=== PATIENT | female | born 1975 | race Caucasian/White ===

== ENCOUNTER 2023-08-29 14:31 | Inpatient (IN) ==
[2023-08-29] MEDS: methylPREDNISolone 125 MG/2 ML VIAL IV STA (14:49)
[2023-08-29] MEDS: EPINEPHrine ADULT AUTO-INJECT 0.3 MG SYR IM ONE (14:50)
[2023-08-29] MEDS: diphenhydrAMINE 50 MG/ML VIAL ONE (14:52)
[2023-08-29] MEDS: diphenhydrAMINE 50 MG/ML VIAL IV STA (14:52)
[2023-08-29] MEDS: methylPREDNISolone 125 MG/2 ML VIAL ONE (14:53)
[2023-08-29] MEDS: FAMOTIDINE 20MG IV PUSH 20 MG/5 ML SYR IV STA (14:53)
[2023-08-29] MEDS: FAMOTIDINE 20MG/5ML IV PUSH IV ONE (14:53)
[2023-08-29] MEDS: EPINEPHrine INJ 1 MG/ML AMP IM STA (14:53)
[2023-08-29] MEDS: SODIUM CHLORIDE 0.9% 2,000 ML IV SCH (15:00)
[2023-08-29] MEDS: ALBUT/IPRATROP 3MG/0.5MG NEB 3 ML VIAL NEB STA (15:00)
[2023-08-29 15:01] LABS: Basophils # (auto) 0.09 K/uL (0.00-0.20); Basophils % (auto) 0.8 %; Eosinophils # (auto) 0.16 K/uL (0.00-0.50); Eosinophils % (auto) 1.4 %; Hematocrit (blood only) 44.3 % (37.0-47.0); Immature Granulocytes # (auto) 0.08 K/uL (0.01-0.20); Immature Granulocytes % (auto) 0.7 %; Lymphocytes # (auto) 4.13 K/uL (1.20-3.40); Lymphocytes % (auto) 36.3 %; Mean Corpuscular Hemoglobin 30.7 pg (25.0-34.0); Mean Corpuscular Hgb Conc 33.9 g/dL (32.0-36.0); Mean Corpuscular Volume 90.6 fL (80.0-100.0); Mean Platelet Volume 9.6 fL (9.4-12.4); Monocytes # (auto) 0.98 K/uL (0.11-0.59); Monocytes % (auto) 8.6 %; Neutrophils # (auto) 5.94 K/uL (1.40-6.50); Neutrophils % (auto) 52.2 %; Platelet Count 361 K/uL (130-400); RDW Coefficient of Variation 12.4 % (11.5-14.5); RDW Standard Deviation 41.4 fL (36.4-46.3); Red Blood Count 4.89 M/uL (4.20-5.40); White Blood Count 11.38 K/ul (4.8-10.8)
[2023-08-29 15:20] LABS: Albumin Globulin Ratio 1.7 (0.9-2); Albumin Level 4.8 gm/dl (3.4-5.0); BUN Creatinine Ratio 14.6 (10-20); Bilirubin,Total 0.4 mg/dl (0.2-1.0); Calcium 9.4 mg/dl (8.6-10.3); Creatinine Clr Calc Pharmacy 57.1 ml/min; Est GFR (African American) 82.2 ml/min; Est GFR (Non-African American) 70.9 ml/min; Globulin 2.8 gm/dl (2.5-4.0); Potassium 3.2 mmol/L (3.5-5.1); Total Protein 7.6 gm/dl (6.0-8.3)
--- NOTE | 2023-08-29 15:33 | Emergency Department Note ---
Impression & Plan Anaphylaxis, Allergy to nuts, Acute bronchospasm ED Provider Note NAME: MENG BARBOSA AGE: 48 SEX: F : 1975 ARRIVES VIA: Walk-In INFORMANT: Patient ED PROVIDER(S): Jian Dailey MD CHIEF COMPLAINT: Anaphylaxis PLAN: Disposition: Admit MEDICAL DECISION MAKING: The patient is a pleasant 48-year-old woman with a past medical history of hypertension, asthma, anaphylaxis with history of severe peanut allergy who presents to the emergency department with acute onset of shortness of breath with wheezing and facial redness/flushing and increased secretions where she had administered her epi pen in her right thigh but has not had significant improvement. Patient reports she tries to make sure her EpiPen's are up-to-date. Review of this EpiPen shows that it was and June of this year though should still be effective. She is unsure of any obvious triggers. She has a history of having anaphylaxis related to a coworker eating a nut containing item in the same break room. On my evaluation the patient is uncomfortable in moderate distress, afebrile with respiratory in the 30s, heart rate in the 100s and blood pressure 140/80s. She has wheezes bilateral lung sidhu. Her face, neck and shoulders are flushed. There is no overt oropharyngeal edema. There is no tongue elevation or trismus. There is no stridor. Given the patient's presentation concerning for anaphylaxis patient was given second dose of IM epinephrine with 0.3 mg as well as 125 mg Solu-Medrol, 50 mg of diphenhydramine, 20 mg of famotidine and 2 L normal saline. Patient subsequently did have improvement in her symptoms though still some mild redness of her face and neck. EKG without overt acute ischemia. WBC 11.3 K, nonspecific without left shift. H/H and platelets within normal limits. Chemistry without metabolic acidosis. Electrolytes and LFTs unremarkable. Tryptase was obtained to help inform outpatient follow-up. Given anaphylaxis with repeat doses of epinephrine she does agree with plan for admission for further management. Case was discussed with Ele Salcido, with [facility] hospitalist who will evaluate the patient for admission. Triage Nursing notes reviewed and agree them. Prior/external medical records reviewed Vital Signs: reviewed Differential diagnosis: Allergic reaction, anaphylaxis, urticaria, Cooper-Andres syndrome, toxic epidermal necrolysis, erythema multiforme, contact dermatitis, cellulitis, as well as other pathologies. ER treatment provided: See below. Diagnostics interpreted by me: ECG: Sinus tachycardia, 104 bpm, no ectopy, no overt ST elevation or depression, QTc 489, QRS 92. Cardiac Monitoring: An order for continuous cardiac monitoring was placed and demonstrated Sinus tachycardia, 104 bpm, no ectopy Laboratory studies: See below Imaging studies: See below Consultation(s): Ele Salcido, with [facility] hospitalist HPI: The patient is a pleasant 48-year-old woman with a past medical history of hypertension, asthma, anaphylaxis with history of severe peanut allergy who presents to the emergency department with acute onset of shortness of breath with wheezing and facial redness/flushing and increased secretions where she had administered her epi pen in her right thigh but has not had significant improvement. Patient reports she tries to make sure her EpiPen's are up-to-date. Review of this EpiPen shows that it was and June of this year though should still be effective. She is unsure of any obvious triggers. She has a history of having anaphylaxis related to a coworker eating a nut containing item in the same break room. ROS: See above HPI for pertinent positives & negatives. A total of 10 systems reviewed and were otherwise negative. VITALS:See Below PHYSICAL EXAMINATION: GENERAL: Awake, alert, uncomfortable-appearing, in no distress HENT: Normocephalic, atraumatic. Oropharynx with dry mucous membranes and otherwise no oropharyngeal edema, tongue elevation or trismus. EYES: Normal conjunctiva. Sclera non-icteric. NECK: Supple. No nuchal rigidity. FROM. No JVD. No stridor. RESPIRATORY: Wheezes bilateral lung sidhu. CARDIAC: Tachycardic rate, normal rhythm. Extremities warm and well perfused. Pulses equal. ABDOMEN: Soft, non-distended. No tenderness to palpation. No rebound or guarding. No masses. MUSCULOSKELETAL: Chest examination reveals no tenderness. The back is symmetrical on inspection without obvious abnormality. There is no CVA tenderness to palpation. No joint edema. LOWER EXTREMITIES: Calves are equal size bilaterally and non-tender. No edema. No discoloration. NEURO: Normal sensorium. No sensory or motor deficits noted. SKIN: No jaundice noted. Face, neck and shoulders are flushed and blanchable. ED COURSE: Critical Care: I have personally spent greater than 45 minutes of critical care time in the direct management of this patient. This includes bedside care, interpretation of diagnostic studies, and testing, discussion with consultants, patient, and family members, and other required patient management activities. This 45 minutes is in excess of all separately billable procedures. 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 Required: No Beliefs That Will Affect Care: None Current Living Situation: Significant Other Other Information That Helps Us Care for You: No Feels Safe at Home: Yes Safety Concerns: Feels Safe At This Time Assistive Devices: Glasses Allergies Allergies Allergy/AdvReac Type Severity Reaction Status Date / Time peanut Allergy Severe Anaphylaxis Verified 08/29/23 16:30 soy Allergy Severe Anaphylaxis Verified 08/29/23 16:30 tree nut Allergy Severe Anaphylaxis Verified 08/29/23 16:30 latex Allergy Intermediate Hives Verified 08/29/23 16:30 morphine AdvReac Intermediate HALLUCINATI Verified 08/29/23 16:30 ONS Home Meds Home Medications Medication Instructions Recorded Confirmed albuterol sulfate 90 mcg/actuation 2 puff inhalation Q4H PRN Wheezing 08/29/23 08/29/23 aerosol inhaler buspirone 15 mg tablet 15 mg PO BID 08/29/23 08/29/23 diphenhydramine HCl 25 mg capsule 50 mg PO DIRECTED PRN Allergic 08/29/23 08/29/23 (Benadryl) Reaction epinephrine 0.3 mg/0.3 mL 0.3 mg IM DIRECTED PRN Allergic 08/29/23 08/29/23 injection, auto-injector (EpiPen) Reaction escitalopram oxalate 10 mg tablet 10 mg PO QAM 08/29/23 08/29/23 fluticasone 250 mcg-salmeterol 50 1 inh inhalation BID 08/29/23 08/29/23 mcg/dose blistr powdr for inhalation ipratropium 0.5 mg-albuterol 3 mg 3 ml inhalation Q6H PRN Shortness 08/29/23 08/29/23 (2.5 mg base)/3 mL nebulization Of Breath Or Wheezing soln lorazepam 1 mg tablet 1 mg PO DAILY PRN ANXIETY/SLEEP 08/29/23 08/29/23 prazosin 1 mg capsule 2 mg PO HS 08/29/23 08/29/23 Results & Data (ED) Vital Signs Vital Signs - 24 hr 08/29/23 14:36 08/29/23 14:48 08/29/23 14:59 Temperature Temperature Source Pulse Rate 126 H 92 H Pulse Rate [Left Finger] Pulse Rate from SpO2 Sensor Pulse Rhythm Pulse Rhythm [Left Finger] Pulse Strength [Left Finger] Respiratory Rate 25 H Respiratory Effort / Characteristics Non-Labored Short of Breath Respiratory Depth Normal Respiratory Pattern Blood Pressure 181/137 H Blood Pressure [Right Arm] Blood Pressure Mean 151 Blood Pressure Mean [Right Arm] Blood Pressure Position [Right Arm] Pulse Oximetry 100 Oxygen Delivery Method Room Air Sepsis Recent Fever Within 48 Hours No Sepsis New/Unexplained Change in Mental Status N/A Sepsis Action Taken by Nursing No Action Required 08/29/23 15:05 08/29/23 15:05 08/29/23 15:05 Temperature 36.8 C Temperature Source Oral Pulse Rate 103 H Pulse Rate [Left Finger] 103 H Pulse Rate from SpO2 Sensor Pulse Rhythm Regular Pulse Rhythm [Left Finger] Regular Pulse Strength [Left Finger] Normal Respiratory Rate 32 H 32 H Respiratory Effort / Characteristics Spontaneous Tripoding Respiratory Depth Shallow Respiratory Pattern Tachypnea Blood Pressure Blood Pressure [Right Arm] 144/81 H Blood Pressure Mean Blood Pressure Mean [Right Arm] 102 Blood Pressure Position [Right Arm] Semi-fowlers Pulse Oximetry 100 100 99 Oxygen Delivery Method Room Air Room Air Room Air Sepsis Recent Fever Within 48 Hours Sepsis New/Unexplained Change in Mental Status Sepsis Action Taken by Nursing 08/29/23 15:30 Temperature Temperature Source Pulse Rate 100 H Pulse Rate [Left Finger] Pulse Rate from SpO2 Sensor 100 H Pulse Rhythm Pulse Rhythm [Left Finger] Pulse Strength [Left Finger] Respiratory Rate 12 Respiratory Effort / Characteristics Respiratory Depth Respiratory Pattern Blood Pressure 122/81 Blood Pressure [Right Arm] Blood Pressure Mean 94 Blood Pressure Mean [Right Arm] Blood Pressure Position [Right Arm] Pulse Oximetry 99 Oxygen Delivery Method Sepsis Recent Fever Within 48 Hours Sepsis New/Unexplained Change in Mental Status Sepsis Action Taken by Nursing Laboratory Data Attestation: I reviewed the patient's lab results. 08/29/23 19:01 08/29/23 14:45 Lab Results 08/29/23 Range/Units 14:45 WBC 11.38 H (4.8-10.8) K/ul RBC 4.89 (4.20-5.40) M/uL Hgb 15.0 (12.0-16.0) g/dl Hct 44.3 (37.0-47.0) % MCV 90.6 (80.0-100.0) fL MCH 30.7 (25.0-34.0) pg MCHC 33.9 (32.0-36.0) g/dL RDW Std Deviation 41.4 (36.4-46.3) fL RDW Coeff of Primo 12.4 (11.5-14.5) % Plt Count 361 (130-400) K/uL MPV 9.6 (9.4-12.4) fL Immature Gran % (Auto) 0.7 % Neut % (Auto) 52.2 % Lymph % (Auto) 36.3 % Carroll % (Auto) 8.6 % Eos % (Auto) 1.4 % Baso % (Auto) 0.8 % Neut # (Auto) 5.94 (1.40-6.50) K/uL Lymph # (Auto) 4.13 H (1.20-3.40) K/uL Carroll # (Auto) 0.98 H (0.11-0.59) K/uL Eos # (Auto) 0.16 (0.00-0.50) K/uL Baso # (Auto) 0.09 (0.00-0.20) K/uL Immature Gran # (Auto) 0.08 (0.01-0.20) K/uL Sodium 134 L (136-145) mmol/L Potassium 3.2 L (3.5-5.1) mmol/L Chloride 102 (98-107) mmol/L Carbon Dioxide 23 (21-32) mmol/L Anion Gap 9 (3-11) BUN 14 (6-23) mg/dl Creatinine 0.96 (0.6-1.2) mg/dl Est Cr Clr Drug Dosing 57.1 ml/min Est GFR ( Amer) 82.2 ml/min Est GFR (Non-Af Amer) 70.9 ml/min BUN/Creatinine Ratio 14.6 (10-20) Glucose 108 H (70-99(Fasting)) mg/dl Calcium 9.4 (8.6-10.3) mg/dl Total Bilirubin 0.4 (0.2-1.0) mg/dl AST 22 (13-39) U/L ALT 30 (7-52) U/L Alkaline Phosphatase 67 (34-104) U/L Total Protein 7.6 (6.0-8.3) gm/dl Albumin 4.8 (3.4-5.0) gm/dl Globulin 2.8 (2.5-4.0) gm/dl Albumin/Globulin Ratio 1.7 (0.9-2) Administered Medications Buspirone HCl (Buspirone 15 Mg Tab) 15 mg PO BID [facility] Stop: 09/28/23 20:59 Last Admin: 08/29/23 21:10 Dose: 15 mg Documented By: RENNY Diphenhydramine HCl (Diphenhydramine Capsule 25 Mg Cap) 50 mg PO Q6H [facility] Stop: 09/28/23 17:59 Last Admin: 08/29/23 23:06 Dose: 50 mg Documented By: Admin: 08/29/23 18:34 Dose: 50 mg Documented By: JOSE Sodium Chloride (Nss) 1,000 mls @ 80 mls/hr IV .[id number] [facility] Stop: 08/30/23 18:29 Last Admin: 08/29/23 17:40 Dose: 80 mls/hr Documented By: JOSE Famotidine (Pepcid 20mg Iv Push) 20 mg in 5 mls @ 2.5 mls/min IV Q12H [facility] Stop: 09/29/23 00:00 Last Admin: 08/29/23 23:06 Dose: 2.5 mls/min Documented By: RENNY Methylprednisolone 40 mg/ (Syringe) 0.64 mls @ 1.5 mls/min IV BID [facility] Stop: 09/29/23 00:00 Last Admin: 08/29/23 23:06 Dose: 1.5 mls/min Documented By: RENNY Prazosin HCl (Prazosin Hcl 1 Mg Cap) 2 mg PO HS [facility] Stop: 09/28/23 20:59 Last Admin: 08/29/23 21:10 Dose: 2 mg Documented By: RENNY Discontinued Medications Albuterol (Albut/Ipratrop 3mg/0.5mg Neb 3 Ml Vial) 3 ml NEB NOW STA; Protocol Stop: 08/29/23 14:46 Last Admin: 08/29/23 15:00 Dose: 3 ml Documented By: ROBERT Diphenhydramine HCl (Diphenhydramine 50 Mg/Ml Vial) Confirm Administered Dose 50 mg .ROUTE .STK-MED ONE Stop: 08/29/23 14:44 Last Admin: 08/29/23 14:52 Dose: Not Given Documented By: ROBERT Diphenhydramine HCl (Diphenhydramine 50 Mg/Ml Vial) 50 mg IV NOW STA Stop: 08/29/23 14:45 Last Admin: 08/29/23 14:52 Dose: 50 mg Documented By: ROBERT Epinephrine HCl (Epinephrine Adult Auto-Inject 0.3 Mg Syr) Confirm Administered Dose 0.3 mg IM .STK-MED ONE Stop: 08/29/23 14:44 Last Admin: 08/29/23 14:50 Dose: 0.3 mg Documented By: ROBERT Epinephrine HCl (Epinephrine Inj 1 Mg/Ml Amp) 0.3 mg IM NOW STA Stop: 08/29/23 14:44 Last Admin: 08/29/23 14:53 Dose: Not Given Documented By: ROBERT Famotidine (Famotidine 20mg/5ml Iv Push) Confirm Administered Dose 20 mg IV .STK-MED ONE Stop: 08/29/23 14:45 Last Admin: 08/29/23 14:53 Dose: Not Given Documented By: ROBERT Sodium Chloride (Nss) 2,000 mls @ 999 mls/hr IV .Q2H1M [facility] Stop: 08/29/23 16:45 Last Infusion: 08/29/23 17:07 Dose: Infused Documented By: Admin: 08/29/23 15:00 Dose: 999 mls/hr Documented By: ROBERT Famotidine (Pepcid 20mg Iv Push) 20 mg in 5 mls @ 2.5 mls/min IV NOW STA Stop: 08/29/23 14:45 Last Admin: 08/29/23 14:53 Dose: 2.5 mls/min Documented By: ROBERT Methylprednisolone (Methylprednisolone 125 Mg/2 Ml Vial) Confirm Administered Dose 125 mg .ROUTE .STK-MED ONE Stop: 08/29/23 14:44 Last Admin: 08/29/23 14:53 Dose: Not Given Documented By: ROBERT Methylprednisolone (Methylprednisolone 125 Mg/2 Ml Vial) 125 mg IV NOW STA Stop: 08/29/23 14:45 Last Admin: 08/29/23 14:49 Dose: 125 mg Documented By: ROBERT Potassium Chloride (Potassium Chloride Crtab 20 Meq Tabcr) 40 meq PO NOW STA Stop: 08/29/23 18:12 Last Admin: 08/29/23 18:34 Dose: 40 meq Documented By: JOSE Discharge Plan Visit Data Chief Complaint: Allergic Reaction Stated Complaint: PEANUT REACTION ED Provider: Jian Dailey Discharge Problem: Anaphylaxis, Allergy to nuts, Acute bronchospasm Patient Disposition: Admitted As Inpatient Discharge Instructions Interventions: ED Discharge Assessment Last Done: 08/29/23 19:35 Discharge Problem: Anaphylaxis Qualifiers: Encounter type: initial encounter Qualified Code(s): T78.2XXA - Anaphylactic shock, unspecified, initial encounter
[2023-08-29] MEDS ORDERED: POLYETHYLENE (MIRALAX) 17 GM PACK PO PRN (16:37)
[2023-08-29] MEDS ORDERED: ALUMINUM/MAGNESIUM SUSP 30 ML UDC PO PRN (16:37)
[2023-08-29] MEDS ORDERED: MAGNESIUM HYDROXIDE SUSP 30 ML UDC PO PRN (16:37)
[2023-08-29] MEDS ORDERED: ONDANSETRON INJ 2 MG/ML 2 ML VIAL IV PRN (16:37)
--- NOTE | 2023-08-29 16:50 | History & Physical Report ---
Date of Service August 29, 2023 Assessment & Plan (1) Anaphylaxis: (2) Asthma: (3) Chronic rhinitis: (4) Depression: (5) HTN (hypertension): (6) Hypokalemia: Plan 48-year-old female presented to the ED with symptoms of anaphylaxis. She describes a severe rapid onset airborne exposure to peanut allergen while at [employer]. [place], wearing her [place] and passed by some renae and described feeling like a 'brick hit her in the face'. She started to have SOB, wheezing, drooling, and rapid heart rate. 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 She was diagnosed with a severe peanut, tree nut and soy allergy approximately 11 years ago. Her first exposure led to a one week ICU stay requiring mechanical ventilation. Follows with allergy and immunology Xochitl Haddad PA-C as an outpatient. Self- administered EpiPen and PO Benadryl and received an additional epi 0.3 upon arrival to ED. Initially presents with tachycardia 1 teens, shortness of breath, wheezing, secretions however no tongue edema or angioedema was noted. In addition to the epi that was given in the ED, 2L NS be administered along with albuterol nebulizer treatment and methylprednisone 125 IV. PMH: PTSD (around hospital food), anxiety, depression, asthma, chronic allergic rhinitis. Patient will be admitted for further evaluation and management of anaphylaxis and monitoring. Will continue IV steroids, IV Pepcid as h2 rahul, IV Benadryl, PRN Epipen, IV Fluids, PRIVATE room and NPO (able to eat regular food but needs to be brought in by wendy who has 'safe foods') and IV fluids with Benadryl as needed. Tryptase level drawn in ED. Will replace potassium and recheck in AM. Anaphylaxis: Acute Known peanut, tree nut and soy allergy diagnosed 10 years ago. Airborne exposure triggers. eye swelling, hives, pruritis, SOB, wheezing and secretions No angioedema on exam; SpO2 100% Received EpiPen and Benadryl 50 mg p.o. prehospital Received additional epi 0.3 in ED; continue epi pen UD PRN Methylprednisone 125 mg IV given in ED; continue 40 mg IV BID Pepcid IV given in ED; continue BID Benadryl 50 mg IV Q6 ordered 2 L NS be administered in ED; continue IV fluids 80 mL/h x 2 bags and reassess Made NPO to avoid any food tray deliveries. Pt can have regular diet; fiance will be bringing in their 'safe foods' Requested PRIVATE room due to increased sensitivity around foods/peanut exposure Depression: PTSD: Chronic mostly around hospital food due to severe allergy Takes Lexapro, BuSpar; continue Takes Minipress;continue Takes lorazepam PRN; continue Hypokalemia: Acute Serum K+ 3.2; replace with KCL 40 PO; trend in AM Asthma: Chronic Prescribed DuoNeb as outpatient; continue Prescribed Ventolin inhaler Chronic rhinitis: Chronic Takes fluticasone; continue Disposition: PCP: Dr. Samano CODE STATUS: Full code VTE prophylaxis: Lovenox SQ I spent a total of 83 minutes coordinating, documenting, and providing care for this patient excluding time spent in the performance of separately billed services. All of the aforementioned completed while collaborating with the assigned attending physician for a full treatment plan. Please see their addendum for further details. History of Present Illness Primary Care Provider: Reva Samano MD Ms. Azevedo is a 48-year-old female presented to the ED with symptoms of anaphylaxis. She describes a severe rapid onset airborne exposure to peanut allergen while at [employer]. She [place], wearing [place] and passed by some renae and described feeling like a 'brick hit her in the face'. She started to have SOB, wheezing, drooling, and rapid heart rate. She looked over and they were handing out trail mix samples in the next yamile over. Patient with known IgE mediated mast cell degranulation with release of histamine, tryptase. She was diagnosed with a severe peanut, tree nut and soy allergy approximately 11 years ago. Up until then she was able to ingest peanuts. Her first exposure led to a one week ICU stay requiring mechanical ventilation. She does follow with allergy and immunology Xochitl Haddad PA-C as an outpatient. Immunology serum IgE levels to common environmental aeroallergens were all obtained and negative including other nuts, grass, mites, mold, pet dander, tree exposure in April 2023.[facility] who recommended she take 'Xolir' but she has been declined by insurance three times. Patient self-administered EpiPen which 1 month ago and received an additional epi 0.3 upon arrival to ED. Self Administered Benadryl 50 mg prior to arrival. Initially presents with tachycardia 1 teens, shortness of breath, wheezing, secretions however no tongue edema or angioedema was noted. In addition to the epi that was given in the ED, 2L NS be administered along with albuterol nebulizer treatment and methylprednisone 125 IV. Additional past medical history includes HTN, PTSD (around hospital food), anxiety, depression, asthma, chronic allergic rhinitis. Additional peanut exposure happened April 2023 when a coworker had up eat a candy bar that was eating in close proximity to her and within minutes she developed congestion, rhinorrhea, eye swelling and itching which did not improve with p.o. Benadryl. She was seen at [facility]; given steroids, epinephrine and was released. Mild leukocytosis 11.38 which is likely reactive, slight hypokalemia 3.2, ECG i ndicates sinus tachycardia QTc 49 no signs of ischemia. Otherwise labs unremarkable Patient will be admitted for further evaluation and management of anaphylaxis and monitoring. Will continue IV steroids, IV Pepcid as h2 rahul, IV Benadryl, PRN Epipen, IV Fluids, PRIVATE room and NPO (able to eat regular food but needs to be brought in by wendy who has 'safe foods') and IV fluids with Benadryl as needed. Tryptase level drawn in ED. Will replace potassium and recheck in AM. Allergies Allergy/AdvReac Type Severity Reaction Status Date / Time peanut Allergy Severe Anaphylaxis Verified 08/29/23 16:30 soy Allergy Severe Anaphylaxis Verified 08/29/23 16:30 tree nut Allergy Severe Anaphylaxis Verified 08/29/23 16:30 latex Allergy Intermediate Hives Verified 08/29/23 16:30 morphine AdvReac Intermediate HALLUCINATI Verified 08/29/23 16:30 ONS Home Medications Medication Instructions Recorded Confirmed Type albuterol sulfate 90 mcg/actuation 2 puff inhalation Q4H PRN Wheezing 08/29/23 08/29/23 History aerosol inhaler buspirone 15 mg tablet 15 mg PO BID 08/29/23 08/29/23 History diphenhydramine HCl 25 mg capsule 50 mg PO DIRECTED PRN Allergic 08/29/23 08/29/23 History (Benadryl) Reaction epinephrine 0.3 mg/0.3 mL 0.3 mg IM DIRECTED PRN Allergic 08/29/23 08/29/23 History injection, auto-injector (EpiPen) Reaction escitalopram oxalate 10 mg tablet 10 mg PO QAM 08/29/23 08/29/23 History fluticasone 250 mcg-salmeterol 50 1 inh inhalation BID 08/29/23 08/29/23 History mcg/dose blistr powdr for inhalation ipratropium 0.5 mg-albuterol 3 mg 3 ml inhalation Q6H PRN Shortness 08/29/23 08/29/23 History (2.5 mg base)/3 mL nebulization Of Breath Or Wheezing soln lorazepam 1 mg tablet 1 mg PO DAILY PRN ANXIETY/SLEEP 08/29/23 08/29/23 History prazosin 1 mg capsule 2 mg PO HS 08/29/23 08/29/23 History Past Med/Surg History Medical History (Updated 08/29/23 @ 18:06 by CANDICE Larson) Hypokalemia HTN (hypertension) Depression Chronic rhinitis Asthma Anaphylaxis Surgical History (Updated 08/29/23 @ 18:00 by CANDICE Larson) No pertinent past surgical history Family History (Updated 08/29/23 @ 18:03 by CANDICE Larson) Other Depression Dyslipidemia Social History Smoking Status: Unknown if ever smoked Feels Safe at Home: Yes Review of Systems Review of Systems: Neuro: (-) Falls, trauma, slurred speech (+) horse voice HEENT: (-) BYERS, dizziness, dysphagia, visual or auditory changes CV: (-) CP, palpitations, swelling Resp: (-) SOB GI: (-) appetite changes, N/V/D, bowel changes : (-) urinary changes Skin: (+) redness and itching Psych: (-) anxiety, depression Physical Exam Physical Exam: Neuro: AAOx4, PERRLA, no aphagia, memory changes, CNII-XII grossly intact HEENT: head normocephalic, moist mucus membranes. (-) signs of angioedema CV: S1/S2, (-) M/G/R, (-) edema, cap refill < 3 seconds Resp: Lungs CTA in all sidhu. On RA GI: Abdomen S/NT/ND, Ax4 bowel sounds, (-) CVA tenderness Musculoskeletal: 5/5 B/L UE strength, 5/5 B/L LE strength. No gait disturbance Skin: (+) truncal urticaria Psych: euthymic mood Results & Data Results & Data Vital Signs (Past 12 Hours) Vital Signs Temp Pulse Pulse Resp BP BP Pulse Ox 08/29/23 15:05 103 H 32 H 99 08/29/23 15:05 36.8 C 103 H 32 H 144/81 H 100 08/29/23 15:05 100 08/29/23 14:59 92 H 08/29/23 14:36 126 H 25 H 181/137 H 100 O2 Del Method 08/29/23 15:05 Room Air 08/29/23 15:05 Room Air 08/29/23 15:05 Room Air 08/29/23 14:59 08/29/23 14:36 Room Air Laboratory Results Short CBC 08/29/23 Range/Units 14:45 WBC 11.38 H (4.8-10.8) K/ul Hgb 15.0 (12.0-16.0) g/dl Hct 44.3 (37.0-47.0) % Plt Count 361 (130-400) K/uL BMP 08/29/23 14:45 Sodium 134 L Potassium 3.2 L Chloride 102 Carbon Dioxide 23 BUN 14 Creatinine 0.96 Glucose 108 H Calcium 9.4 Liver Function 08/29/23 Range/Units 14:45 Total Bilirubin 0.4 (0.2-1.0) mg/dl AST 22 (13-39) U/L ALT 30 (7-52) U/L Alkaline Phosphatase 67 (34-104) U/L Albumin 4.8 (3.4-5.0) gm/dl Code Status & VTE Plan Code Status Full Code in the event of cardiac or respiratory arrest VTE Prophylaxis Plan VTE Prophylaxis will be ordered: Yes Supervising Physician Co-Signing Physician Notes Patient was seen and examined independently at bedside. Chart reviewed. Case discussed with Jany HARVEY and agree with the documentation above. In summary, this is a 48 year old female with h/o anaphylactic reaction to peanuts who presented to the ED with symptoms of anaphylaxis while at a grocery store. S/p epi pen x2, iv steroids, ivf and antihistaminics. Symptoms much better but not resolved yet. Does give h/o secondary reaction 12 hrs later before (1 episode). Will observe in PCU for closer monitoring and continue iv steroids, H1 and H2 blockers round the clock. She does follow with an janitor custodian locally. Rest as per the note above. On exam- General: Sitting comfortably in bed, not in distress, on room air HEENT: EOMI, XOCHITL, MMM Chest: Clear breath sounds bilaterally, no wheezes or crackles CVS: Regular rate and rhythm, normal heart sounds, no murmur Abdomen: Soft, non tender, not distended, normal bowel sounds Neuro: Awake, alert, oriented, conversing well, non focal
[2023-08-29] MEDS ORDERED: diphenhydrAMINE Capsule 25 MG CAP PO PRN (17:20)
[2023-08-29] MEDS ORDERED: LORazepam 1 MG TAB PO PRN (17:24)
[2023-08-29] MEDS ORDERED: ALBUT/IPRATROP 3MG/0.5MG NEB 3 ML VIAL INH PRN (17:24)
[2023-08-29] MEDS ORDERED: EPINEPHrine INJ 1 MG/ML AMP IM PRN (17:39)
[2023-08-29] MEDS: SODIUM CHLORIDE 0.9% 1,000 ML IV SCH (17:40)
[2023-08-29] MEDS ORDERED: EPINEPHrine ADULT AUTO-INJECT 0.3 MG SYR IM PRN (17:45)
[2023-08-29] MEDS: POTASSIUM CHLORIDE CRTAB 20 MEQ TABCR PO STA (18:34)
[2023-08-29] MEDS: diphenhydrAMINE Capsule 25 MG CAP PO SCH (18:34)
[2023-08-29 19:32] LABS: Hematocrit (blood only) 40.1 % (37.0-47.0); Hemoglobin 13.5 g/dl (12.0-16.0); Mean Corpuscular Hemoglobin 30.5 pg (25.0-34.0); Mean Corpuscular Hgb Conc 33.7 g/dL (32.0-36.0); Mean Corpuscular Volume 90.7 fL (80.0-100.0); Mean Platelet Volume 9.7 fL (9.4-12.4); Platelet Count 301 K/uL (130-400); RDW Coefficient of Variation 12.4 % (11.5-14.5); RDW Standard Deviation 40.9 fL (36.4-46.3); Red Blood Count 4.42 M/uL (4.20-5.40); White Blood Count 9.77 K/ul (4.8-10.8)
[2023-08-29] MEDS: PRAZOSIN HCL 1 MG CAP PO SCH (21:10)
[2023-08-29] MEDS: busPIRone 15 MG TAB PO SCH (21:10)
[2023-08-29] MEDS: methylPREDNISolone 40 MG in SYRINGE 0 ML IV SCH (23:06)
[2023-08-29] MEDS: FAMOTIDINE 20MG IV PUSH 20 MG/5 ML SYR IV SCH (23:06)
[2023-08-30] MEDS ORDERED: methylPREDNISolone 125 MG/2 ML VIAL IV SCH
[2023-08-30] MEDS: ACETAMINOPHEN 325 MG TAB PO PRN (04:05)
[2023-08-30 06:38] LABS: BUN Creatinine Ratio 16.7 (10-20); Calcium 8.6 mg/dl (8.6-10.3); Creatinine Clr Calc Pharmacy 76.1 ml/min; Est GFR (African American) 116.4 ml/min; Est GFR (Non-African American) 100.4 ml/min; Magnesium 1.9 mg/dl (1.7-2.4)
[2023-08-30] MEDS: FLUTICASONE/VILANTEROL 200/25MCG 14 PUFFS/INHALER INH SCH (08:17)
[2023-08-30] MEDS: ESCITALOPRAM OXALATE 10 MG TAB PO SCH (08:17)
[2023-08-30] MEDS ORDERED: ENOXAPARIN INJ 40 MG/0.4 ML SYR SQ SCH (09:00)
--- NOTE | 2023-08-30 12:33 | Discharge Summary ---
Date of Service August 30, 2023 Admission HPI Per Admitting Provider Ms. Azevedo is a 48-year-old female presented to the ED with symptoms of anaphylaxis. She describes a severe rapid onset airborne exposure to peanut allergen while at [employer]. [place], wearing [place] and passed by some renae and described feeling like a 'brick hit her in the face'. She started to have SOB, wheezing, drooling, and rapid heart rate. She looked over and they were handing out trail mix samples in the next yam[place] over. Patient with known IgE mediated mast cell degranulation with release of histamine, tryptase. She was diagnosed with a severe peanut, tree nut and soy allergy approximately 11 years ago. Up until then she was able to ingest peanuts. Her first exposure led to a one week ICU stay requiring mechanical ventilation. She does follow with allergy and immunology Xochitl Haddad PA-C as an outpatient. Immunology serum IgE levels to common environmental aeroallergens were all obtained and negative including other nuts, grass, mites, mold, pet dander, tree exposure in April 2023.She has been evaluated at the [facility] who recommended she take 'Xolir' but she has been declined by insurance three times. Patient self-administered EpiPen which 1 month ago and received an additional epi 0.3 upon arrival to ED. Self Administered Benadryl 50 mg prior to arrival. Initially presents with tachycardia 1 teens, shortness of breath, wheezing, s ecretions however no tongue edema or angioedema was noted. In addition to the epi that was given in the ED, 2L NS be administered along with albuterol nebulizer treatment and methylprednisone 125 IV. Additional past medical history includes HTN, PTSD (around hospital food), anxiety, depression, asthma, chronic allergic rhinitis. Additional peanut exposure happened April 2023 when a coworker had up eat a candy bar that was eating in close proximity to her and within minutes she developed congestion, rhinorrhea, eye swelling and itching which did not improve with p.o. Benadryl. She was seen at [place] ED; given steroids, epinephrine and was released. Mild leukocytosis 11.38 which is likely reactive, slight hypokalemia 3.2, ECG indicates sinus tachycardia QTc 49 no signs of ischemia. Otherwise labs unremarkable Patient will be admitted for further evaluation and management of anaphylaxis and monitoring. Will continue IV steroids, IV Pepcid as h2 rahul, IV Benadryl, PRN Epipen, IV Fluids, PRIVATE room and NPO (able to eat regular food but needs to be brought in by irvinjasennoe who has 'safe foods') and IV fluids with Benadryl as needed. Tryptase level drawn in ED. Will replace potassium and recheck in AM. Admission Exam Per Admitting Provider General: Sitting comfortably in bed, not in distress, on room air HEENT: EOMI, XOCHITL, MMM Chest: Clear breath sounds bilaterally, no wheezes or crackles CVS: Regular rate and rhythm, normal heart sounds, no murmur Abdomen: Soft, non tender, not distended, normal bowel sounds Neuro: Awake, alert, oriented, conversing well, non focal Principal Diagnosis Anaphylactic reaction Discharge Exam GENERAL: Alert and oriented x3. NAD, on RA. HEENT: No pallor, no icterus. Pupils equal, round and reactive to light. Oral mucosa moist. No lip swelling noted. NECK: No JVD, no neck masses. HEART: S1 and S2 heard. Regular rate and rhythm. No murmur, no gallop. RESPIRATORY SYSTEM: Normal AP diameter. No accessory muscle use. No wheezing, no crackles. ABDOMEN: Soft, bowel sounds present, nontender, no distention. Truncal urticaria (improving per pt, no itching now). CENTRAL NERVOUS SYSTEM: No facial droop. Speech is clear. Obeys simple commands. Moves extremities. EXTREMITIES: No edema, no erythema seen. Discharge Data Allergies Allergy/AdvReac Type Severity Reaction Status Date / Time peanut Allergy Severe Anaphylaxis Verified 08/29/23 16:30 soy Allergy Severe Anaphylaxis Verified 08/29/23 16:30 tree nut Allergy Severe Anaphylaxis Verified 08/29/23 16:30 latex Allergy Intermediate Hives Verified 08/29/23 16:30 morphine AdvReac Intermediate HALLUCINATI Verified 08/29/23 16:30 ONS Consultations 08/29/23 16:36 ED Decision to Admit Stat Hospital Course (1) Anaphylaxis: (2) Asthma: (3) Chronic rhinitis: (4) Depression: (5) HTN (hypertension): (6) Hypokalemia: Plan Per prior attending with addendum: 48-year-old female presented to the ED with symptoms of anaphylaxis. She describes a severe rapid onset airborne exposure to peanut allergen while at [employer]. [place], [place] and passed by some renae and described feeling like a 'brick hit her in the face'. She started to have SOB, wheezing, drooling, and rapid heart rate. 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 She was diagnosed with a severe peanut, tree nut and soy allergy approximately 11 years ago. Her first exposure led to a one week ICU stay requiring mechanical ventilation. Follows with allergy and immunology Xochitl Haddad PA-C as an outpatient. Self- administered EpiPen and PO Benadryl and received an additional epi 0.3 upon arrival to ED. Initially presents with tachycardia 1 teens, shortness of breath, wheezing, secretions however no tongue edema or angioedema was noted. In addition to the epi that was given in the ED, 2L NS be administered along with albuterol nebulizer treatment and methylprednisone 125 IV. PMH: PTSD (around hospital food), anxiety, depression, asthma, chronic allergic rhinitis. Patient will be admitted for further evaluation and management of anaphylaxis and monitoring. Will continue IV steroids, IV Pepcid as h2 rahul, IV Benadryl, PRN Epipen, IV Fluids, PRIVATE room and NPO (able to eat regular food but needs to be brought in by wendy who has 'safe foods') and IV fluids with Benadryl as needed. Tryptase level drawn in ED. Will replace potassium and recheck in AM. Anaphylaxis: Acute Known peanut, tree nut and soy allergy diagnosed 10 years ago. Airborne exposure triggers. eye swelling, hives, pruritis, SOB, wheezing and s ecretions No angioedema on exam; SpO2 100% Received EpiPen and Benadryl 50 mg p.o. prehospital Received additional epi 0.3 in ED; continue epi pen UD PRN Methylprednisone 125 mg IV given in ED; continue 40 mg IV BID Pepcid IV given in ED; continue BID Benadryl 50 mg IV Q6 ordered 2 L NS be administered in ED; continue IV fluids 80 mL/h x 2 bags and reassess Made NPO to avoid any food tray deliveries. Pt can have regular diet; belen will be bringing in their 'safe foods' Requested PRIVATE room due to increased sensitivity around foods/peanut exposure Depression: PTSD: Chronic mostly around hospital food due to severe allergy Takes Lexapro, BuSpar; continue Takes Minipress;continue Takes lorazepam PRN; continue Hypokalemia: Acute Serum K+ 3.2; replace with KCL 40 PO; trend in AM Asthma: Chronic Prescribed DuoNeb as outpatient; continue Prescribed Ventolin inhaler Chronic rhinitis: Chronic Takes fluticasone; continue Disposition: PCP: Dr. Samano CODE STATUS: Full code VTE prophylaxis: Lovenox SQ Addendum 08/30/2023: Patient was seen and examined at bedside as a follow-up of anaphylactic reaction. No angioedema noted. Patient reports feeling better and back to baseline, reports improving truncal urticaria, no itching now. Patient has been eating her restricted diet that her significant other is bringing in. Patient states that she is already in contact with her chain splitter office to set up appointment in a week time upon discharge. Patient to continue with 5 to 6 days of steroids/Benadryl/famotidine upon discharge. Patient made aware to come back to the emergency immediately if with worsening signs and symptoms of anaphylaxis. She feels a stable and would like to go home. She is hemodynamically stable. She is being discharged with following instructions at the point of discharge: Follow-up with your primary care physician within a week time and likely you will need labs CBC/CMP/magnesium/phosphorus. If any concern of recurring symptoms, report to the emergency immediately. Follow-up with urologist office in 1 to 2 weeks time upon discharge. You will be discharged on few days course of steroids/famotidine/Benadryl. You will need EpiPen (which you said you have) which you will need to carry with you all the time. In the setting of an allergic reaction, you should use the epinephrine autoinjectorimmediatelyif you: Are having trouble breathing Feel tightness in the throat Feel lightheaded or think you might pass out After using First dose of epi pen, call 911 or emergency immediately. Be aware that a second dose may be needed if symptoms do not appear to be stabilizing or improving, and this may be given 5 to 15 minutes after the first dose. Take your other medications as prior. Please make sure that you are able to get your medications today by calling your pharmacy before you leave the hospital so that your treatment continuity is not broken. Home Health Attestation I certify that this patient is under my care and that I, or a physicians agency sales management assistant working with me, had a face to-face encounter that meets the home health [id number] encounter requirements with this patient. The encounter with the patient was in whole, or in part, for the following medical condition, which is the primary reason for home health care (list medical condition): I certify that, based on my findings, the following services are medically necessary home health services: My clinical findings support the need for the above services because: Further, I certify that my clinical findings support that this patient is homebound (i.e. absences from home require considerable and taxing effort and are for medical reasons or protestant services or infrequently or of short duration when for other reasons) because: Certification for Home Health Services: Based on the above findings, I certify that this patient is confined to the home and needs intermittent care home care, physical therapy and/or speech therapy or continues to need occupational therapy. The patient is under my care, and I have initiated the establishment of the plan of care. This patient will be followed by a physician who will periodically review the plan of care. Total Time Total Time Spent Total Time Spent (In Minutes): 45 Discharge Plan Discharge Items Patient Disposition: Home - Self-Care Reason For Visit: ANAPHYLAXIS Discharge Diagnosis: Anaphylactic reaction Activity: Resume your previous activity Non-emergency contact: Primary Care Provider Call non-emergency contact if: you have any medication questions, your symptoms worsen and your temperature is above 101.5 Follow-up/Referrals: Reva Samano MD [Primary Care Provider] - Diet: Other - See Diet Comment Diet Comment: as per your prior dietary restriction Addtl Attending Provider Instructions: Follow-up with your primary care physician within a week time and likely you will need labs CBC/CMP/magnesium/phosphorus. If any concern of recurring symptoms, report to the emergency immediately. Follow-up with urologist office in 1 to 2 weeks time upon discharge. You will be discharged on few days course of steroids/famotidine/Benadryl. You will need EpiPen (which you said you have) which you will need to carry with you all the time. In the setting of an allergic reaction, you should use the epinephrine autoinjectorimmediatelyif you: Are having trouble breathing Feel tightness in the throat Feel lightheaded or think you might pass out After using First dose of epi pen, call 911 or emergency immediately. Be aware that a second dose may be needed if symptoms do not appear to be stabilizing or improving, and this may be given 5 to 15 minutes after the first dose. Take your other medications as prior. Please make sure that you are able to get your medications today by calling your pharmacy before you leave the hospital so that your treatment continuity is not broken. Pending Studies at Discharge: No Stand-Alone Forms: My [facility] [employer] network, Smoking Cessation Medications and DC Order Prescriptions: New diphenhydramine HCl [Benadryl] 25 mg Capsule 25 mg PO Q6H 6 Days Qty: 24 0RF prednisone 50 mg tablet 50 mg PO DAILY 6 Days Qty: 6 0RF famotidine 20 mg tablet 20 mg PO BID 7 Days Qty: 14 0RF Continued fluticasone propion-salmeterol 250-50 mcg/dose blister with device 1 inh INHALATION BID ipratropium-albuterol 0.5 mg-3 mg(2.5 mg base)/3 mL solution for nebulization 3 ml INHALATION Q6H PRN (Reason: Shortness Of Breath Or Wheezing) prazosin 1 mg capsule 2 mg PO HS diphenhydramine HCl [Benadryl] 25 mg Capsule 50 mg PO DIRECTED PRN (Reason: Allergic Reaction) lorazepam 1 mg tablet 1 mg PO DAILY PRN (Reason: ANXIETY/SLEEP) epinephrine [EpiPen] 0.3 mg/0.3 mL Auto-Injector 0.3 mg IM DIRECTED PRN (Reason: Allergic Reaction) albuterol sulfate 90 mcg/actuation HFA aerosol inhaler 2 puff INHALATION Q4H PRN (Reason: Wheezing) buspirone 15 mg tablet 15 mg PO BID escitalopram oxalate 10 mg tablet 10 mg PO QAM Discharge Orders: Discharge Order (Routine); Ordered 08/30/23 Ordered By: Vernell Benites Admission Data Admit Date/Time: 08/29/23 16:37 Attending Provider: Vernell Benites Admit Provider: Enrique Alberto Primary Care Provider: Reva Samano Other Providers: Enrique Alberto
--- OUTSIDE RECORDS SUMMARY | 2023-09-01 05:11 | External Medical Summary | Summary of Care ---
Author Name Unknown Organization [facility] Address [address] [place] [address] Phone [phone] Care Team Providers Care Fermenter Wine Name Role Phone Reva Samano MD Primary Care Provider Encounter Details Date Type Department Care Team (Late st Contact Info) Description 2023 3:00 PM EDT Telemedicine [facility], [place] [address], [place] [id number] Elisa Calle, [facility] [address] [place] [address] PTSD (post-traumatic stress disorder)* Allergies Active Allergy Reactions Criticality Noted Date Comments Food (See Comments) High 12/21/2020 Peanuts including dust, tree nuts, soy Latex 12/21/2020 Hives Morphine Hives,Neuro complications (Please comment) 12/21/2020 [place] "high" documented as of this encounter (statuses as of 2023) Medications Medication Sig Dispensed Refills Start Date End Date Status Triamcinolone Acetonide 0.1 % External Cream (Aristocort)Indica tions:Keratosis pilaris Apply topically to affected area 2 times a day. To affected area. 80 g 2 06/28/2022 Active Escitalopram Oxalate 10 MG Oral Tablet (Lexapro)Indicatio ns:RACHID (generalized anxiety disorder) Take 1 Tablet by mouth daily at noon. 90 Tablet 3 11/13/2022 Active EpiPen 2-Galileo 0.3 MG/0.3ML Injection Solution Auto-injectorIndic ations:History of anaphylaxis,Peanut allergy For a severe reaction: Place orange end against the outer thigh, press firmly, hold in place for 10 seconds and go to the Emergency room. 6 Each 0 11/13/2022 Active busPIRone HCl 15 MG Oral Tablet (Buspar)Indication s:RACHID (generalized anxiety disorder) TAKE 1 TABLET IN THE MORNING AND 1 TABLET BEFORE BEDTIME 180 Tablet 3 02/04/2023 Active guaiFENesin-Codein e 100-10 MG/5ML Oral Syrup (Robitussin AC)Indications:Acu te cough Take 5 mL by mouth every 4 hours as needed for Cough. 120 mL 0 04/08/2023 Active Additional Information Patient not taking.Reported on 07/19/2023 Full Kit Nebulizer SetIndications:Mil d persistent asthma without complication Use every 6 hours or as prescription reads. J45.30 1 Each 0 04/19/2023 Active Fluticasone-Salmet alma 250-50 MCG/ACT Inhalation Aerosol Powder Breath Activated (Advair Diskus)Indications :Acute cough Inhale 1 Puff by mouth in the morning and 1 Puff before bedtime. 180 Each 1 04/30/2023 Active Ventolin HFA 108 (90 Base) MCG/ACT Inhalation Aerosol SolutionIndication s:Cough variant asthma Inhale 2 Puffs by mouth every 4 hours as needed for Wheezing. 6.7 g 0 06/03/2023 Active Ipratropium-Albute rol 0.5-2.5 (3) MG/3ML Inhalation Solution (Duoneb) Inhale 3 mL by mouth every 6 hours as needed for Dyspnea or Wheezing. J45.30 90 mL 0 06/26/2023 Active Prazosin HCl 1 MG Oral Capsule (Minipress)Indicat ions:PTSD (post-traumatic stress disorder) TAKE 2 CAPSULES AT BEDTIME 180 Capsule 3 07/18/2023 Active LORazepam 1 MG Oral Tablet (Ativan)Indication s:RACHID (generalized anxiety disorder),Sleep disorder Take 1 Tablet by mouth daily as needed for Anxiety or Sleep. 30 Tablet 0 07/22/2023 Active documented as of this encounter (statuses as of 2023) Active Problems Problem Noted Date Diagnosed Date Constipation 07/19/2023 History of Lyme disease 10/10/2022 Multiple joint pain 10/10/2022 Dysplasia of cervix, high grade SHERICE 2 07/17/2022 Overview: Advised pap x 2 consecutive years if neg then repeat 3 years after and then every 5 years to complete 20 years due to hx of SHERICE 2 s/p resection in 2020 Encounter for gynecological examination with abnormal finding 12/21/2021 Breast calcifications on mammogram 10/03/2021 Anorexia nervosa, restricting type 07/31/2021 RACHID (generalized anxiety disorder) 12/21/2020 History of anaphylaxis 12/21/2020 Peanut allergy 12/21/2020 Sleep disorder 12/21/2020 documented as of this encounter (statuses as of 2023) Resolved Problems Problem Noted Date Diagnosed Date Resolved Date Abnormal uterine bleeding 06/01/2022 Dysmenorrhea 12/21/2021 07/17/2022 Pelvic pain in female 12/21/20212022 Adenomyosis 12/21/2021 07/17/2022 Eating disorder 06/09/2021 08/23/2021 History of abnormal cervical Pap smear 12/21/2020 07/17/2022 documented as of this encounter (statuses as of 2023) Immunizations Name Administration Dates Next Due COVID-19 mRNA, LNP-s, No Pre serve, 2-Dose Series (Moderna) 06/26/2020,05/29/2020 COVID-19, LNP-s, No Preserve , Otis-sucrose, Ages 12+ (Pfizer) 04/28/2021 Covid-19, Mrna, Lnp-s, Pf, B ivalent, 30 Mcg, IM, 12 yrs and above (Pfizer) 03/02/2022 Hepatitis B, 20+ yrs 02/17/2020,11/06/2019 PPD 12/21/2020 Seasonal Influenza, PF, 6 M & above, IM , (FluLaval or Fluzone) 02/20/2022 TDAP (age 10 and older)(Boostrix) 11/06/2019 documented as of this encounter Social History Tobacco Use Types Packs/Day Years Used Date Smoking Tobacco: Never Smokeless Tobacco: Never Alcohol Use Standard Drinks/Week Comments Not Currently 0 (1 standard drink = 0.6 oz pur e alcohol) socially PHQ-2 Answer Date Recorded PHQ Adult Total Score 9 08/15/2023 Hunger Vital Sign Answer Date Recorded Within the past 12 months, y ou worried that your food would run out before you got the money to buy more. Never true 06/03/19 24 Within the past 12 months, t he food you bought just didn't last and you didn't have money to get more. Never true 06/03/2023 Sex and Gender Information Value Date Recorded Sex Assigned at Female 08/15/2021 10:58 AM EDT Gender Identity Female 08/15/2021 10:58 AM EDT Sexual Orientation Lesbian 08/15/2021 10 :58 AM EDT Job Start Date Occupation Industry Not on file Not on file Not on file documented as of this encounter Progress Notes * Elisa Calle, CHIEF HUMAN RESOURCES OFFICER - 2023 3:07 PM EDT Patient location: HOME. I was not in a hospital or clinic location. After connecting through [employer], patient was verified with two unique identifiers. Patient (or authorized legal sales representative facility services) was then informed that this was a Telemedicine visit and being conducted confidentially over secure lines. Methods to assure confidentiality were taken. Patient acknowledged consent and understanding of privacy and security of the Telemedicine visit. The patient agreed to participate. My office door was closed. No one else was in the room with me. I informed the patient that I have reviewed their record in [facility] and presented the opportunity for them to ask any questions regarding the visit today. The patient agreed to participate. Provider reviewed elements of Outpatient Services Description including limits of confidentiality, how to contact the department, risks and benefits of treatment and consent for treatment. Start Time: 3:19 PM Stop Time: 4:13 PM Total direct [id number] time: 54 min. Confirm patient's location (and address if different from the home address documented in [facility]) at the time of this appointment: CAR - parked at [facility], [place] ADULT THERAPY PROGRESS NOTE [facility], [address] [address] 2023 3:08 PM TYPE OF VISIT: Individual DIAGNOSIS: PTSD, AN REASON FOR FOLLOW-UP: Individual therapy Session #: 5 SESSION FOCUS: Interpersonal issue at work SESSION SUMMARY/NOTES: F/u from last session regarding the EMDR session. Patient shared that regarding PTSD and triggers, "there haven't been many issues". She did struggle with eating following the processing session. Food anxiety and environmental anxiety was higher with the memory being activated. However, she has implemented a lot of strategies and is leaning on her support system which has been incredibly helpful. Patient spoke about one of the biggest sources of stress that she is experiences has been managing an interpersonal issue at work. Explored the dynamics of the situation further during today's session including pros and cons of potential options with addressing it. Presented the intervention of exploring what she can control, cannot control, and what she can impact. Encouraged writing this out in a Venn diagram. Discussed using the container exercise for anything in the category that she cannotcontrol, specifically at night, when she needs to step away from work related stressors. Patient was receptive and grateful for these strategies. PROGRESS TOWARDS GOALS: Patient has been relying on her support system and effective strategies to assist with ED related concerns. Objective Measures: No questionnaires available. INTERVENTION: CBT PATIENT EDUCATION: Verbal & written MENTAL STATUS AND BEHAVIORAL OBSERVATIONS: Appearance: casually dressed Behavior: appropriate, cooperative, and pleasant Speech: normal pitch, normal rate, and normal volume Mood: anxious Affect: euthymic Thought Process: goal directed Thought Content: Delusions: No Hallucinations: No Obsessions: No Homicidal: No Suicidal: No Sensorium: alert and oriented to person, place, time and situation Cognition: grossly intact Insight: good Judgment: good Suicide/Homicidal Assessment Validated Screening and Assessment Measures Alger Suicide Severity Rating Scale Results 2023 16:28 [place] SUICIDE SEVERITY RATING SCALE (C-SSRS) Have you wished you were or wished you could go to sleep and not wake up? (In the Past Month or Since Last Visit) No Have you had any actual thoughts of killing yourself? (In the Past Month or Since Last Visit) No Have you been thinking about how you might do this? (In the Past Month or Since Last Visit) No Have you had thoughts and had some intention of acting on them? (In the Past Month or Since Last Visit) No Have you started to work out or worked out the details of how to kill yourself? Do you intend to carry out this plan? (In the Past Month or Since Last Visit) No Have you ever done anything, started to do anything, or prepared to do anything to end your life? (Lifetime) No Was this within the past 3 months? No Level of Risk No Risk Identified Protective Factors Social Support/Family;Help-Seeking Behaviors;Willing to participate in less restrictive means of help;Identifies reasons for living Risk Factors History of Trauma Crisis Plan: see Crisis Plan in Treatment Plan FOLLOW-UP PLAN: Return: 2 weeks Action Plan: 1. Continue engaging in grounding and breathing exercises - 5-4-3-2-1 technique 2. Use Flash Technique as needed - PEF (Serene space in living room) 3. Print picture out of a calm place to help with grounding 4. Use container exercise as a resource for containment 5. Use Venn Diagram to write out what you can control, cannot control, and what you can impact regarding work situation Outpatient Adult Therapy Treatment Plan Treatment plan was developed on 06/19/23, treatment will continue to focus on goals below; Treatment update will occur when clinically indicated or by 12/16/2023. Patient's goals captured in patient's words: "Not be so controlled by the responses to things. Not be completely blindsided and derailed. " Expected family or significant other involvement: Offer Support Type of Service:Individual Patients Strengths and Facilitating Factors to care: Recognizes need for change, Seeking help, and Good support system Treatment Barriers: none identified Crisis Planning: Suicide Safety Plan Patient/ Family Received Copy of Treatment Plan Duration of Treatment Frequency of Treatment Yes, sent via [employer] 12-15 sessions weekly to bi-weekly Patient Identified Needs/Goals Interventions Objective/ Discharge Criteria Problem/Need 1: PTSD Cognitive Processing Therapy (CPT) and EMDR PHQ<5, RACHID<5, CSSRS in low risk range, and PTSD Checklist for DSM5 (PCL-5) total score <33 and/or decrease of 10 points Please choose a method to track patient's improvement based on clinical assessment: PHQ-9 Adult Data RACHID-7 Data Alger Suicide Screen Data PCL-5 Discharge Discussed with patient: Patient continues to need treatment Collaboration of Care: Yes, provider within [facility], information is shared automatically in medical record Is this the patients' initial treatment plan? Yes Treatment plan reviewed with the patient. Patient voices understanding and concurs with plan. Elisa Calle LCSW Division of Psychiatry & Behavioral Medicine [facility] [phone] documented in this encounter Plan of Treatment Upcoming Encounters Date Type Department Care Team (Late st Contact Info) Description 08/29/2023 3:30 PM EDT Office Visit Allergy/Immun[facility] [address] [facility] [place] [address] Murray Erazo MD [address] [facility] [place] [address] 09/02/2023 6:00 PM EDT Office Visit Family [facility] [address] [facility] [place] [address] Reva Samano MD [address] [place] [address] 09/04/2023 3:00 PM EDT Telemedicine Psychology, [place] [address] [place] [address] Elisa Calle LCSW [address] [place] [address] 09/18/2023 3:00 PM EDT Telemedicine Psychology, [place] [address] [place] [address] Elisa Calle LCSW [address] [place] [address] 09/19/2023 4:30 PM EDT Telemedicine Psychology, [place] [address] [place] [address] Mak Padgett, PhD [address] [place] [address] 10/03/2023 3:00 PM EDT Telemedicine Psychology, [address] [address] Elisa Calle LCSW [address] [place] [address] 10/10/2023 1:00 PM EDT Telemedicine [facility] [address] [place] [address] Elisa Calle [facility] [address] [place] [address] 10/15/2023 1:45 PM EDT Imaging Radiology [facility] [address] [address] 10/17/2023 1:00 PM EDT Telemedicine [place] [address] [place] [address] Elisa Calle [facility] [address] [place] [address] 10/24/2023 1:00 PM EDT Telemedicine [facility], [address] [address] Elisa Calle [facility] [address] [place] [address] 11/08/2023 7:30 AM EDT Appointment OR [facility], Operating Room, [facility] 1st Floor [address] [place], [place] [phone] Oneil Marc MD [address] [place] [address] 01/08/2024 1:30 PM EDT Office Visit Pulmonary Medicine, [facility] [address] [place] [address] Kimberly Altamirano, CHELSIE [address] [place] [address] Scheduled Procedures Name Priority Associated Diagnoses Date/Ti me COLONOSCOPY FLEXIBLE PROXIMA L DIAGNOSTIC Recall Special screening for malignant neoplasms, colon Health Maintenance Due Date Last Done Comments Pneumococcal Vaccine: Pediatrics (0 to 5 Years) and At-Risk Patients (6 to 64 Years) (1 of 2 - PCV) 08/22/1983 Hepatitis B (3 of 3 - 19+ 3-dose series) 05/08/2020 02/17/2020, 11/06/2019 Cologuard 2022 Colonoscopy 2022 Colorectal Cancer Screening 2022 Fecal Occult Blood Test 2022 Sigmoidoscopy 2022 COVID-19 Vaccine ( season) 2022 03/02/2022, 04/28/2021, 06/26/2020, Additional history exists Mammogram 02/19/2023 02/19/2022, 05/30, 04/13/2021 Influenza Vaccine (FLU shot) (Season Ended) 2023 02/20/2022 Depression Screening 08/14/2024 08/15/2023 Diabetes Screening 05/26/2025 05/26/2022, 1 , 05/31/2021 Lipid Panel 05/31/2026 05/31/2021 DTaP,Tdap,and Td Vaccines (2 - Td or Tdap) 11/05/2029 11/06/2019 Pap Smear Discontinued 07/19/2023, 12/21/2021 GARDASIL-HPV IMMUNIZATION SERIES Aged Out No longer eligible based on patient's age to complete this topic MENINGOCOCCAL (MENACTRA/MENVEO) Aged Out No longer eligible based on patient's age to complete this topic documented as of this encounter Medical Devices Not on filedocumented as of this encounter Visit Diagnoses Diagnosis PTSD (post-traumatic stress disorder)- Primary Posttraumatic stress disorder documented in this encounter Advance Directives Latest Code Status on File Code Status Date Activated Date Inactivated Comments Full Code 06/01/2022 2:39 PM 06/01/2022 9:49 PM This or paty reflects the patients wishes and were consensually agreed upon. Question Answer Comments Discussion of Advance Directives occurred with: Patient Code Status History Code Status Date Activated Date Inactivated Comments Full Code 10/03/2021 7:25 AM 10/03/2021 2:09 PM This or paty reflects the patients wishes and were consensually agreed upon. Care Teams Fermenter Wine Relationship Specialty Start Date End Date Reva Samano MD [address] [place] [address] PCP - General Internal Medicine 10/11/22 documented as of this encounter
--- OUTSIDE RECORDS SUMMARY | 2023-09-01 05:11 | External Medical Summary | Summary of Care ---
Author Name Unknown Organization [facility] Address [address] [facility] [address] Phone [phone] Care Team Providers Care Avionics Mechanic Name Role Phone Mouna Samano MD Primary Care Provider Reason for Visit * Reason Onset Date Comments Appointment 07/22/2023 colonoscopy Encounter Details Date Type Department Care Team (Late st Contact Info) Description 07/22/2023 Telephone [facility] [address] [place] [address] Oneil Marc MD [address] [place] [address] Appointment (colonoscopy) Allergies Active Allergy Reactions Criticality Noted Date Comments Food (See Comments) High 12/21/2020 Peanuts including dust, tree nuts, soy Latex 12/21/2020 Hives Morphine Hives,Neuro complications (Please comment) 12/21/2020 [place] "high" documented as of this encounter (statuses as of 07/23/2023) Medications Medication Sig Dispensed Refills Start Date [...] AT BEDTIME 180 Capsule 3 07/18/2023 Active documented as of this encounter (statuses as of 07/23/2023) Active Problems Problem Noted Date Diagnosed Date [...] as of this encounter (statuses as of 07/23/2023) Resolved Problems Problem Noted Date Diagnosed Date Resolved Date Abnormal uterine bleeding 06/01/2022 Dysmenorrhea 12/21/2021 07/17/2022 Pelvic pain in female 12/21/20212022 Adenomyosis 12/21/2021 07/17/2022 Eating disorder 06/09/2021 08/23/2021 History of abnormal cervical Pap smear 12/21/2020 07/17/2022 documented as of this encounter (statuses as of 07/23/2023) Immunizations Name Administration Dates Next Due COVID-19 [...] Answer Date Recorded PHQ Adult Total Score 16 06/03/2023 Hunger Vital Sign Answer Date Recorded Within [...] on file documented as of this encounter Miscellaneous Notes * Telephone Encounter - Tiffanie Goncalves OSA - 07/23/2023 10:28 AM EDT Indication for study constipation INSURANCE [facility] insurance NOT accepted by [email or web address] [place] [employer] and A[employer]na Medicare are accepted ONLY in [place] and ONLY with providers Ronal Field Fabian) Has procedure order been received OR is it a recall order Screening questions BMI greater than 45? no Who is your PCP/ Family doctor? Samano Any problems getting around? no Any head or chest cold within the last 2 week or on an antibiotic? no Any hx of seizures/strokes within the last 90 days? no Is the patient on Dialysis or have chronic renal failure? no (choose prep accordingly,GFR< 40 needs hospital) Has the patient had a recent cardiac event (heart attack, heart surgery, chest pain, irregular heart rhythm)? no Is the patient taking any blood thinning or anti-platelet medications? no What is the name of the medication? N/a Who prescribes this for you? N/a Does the patient have a defibrillator, pacemaker, stimulators or any other implantable devices? no (must be done in hospital setting) Is the patient on home oxygen? no Does the patient have sleep apnea? no Is the patient a poorly controlled diabetic? no If yes, what medications do they take for this? N/a(IF INSULIN DEPENDENT EARLY AM appt) Has the patient had problems with intubation or anesthesia in the past? no Does the patient have a family history of malignant hyperthermia? no Regarding Prep: Is the patient prone to constipation, have "sluggish" bowels? yes (If YES, choose extended prep) Preassessment Nurse Status: pt is scheduled at [facility] 11/08/23 extended prep sent via [employer] * Telephone Encounter - Tiffanie Goncalevs OSA - 07/22/2023 8:50 AM EDT OUTPATIENT REFERRAL REQUEST COLONOSCOPY, GI REFERRAL OP Name: Kimberly Azevedo Birthdate: 1975 Patient's Address: [address] [address] Home: Work: Patient Preference: Referral ID: [id number] Referred To: COLONOSCOPY, GI REFERRAL OP Supervisor Correspondence Section: Provider Specialty: Gastroenterology Priority: Within 10 days (routine) Visit Coverage: [facility] [employer] Primary Payor: [employer] [facility] Recommend Appointment Info: Date: Time: Referral Type: Ancillary Services [] Expiration Date: Number of Visits Requested: 999 Associated Diagnosis: Constipation, unspecified constipation type (K59.00) Problem/Desired Service from Supervisor Correspondence Section: ALERT: Do not order for pediatric patients (18 years or younger). Cancel off screen and order PEDS GASTROENTEROLOGY CONSULT (Type: 1 visit only-Evaluate and Treat) The following Pt. Instructions are available: - Gastro Colonoscopy Prep Instructions [27962] - Gastro Colonoscopy Prep Instructions (Luxembourger Version) [[id number]] Go to the Pt. Instructions section within the Visit Navigator to access. Colonoscopy ASGE Guidelines: Average risk screening (begin at age 45, 10 year intervals) ADDITIONAL INFORMATION 1. Is the patient on Coumadin? No 2. Is the patient on Pradaxa? No Order Specific Questions: Referral Priority: Within 10 days (routine) Where should this appointment be scheduled? [facility] Return Report and Study Results to the Requesting Physician & the PCP PCP: MOUNA SAMANO Code #: [id number] Address: [address] [place] [address] / [place] [address] Date: Jul 19, 2023 ................................................................................ ............................................................................ Requesting Physician: Code #: Address: [address] [place] [id number] Date: Jul 19, 2023 Authorized by: Darwin Fajardo MD * Administrative Questions: [phone] or [phone] documented in this encounter Plan of Treatment Upcoming Encounters Date Type Department Care Team (Late st Contact Info) Description 07/24/2023 3:00 PM EDT Telemedicine [facility] [address] [place] [address] Elisa Calle LCSW [address] [place] [address] 07/25/2023 4:30 PM EDT Telemedicine [facility], [place] [address] [place] [address] Mak Padgett, PhD [address] [place] [address] 08/08/2023 3:00 PM EDT Telemedicine [facility] [place] [address] [place] [address] Elisa Calle LCSW [address] [place] [address] 2023 3:00 PM EDT Telemedicine [facility] [place] [address] [place] [address] Elisa Calle LCSW [address] [place] [address] 08/29/2023 3:30 PM EDT Office Visit Allergy/Immunology [facility] [address] [place] [address] Murray Erazo MD [address] [facility] [place] [address] 09/02/2023 6:00 PM EDT Office Visit Family Practice [facility] [address] [place] [address] Mouna Samano MD [address] [place] [address] 09/04/2023 3:00 PM EDT Telemedicine Psychology, [place] [address] [place] [address] lEisa Calle [facility] [address] [place] [address] 09/18/2023 3:00 PM EDT Telemedicine [facility] [place] [address] [place] [address] Elisa Calle LCSW [address] [place] [address] 10/15/2023 1:45 PM EDT Imaging Radiology [address] [place] [address] 11/08/2023 7:30 AM EDT Appointment OR [facility], Operating Room, [facility] [address] [place], [place] [id number] Oneil Marc MD [address] [place] [address] 01/08/2024 1:30 PM EDT Office Visit Pulmonary Medicine, [facility] [address] [place] [address] Kimberly Altamirano, DNP [address] [place] [address] Scheduled Procedures Name Priority Associated Diagnoses Date/Ti [...] 2022 03/02/2022, 04/28/2021, 06/26/2020, Additional history exists Influenza Vaccine (FLU shot) (#1) 2022 02/20/2022 Mammogram 02/19/2023 02/19/2022, 05/30, 04/13/2021 Depression, Most Recent Score >= 10 (will fire each visit until score < 10) 06/04/2023 06/03/2023 Diabetes Screening 05/26/2025 05/26/2022, 1 , 05/31/2021 Lipid Panel 05/31/2026 05/31/2021 DTaP,Tdap,and Td Vaccines (2 - Td or Tdap) 11/05/2029 11/06/2019 Pap Smear Discontinued 12/21/2021 GARDASIL-HPV IMMUNIZATION SERIES Aged Out No longer eligible based on patient's age to complete this topic MENINGOCOCCAL (MENACTRA/MENVEO) Aged Out No longer eligible based on patient's age to complete this topic documented as of this encounter Medical Devices Not on filedocumented as of this encounter Additional Health Concerns Infection Onset Date Last Indicated Resolved Time Influenza (seasonal) 07/01/2023 07/01/2023 024 12:18 AM EDT COVID-19 (confirmed) 07/01/2023 07/01/2023 024 12:18 AM EDT documented as of this encounter Advance Directives Latest Code Status [...] and were consensually agreed upon. Care Teams Avionics Mechanic Relationship Specialty Start Date End Date Mouna Samano MD [address] [place] [address] PCP - General Internal Medicine 10/11/22 documented as of this encounter
--- OUTSIDE RECORDS SUMMARY | 2023-09-01 05:11 | External Medical Summary | Summary of Care ---
Author Name Unknown Organization [facility] Address [address] [place] [address] Phone [phone] Care Team Providers Care Aviation Technical Systems Specialist Name Role Phone Reva Samano MD Primary Care Provider Encounter Details Date Type Department Care Team (Late st Contact Info) Description 07/24/2023 3:00 PM EDT Telemedicine [facility], [place] [address] [place], [place] [id number] Elisa Calle, [facility] [address] [place] [address] PTSD (post-traumatic stress disorder)*; Anorexia nervosa in remission Allergies Active Allergy Reactions Criticality Noted Date Comments Food (See Comments) High 12/21/2020 Peanuts including dust, tree nuts, soy Latex 12/21/2020 Hives Morphine Hives,Neuro complications (Please comment) 12/21/2020 [place] "high" documented as of this encounter (statuses as of 07/24/2023) Medications Medication Sig Dispensed Refills Start Date [...] as of this encounter (statuses as of 07/24/2023) Active Problems Problem Noted Date Diagnosed Date [...] as of this encounter (statuses as of 07/24/2023) Resolved Problems Problem Noted Date Diagnosed Date Resolved Date Abnormal uterine bleeding 06/01/2022 Dysmenorrhea 12/21/2021 07/17/2022 Pelvic pain in female 12/21/20212022 Adenomyosis 12/21/2021 07/17/2022 Eating disorder 06/09/2021 08/23/2021 History of abnormal cervical Pap smear 12/21/2020 07/17/2022 documented as of this encounter (statuses as of 07/24/2023) Immunizations Name Administration Dates Next Due COVID-19 [...] this encounter Progress Notes * Elisa Calle, ALMA - 07/24/2023 3:01 PM EDT Patient location: [place]. I was not in a hospital or clinic location. After connecting through televideo, patient was verified with two unique identifiers. Patient (or authorized legal textile designs sales representative) was then informed that this was a [...] that I have reviewed their record in [facility] and presented the opportunity for them to ask any questions regarding the visit today. The patient agreed to participate. Provider reviewed elements of Outpatient Services Description including limits of confidentiality, how to contact the department, risks and benefits of treatment and consent for treatment. Start Time: 3:20 PM Stop Time: 4:05 PM Total direct [id number] time: 45 min Confirm patient's location (and address if different from the home address documented in [facility]) at the time of this appointment: [place] - parked at [facility], [place] ADULT THERAPY PROGRESS NOTE [facility], [address] [address] 07/24/2023 3:01 PM TYPE OF VISIT: Individual DIAGNOSIS: PTSD, AN REASON FOR FOLLOW-UP: Individual therapy Session #: 3 SESSION FOCUS: Resourcing SESSION SUMMARY/NOTES: F/u with patient regarding the message sent on the pt portal. Patient shared about the experiences from the past week. She had her annual OBGYN appt last Saturday. She noted feeling uneasy prior to going; although did manage to get through the appointment. She had taken a full Ativan prior to the appointment. Following the appointment she spent time with her kids for a little bit and then went home. Patient shared about experiencing a panic attack and was then stuck in a state of consciousness where she was reliving the SA trauma with all of the smells, sounds, and feelings. When her partner got home, she assisted with grounding. Patient was able to eat something small, took another Ativan, and then fell asleep. Patient shared that she has never had a flashback previously, so this was very scary and unsettlingto her. She has had nightmares related to trauma, but never reexperiencing. Patient shared that caryn felt dysregulated, on edge and unsettled since that day. She has also had trouble sleeping and has needed to use Ativan more regularly. Provided psychoeducation on and normalized the symptoms of PTSD, which includes reexperiencing. Discussed the sympathetic and parasympathetic nervous system. Discussed strategies to manage panic attacks and flashbacks including deep breathing and grounding strategies. Discussed printing out a picture of a calm/soothing place to aid in grounding. Provided psychoeducation on EMDR as a treatment for processing past experiences. Patient shared that she would like to do more research on it. Engaged patient in the container exercise for containment of emotions and anything distressing thatcame up that she would like to temporarily step away from. Patient identified feeling less heavy inher head and heart following the practice. PROGRESS TOWARDS GOALS: Patient has well established routines which are helpful methods of coping with life's stressors. She has had a lot of practice with grounding and breathing strategies. This past week she used these strategies, tapping resource, and her support system, Partner Tawana) to helpcope with reexperiencing of a trauma response to SA trauma. Objective Measures: No questionnaires available. INTERVENTION: Cognitive Behavioral Therapy (CBT) and EMDR PATIENT EDUCATION: Verbal & written MENTAL STATUS AND BEHAVIORAL OBSERVATIONS: Appearance: unable to assess due to technical difficulties with video visit - telephone visit Behavior: appropriate, cooperative, and pleasant Speech: normal pitch, normal rate, and normal volume Mood: anxious Affect: unable to assess due to technical difficulties with video visit - telephone visit Thought Process: goal directed Thought Content: Delusions: No Hallucinations: No Obsessions: No Homicidal: No Suicidal: No Sensorium: alert and oriented to person, place, time and situation Cognition: grossly intact Insight: good Judgment: good Suicide/Homicidal Assessment Validated Screening and Assessment Measures [place] Suicide Severity Rating Scale Results 07/24/2023 16:17 [place] SUICIDE SEVERITY RATING SCALE (C-SSRS) Have [...] and breathing exercises - 5-4-3-2-1 technique 2. Research EMDR 3. Print picture out of a calm place to help with grounding 4. Use container exercise as a resource for containment Outpatient Adult Therapy Treatment Plan Treatment plan [...] Treatment Frequency of Treatment Yes, sent via [employer] 12-15 sessions weekly to bi-weekly Patient Identified Needs/Goals Interventions Objective/ Discharge Criteria Problem/Need 1: PTSD Cognitive Processing Therapy (CPT) and EMDR PHQ<5, RACHID<5, CSSRS in low risk range, and PTSD Checklist for DSM5 (PCL-5) total score <33 and/or decrease of 10 points Please choose a method to track patient's improvement based on clinical assessment: PHQ-9 Adult Data RACHID-7 Data [place] Suicide Screen Data PCL-5 Discharge Discussed with patient: Patient continues to need treatment Collaboration of Care: Yes, provider within the [facility], information is shared automatically in medical record Is this the patients' initial treatment plan? Yes Treatment plan reviewed with the patient. Patient voices understanding and concurs with plan. Elisa Calle LCSW Division of Psychiatry & Behavioral Medicine [facility] [phone] documented in this encounter Plan of Treatment Upcoming Encounters Date Type Department Care Team (Late st Contact Info) Description 07/25/2023 4:30 PM EDT Telemedicine [address] [address] Mak Padgett, PhD [address] [place] [address] 08/08/2023 3:00 PM EDT Telemedicine [facility] [address] [place] [address] Elisa Calle LCSW [address] [place] [address] 2023 3:00 PM EDT Telemedicine [address] [address] Elisa Calel LCSW [address] [place] [address] 08/29/2023 3:30 PM EDT Office Visit Allergy/Immunology [facility] [address] [place] [address] Murray Erazo MD [address] [place], [place] [address] 09/02/2023 6:00 PM EDT Office Visit Family Practice [facility] [address] [place] [address] Reva Samano MD [address] [place] [address] 09/04/2023 3:00 PM EDT Telemedicine Psychology, [address] [address] Elisa Calle [address] [address] 09/18/2023 3:00 PM EDT Telemedicine Psychology, [address] [address] Elisa Calle [place] [address] [place] [address] 10/03/2023 3:00 PM EDT Telemedicine Psychology, [address] [address] Elisa Calle [address] [address] 10/10/2023 1:00 PM EDT Telemedicine Psychology, [address] [address] Elisa Calle [address] [address] 10/15/2023 1:45 PM EDT Imaging Radiology [facility] 1st Floor, [address] [address] 10/17/2023 1:00 PM EDT Telemedicine [facility] [place] [address] [place] [address] Elisa Calle, [facility] [address] [place] [address] 10/24/2023 1:00 PM EDT Telemedicine [facility] [place] [address] [place] [address] Elisa Calle, [facility] [address] [place] [address] 11/08/2023 7:30 AM EDT Appointment OR [facility], Operating Room, [facility] 1st Floor [address] [place] [address] Oneil Marc MD [address] [place] [address] 01/08/2024 1:30 PM EDT Office Visit Pulmonary Medicine, [facility] [address] [place] [address] Kimberly Altamirano, [facility] [address] [place] [address] Scheduled Procedures Name Priority Associated Diagnoses Date/Ti [...] (post-traumatic stress disorder)- Primary Posttraumatic stress disorder Anorexia nervosa in remission documented in this encounter Advance Directives Latest [...] and were consensually agreed upon. Care Teams Aviation Technical Systems Specialist Relationship Specialty Start Date End Date Reva Samano MD [address] [address] PCP - General Internal Medicine 10/11/22 documented as of this encounter
--- OUTSIDE RECORDS SUMMARY | 2023-09-01 05:11 | External Medical Summary | Summary of Care ---
Author Name Unknown Organization [facility] Address [address] [place] [address] Phone [phone] Care Team Providers Care Online Services Manager Name Role Phone Reva Samano MD Primary Care Provider Encounter Details Date Type Department Care Team (Late st Contact Info) Description 08/08/2023 3:00 PM EDT Telemedicine [facility], [place] [address], [place] [id number] Elisa Calle, [facility] [address] [place] [address] PTSD (post-traumatic stress disorder)* Allergies Active Allergy Reactions Criticality Noted Date Comments Food (See Comments) High 12/21/2020 Peanuts including dust, tree nuts, soy Latex 12/21/2020 Hives Morphine Hives,Neuro complications (Please comment) 12/21/2020 [place] "high" documented as of this encounter (statuses as of 08/08/2023) Medications Medication Sig Dispensed Refills Start Date [...] as of this encounter (statuses as of 08/08/2023) Active Problems Problem Noted Date Diagnosed Date [...] as of this encounter (statuses as of 08/08/2023) Resolved Problems Problem Noted Date Diagnosed Date Resolved Date Abnormal uterine bleeding 06/01/2022 Dysmenorrhea 12/21/2021 07/17/2022 Pelvic pain in female 12/21/20212022 Adenomyosis 12/21/2021 07/17/2022 Eating disorder 06/09/2021 08/23/2021 History of abnormal cervical Pap smear 12/21/2020 07/17/2022 documented as of this encounter (statuses as of 08/08/2023) Immunizations Name Administration Dates Next Due COVID-19 [...] Answer Date Recorded PHQ Adult Total Score 10 07/25/2023 Hunger Vital Sign Answer Date Recorded Within [...] this encounter Progress Notes * Elisa Calle, RECEIVER - 08/08/2023 3:06 PM EDT Patient location: CAR. I was not in a hospital or clinic location. After connecting through Directworksideo, patient was verified with two unique identifiers. Patient (or authorized legal promotions representative) was then informed that this was [...] that I [facility] and presented the opportunity for them to ask any questions regarding the visit today. The patient agreed to participate. Provider reviewed elements of Outpatient Services Description including limits of confidentiality, how to contact the department, risks and benefits of treatment and consent for treatment. Start Time: 3:20 PM Stop Time: 4:20 PM Total direct [id number] time: 60 min Confirm patient's location (and address if different from the home address [facility]) at the time of this appointment: CAR - parked at [facility], [place] ADULT THERAPY PROGRESS NOTE [facility], [address] [address] 08/08/2023 3:06 PM TYPE OF VISIT: Individual DIAGNOSIS: PTSD, AN REASON FOR FOLLOW-UP: Individual therapy Session #: 4 SESSION FOCUS: Flash Technique, EMDR processing SESSION SUMMARY/NOTES: Sleep was better this past week. Overall functioning was better. Used breathing practices and grounding this past week. Haven't had panic attacks during the day or flashbacks. Flash Protocol Target: Training Allergy SIRENA: 6 PEF: Serene, sitting on my couch, BLS: tapping SIRENA: 4 Engaged patient in EMDR Phase 3. Target Memory: Training Allergy Image: Proximity of the known allergin Negative Cognition: "here we go again, I wonder how bad it will be this time." Safety theme - "I'm vulnerable, I'm going to , I'm not safe, I can't trust anyone, I'm in danger." Positive Cognition: "My plan of action is sound, I survived." Validity of Cognition (VOC) 1-7: 7 Emotions/Feelings: anxiety SIRENA 0-10: "shifted somewhat when realizing that I survived it" Location of Body Sensations: stomach drops Phase 4 - Desensitization (Reprocessing): - Noticed the speed of how quick it happened and the matched speed of how I responded to it. Otherscommented on how quickly I responded as well. - The initial panic waned and went into auto pilot boat operator. Called Tawana, she reminded me of new safety plan to not wait and go automatically to be seen. Was in the hands of medical personnel within 20 min. - Noticed how quickly the medical team responded to me when I got to the hospital. Within 5 min, allergic reaction stopped progressing. I felt very safe. I'm grateful for the team that was there thatday. - Noticed how quickly Tawana was there with me. Having her there with me brought peace and support. SIRENA - deferred Phase 5 - Installation: Original or updated PC - deferred Current VOC - deferred Phase 6 - Body Scan: deferred Phase 7 - Closure: incomplete target memory. Takeaway: Acknowledgement of what happened, how quickly I responded. Engaged patient in the container exercise at the end of the session. PROGRESS TOWARDS GOALS: Patient has well established routines which are helpful methods of coping with life's stressors. She has had a lot of practice with grounding and breathing strategies. This past week she used breathing and grounding practices which were effective. Objective Measures: No questionnaires available. INTERVENTION: EMDR Flash Technique PATIENT EDUCATION: Verbal & written MENTAL STATUS [...] Suicide/Homicidal Assessment Validated Screening and Assessment Measures [place] Suicide Severity Rating Scale Results 08/08/2023 16:21 [place] SUICIDE SEVERITY RATING SCALE (C-SSRS) Have [...] Treatment Frequency of Treatment Yes, sent via ALTHIA 12-15 sessions weekly to bi-weekly Patient Identified Needs/Goals Interventions Objective/ Discharge Criteria Problem/Need 1: PTSD Cognitive Processing Therapy (CPT) and EMDR PHQ<5, RACHID<5, CSSRS in low risk range, and PTSD Checklist for DSM5 (PCL-5) total score <33 and/or decrease of 10 points Please choose a method to track patient's improvement based on clinical assessment: PHQ-9 Adult Data RACHID-7 Data [place] Suicide Screen Data PCL-5 Discharge Discussed with patient: Patient continues to need treatment Collaboration of Care: Yes, provider within [facility], information is shared automatically in medical record Is this the patients' initial treatment plan? Yes Treatment plan reviewed with the patient. Patient voices understanding and concurs with plan. Elisa Calle LCSW Division of Psychiatry & Behavioral Medicine [facility] [phone] documented in this encounter Plan of Treatment Upcoming Encounters Date Type Department Care Team (Late st Contact Info) Description 08/15/2023 4:30 PM EDT Telemedicine [facility] [address] [place] [address] Mak Padgett, PhD [address] [place] [address] 2023 3:00 PM EDT Telemedicine [facility] [address] [place] [address] Elisa Calle LCSW [facility] [place] [address] 08/29/2023 3:30 PM EDT Office Visit Allergy/Immunology Jeanie Barroso [place] [address] [place] [address] Murray Erazo MD [address] [facility] [place] [address] 09/02/2023 6:00 PM EDT Office Visit Family Practice [facility] [address] [place] [address] Reva Samano MD [address] [place] [address] 09/04/2023 3:00 PM EDT Telemedicine Psychology, [address] [address] Elisa Calle [facility] [address] [place] [address] 09/18/2023 3:00 PM EDT Telemedicine Psychology, [address] [address] Elisa Calle [facility] [address] [place] [facility] [place] [address] 10/03/2023 3:00 PM EDT Telemedicine Psychology, [place] [address] [place] [address] Elisa Calle [facility] [address] [place] [address] 10/10/2023 1:00 PM EDT Telemedicine Psychology, [address] [address] Elisa Calle [facility] [address] [place] [address] 10/15/2023 1:45 PM EDT Imaging Radiology [facility] 1st [facility] [address] [place] [address] 10/17/2023 1:00 PM EDT Telemedicine Psychology, [address] [address] Elisa Calle LCSW [facility] [address] 10/24/2023 1:00 PM EDT Telemedicine [facility], [place] [address] [place] [address] Luc Elisa Ivy, [facility] [address] [place] [address] 11/08/2023 7:30 AM EDT Appointment OR [facility], Operating Room, [facility] 1st Floor [address] [place] [address] Oneil Marc MD [address] [place] [address] 01/08/2024 1:30 PM EDT Office Visit Pulmonary Medicine, [facility] [address] [place] [address] Kimberly Altamirano, [facility] [address] [place] [address] Scheduled Procedures Name Priority Associated Diagnoses Date/Ti [...] Blood Test 2022 Sigmoidoscopy 2022 COVID-19 Vaccine (2022- season) 2022 03/02/2022, 04/28/2021, 06/26/2020, Additional history exists Mammogram 02/19/2023 02/19/2022, 05/30, 04/13/2021 Depression, Most Recent Score >= 10 (will fire each visit until score < 10) 07/26/2023 07/25/2023 Influenza Vaccine (FLU shot) (Season Ended) 2023 02/20/2022 Diabetes Screening 05/26/2025 05/26/2022, 1 , 05/31/2021 [...] and were consensually agreed upon. Care Teams Online Services Manager Relationship Specialty Start Date End Date Reva Samano MD [address] [place] [address] PCP - General Internal Medicine 10/11/22 documented as of this encounter
--- OUTSIDE RECORDS SUMMARY | 2023-09-01 05:11 | External Medical Summary | Summary of Care ---
Author Name Unknown Organization [facility] Address [address] [place] [address] Phone [phone] Care Team Providers Care Line Director Name Role Phone Reva Samano MD Primary Care Provider Reason for Visit * Reason Comments Follow Up Encounter Details Date Type Department Care Team (Late st Contact Info) Description 08/15/2023 4:30 PM EDT [facility] [address] [place], [place] [id number] Mak Padgett, PhD [address] [place] [address] PTSD (post-traumatic stress disorder)*; Anorexia nervosa in remission Allergies Active Allergy Reactions Criticality Noted Date Comments Food (See Comments) High 12/21/2020 Peanuts including dust, tree nuts, soy Latex 12/21/2020 Hives Morphine Hives,Neuro complications (Please comment) 12/21/2020 [place] "high" documented as of this encounter (statuses as of 08/19/2023) Medications Medication Sig Dispensed Refills Start Date End Date Status Triamcinolone Acetonide 0.1 % External Cream (Aristocort)Indica tions:Keratosis pilaris Apply topically to affected area 2 times a day. To affected area. 80 g 2 06/28/2022 Active Escitalopram Oxalate 10 MG Oral Tablet (Lexapro)Indicatio ns:BILLY (generalized anxiety disorder) Take 1 Tablet by [...] busPIRone HCl 15 MG Oral Tablet (Buspar)Indication s:BILLY (generalized anxiety disorder) TAKE 1 TABLET IN [...] Active LORazepam 1 MG Oral Tablet (Ativan)Indication s:BILLY (generalized anxiety disorder),Sleep disorder Take 1 Tablet by mouth daily as needed for Anxiety or Sleep. 30 Tablet 0 07/22/2023 Active documented as of this encounter (statuses as of 08/19/2023) Active Problems Problem Noted Date Diagnosed Date [...] mammogram 10/03/2021 Anorexia nervosa, restricting type 07/31/2021 BILLY (generalized anxiety disorder) 12/21/2020 History of anaphylaxis 12/21/2020 Peanut allergy 12/21/2020 Sleep disorder 12/21/2020 documented as of this encounter (statuses as of 08/19/2023) Resolved Problems Problem Noted Date Diagnosed Date Resolved Date Abnormal uterine bleeding 06/01/2022 Dysmenorrhea 12/21/2021 07/17/2022 Pelvic pain in female 12/21/20212022 Adenomyosis 12/21/2021 07/17/2022 Eating disorder 06/09/2021 08/23/2021 History of abnormal cervical Pap smear 12/21/2020 07/17/2022 documented as of this encounter (statuses as of 08/19/2023) Immunizations Name Administration Dates Next Due COVID-19 [...] as of this encounter Progress Notes * Mak Padgett, PhD - 08/15/2023 4:34 PM EDT Patient location: HOME. I was in a hospital or clinic location. After connecting through televideo,patient was verified with two unique identifiers. Patient (or authorized legal financial services representative) was then informed that this was a Telemedicine visit and being conducted confidentially over secure lines. Methods to assure confidentiality were taken. Patient acknowledged consent and understanding of pr ivacy and security of the Telemedicine visit. The patient agreed to participate. My office door was closed. No one else was in the room with me. I informed the patient that I have reviewed their record in [facility] and presented the opportunity for them to ask any questions regarding the visit today. The patient agreed to participate. Provider reviewed elements of Outpatient Services Description including limits of confidentiality, how to contact the department, risks and benefits of treatment and consent for treatment. [facility] is committed to coordinated care through an integrated delivery system and shared medicalrecord. Since our patients are seen both in primary care and behavioral health (as well as other specialties), each provider has immediate access to information to enable collaboration across the continuum. Start Time: 4:33 pm Stop Time: 5:08 pm Total direct [id number]-do-tkem time: 35 min Confirm patient's location (and address if different from the home address documented in [facility]) at the time of this appointment: Home address on file. ADULT THERAPY PROGRESS NOTE [facility], [address] [address] 08/15/23 TYPE OF VISIT: Individual DIAGNOSIS: AN in remission, PTSD REASON FOR FOLLOW-UP: Individual therapy Session #: 3 SESSION FOCUS: PTSD sx and meal plan SESSION SUMMARY/NOTES: Kimberly reported that she has started EMDR. Triggered some difficulties eating but her partner is supportive, helps remind her about meals and helps with meal prep. Reported that she feels back on track and weight continues to be stable. Kimberly reported that she went out to eat with family and challenged herself to order something different and not her safe meal. Will continue to provide COREY re lapse prevention sessions monthly while engaged in EMDR tx. PROGRESS TOWARDS GOALS: Engaged in therapy. Objective Measures: Myc Visit Accident Related Question Question 08/15/2023 4:14 PM EDT - Filed by Patient Is this visit related to an accident? (i.e work, motor vehicle) No Billy-7 Question 08/15/2023 4:36 PM EDT - Filed by Patient Over the last 2 weeks, how often have you been bothered by the following problems? Feeling nervous, anxious, or on edge Several days Not being able to stop or control worrying Several days Worrying too much about different things Several days Trouble relaxing Several days Being so restless that is hard to sit still Several days Becoming easily annoyed or irritable Several days Feeling afraid as if something awful might happen Several days Total score of all questions (range: 0 - 21) 7 (Mild) Phq9-Depression Question 08/15/2023 4:37 PM EDT - Filed by Patient Over the last two weeks, how often have you been bothered by any of the following problems? Little interest or pleasure in doing things Several days Feeling down, depressed or hopeless Several days Over the last two weeks, how often have you been bothered by any of the following problems? Trouble falling or staying asleep, or sleeping too much Several days Feeling tired or having little energy More than half the days Poor appetite or overeating More than half the days Feeling bad about yourself - or that you are a failure, or have let yourself or your family down Several days Trouble concentrating on things, such as reading the newspaper or watching television Several days Moving or speaking so slowly that other people could have noticed. Or the opposite - being so fidgety or restless that you have been moving around a lot more than usual Not at all Thoughts that you would be better off , or of hurting yourself Not at all Question 1 score (range: 0 - 3) 1 Question 2 score (range: 0 - 3) 1 Question 3 score (range: 0 - 3) 1 Question 4 score (range: 0 - 3) 2 Question 5 score (range: 0 - 3) 2 Question 6 score (range: 0 - 3) 1 Question 7 score (range: 0 - 3) 1 Question 8 score (range: 0 - 3) 0 Question 9 score (range: 0 - 3) 0 Sum of all PHQ9 questions. (range: 0 - 27) 9 (Mild Depression) INTERVENTION: Cognitive Behavioral Therapy (CBT), Acceptance and Commitment Therapy (ACT), Dialectical Behavior Therapy (DBT), and Exposure and Response Prevention PATIENT EDUCATION: Verbal & written MENTAL STATUS AND BEHAVIORAL OBSERVATIONS: Appearance: within normal limits Behavior: appropriate, cooperative, and pleasant Speech: normal pitch, normal rate, and normal volume Mood: sad Affect: appropriate and mood-congruent Thought Process: within normal limits Thought Content: Delusions: No Hallucinations: No Obsessions: No Homicidal: No Suicidal: No Sensorium: alert and oriented to person, place, time and situation Cognition: grossly intact Insight: good Judgment: good Suicide/Homicidal Assessment Validated Screening and Assessment Measures [place] Suicide Severity Rating Scale Results 08/15/2023 16:54 [place] SUICIDE SEVERITY RATING SCALE (C-SSRS) Have [...] No Level of Risk No Risk Identified ADMINISTER [place] SUICIDE SCREENING IN ROOMING TOOL. Risk and Protective Factors must be completed for any positive screen (pt answers yes to any items on the CSSRS) Crisis Plan: see Crisis Plan in Treatment Plan Use Nils-Brown Suicide Safety Plan when [place] is Moderate or High Risk, or whenever clinical judgment would indicate need for full crisis plan to be done. Please choose a method to track patient's improvement based on clinical assessment: Date 07/25/23 08/15/23 PHQ 10 9 BILLY-7 8 7 3 meals Supplementing with shakes 09/02 Snacks 1 snack 08/03 Weight Stable Stable FOLLOW-UP PLAN: Return: 4 weeks Action Plan: 1. Continue Individual Therapy 2. Continue medication management with PCP 3. Continue EMDR with Elisa Calle LCSW. Reminder to complete Treatment Plan Update in "Plan" section of Plan Navigator Treatment plan reviewed with the patient. Patient voices understanding and concurs with plan. Mak Padgett, PhD Division of Psychiatry & Behavioral Medicine [facility] [phone] documented in this encounter Plan of Treatment Upcoming Encounters Date Type Department Care Team (Late st Contact Info) Description 2023 3:00 PM EDT [facility] [address] [place] [address] Elisa Calle LCSW [address] [place] [address] 08/29/2023 3:30 PM EDT Office Visit Allergy/Immunology Jeanie Barroso [place] [address] [place] [address] Murray Erazo MD [address] [place] [address] 09/02/2023 6:00 PM EDT Office Visit Family [facility] [address] [facility] [place] [address] Reva Samano MD [address] [place] [address] 09/04/2023 3:00 PM EDT Telemedicine Psychology, [place] [address] [place] [address] Elisa Calle [facility] [address] [place] [address] 09/18/2023 3:00 PM EDT Telemedicine Psychology, [place] [address] [place] [address] Elisa Calle [place] [address] [place] [address] 09/19/2023 4:30 PM EDT Telemedicine Psychology, [place] [address] [place] [address] Mak Padgett, PhD [address] [place] [address] 10/03/2023 3:00 PM EDT Telemedicine Psychology, [address] [address] Elisa Calle [facility] [address] [place] [address] 10/10/2023 1:00 PM EDT Telemedicine Psychology, [address] [address] Elisa Calle [facility] [address] [place] [address] 10/15/2023 1:45 PM EDT Imaging Radiology [address], [place] [address] [facility] [address] 10/17/2023 1:00 PM EDT Telemedicine Psychology, [address] [address] Elisa Calle, [employer]ICE [employer]NAG[employer] TE[employer] [address] [place] [address] 10/24/2023 1:00 PM EDT Telemedicine [facility], [place] [address] [place] [address] Elisa Calle, [facility] [address] [place] [address] 11/08/2023 7:30 AM EDT Appointment OR [facility], Operating Room, [facility] 1st Floor [address] [place] [address] Oneil Marc MD [address] [place] [address] 01/08/2024 1:30 PM EDT Office Visit Pulmonary Medicine, [facility] [address] [place] [address] Kimberly Altamirano, [facility] [address] [place] [address] Scheduled Procedures Name Priority Associated Diagnoses Date/Ti [...] and were consensually agreed upon. Care Teams Line Director Relationship Specialty Start Date End Date Reva Samano MD [address] [place] [address] PCP - General Internal Medicine 10/11/22 documented as of this encounter
--- OUTSIDE RECORDS SUMMARY | 2023-09-01 05:11 | External Medical Summary | Summary of Care ---
Author Name Unknown Organization [facility] Address [address] [place] [address] Phone [phone] Care Team Providers Care Molded Goods Controls Operator Name Role Phone Reva Samano MD Primary Care Provider Reason for Visit * Reason Comments Follow Up Encounter Details Date Type Department Care Team (Late st Contact Info) Description 07/25/2023 4:30 PM EDT [facility] [address] [place], [place] [id number] Mak Padgett, PhD [address] [place] [address] Anorexia nervosa in remission*; PTSD (post-traumatic stress disorder) Allergies Active Allergy Reactions Criticality Noted Date Comments Food (See Comments) High 12/21/2020 Peanuts including dust, tree nuts, soy Latex 12/21/2020 Hives Morphine Hives,Neuro complications (Please comment) 12/21/2020 [place] "high" documented as of this encounter (statuses as of 07/25/2023) Medications Medication Sig Dispensed Refills Start Date [...] as of this encounter (statuses as of 07/25/2023) Active Problems Problem Noted Date Diagnosed Date [...] as of this encounter (statuses as of 07/25/2023) Resolved Problems Problem Noted Date Diagnosed Date Resolved Date Abnormal uterine bleeding 06/01/2022 Dysmenorrhea 12/21/2021 07/17/2022 Pelvic pain in female 12/21/20212022 Adenomyosis 12/21/2021 07/17/2022 Eating disorder 06/09/2021 08/23/2021 History of abnormal cervical Pap smear 12/21/2020 07/17/2022 documented as of this encounter (statuses as of 07/25/2023) Immunizations Name Administration Dates Next Due COVID-19 [...] Progress Notes * Mak Padgett, PhD - 07/25/2023 4:31 PM EDT Patient location: HOME. I was in a hospital or clinic location. After connecting through televideo,patient was verified with two unique identifiers. Patient (or authorized legal cordage sales representative) was then informed that this [...] that I have reviewed their record in [facility] and presented the opportunity for them to ask any questions regarding the visit today. The patient agreed to participate. Provider reviewed elements of Outpatient Services Description including limits of confidentiality, how to contact the department, risks and benefits of treatment and consent for treatment. [facility] is committed to coordinated care through an integrated delivery system and shared medicalrecord. Since our patients are seen both in primary care and behavioral health (as well as other specialties), each provider has immediate access to information to enable collaboration across the continuum. Start Time: 4:30 pm Stop Time: 5:30 pm Total direct xuqk-ko-fjog time: 60 min Confirm patient's location (and address if different from the home address documented in [facility]) at the time of this appointment: Home address on file. ADULT THERAPY PROGRESS NOTE [facility], [address] [address] 07/25/2023 TYPE OF VISIT: Individual DIAGNOSIS: AN in remission, PTSD REASON FOR FOLLOW-UP: Individual therapy Session #: 2 SESSION FOCUS: PTSD sx and meal plan SESSION SUMMARY/NOTES: Kimberly reported that she had OBGYN appointment which is historically a trigger for PTSD symptoms but this year felt even more triggered than usual. Kimberly reported that she would normally avoid scheduling in the spring but had to reschedule after cancelling winter appointment due to COVID. Reported she also had a difficult experience at work contributing to stress, all of which have been making it difficult to eat. Partner is very supportive and will pack meals and snacks and remind Kimberly to eat. Kimberly reported that she has been drinking shakes when struggles to eat or eats more safe foods just to make sure she is getting some nutrition. Expressed feeling like needing more shakes is a failure and reframed as a success because she is not skipping the meal all together. Reviewed dialectical abstinence - recovery is three meals plus snacks and recovery for Kimberly right now is doing shakes to prevent relapse. Both are true, not either or. PROGRESS TOWARDS GOALS: Engaged in therapy. Objective Measures: Myc Visit Accident Related Question Question 07/25/2023 4:06 PM EDT - Filed by Patient Is this visit related to an accident? (i.e work, motor vehicle) No Billy-7 Question 07/25/2023 4:32 PM EDT - Filed by Patient Over the last 2 weeks, how often have you been bothered by the following problems? Feeling nervous, anxious, or on edge More than half the days Not being able to stop or control worrying More than half the days Worrying too much about different things Several days Trouble relaxing Several days Being so restless that is hard to sit still Several days Becoming easily annoyed or irritable Several days Feeling afraid as if something awful might happen Not at all Total score of all questions (range: 0 - 21) 8 (Mild) Phq9-Depression Question 07/25/2023 4:32 PM EDT - Filed by Patient Over [...] or staying asleep, or sleeping too much More than half the days Feeling tired or having little energy [...] Question 3 score (range: 0 - 3) 2 Question 4 score (range: 0 - 3) 2 Question 5 score (range: 0 - 3) 2 Question 6 score (range: 0 - 3) 1 Question 7 score (range: 0 - 3) 1 Question 8 score (range: 0 - 3) 0 Question 9 score (range: 0 - 3) 0 Sum of all PHQ9 questions. (range: 0 - 27) 10 (Moderate Depression) INTERVENTION: Cognitive Behavioral Therapy (CBT), Acceptance [...] Suicide/Homicidal Assessment Validated Screening and Assessment Measures Scott Suicide Severity Rating Scale Results 07/25/2023 16:51 [place] SUICIDE SEVERITY RATING SCALE (C-SSRS) Have [...] Plan Use Nils-Brown Suicide Safety Plan when Scott is Moderate or High Risk, or whenever clinical judgment would indicate need for full crisis plan to be done. Please choose a method to track patient's improvement based on clinical assessment: Date 07/25/23 PHQ 10 BILLY-7 8 3 meals Supplementing with shakes Snacks Weight Stable FOLLOW-UP PLAN: Return: 4 weeks Action Plan: 1. Continue Individual Therapy 2. Continue medication management with PCP 3. Continue EMDR with Elisa Calle LCSW. Reminder to complete Treatment Plan Update in "Plan" section of Plan Navigator Treatment plan reviewed with the patient. Patient voices understanding and concurs with plan. Mak Padgett, PhD Division of Psychiatry & Behavioral Medicine [facility] [phone] documented in this encounter Plan of Treatment Upcoming Encounters Date Type Department Care Team (Late st Contact Info) Description 08/08/2023 3:00 PM EDT Telemedicine [address] [address] Elisa Calle LCSW [address] [place] [address] 08/15/2023 4:30 PM EDT Telemedicine Psychology, [place] [address] [place] [address] Mak Padgett, PhD [address] [place] [address] 2023 3:00 PM EDT Telemedicine Psychology, [place] [address] [place] [address] Elisa Calle DESK TOP PUBLISHER [address] [place] [address] 08/29/2023 3:30 PM EDT Office Visit Allergy/Immunology [facility] [address] [facility] [place] [address] Murray Erazo MD 200 [facility] [place] [address] 09/02/2023 6:00 PM EDT Office Visit Family Practice [facility] [address] [place] [address] Reva Samano MD [address] [place] [address] 09/04/2023 3:00 PM EDT Telemedicine Psychology, [place] [address] [place] [address] Elisa Calle LCSW [address] [place] [address] 09/18/2023 3:00 PM EDT Telemedicine Psychology, [place] [address] [place] [address] Elisa Calle LCSW [address] [place] [address] 10/03/2023 3:00 PM EDT Telemedicine Psychology, [place] [address] [place] [address] Elisa Calle [facility] [address] [place] [address] 10/10/2023 1:00 PM EDT Telemedicine [facility] [address] [place] [address] Elisa Calle, [facility] [address] [place] [address] 10/15/2023 1:45 PM EDT Imaging Radiology [facility] [address] [address] 10/17/2023 1:00 PM EDT Telemedicine [facility] [address] [place] [address] Elisa Calle [facility] [address] [place] [address] 10/24/2023 1:00 PM EDT Telemedicine [facility] [address] [place] [address] Elisa Calle, [facility] [address] [place] [address] 11/08/2023 7:30 AM EDT Appointment OR [facility], Operating Room, [facility] 1st Floor [address] [place], [place] [id number] Oneil Marc MD [address] [place] [address] 01/08/2024 1:30 PM EDT Office Visit Pulmonary Medicine, [facility] [address] [place] [address] Kimberly Altamirano, CHELSIE [address] [place] [address] Scheduled Procedures Name Priority Associated Diagnoses Date/Ti [...] visit until score < 10) 07/26/2023 07/25/2023 Diabetes Screening 05/26/2025 05/26/2022, 1 , 05/31/2021 [...] as of this encounter Visit Diagnoses Diagnosis Anorexia nervosa in remission- Primary PTSD (post-traumatic stress disorder) Posttraumatic stress disorder documented in this encounter [...] and were consensually agreed upon. Care Teams Molded Goods Controls Operator Relationship Specialty Start Date End Date Reva Samano MD [address] [place] [address] PCP - General Internal Medicine 10/11/22 documented as of this encounter
--- OUTSIDE RECORDS SUMMARY | 2023-09-01 05:12 | External Medical Summary | Summary of Care ---
Author Name Unknown Organization [facility] Address [address] [place] [address] Phone [phone] Care Team Providers Care Handy Worker Name Role Phone Mouna Samano MD Primary Care Provider Reason for Visit * Reason Onset Date Comments Medication Refill 07/20/2023 Encounter Details Date Type Department Care Team ([facility] st Contact Info) Description 07/20/2023 Refill [facility] [address] [place] [id number] Mouna Samano MD [address] [facility] [address] RACHID (generalized anxiety disorder); Sleep disorder Allergies Active Allergy Reactions Criticality Noted Date Comments Food (See Comments) High 12/21/2020 Peanuts including dust, tree nuts, soy Latex 12/21/2020 Hives Morphine Hives,Neuro complications (Please comment) 12/21/2020 [place] "high" documented as of this encounter (statuses as of 07/22/2023) Medications Medication Sig Dispensed Refills Start Date End Date Status Triamcinolone Acetonide 0.1 % External Cream (Aristocort)Indic ations:Keratosis pilaris Apply topically to affected area 2 times a day. To affected area. 80 g 2 06/28/2022 Active Escitalopram Oxalate 10 MG Oral Tablet (Lexapro)Indicati ons:RACHID (generalized anxiety disorder) Take 1 Tablet by mouth daily at noon. 90 Tablet 3 11/13/2022 Active EpiPen 2-Galileo 0.3 MG/0.3ML Injection Solution Auto-injectorIndi cations:History of anaphylaxis,Peanu t allergy For a severe reaction: Place orange end against the outer thigh, press firmly, hold in place for 10 seconds and go to the Emergency room. 6 Each 0 11/13/2022 Active busPIRone HCl 15 MG Oral Tablet (Buspar)Indicatio ns:RACHID (generalized anxiety disorder) TAKE 1 TABLET IN THE MORNING AND 1 TABLET BEFORE BEDTIME 180 Tablet 3 02/04/2023 Active guaiFENesin-Codei ne 100-10 MG/5ML Oral Syrup (Robitussin AC)Indications:Ac song cough Take 5 mL by mouth every 4 hours as needed for Cough. 120 mL 0 04/08/2023 Active Additional Information Patient not taking.Reported on 07/19/2023 Full Kit Nebulizer SetIndications:Mi ld persistent asthma without complication Use every 6 hours or as prescription reads. J45.30 1 Each 0 04/19/2023 Active Fluticasone-Salme terol 250-50 MCG/ACT Inhalation Aerosol Powder Breath Activated (Advair Diskus)Indication s:Acute cough Inhale 1 Puff by mouth in the morning and 1 Puff before bedtime. 180 Each 1 04/30/2023 Active Ventolin HFA 108 (90 Base) MCG/ACT Inhalation Aerosol SolutionIndicatio ns:Cough variant asthma Inhale 2 Puffs by mouth every 4 hours as needed for Wheezing. 6.7 g 0 06/03/2023 Active Ipratropium-Albut alma 0.5-2.5 (3) MG/3ML Inhalation Solution (Duoneb) Inhale 3 mL by mouth every 6 hours as needed for Dyspnea or Wheezing. J45.30 90 mL 0 06/26/2023 Active Prazosin HCl 1 MG Oral Capsule (Minipress)Indica tions:PTSD (post-traumatic stress disorder) TAKE 2 CAPSULES AT BEDTIME 180 Capsule 3 07/18/2023 Active LORazepam 1 MG Oral Tablet (Ativan)Indicatio ns:RACHID (generalized anxiety disorder),Sleep disorder Take 1 Tablet by mouth daily as needed for Anxiety or Sleep. 30 Tablet 0 07/22/2023 Active LORazepam 1 MG Oral Tablet (Ativan)Indicatio ns:RACHID (generalized anxiety disorder),Sleep disorder Take 1 Tablet by mouth daily as needed for Anxiety or Sleep. 30 Tablet 0 11/08/2022 Discontinu ed(Refill) documented as of this encounter (statuses as of 07/22/2023) Active Problems Problem Noted Date Diagnosed Date [...] as of this encounter (statuses as of 07/22/2023) Resolved Problems Problem Noted Date Diagnosed Date Resolved Date Abnormal uterine bleeding 06/01/2022 Dysmenorrhea 12/21/2021 07/17/2022 Pelvic pain in female 12/21/20212022 Adenomyosis 12/21/2021 07/17/2022 Eating disorder 06/09/2021 08/23/2021 History of abnormal cervical Pap smear 12/21/2020 07/17/2022 documented as of this encounter (statuses as of 07/22/2023) Immunizations Name Administration Dates Next Due COVID-19 mRNA, LNP-s, No Pre serve, 2-Dose Series (Moderna) 06/26/2020,05/29/2020 COVID-19, LNP-s, No Preserve , Otis-sucrose, Ages 12+ (Pfizer) 04/28/2021 Covid-19, Mrna, Lnp-s, Pf, B ivalent, 30 Mcg, IM, 12 yrs and above (Dynamixyz) 03/02/2022 Hepatitis B, 20+ yrs 02/17/2020,11/06/2019 PPD [...] encounter Miscellaneous Notes * Telephone Encounter - Mouna Samano MD - 07/22/2023 12:56 PM EDT Signed Prescriptions: Disp Refills LORazepam 1 MG Oral Tablet (Ativan) 30 Tab*0 Sig: Take 1 Tablet by mouth daily as needed for Anxiety or Sleep.Authorizing Provider: MOUNA SAMANO * Telephone Encounter - Mouna Samano MD - 07/22/2023 12:55 PM EDT I have reviewed the patient's controlled substance dispensing history in the Prescription Drug Monitoring Program in compliance with the [place] regulations before prescribing a controlled substance. * Telephone Encounter - Yina Gee RPh - 07/22/2023 11:00 AM EDTPending Prescriptions: Disp Refills LORazepam 1 MG Oral Tablet (Ativan) 30 Tab*0 Sig: Take 1 Tablet by mouth daily as needed for Anxiety or Sleep. * Telephone Encounter - Yina Gee RPh - 07/22/2023 10:59 AM EDT I have reviewed the patients controlled substance dispensing history in the Prescription Drug Monitoring Program in compliance with the [place] regulations before prescribing a controlled substance. PDMP checked on 07/22/2023. Pending Prescriptions: Disp Refills LORazepam 1 MG Oral Tablet (Ativan) 30 Tab*0 Sig: Take 1 Tablet by mouth daily as needed for Anxiety or Sleep. Last Visit: 10/10/2022 (in office), Visit date not found (telemedicine) Next Visit: Visit date not found Date medication was last filled: 11/08/22 Date medication is due for refill: 12/07/22 Pharmacy: [id number] [id number] Is this request for a controlled substance? Yes and Urine Drug Screen Not completed Toxicology results: No results found for this or any previous visit. Please approve if appropriate. Thanks, Yina Gee, PharmD Clinical Pharmacist [facility] [phone] 07/22/2023 10:59 AM documented in this encounter Plan of Treatment Upcoming Encounters Date Type Department Care Team (Late st Contact Info) Description 07/24/2023 3:00 PM EDT Telemedicine [address] [address] Elisa Calle LCSW [address] [place] [address] 07/25/2023 4:30 PM EDT Telemedicine [facility], [address] [address] Mak Padgett, PhD [address] [place] [address] 08/08/2023 3:00 PM EDT Telemedicine [facility], [address] [address] Elisa Calle [address] [address] 2023 3:00 PM EDT Telemedicine [facility], [address] [address] Elisa Calle [address] [address] 08/29/2023 3:30 PM EDT Office Visit Allergy/Immunology [facility] 200 [facility] [place] [address] Murray Erazo MD 200 [place] [address] 09/02/2023 6:00 PM EDT Office Visit Family Practice [facility] [address] [place] [address] Mouna Samano MD [address] [place] [address] 09/04/2023 3:00 PM EDT Telemedicine [facility], [address] [place] [address] Elisa Calle, [facility] [address] [place] [address] 09/18/2023 3:00 PM EDT Telemedicine [facility], [place] [address] [place] [address] Elisa Calle, [facility] [address] [place] [address] 10/15/2023 1:45 PM EDT Imaging Radiology [address], [address] [address] 01/08/2024 1:30 PM EDT Office Visit Pulmonary Medicine, [facility] [address] [place] [address] Kimberly Altamirano, CHELSIE [address] [place] [address] Scheduled Procedures Name Priority Associated Diagnoses Date/Ti [...] as of this encounter Visit Diagnoses Diagnosis RACHID (generalized anxiety disorder) Generalized anxiety disorder Sleep disorder Sleep disturbance, unspecified documented in this encounter Additional Health Concerns Infection Onset [...] and were consensually agreed upon. Care Teams Handy Worker Relationship Specialty Start Date End Date Mouna Samano MD [address] [place] [address] PCP - General Internal Medicine 10/11/22 documented as of this encounter
--- OUTSIDE RECORDS SUMMARY | 2023-09-01 05:12 | External Medical Summary | Summary of Care ---
Author Name Unknown Organization [facility] Address [address] [place] [address] Phone [phone] Care Team Providers Care Java Software Developer Name Role Phone Reva Samano MD Primary Care Provider Reason for Visit * Reason Onset Date Comments Appointment 07/19/2023 Encounter Details Date Type Department Care Team ([facility] st Contact Info) Description 07/19/2023 Telephone Gynecology/Obstetics [facility] [address] [place] [address] Darwin Fajardo MD [address] [place] [address] Appointment Allergies Active Allergy Reactions Criticality Noted Date Comments Food (See Comments) High 12/21/2020 Peanuts including dust, tree nuts, soy Latex 12/21/2020 Hives Morphine Hives,Neuro complications (Please comment) 12/21/2020 [place] "high" documented as of this encounter (statuses as of 07/20/2023) Medications Medication Sig Dispensed Refills Start Date End Date Status Triamcinolone Acetonide 0.1 % External Cream (Aristocort)Indica tions:Keratosis pilaris Apply topically to affected area 2 times a day. To affected area. 80 g 2 06/28/2022 Active LORazepam 1 MG Oral Tablet (Ativan)Indication s:RACHID (generalized anxiety disorder),Sleep disorder Take 1 Tablet by mouth daily as needed for Anxiety or Sleep. 30 Tablet 0 11/08/2022 Active Escitalopram Oxalate 10 MG Oral Tablet [...] as of this encounter (statuses as of 07/20/2023) Active Problems Problem Noted Date Diagnosed Date [...] as of this encounter (statuses as of 07/20/2023) Resolved Problems Problem Noted Date Diagnosed Date Resolved Date Abnormal uterine bleeding 06/01/2022 Dysmenorrhea 12/21/2021 07/17/2022 Pelvic pain in female 12/21/20212022 Adenomyosis 12/21/2021 07/17/2022 Eating disorder 06/09/2021 08/23/2021 History of abnormal cervical Pap smear 12/21/2020 07/17/2022 documented as of this encounter (statuses as of 07/20/2023) Immunizations Name Administration Dates Next Due COVID-19 [...] encounter Miscellaneous Notes * Telephone Encounter - Jia Shelton OSA - 07/20/2023 11:54 AM EDT Scheduled. * Telephone Encounter - Johanna Duncan OSA - 07/19/2023 4:20 PM EDT Please schedule pt for a mammogram at [facility] when orders are placed. Thank you documented in this encounter Plan of Treatment Upcoming Encounters Date Type Department Care Team (Late st Contact Info) Description 07/24/2023 3:00 PM EDT Telemedicine [address] [address] Elisa Calle LCSW [facility] [place] [address] 07/25/2023 4:30 PM EDT Telemedicine [address] [address] Mak Padgett, PhD [address] [place] [address] 08/08/2023 3:00 PM EDT Telemedicine [facility] [place] [address] [place] [address] Elisa Calle ACOUSTICAL TILE PATTERNMAKER [address] [place] [address] 2023 3:00 PM EDT Telemedicine Psychology, [place] [address] [place] [address] Elisa Calle [facility] [address] [place] [address] 08/29/2023 3:30 PM EDT Office Visit Allergy/Immunology [facility] [address] [place] [address] Murray Erazo MD 200 [facility] [place] [address] 09/02/2023 6:00 PM EDT Office Visit Family Practice [facility] [address] [facility] [address] Reva Samano MD [address] [facility] [address] 09/04/2023 3:00 PM EDT Telemedicine Psychology, [address] [address] Elisa Calle [facility] [address] [place] [address] 09/18/2023 3:00 PM EDT Telemedicine Psychology, [address] [address] Elisa Calle [facility] [address] [place] [address] 10/15/2023 1:45 PM EDT Imaging Radiology [facility] 1st Floor, [address] [place] [address] 01/08/2024 1:30 PM EDT Office Visit Pulmonary Medicine, [facility] [address] [place] [address] Kimberly Altamirano, DNP [address] [place] [address] Scheduled Procedures Name Priority Associated Diagnoses Date/Ti [...] Indicated Resolved Time Influenza (seasonal) 07/01/2023 07/01/2023 COVID-19 (confirmed) 07/01/2023 07/01/2023 documented as of this encounter Advance Directives [...] and were consensually agreed upon. Care Teams Java Software Developer Relationship Specialty Start Date End Date Reva Samano MD [address] [place] [address] PCP - General Internal Medicine 10/11/22 documented as of this encounter
--- OUTSIDE RECORDS SUMMARY | 2023-09-01 05:12 | External Medical Summary | Summary of Care ---
Author Name Unknown Organization [facility] Address [address] [place] [address] Phone [phone] Care Team Providers Care Android Ui Developer Name Role Phone Mouna Samano MD Primary Care Provider Reason for Referral * Ancillary Services (Within 10 days (routine)) - Pending Review Specialty Diagnoses / Procedures Referred By Shirley yee Referred To Contact Gastroenterology Diagnoses Constipation, unspecified constipation type Darwin Fajardo MD [address] [place] [id number] Referral ID Status Reason Start Date Expiration Date Visits Requested Visits Authorized [id number] Pending Review Ancillary Services Required 07/19/[phone] Question Answer Referral Priority Within 10 days (routine) Where should this appointment be scheduled? [facility] Comments ALERT: Do not order for pediatric patients (18 years or younger). Cancel off screen and order PEDS GASTROENTEROLOGY CONSULT (Type: 1 visit only-Evaluate and Treat) The following Pt. Instructions are available: - Gastro Colonoscopy Prep Instructions [92529] - Gastro Colonoscopy Prep Instructions ([place] Verdean Version) [33102] Go to the Pt. Instructions section within the Visit Navigator to access. Colonoscopy ASGE Guidelines: Average risk screening (begin at age 45, 10 year intervals) ADDITIONAL INFORMATION 1. Is the patient on Coumadin? No 2. Is the patient on Pradaxa? No Reason for Visit * Reason Comments Cashier Assistant Return Encounter Details Date Type Department Care Team (Latest Contact Info) Description 07/19/2023 4:00 PM EDT Office Visit Gynecology/Obstetics [address] [address] Darwin Fajardo MD [address] [place] [address] Encounter for gynecological examination with abnormal finding*; Dysplasia of cervix, high grade SHERICE 2; Constipation, unspecified constipation type Allergies Active Allergy Reactions Criticality Noted Date Comments Food (See Comments) High 12/21/2020 Peanuts including dust, tree nuts, soy Latex 12/21/2020 Hives Morphine Hives,Neuro complications (Please comment) 12/21/2020 [place] "high" documented as of this encounter (statuses as of 07/19/2023) Medications Medication Sig Dispensed Refills Start Date [...] as of this encounter (statuses as of 07/19/2023) Active Problems Problem Noted Date Diagnosed Date [...] as of this encounter (statuses as of 07/19/2023) Resolved Problems Problem Noted Date Diagnosed Date Resolved Date Abnormal uterine bleeding 06/01/2022 Dysmenorrhea 12/21/2021 07/17/2022 Pelvic pain in female 12/21/20212022 Adenomyosis 12/21/2021 07/17/2022 Eating disorder 06/09/2021 08/23/2021 History of abnormal cervical Pap smear 12/21/2020 07/17/2022 documented as of this encounter (statuses as of 07/19/2023) Immunizations Name Administration Dates Next Due COVID-19 [...] on file documented as of this encounter Last Filed Vital Signs Vital Sign Reading Time Taken Comments Blood Pressure 120/82 07/19/2023 4:02 PM EDT Pulse - - Temperature - - Respiratory Rate - - Oxygen Saturation - - Inhaled Oxygen Concentration - - Weight 83 kg (182 lb 14.4 oz) 07/19/2023 4:02 PM EDT Height - - Body Mass Index 26.24 05/27/2023 5:41 PM EST documented in this encounter Progress Notes * Darwin Fajardo MD - 07/19/2023 4:17 PM EDT SUBJECTIVE: Kimberly Azevedo is a 47 year old female. Chief Complaint Patient presents with Cashier Assistant Return HPI: 47 year old lmp 2022 presents for annual States no concerns today gets some constipation States periods absent Denied vaginal itching/burning Denied any fevers chills chest pain or sob Denied any headaches n/v diarrhea or constipation Sexually active with women , 1 partner in the past year non smoker Admits to no issues with weight Admits to no issues with depression currently HEALTH MAINTENANCE Last pap : 2021 cyt hpv pos hx of cin2 s/p leep 2020 DM (47 Q 3 years): 2022 Lipids (47 Q 5 years): 2021 Colonoscopy(47 ): ordered Mammo(40 Q 1 yr): ordered BMI Body mass index is 26.24 kg/m. OB History 2 Para 2 Term 2 AB Living SAB IAB Ectopic Multiple Live Births Patient Active Problem List Diagnosis Code RACHID (generalized anxiety disorder) F41.1 History of anaphylaxis Z87.892 Peanut allergy Z91.010 Sleep disorder G47.9 Anorexia nervosa, restricting type F50.01 Breast calcifications on mammogram R92.1 Encounter for gynecological examination with abnormal finding Z01.411 Dysplasia of cervix, high grade SHERICE 2 N87.1 History of Lyme disease Z86.19 Multiple joint pain M25.50 Constipation K59.00 Current Outpatient Medications Medication Sig Dispense Refill Triamcinolone Acetonide 0.1 % External Cream (Aristocort) Apply topically to affected area 2 times a day. To affected area. 80 g 2 LORazepam 1 MG Oral Tablet (Ativan) Take 1 Tablet by mouth daily as needed for Anxiety or Sleep. 30Tablet 0 Escitalopram Oxalate 10 MG Oral Tablet (Lexapro) Take 1 Tablet by mouth daily at noon. 90 Tablet 3 EpiPen 2-Galileo 0.3 MG/0.3ML Injection Solution Auto-injector For a severe reaction: Place orange end against the outer thigh, press firmly, hold in place for 10 seconds and go to the Emergency room. 6 Each 0 busPIRone HCl 15 MG Oral Tablet (Buspar) TAKE 1 TABLET IN THE MORNING AND 1 TABLET BEFORE BEDTIME 180 Tablet 3 guaiFENesin-Codeine 100-10 MG/5ML Oral Syrup (Robitussin AC) Take 5 mL by mouth every 4 hours as needed for Cough. (Patient not taking: Reported on 07/19/2023) 120 mL 0 Full Kit Nebulizer Set Use every 6 hours or as prescription reads. J45.30 1 Each 0 Fluticasone-Salmeterol 250-50 MCG/ACT Inhalation Aerosol Powder Breath Activated (Advair Diskus) Inhale 1 Puff by mouth in the morning and 1 Puff before bedtime. 180 Each 1 Ventolin HFA 108 (90 Base) MCG/ACT Inhalation Aerosol Solution Inhale 2 Puffs by mouth every 4 hours as needed for Wheezing. 6.7 g 0 Ipratropium-Albuterol 0.5-2.5 (3) MG/3ML Inhalation Solution (Duoneb) Inhale 3 mL by mouth every 6 hours as needed for Dyspnea or Wheezing. J45.30 90 mL 0 Prazosin HCl 1 MG Oral Capsule (Minipress) TAKE 2 CAPSULES AT BEDTIME 180 Capsule 3 No current facility-administered medications for this visit. The patient's medication list was reviewed and updated as needed. No past medical history on file. Past Surgical History: Procedure Laterality Date BIOPSY OF BREAST, OPEN Left 10/03/2021 Architecturally complex breast parenchyma with sclerosed intraductal papillomas, extensive sclerosingadenosis, florid fibrocystic changes, complex sclerosing lesions, collagenous spherulosis, and extensivecalcifications.Negative for atypia and malignancy BREAST BIOPSY Right 07/07/2021 Architecturally complex breast parenchyma with sclerosed intraductal papilloma(s), sclerosing adenosis,florid fibrocystic changes, pseudoangiomatous stromal hyperplasia, and numerous scattered microcalcificationsNegative for atypia and malignancy as sampled. CYSTOSCOPY N/A 05/29/2022 CYSTOURETHROSCOPY performed by Kate Mantilla MD at [facility] EXC BREAST LESION RADMARK Left 10/03/2021 EXCISION OF BREAST LESION RADIOLOGICAL MARKER performed by Abner Mantilla MD at [facility] LAPAROSCOPY TOTAL HYSTX, UTERUS 250GM OR LESS TUBE/OVARY Bilateral 06/01/2022 LAPAROSCOPIC HYSTERECTOMY REMOVAL TUBES AND/OR OVARIES FOR UTERUS 250GM OR LESS performed by Darwin Fajardo MD at [facility] LAPAROSCOPY TOTAL HYSTX, UTERUS 250GM OR LESS TUBE/OVARY Bilateral 05/29/2022 LAPAROSCOPIC HYSTERECTOMY REMOVAL TUBES AND/OR OVARIES FOR UTERUS 250GM OR LESS performed by Kate Mantilla MD at [facility] MASTECTOMY, PARTIAL Left 10/03/2021 MASTECTOMY PARTIAL performed by Abner Mantilla MD at OR [facility] Social History Socioeconomic History Marital status: Significant Other Tobacco Use Smoking status: Never Smokeless tobacco: Never Vaping Use Vaping Use: Never used Substance and Sexual Activity Alcohol use: Not Currently Comment: socially Drug use: Not Currently Social Determinants of Health Food Insecurity: No Food Insecurity (06/03/2023) Hunger Vital Sign Worried About Running Out of Food in the Last Year: Never true Ran Out of Food in the Last Year: Never true Review of patient's allergies indicates: Allergen Reactions Food (See Comments) Peanuts including dust, tree nuts, soy Latex Hives Morphine Hives and Neuro complications (Please comment) [place] "high" Family History Problem Relation Age of Onset Breast Cancer Aunt (Maternal) Family Status Relation Status MAUNT (Not Specified) REVIEW OF SYSTEMS CONSTITUTIONAL ROS: change in weight, No fevers, sweats, or chills CARDIOVASCULAR ROS: No chest pain, No shortness of breath, No dyspnea on exertion, No palpitations and No syncope BREAST ROS: No new breast lumps or masses, No severe breast pain, No nipple discharge, No recent change in shape/color and Performs self breast awareness GASTROINTESTINAL ROS: No abdominal pain, No change in bowel habits, No significant heartburn, No significant change in appetite, No nausea, vomiting, diarrhea, or constipation. GENITO-URINARY FEMALE ROS: No STDs, no dysuria, no frequency, no incontinence, no irregular menstruation, No urgency and no vaginal discharge MSK/EXTREMITIES ROS: No pain, redness or swelling on the joints OBJECTIVE: BP 120/82 | Wt 83 kg (182 lb 14.4 oz) | LMP 03/31/2021 (Approximate) | BMI 26.24 kg/m | BSA 2.02 m PHYSICAL EXAM: General: alert, healthy, no distress and well developed Heart: regular rate & rhythm, no murmurs and no gallops Lungs: chest symmetric, no chest deformities noted, no chest wall tenderness, lungs clear to auscultation Abdomen: abdomen soft, non-tender, normal bowel sounds and no masses or organomegaly Extremities: no joint deformities, effusion, or inflammation, no edema, no clubbing, no cyanosis Breasts: Inspection negative, No nipple retraction or dimpling, No nipple discharge or bleeding, Noaxillary or supraclavicular adenopathy, Normal to palpation without dominant masses Exam (Female): external genitalia and vagina anatomy within normal limits, no vaginal discharge,cervix surgically absent normal bimanual exam Assistant Librarian Documentation Provider requested telesales supervisor. Name of telesales supervisor: Kandi GAMBLE ASSESSMENT AND PLAN 1. Encounter for gynecological examination with abnormal finding Advised pap smears every 3 years (age 21-29) and every 5 years with co testing (age 30-65) if normal Advised yearly mammo if/when 40 years old and stop at age 75 Counseled on routine annual, vaccines and pap smears as indicated Pap smear collected today. Advised repeat in 3 years if normal until 2040 due to hx Advised RTC in one year for annual exam Advised will call only if results abnormal Advised on seat belts and smoke detectors Advised healthy diet and exercise - MAMMOGRAM SCREENING BILATERAL; Future 2. Dysplasia of cervix, high grade SHERICE 2 As above advised vaginal paps ( cytology only ) every 3 years till 2040 - STRATEGY SPECIALIST PAP SCREEN; Future - STRATEGY SPECIALIST PAP SCREEN 3. Constipation, unspecified constipation type Advised miralax and discuss with GI Advised colonoscopy order placed - COLONOSCOPY, GI REFERRAL OP CC Visit to: PCP: MOUNA SAMANO [address] [facility] [place] [address] [phone] Darwin Fajardo MD documented in this encounter Nursing Notes * Elizabeth Kaur RN - 07/19/2023 4:02 PM EDT Pt presents for annual exam. Denies any concerns. documented in this encounter Plan of Treatment Upcoming Encounters Date Type Department Care Team (Late st Contact Info) Description 07/24/2023 3:00 PM EDT Telemedicine [address] [address] [address]le [address] [address] 07/25/2023 4:30 PM EDT Telemedicine [address] [address] Mak Padgett, PhD [address] [place] [address] 08/08/2023 3:00 PM EDT Telemedicine [facility], [address] [address] Elisa Calle [address] [address] 2023 3:00 PM EDT Telemedicine [address] [address] Elisa Calle [address] [address] 08/29/2023 3:30 PM EDT Office Visit [facility]Immun[facility] [address] [facility] [place] [address] Murray Erazo MD [address] [place] [address] 09/02/2023 6:00 PM EDT Office Visit Family Practice [facility] [address] [place] [address] Mouna Samano MD [address] [facility] [place] [address] 09/04/2023 3:00 PM EDT Telemedicine [facility], [place] [address] [place] [address] Elisa Calle, [facility] [address] [place] [address] 09/18/2023 3:00 PM EDT Telemedicine [place] [address] [place] [address] Elisa Calle, [facility] [address] [place] [address] 01/08/2024 1:30 PM EDT Office Visit Pulmonary Medicine, [facility] [address] [place] [address] Kimberly Altamirano, [facility] [address] [place] [address] Pending Results Name Type Priority Associated Diagnoses Date /Time STRATEGY SPECIALIST PAP SCREEN Pathology Routine Dysplasia of cervix, high grade SHERICE 2 07/19/2023 4:17 PM EDT Scheduled Orders Name Type Priority Associated Diagnoses Orde r Schedule STRATEGY SPECIALIST PAP SCREEN Pathology Routine Dysplasia of cervix, high grade SHERICE 2 Expected: 07/19/2023, Expires: 08/18/2024 MAMMOGRAM SCREENING BILATERAL Medical Imaging Routine Encounter for gynecological examination with abnormal finding Expected: 07/19/2023 (Approximate), Expires: 08/18/2024 Scheduled Procedures Name Priority Associated Diagnoses Date/Ti me COLONOSCOPY FLEXIBLE PROXIMA L DIAGNOSTIC Recall Special screening for malignant neoplasms, colon Scheduled Referrals Name Type Priority Associated Diagnoses Orde r Schedule COLONOSCOPY, GI REFERRAL OP Referral Within 10 days (routine) Constipation, unspecified constipation type Ordered: 07/19/2023 Health Maintenance Due Date Last Done Comments [...] as of this encounter Visit Diagnoses Diagnosis Encounter for gynecological examination with abnormal finding- Primary Routine gynecological examination Dysplasia of cervix, high grade SHERICE 2 Constipation, unspecified constipation type documented in this encounter Additional Health Concerns [...] and were consensually agreed upon. Care Teams Android Ui Developer Relationship Specialty Start Date End Date Mouna Samano MD [address] [place] [address] PCP - General Internal Medicine 10/11/22 documented as of this encounter
--- OUTSIDE RECORDS SUMMARY | 2023-09-01 05:12 | External Medical Summary | Summary of Care ---
Author Name Unknown Organization [facility] Address [address] [facility] [place] [address] Phone [phone] Care Team Providers Care Blast Hole Driller Name Role Phone Reva Samano MD Primary Care Provider Reason for Visit * Reason Onset Date Comments Precert Denied 07/08/2023 Xolair Encounter Details Date Type Department Care Team (Late st Contact Info) Description 07/08/2023 Telephone Allergy/Immunology [facility] [address] [place] [address] Murray Erazo MD [address] [place] [address] Precert Denied (Xolair ) Allergies Active Allergy Reactions Criticality Noted Date Comments Food (See Comments) High 12/21/2020 Peanuts including dust, tree nuts, soy Latex 12/21/2020 Hives Morphine Hives,Neuro complications (Please comment) 12/21/2020 [place] "high" documented as of this encounter (statuses as of 07/16/2023) Medications Medication Sig Dispensed Refills Start Date [...] BEFORE BEDTIME 180 Tablet 3 02/04/2023 Active Prazosin HCl 1 MG Oral Capsule (Minipress)Indicat ions:PTSD (post-traumatic stress disorder) TAKE 2 CAPSULES AT BEDTIME 180 Capsule 1 02/04/2023 Active guaiFENesin-Codein e 100-10 MG/5ML Oral Syrup (Robitussin AC)Indications:Acu te cough Take 5 mL by mouth every 4 hours as needed for Cough. 120 mL 0 04/08/2023 Active Full Kit Nebulizer SetIndications:Mil d persistent asthma [...] Wheezing. J45.30 90 mL 0 06/26/2023 Active Amoxicillin-Pot Clavulanate 875-125 MG Oral Tablet (Augmentin)Indicat ions:Acute sinusitis, recurrence not specified, unspecified location Take 1 Tablet by mouth in the morning and 1 Tablet before bedtime. Do all this for 10 days. 20 Tablet 0 07/01/2023 documented as of this encounter (statuses as of 07/16/2023) Active Problems Problem Noted Date Diagnosed Date History of Lyme disease 10/10/2022 Multiple joint pain 10/10/2022 Dysplasia of cervix, high grade SHERICE 2 07/17/2022 Overview: Advised pap x 2 consecutive years if neg then repeat 3 years after and then every 5 years to complete 20 years due to hx of SHERICE 2 s/p resection in 2020 Breast calcifications on mammogram 10/03/2021 Anorexia nervosa, restricting type 07/31/2021 RACHID (generalized anxiety disorder) 12/21/2020 History of anaphylaxis 12/21/2020 Peanut allergy 12/21/2020 Sleep disorder 12/21/2020 documented as of this encounter (statuses as of 07/16/2023) Resolved Problems Problem Noted Date Diagnosed Date Resolved Date Abnormal uterine bleeding 06/01/2022 Dysmenorrhea 12/21/2021 07/17/2022 Pelvic pain in female 12/21/20212022 Encounter for Pap smear of c ervix with HPV DNA cotesting 12/21/2021 02/20/2022 Adenomyosis 12/21/2021 07/17/2022 Eating disorder 06/09/2021 08/23/2021 History of abnormal cervical Pap smear 12/21/2020 07/17/2022 documented as of this encounter (statuses as of 07/16/2023) Immunizations Name Administration Dates Next Due COVID-19 mRNA, LNP-s, No Pre serve, 2-Dose Series (Moderna) 06/26/2020,05/29/2020 COVID-19, LNP-s, No Preserve , Otis-sucrose, Ages 12+ (Pfizer) 04/28/2021 Covid-19, Mrna, Lnp-s, Pf, B ivalent, 30 Mcg, IM, 12 yrs and above (SumZero) 03/02/2022 Hepatitis B, 20+ yrs 02/17/2020,11/06/2019 PPD [...] encounter Miscellaneous Notes * Telephone Encounter - Mylene Finley LPN - 07/16/2023 8:04 AM EDT Letter sent advising of such. * Telephone Encounter - Murray Erazo MD - 07/10/2023 10:52 AM EDT Marcin Harris, We wanted to update you on the overall process of trying to get Xolair approved. We did resubmit for Xolair approval on 07/07 (this time for food allergies) but unfortunately it again was denied for similar reasons as before. We also had a meeting with a roofing sales representative from [employer]ol[employer] last week and discussed your case with her. She noted that it would be extremely unlikely to get approved unless the re strictions change in the future. Murray Erazo MD * Telephone Encounter - Anna Angel OSA - 07/10/2023 9:43 AM EDT Images from the original note were not included. AUTH REQUEST DENIED: THE BASELINE IGE LEVEL MUST BE OVER 30 IU/ML FOR XOLAIR TO BE COVERED. APPEAL CAN BE DONE BY CALLING * Telephone Encounter - Anna Angel OSA - 07/09/2023 9:13 AM EDT Requested auth. kimberly michael Austin: [id number] - [place] help? Call us at Status Sent to [facility] Xolair 150MG/ML auto-injectors Form [facility] Electronic [place] Form (2016 [facility]) * Telephone Encounter - Murray Erazo MD - 07/08/2023 2:35 PM EDT Allergy Medicine Pre-Cert Request Medication/Disease State Information: Medication: Omalizumab (Xolair) 150mg every 4 weeks. Is the patient able and willing to self inject? Yes. Patient will transition to home after first 3 doses in clinic. Has patient been prescribed anEpiPen: Yes Informed consent obtained: No Diagnosis (including ICD-10): Adverse food reaction, peanut-induced anaphylaxis T78.1, T78.01 Clinic Administered Medication - route pre-cert request to [id number] Medication(s) Tried/Failed/Contraindicated: Avoidance, EpiPen PRN See corresponding visit note(s) for additional supporting clinical information. Office Information: Prescriber: Murray Erazo MD Allergy/Immunology documented in this encounter Plan of Treatment Upcoming Encounters Date Type Department Care Team (Late st Contact Info) Description 07/17/2023 3:00 PM EDT Telemedicine Psychology, [place] [address] [place] [address] Elisa Calle, [facility] [address] [place] [address] 07/19/2023 4:00 PM EDT Office Visit Gynecology/Obstetics [place] [address] [place] [address] Darwin Fajardo MD [address] [place] [address] 07/24/2023 3:00 PM EDT Telemedicine [facility], [place] [address] [place] [address] Elisa Calle [facility] [address] [place] [address] 07/25/2023 4:30 PM EDT Telemedicine Psychology, [place] [address] [place] [address] Mak Padgett, PhD [address] [place] [address] 08/29/2023 3:30 PM EDT Office Visit Allergy/Immunology [facility] [address] [place] [address] Murray Erazo MD [address] [place] [address] 09/02/2023 6:00 PM EDT Office Visit Family Practice [facility] [address] [address] Reva Samano MD [address] [address] 01/08/2024 1:30 PM EDT Office Visit Pulmonary Medicine, [address] [address] Kimberly Altamirano, DNP [address] [place] [address] Scheduled Procedures Name Priority Associated Diagnoses Date/Ti [...] Test 2022 Sigmoidoscopy 2022 COVID-19 Vaccine ( - season) 2022 03/02/2022, 04/28/2021, 06/26/2020, Additional history [...] and were consensually agreed upon. Care Teams Blast Hole Driller Relationship Specialty Start Date End Date Reva Samano MD [address] [place] [address] PCP - General Internal Medicine 10/11/22 documented as of this encounter
--- OUTSIDE RECORDS SUMMARY | 2023-09-01 05:12 | External Medical Summary | Summary of Care ---
Author Name Unknown Organization [facility] Address [address] [facility] [place] [address] Phone [phone] Care Team Providers Care Tap Dancer Name Role Phone Reva Samano MD Primary Care Provider Reason for Visit * Reason Onset Date Comments Precert Denied 07/08/2023 Xolair Encounter Details Date Type Department Care Team (Late st Contact Info) Description 07/08/2023 Telephone Allergy/Immunology [facility] [address] [facility] [place] [address] Murray Erazo MD [address] [place] [address] Precert Denied (Xolair ) Allergies Active Allergy Reactions Criticality Noted Date Comments Food (See Comments) High 12/21/2020 Peanuts including dust, tree nuts, soy Latex 12/21/2020 Hives Morphine Hives,Neuro complications (Please comment) 12/21/2020 [place] "high" documented as of this encounter (statuses as of 07/15/2023) Medications Medication Sig Dispensed Refills Start Date [...] as of this encounter (statuses as of 07/15/2023) Active Problems Problem Noted Date Diagnosed Date [...] as of this encounter (statuses as of 07/15/2023) Resolved Problems Problem Noted Date Diagnosed Date Resolved Date Abnormal uterine bleeding 06/01/2022 Dysmenorrhea 12/21/2021 07/17/2022 Pelvic pain in female 12/21/20212022 Encounter for Pap smear of c ervix with HPV DNA cotesting 12/21/2021 02/20/2022 Adenomyosis 12/21/2021 07/17/2022 Eating disorder 06/09/2021 08/23/2021 History of abnormal cervical Pap smear 12/21/2020 07/17/2022 documented as of this encounter (statuses as of 07/15/2023) Immunizations Name Administration Dates Next Due COVID-19 mRNA, LNP-s, No Pre serve, 2-Dose Series (Moderna) 06/26/2020,05/29/2020 COVID-19, LNP-s, No Preserve , Otis-sucrose, Ages 12+ (Pfizer) 04/28/2021 Covid-19, Mrna, Lnp-s, Pf, B ivalent, 30 Mcg, IM, 12 yrs and above ([employer]) 03/02/2022 Hepatitis B, 20+ yrs 02/17/2020,11/06/2019 PPD [...] encounter Miscellaneous Notes * Telephone Encounter - Murray Erazo MD - 07/10/2023 10:52 AM EDT Marcin Harris, We wanted to update you on the overall process of trying to get Xolair approved. We did resubmit for Xolair approval on 07/07 (this time for food allergies) but unfortunately it again was denied for similar reasons as before. We also had a meeting with a operations support representative from [employer] last week and discussed [...] 07/09/2023 9:13 AM EDT Requested auth. kimberly ruvalcaba [place]: [id number] - [place] help? Call us at Status Sent to [facility] Xolair 150MG/ML auto-injectors Form [employer] Electronic [place] Form (2016 [facility]) * Telephone Encounter - Murray [...] Administered Medication - route pre-cert request to [id number] Medication(s) Tried/Failed/Contraindicated: Avoidance, EpiPen PRN See corresponding visit note(s) for additional supporting clinical information. Office Information: Prescriber: Murray Erazo MD Allergy/Immunology documented in this encounter Plan of Treatment Upcoming Encounters Date Type Department Care Team (Late st Contact Info) Description 07/17/2023 3:00 PM EDT Telemedicine [place] [address] [place] [address] [facility] [address] [place] [address] 07/19/2023 4:00 PM EDT Office Visit Gynecology/Obstetics [place] [address] [place] [phone] Darwin Fajardo MD [address] [place] [address] 07/24/2023 3:00 PM EDT Telemedicine [facility] [place] [address] [place] [address] Elisa Calle, SOFTWARE MAINTENANCE ENGINEER [address] [place], [place] [id number] 07/25/2023 4:30 PM EDT Telemedicine [facility] [place] [address] [place], [place] [id number] Mak Padgett, PhD [address] [place] [address] 08/29/2023 3:30 PM EDT Office Visit Allergy/Immunology [facility] [address] [facility] [place] [address] Murray Erazo MD [address] [facility] [place] [address] 09/02/2023 6:00 PM EDT Office Visit Family Practice [facility] [address] [place] [address] Reva Samano MD 132 [place] [address] 01/08/2024 1:30 PM EDT Office Visit Pulmonary Medicine, [facility] [address] [place] [address] Kimberly Altamirano, CHELSIE [address] [place] [address] Scheduled Procedures Name Priority Associated Diagnoses Date/Ti [...] 2022 Sigmoidoscopy 2022 COVID-19 Vaccine ( - 2022- season) 2022 03/02/2022, 04/28/2021, 06/26/2020, Additional history [...] and were consensually agreed upon. Care Teams Tap Dancer Relationship Specialty Start Date End Date Reva Samano MD [address] [place] [address] PCP - General Internal Medicine 10/11/22 documented as of this encounter
--- OUTSIDE RECORDS SUMMARY | 2023-09-01 05:12 | External Medical Summary | Summary of Care ---
Author Name Unknown Organization [facility] Address [address] [facility] [address] Phone [phone] Care Team Providers Care Service Engine Repairer Name Role Phone Mouna Samano MD Primary Care Provider Reason for Visit * Reason Comments eRx-Medication Refill Encounter Details Date Type Department Care Team (Late st Contact Info) Description 07/18/2023 Refill Family Practice [facility] [place] [address] Mouna Samano MD [address] [place] [address] PTSD (post-traumatic stress disorder) Allergies Active Allergy Reactions Criticality Noted Date Comments Food (See Comments) High 12/21/2020 Peanuts including dust, tree nuts, soy Latex 12/21/2020 Hives Morphine Hives,Neuro complications (Please comment) 12/21/2020 [place] "high" documented as of this encounter (statuses as of 07/18/2023) Medications Medication Sig Dispensed Refills Start Date End Date Status Triamcinolone Acetonide 0.1 % External Cream (Aristocort)Indic ations:Keratosis pilaris Apply topically to affected area 2 times a day. To affected area. 80 g 2 3 Active LORazepam 1 MG Oral Tablet (Ativan)Indicatio ns:RACHID (generalized anxiety disorder),Sleep disorder Take 1 Tablet by mouth daily as needed for Anxiety or Sleep. 30 Tablet 0 3 Active Escitalopram Oxalate 10 MG Oral Tablet (Lexapro)Indicati ons:RACHID (generalized anxiety disorder) Take 1 Tablet by mouth daily at noon. 90 Tablet 3 3 Active EpiPen 2-Galileo 0.3 MG/0.3ML Injection Solution Auto-injectorIndi cations:History of anaphylaxis,Peanu t allergy For a severe reaction: Place orange end against the outer thigh, press firmly, hold in place for 10 seconds and go to the Emergency room. 6 Each 0 3 Active busPIRone HCl 15 MG Oral Tablet (Buspar)Indicatio ns:RACHID (generalized anxiety disorder) TAKE 1 TABLET IN THE MORNING AND 1 TABLET BEFORE BEDTIME 180 Tablet 3 3 Active guaiFENesin-Codei ne 100-10 MG/5ML Oral Syrup (Robitussin AC)Indications:Ac song cough Take 5 mL by mouth every 4 hours as needed for Cough. 120 mL 0 3 Active Full Kit Nebulizer SetIndications:Mi ld persistent asthma without complication Use every 6 hours or as prescription reads. J45.30 1 Each 0 3 Active Fluticasone-Salme terol 250-50 MCG/ACT Inhalation Aerosol Powder Breath Activated (Advair Diskus)Indication s:Acute cough Inhale 1 Puff by mouth in the morning and 1 Puff before bedtime. 180 Each 1 4 Active Ventolin HFA 108 (90 Base) MCG/ACT Inhalation Aerosol SolutionIndicatio ns:Cough variant asthma Inhale 2 Puffs by mouth every 4 hours as needed for Wheezing. 6.7 g 0 4 Active Ipratropium-Albut alma 0.5-2.5 (3) MG/3ML Inhalation Solution (Duoneb) Inhale 3 mL by mouth every 6 hours as needed for Dyspnea or Wheezing. J45.30 90 mL 0 4 Active Prazosin HCl 1 MG Oral Capsule (Minipress)Indica tions:PTSD (post-traumatic stress disorder) TAKE 2 CAPSULES AT BEDTIME 180 Capsule 3 4 Active Prazosin HCl 1 MG Oral Capsule (Minipress)Indica tions:PTSD (post-traumatic stress disorder) TAKE 2 CAPSULES AT BEDTIME 180 Capsule 1 3 07/18/19 24 Discontinued documented as of this encounter (statuses as of 07/18/2023) Active Problems Problem Noted Date Diagnosed Date [...] as of this encounter (statuses as of 07/18/2023) Resolved Problems Problem Noted Date Diagnosed Date Resolved Date Abnormal uterine bleeding 06/01/2022 Dysmenorrhea 12/21/2021 07/17/2022 Pelvic pain in female 12/21/20212022 Encounter for Pap smear of c ervix with HPV DNA cotesting 12/21/2021 02/20/2022 Adenomyosis 12/21/2021 07/17/2022 Eating disorder 06/09/2021 08/23/2021 History of abnormal cervical Pap smear 12/21/2020 07/17/2022 documented as of this encounter (statuses as of 07/18/2023) Immunizations Name Administration Dates Next Due COVID-19 [...] encounter Miscellaneous Notes * Telephone Encounter - Jana Myles RPh - 07/18/2023 3:36 PM EDT Signed Prescriptions: Disp Refills Prazosin HCl 1 MG Oral Capsule (Minipress) 180 Ca*3 Sig: TAKE 2CAPSULES AT BEDTIMEAuthorizing Provider: MOUNA SAMANO User: JANA MYLES documented in this encounter Plan of Treatment Upcoming Encounters Date Type Department Care Team (Late st Contact Info) Description 07/19/2023 4:00 PM EDT Office Visit Gynecology/Obstetics [address] [phone] Darwin Fajardo MD [address] [place] [address] 07/24/2023 3:00 PM EDT Telemedicine Psychology, [address] [address] Elisa Calle [place] [address] [place] [address] 07/25/2023 4:30 PM EDT Telemedicine [facility], [address] [address] Mak Padgett, PhD [facility] [place] [address] 2023 3:00 PM EDT Telemedicine [facility], [address] [address] Elisa Calle [address] [address] 08/29/2023 3:30 PM EDT Office Visit [facility] 200 [place] [address] Murray Erazo MD [address] [place] [address] 09/02/2023 6:00 PM EDT Office Visit Family Practice [facility] 132 [place] [address] Mouna Samano MD 132 [facility] [place] [address] 09/04/2023 3:00 PM EDT Telemedicine [facility], [address] [address] Elisa Calle [address] [address] 09/18/2023 3:00 PM EDT Telemedicine Psychology, [place] [address] [place] [address] Elisa Calle, [facility] [address] [place] [address] 01/08/2024 1:30 PM EDT Office Visit Pulmonary Medicine, [facility] [address] [place] [address] Kimberly Altamirano, DNP [address] [place] [address] Scheduled Procedures Name Priority Associated Diagnoses Date/Ti [...] encounter Visit Diagnoses Diagnosis PTSD (post-traumatic stress disorder) Posttraumatic stress disorder documented in this encounter Additional Health Concerns [...] and were consensually agreed upon. Care Teams Service Engine Repairer Relationship Specialty Start Date End Date Mouna Samano MD [address] [place] [address] PCP - General Internal Medicine 10/11/22 documented as of this encounter
--- OUTSIDE RECORDS SUMMARY | 2023-09-01 05:12 | External Medical Summary | Summary of Care ---
Author Name Unknown Organization [facility] Address [address] [place] [address] Phone [phone] Care Team Providers Care Brusher Operator Name Role Phone Reva Samano MD Primary Care Provider Encounter Details Date Type Department Care Team (Late st Contact Info) Description 07/17/2023 3:00 PM EDT Telemedicine [facility], [place] [address] [place], [place] [id number] Elisa Calle, [facility] [address] [place] [address] PTSD (post-traumatic stress disorder)*; Anorexia nervosa in remission Allergies Active Allergy Reactions Criticality Noted Date Comments Food (See Comments) High 12/21/2020 Peanuts including dust, tree nuts, soy Latex 12/21/2020 Hives Morphine Hives,Neuro complications (Please comment) 12/21/2020 [place] "high" documented as of this encounter (statuses as of 07/17/2023) Medications Medication Sig Dispensed Refills Start Date [...] Wheezing. J45.30 90 mL 0 06/26/2023 Active documented as of this encounter (statuses as of 07/17/2023) Active Problems Problem Noted Date Diagnosed Date [...] as of this encounter (statuses as of 07/17/2023) Resolved Problems Problem Noted Date Diagnosed Date Resolved Date Abnormal uterine bleeding 06/01/2022 Dysmenorrhea 12/21/2021 07/17/2022 Pelvic pain in female 12/21/20212022 Encounter for Pap smear of c ervix with HPV DNA cotesting 12/21/2021 02/20/2022 Adenomyosis 12/21/2021 07/17/2022 Eating disorder 06/09/2021 08/23/2021 History of abnormal cervical Pap smear 12/21/2020 07/17/2022 documented as of this encounter (statuses as of 07/17/2023) Immunizations Name Administration Dates Next Due COVID-19 [...] as of this encounter Progress Notes * Luc Elisa Ann, PROCESS PUMPER - 07/17/2023 2:23 PM EDT Patient location: HOME. I was not in a hospital or clinic location. After connecting through [employer], patient was verified with two unique identifiers. Patient (or authorized legal surgical sales representative) was then informed that this [...] that I have reviewed their record in [facility] and presented the opportunity for them to ask any questions regarding the visit today. The patient agreed to participate. Provider reviewed elements of Outpatient Services Description including limits of confidentiality, how to contact the department, risks and benefits of treatment and consent for treatment. Start Time: 3:00 PM Stop Time: 4:05 PM Total direct [id number]-[id number] time: 65 min. Confirm patient's location (and address if different from the home address documented in [facility]) at the time of this appointment: [facility], [place] ADULT THERAPY PROGRESS NOTE Psychology, [address] [address] 07/17/2023 2:24 PM TYPE OF VISIT: Individual DIAGNOSIS: PTSD, AN REASON FOR FOLLOW-UP: Individual therapy Session #: 2 SESSION FOCUS: Resourcing SESSION SUMMARY/NOTES: Today's session focused on discussing coping strategies and resources. Every day coping strategies. "Absolutely love my job, health of relationship at home - processing of day with partner." Getting outside, nature, getting in the sunshine, very active life. Nighttime routine, eating and sleeping schedule - defined bedtime routine. Drink tea - unwind from the day. Unhealthy coping skills - COREY. Partner takes on meal planning, meal prep. Trauma specific coping strategies. Grounding and breathing practices, being present and allowing myself to feel emotions. COREY - having fallbacks and perfectionism in place - doesn't have to be perfect, for it to be a success - thought reframing Collage journaling Biggest steps - turning emotions back on. Have used yoga sporadically Reorient to the present moment Journaling, writing Reading novels Discussed anxiety related to the recent allergic reaction. Not needing to take ativan daily. Settling back into the routine of things, settling back into normalcy. Haven't been as willing to try new things for food. Have been less inclined to visit restaurants. Baseline has readjusted itself - I don't know if my baseline ever return to what it was. Discussed difficulty with sleeping. This is due to trauma reminders, loss of control in dreams. Dreams and sleep are not safe places. Patient shared that when she is tired her startle reflex is very high. Grounding and breathing are typically helpful with trauma reminders and waking from nightmares. Partner assists with grounding when needed. Provided psychoeducation on the concepts of state change and trait change. Discussed BLS in EMDR. Engaged patient in EMDR Phase 2: Creating a Safe/Calm State: Image: [place]. Emotions and Sensations: peaceful, calm, relaxed - shoulders - stomach, - currently noticing tension in shoulders and stomach. Discussed what the current anxiety that she is feeling was related to. Was injured at work on Saturday, have to wear a brace on wrist. Feel exhausted from asking for help, helpless and defenseless. Feel safe in my current environment. Feel like a target when I'm injured. Feel inadequate, a lot of worth is from doing things for people and haven't been able to do much tohelp out. Feel like a burden. Engaged in thought reframing - explored what she does bring to her family. "Structure, stability, consistency, organizational skills, problem solving skills - which gives me a sense of value, contributiton, purpose." Takeaway from today's session: "Usefulness and effectiveness with my grounding and breathing techniques, dare to stay present - feel where I'm actually at." PROGRESS TOWARDS GOALS: Patient has well established routines which are helpful methods of coping with life's stressors. She has had a lot of practice with grounding and breathing strategies which have proven effective for coping with panic attacks and trauma reminders. Objective Measures: Billy-7 Question 07/17/2023 2:52 PM EDT - Filed by Patient Over the last 2 weeks, how often have you been bothered by the following problems? Feeling nervous, anxious, or on edge Several days Not being able to stop or control worrying Several days Worrying too much about different things Several days Trouble relaxing More than half the days Being so restless that is hard to sit still More than half the days Becoming easily annoyed or irritable Several days Feeling afraid as if something awful might happen Several days Total score of all questions (range: 0 - 21) 9 (Mild) Myc Visit Accident Related Question Question 07/17/2023 2:53 PM EDT - Filed by Patient Is this visit related to an accident? (i.e work, motor vehicle) No Patient Health Questionnaire-Depression Screening (Phq-9) Question 07/17/2023 2:53 PM EDT - Filed by Patient Over the last 2 weeks, how often have you been bothered by any of the following problems? Little interest or pleasure in doing things More than half the days Feeling down, depressed, or hopeless Several days Trouble falling or staying asleep, or sleeping too much More than half the days Feeling tired or having little energy More than half the days Poor appetite or overeating Nearly every day Feeling bad about yourself - or that you are a failure or have let yourself or your family down More than half the days Trouble concentrating on things, such as reading the newspaper or watching television Several days Moving or speaking so slowly that other people could have noticed? Or the opposite - being so fidgety or restless that you have been moving around a lot more than usual. Not at all Thoughts that you would be better off or hurting yourself in some way Not at all If you checked off any problems on this questionnaire, how difficult have these problems made it for you to do your work, take care of things at home, or get along with other people? Somewhat difficult INTERVENTION: Cognitive Behavioral Therapy (CBT) and EMDR [...] Suicide/Homicidal Assessment Validated Screening and Assessment Measures Walker Suicide Severity Rating Scale Results 07/17/2023 14:59 [place] SUICIDE SEVERITY RATING SCALE (C-SSRS) Have [...] Plan in Treatment Plan FOLLOW-UP PLAN: Return: 1 week Action Plan: 1. Engage in grounding and breathing practices. Outpatient Adult Therapy Treatment Plan Treatment plan [...] Treatment Frequency of Treatment Yes, sent via [employer] 12-15 sessions weekly to bi-weekly Patient Identified Needs/Goals Interventions Objective/ Discharge Criteria Problem/Need 1: PTSD Cognitive Processing Therapy (CPT) and EMDR PHQ<5, BILLY<5, CSSRS in low risk range, and PTSD Checklist for DSM5 (PCL-5) total score <33 and/or decrease of 10 points Please choose a method to track patient's improvement based on clinical assessment: PHQ-9 Adult Data BILLY-7 Data Walker Suicide Screen Data PCL-5 Discharge Discussed with patient: Patient continues to need treatment Collaboration of Care: Yes, provider within [facility], information is shared automatically in medical record Is this the patients' initial treatment plan? Yes Treatment plan reviewed with the patient. Patient voices understanding and concurs with plan. Elisa Calle LCSW Division of Psychiatry & Behavioral Medicine [facility] [phone] documented in this encounter Plan of Treatment Upcoming Encounters Date Type Department Care Team (Late st Contact Info) Description 07/19/2023 4:00 PM EDT Office Visit Gynecology/Obstetics [place] [address] [place] [phone] Darwin Fajardo MD [address] [place] [address] 07/24/2023 3:00 PM EDT [facility] [address] [place] [address] Elisa Calle LCSW [address] [place] [address] 07/25/2023 4:30 PM EDT Telemedicine Psychology, [place] [address] [place] [address] Mak Padgett, PhD [address] [place] [address] 2023 3:00 PM EDT Telemedicine Psychology, [place] [address] [place] [address] Elisa Calle PROCESS PUMPER [address] [place] [address] 08/29/2023 3:30 PM EDT Office Visit Allergy/Immunology [facility] 200 [place] [address] Murray Erazo MD [address] [place] [address] 09/02/2023 6:00 PM EDT Office Visit Family Practice [facility] 132 [place] [address] Reva Samano MD 132 [place] [address] 09/04/2023 3:00 PM EDT Telemedicine Psychology, [address] [address] Elisa Calle LCSW [address] [place] [address] 09/18/2023 3:00 PM EDT Telemedicine Psychology, [place] [address] [place] [address] Elisa Calle PROCESS PUMPER [address] [place] [address] 01/08/2024 1:30 PM EDT Office Visit Pulmonary Medicine, [address] [address] Kimberly Altamirano, DNP [address] [place] [address] Scheduled Procedures Name Priority Associated Diagnoses Date/Ti [...] nervosa in remission documented in this encounter Additional Health Concerns [...] and were consensually agreed upon. Care Teams Brusher Operator Relationship Specialty Start Date End Date Reva Samano MD [address] [place] [address] PCP - General Internal Medicine 10/11/22 documented as of this encounter
--- OUTSIDE RECORDS SUMMARY | 2023-09-01 05:13 | External Medical Summary | Summary of Care ---
Author Name Unknown Organization [facility] Address [address] [place] [place] [place] [address] Phone [phone] Care Team Providers Care Scale Model Maker Name Role Phone Reva Samano MD Primary Care Provider Reason for Visit * Reason Onset Date Comments Appointment 06/27/2023 Encounter Details Date Type Department Care Team (Late st Contact Info) Description 06/27/2023 Telephone Pulmonary Medicine, [facility] [address] [place] [address] Kimberly Altamirano, [facility] [address] [place] [address] Appointment Allergies Active Allergy Reactions Criticality Noted Date Comments Food (See Comments) High 12/21/2020 Peanuts including dust, tree nuts, soy Latex 12/21/2020 Hives Morphine Hives,Neuro complications (Please comment) 12/21/2020 [place] "high" documented as of this encounter (statuses as of 06/27/2023) Medications Medication Sig Dispensed Refills Start Date [...] for Wheezing. 6.7 g 0 06/03/2023 Active predniSONE 20 MG Oral Tablet (Deltasone)Indicat ions:Exposure to the flu,Viral syndrome,Acute cough Take 3 tabs for 3 days, 2 tabs for 3 days, 1 tab for 3 days 18 Tablet 0 06/11/2023 Active Ipratropium-Albute rol 0.5-2.5 (3) MG/3ML Inhalation Solution (Duoneb) Inhale 3 mL by mouth every 6 hours as needed for Dyspnea or Wheezing. J45.30 90 mL 0 06/26/2023 Active documented as of this encounter (statuses as of 06/27/2023) Active Problems Problem Noted Date Diagnosed Date [...] as of this encounter (statuses as of 06/27/2023) Resolved Problems Problem Noted Date Diagnosed Date Resolved Date Abnormal uterine bleeding 06/01/2022 Dysmenorrhea 12/21/2021 07/17/2022 Pelvic pain in female 12/21/20212022 Encounter for Pap smear of c ervix with HPV DNA cotesting 12/21/2021 02/20/2022 Adenomyosis 12/21/2021 07/17/2022 Eating disorder 06/09/2021 08/23/2021 History of abnormal cervical Pap smear 12/21/2020 07/17/2022 documented as of this encounter (statuses as of 06/27/2023) Immunizations Name Administration Dates Next Due COVID-19 [...] encounter Miscellaneous Notes * Telephone Encounter - Kimberly Altamirano DNP - 06/27/2023 7:32 PM EST Please schedule for 6 month follow up and ENT referral appt. Kimberly Altamirano DNP documented in this encounter Plan of Treatment Upcoming Encounters Date Type Department Care Team (Late st Contact Info) Description 07/17/2023 3:00 PM EDT Telemedicine Psychology, [place] [address] [place] [address] Elisa Calle, [facility] [address] [place] [address] 07/19/2023 4:00 PM EDT Office Visit Gynecology/Obstetics [place] [address] [place] [address] Darwin Fajardo MD [address] [place] [address] 07/24/2023 3:00 PM EDT Telemedicine [facility], [place] [address] [place] [address] Elisa Calle LCSW [address] [place] [address] 07/25/2023 4:30 PM EDT Telemedicine [facility], [place] [address] [place] [address] Mak Padgett, PhD [address] [place] [address] 08/29/2023 3:30 PM EDT Office Visit Allergy/Immunology [facility] [address] [place] [address] Murray Erazo MD [address] [place] [address] 09/02/2023 6:00 PM EDT Office Visit Family Practice [facility] [address] [facility] [place] [address] Reva Samano MD [address] [place] [address] Scheduled Procedures Name Priority Associated Diagnoses Date/Ti [...] Infection Onset Date Last Indicated Resolved Time COVID-19 (confirmed) 06/11/2023 06/11/2023 documented as of this encounter Advance Directives [...] and were consensually agreed upon. Care Teams Scale Model Maker Relationship Specialty Start Date End Date Reva Samano MD [address] [place] [address] PCP - General Internal Medicine 10/11/22 documented as of this encounter
--- OUTSIDE RECORDS SUMMARY | 2023-09-01 05:13 | External Medical Summary ---
Author Name Unknown Address Unknown Organization K01:[facility]ATORY [facility] - [address] [facility] [address] Laboratory Report Ordering Provider Test Date Status BRISEIDA FORD 07/01/2023 16:29:13 Final Observation Date Value Abnormality Reference (Units ) Status SARS Coronavirus 2 07/01/2023 16:29:13 Positive Abnormal N egative Final This automated test was patti bryson and its performance characteristics determined by [facility]. It has not been cleared or approved by the U.S. Food and Drug Administration (FDA). FDA does not require this test to go thru premarket FDA review. This test is used for clinical purposes. It should not be regarded as investigational or for research. This laboratory is certified under the Clinical Laboratory Improvement Amendments (CLIA) as qualified to perform high complexity clinical laboratory testing.

This test is a nucleic acid amplification test (NAAT), a reverse transcriptase polymerase chain reaction (RT-PCR) test, or a Centers for Disease Control-acceptable equivalent. The test is performed in a high complexity Clinical Laboratory Improvement Amendments-(CLIA) certified laboratory. The test is acceptable for SARS-CoV-2 diagnosis, surveillance, and travel within the [place] and to most countries. Please check with local testing authorities about requirements before travel.

The validation of bronchial specimens, tracheal aspirates, and sputum for this assay was developed and performance characteristics determined by [facility]. The validation of alternate specimen types has not been cleared or approved by the U.S. Food and Drug Administration (FDA). It has been determined that such clearance or approval is not necessary.

Test result suggests low level virus. In the absence of symptoms, repeat testing not recommended. Influenza virus A RNA [Prese nce] in Specimen by [facility] with probe detection 07/01/2023 16:29:13 Negative Negative Final No Influenza A RNA detected by PCR (amplified probe) Influenza virus B RNA [Prese nce] in Specimen by RUSSELL with probe detection 07/01/2023 16:29:13 Positive Abnormal Negative Final Influenza B RNA detected by PCR (amplified probe). Test results reported to [facility]. Respiratory syncytial virus RNA [Identifier] in Specimen by RUSSELL with probe detection 07/01/2023 16:29:13 Negative Negative Final No Respiratory Syncytial Vir us RNA detected by PCR (amplified probe) Performing Location LAB[facility]ATORY [facility] - [facility] [place] Rachel [address]ier. [facility] [address]
--- OUTSIDE RECORDS SUMMARY | 2023-09-01 05:13 | External Medical Summary | Summary of Care ---
Author Name Unknown Organization [facility] Address [address] [place] [address] Phone [phone] Care Team Providers Care Air Quality Specialist Name Role Phone Reva Samano MD Primary Care Provider Reason for Visit * Reason Onset Date Comments Precert In Process 07/08/2023 XolagAutoK Ca rol Encounter Details Date Type Department Care Team (Late st Contact Info) Description 07/08/2023 Telephone Allergy/Immunology [facility] [address] [place] [address] Murray Erazo MD [address] [place] [address] Precert In Process (MVP VaultolagAutoK Anna ) Allergies Active Allergy Reactions Criticality Noted Date Comments Food (See Comments) High 12/21/2020 Peanuts including dust, tree nuts, soy Latex 12/21/2020 Hives Morphine Hives,Neuro complications (Please comment) 12/21/2020 [place] "high" documented as of this encounter (statuses as of 07/09/2023) Medications Medication Sig Dispensed Refills Start Date [...] for 10 days. 20 Tablet 0 07/01/2023 Active documented as of this encounter (statuses as of 07/09/2023) Active Problems Problem Noted Date Diagnosed Date [...] as of this encounter (statuses as of 07/09/2023) Resolved Problems Problem Noted Date Diagnosed Date Resolved Date Abnormal uterine bleeding 06/01/2022 Dysmenorrhea 12/21/2021 07/17/2022 Pelvic pain in female 12/21/20212022 Encounter for Pap smear of c ervix with HPV DNA cotesting 12/21/2021 02/20/2022 Adenomyosis 12/21/2021 07/17/2022 Eating disorder 06/09/2021 08/23/2021 History of abnormal cervical Pap smear 12/21/2020 07/17/2022 documented as of this encounter (statuses as of 07/09/2023) Immunizations Name Administration Dates Next Due COVID-19 mRNA, LNP-s, No Pre serve, 2-Dose Series (Moderna) 06/26/2020,05/29/2020 COVID-19, LNP-s, No Preserve , Otis-sucrose, Ages 12+ (m0um0u) 04/28/2021 Covid-19, Mrna, Lnp-s, Pf, B ivalent, 30 Mcg, IM, 12 yrs and above (m0um0u) 03/02/2022 Hepatitis B, 20+ yrs 02/17/2020,11/06/2019 PPD [...] encounter Miscellaneous Notes * Telephone Encounter - Anna Angel OSA - 07/09/2023 9:13 AM EDT Requested auth. kimberly ruvalcaba [place]: [id number] - [place] help? Call us at Status Sent to [employer] Xolair 150MG/ML auto-injectors Form [employer] [address] [address] Electronic [place] Form (2016 NCP[facility]) * Telephone Encounter - Murray Erazo MD [...] Administered Medication - route pre-cert request to [id number] Medication(s) Tried/Failed/Contraindicated: Avoidance, EpiPen PRN See corresponding visit note(s) for additional supporting clinical information. Office Information: Prescriber: Murray Erazo MD Allergy/Immunology documented in this encounter Plan of Treatment Upcoming Encounters Date Type Department Care Team (Late st Contact Info) Description 07/17/2023 3:00 PM EDT Telemedicine [address] [address] Elisa Calle [address] [address] 07/19/2023 4:00 PM EDT Office Visit Gynecology/Obstetics [place] [address] [place] [phone] Darwin Fajardo MD [address] [place] [address] 07/24/2023 3:00 PM EDT Telemedicine [address] [address] Elisa Calle [address] [address] 07/25/2023 4:30 PM EDT Telemedicine [address] [address] Mak Padgett, PhD [facility] [place] [address] 08/29/2023 3:30 PM EDT Office Visit Allergy/Immunology [facility] [place] [address] [place] [address] Murray Erazo MD [address] [facility] [place] [address] 09/02/2023 6:00 PM EDT Office Visit Family Practice [facility] [address] [place] [address] Reva Samano MD [address] [place] [address] 01/08/2024 1:30 PM EDT Office Visit Pulmonary Medicine, [facility] [address] [place] [address] Kimberly Altamirano [facility] [address] [place] [address] Scheduled Procedures Name Priority Associated Diagnoses Date/Ti [...] and were consensually agreed upon. Care Teams Air Quality Specialist Relationship Specialty Start Date End Date Reva Samano MD [address] [place] [address] PCP - General Internal Medicine 10/11/22 documented as of this encounter
--- OUTSIDE RECORDS SUMMARY | 2023-09-01 05:13 | External Medical Summary | Summary of Care ---
Author Name Unknown Organization [facility] Address [address] [facility] [place] [address] Phone [phone] Care Team Providers Care Extractor And Wringer Operator Name Role Phone Reva Samano MD Primary Care Provider Reason for Visit * Reason Onset Date Comments Pre Cert/Prior Auth 07/08/2023 Xolair HMK Encounter Details Date Type Department Care Team (Late st Contact Info) Description 07/08/2023 Telephone Allergy/Immunology [facility] [address] [place] [address] Murray Erazo MD [address] [place] [address] Pre Cert/Prior Auth (Xolair HMK 07/07) Allergies Active Allergy Reactions Criticality Noted Date Comments Food (See Comments) High 12/21/2020 Peanuts including dust, tree nuts, soy Latex 12/21/2020 Hives Morphine Hives,Neuro complications (Please comment) 12/21/2020 [place] "high" documented as of this encounter (statuses as of 07/08/2023) Medications Medication Sig Dispensed Refills Start Date [...] as of this encounter (statuses as of 07/08/2023) Active Problems Problem Noted Date Diagnosed Date [...] as of this encounter (statuses as of 07/08/2023) Resolved Problems Problem Noted Date Diagnosed Date Resolved Date Abnormal uterine bleeding 06/01/2022 Dysmenorrhea 12/21/2021 07/17/2022 Pelvic pain in female 12/21/20212022 Encounter for Pap smear of c ervix with HPV DNA cotesting 12/21/2021 02/20/2022 Adenomyosis 12/21/2021 07/17/2022 Eating disorder 06/09/2021 08/23/2021 History of abnormal cervical Pap smear 12/21/2020 07/17/2022 documented as of this encounter (statuses as of 07/08/2023) Immunizations Name Administration Dates Next Due COVID-19 mRNA, LNP-s, No Pre serve, 2-Dose Series (Moderna) 06/26/2020,05/29/2020 COVID-19, LNP-s, No Preserve , Otis-sucrose, Ages 12+ (BeOnDesk) 04/28/2021 Covid-19, Mrna, Lnp-s, Pf, B ivalent, 30 Mcg, IM, 12 yrs and above (BeOnDesk) 03/02/2022 Hepatitis B, 20+ yrs 02/17/2020,11/06/2019 PPD [...] Administered Medication - route pre-cert request to [id number] Medication(s) Tried/Failed/Contraindicated: Avoidance, EpiPen PRN See corresponding visit note(s) for additional supporting clinical information. Office Information: Prescriber: Murray Erazo MD Allergy/Immunology documented in this encounter Plan of Treatment Upcoming Encounters Date Type Department Care Team (Late st Contact Info) Description 07/17/2023 3:00 PM EDT Telemedicine [address] [address] Elisa Calle [address] [address] 07/19/2023 4:00 PM EDT Office Visit Gynecology/Obstetics [place] [address] [place] [address] Darwin Fajardo MD [address] [place] [address] 07/24/2023 3:00 PM EDT Telemedicine [address] [address] Elisa Calle [address] [address] 07/25/2023 4:30 PM EDT Telemedicine [address] [address] Mak Padgett, PhD [facility] [place] [address] 08/29/2023 3:30 PM EDT Office [facility] [address] [place] [address] Murray Erazo MD [address] [place] [address] 09/02/2023 6:00 PM EDT Office Visit Family Practice [facility] [address] [place] [address] Reva Samano MD [address] [place] [address] 01/08/2024 1:30 PM EDT Office Visit Pulmonary Medicine, [facility] [address] [place] [address] Kimberly Altamirano, [facility] [address] [place] [address] Scheduled Procedures Name Priority Associated Diagnoses Date/Ti [...] and were consensually agreed upon. Care Teams Extractor And Wringer Operator Relationship Specialty Start Date End Date Reva Samano MD [address] [place] [address] PCP - General Internal Medicine 10/11/22 documented as of this encounter
--- OUTSIDE RECORDS SUMMARY | 2023-09-01 05:13 | External Medical Summary | Summary of Care ---
Author Name Unknown Organization [facility] Address [address] [place] [address] Phone [phone] Care Team Providers Care Director Multiple Sclerosis Center Name Role Phone Reva Samano MD Primary Care Provider Reason for Visit * Reason Onset Date Comments Precert Denied 07/08/2023 Xolair Encounter Details Date Type Department Care Team (Late st Contact Info) Description 07/08/2023 Telephone Allergy/Immunology [facility] [address] [facility] [place] [address] Murray Erazo MD [address] [place] [address] Precert Denied (Xolair ) Allergies Active Allergy Reactions Criticality Noted Date Comments Food (See Comments) High 12/21/2020 Peanuts including dust, tree nuts, soy Latex 12/21/2020 Hives Morphine Hives,Neuro complications (Please comment) 12/21/2020 [place] "high" documented as of this encounter (statuses as of 07/10/2023) Medications Medication Sig Dispensed Refills Start Date [...] as of this encounter (statuses as of 07/10/2023) Active Problems Problem Noted Date Diagnosed Date [...] as of this encounter (statuses as of 07/10/2023) Resolved Problems Problem Noted Date Diagnosed Date Resolved Date Abnormal uterine bleeding 06/01/2022 Dysmenorrhea 12/21/2021 07/17/2022 Pelvic pain in female 12/21/20212022 Encounter for Pap smear of c ervix with HPV DNA cotesting 12/21/2021 02/20/2022 Adenomyosis 12/21/2021 07/17/2022 Eating disorder 06/09/2021 08/23/2021 History of abnormal cervical Pap smear 12/21/2020 07/17/2022 documented as of this encounter (statuses as of 07/10/2023) Immunizations Name Administration Dates Next Due COVID-19 mRNA, LNP-s, No Pre serve, 2-Dose Series (Moderna) 06/26/2020,05/29/2020 COVID-19, LNP-s, No Preserve , Otis-sucrose, Ages 12+ (Pfizer) 04/28/2021 Covid-19, Mrna, Lnp-s, Pf, B ivalent, 30 Mcg, IM, 12 yrs and above (Nonabox) 03/02/2022 Hepatitis B, 20+ yrs 02/17/2020,11/06/2019 PPD [...] OSA - 07/09/2023 9:13 AM EDT Requested authDulce ruvalcaba [place]: [id number] - [place] help? Call us at Status Sent to [facility] Xolair 150MG/ML auto-injectors Form [employer] Electronic [place] Form (2016 [facility]) * Telephone Encounter - Murray [...] Administered Medication - route pre-cert request to [id number] Medication(s) Tried/Failed/Contraindicated: Avoidance, EpiPen PRN See corresponding visit note(s) for additional supporting clinical information. Office Information: Prescriber: Murray Erazo MD Allergy/Immunology documented in this encounter Plan of Treatment Upcoming Encounters Date Type Department Care Team (Late st Contact Info) Description 07/17/2023 3:00 PM EDT Telemedicine [address] [address] [address] [address] 07/19/2023 4:00 PM EDT Office Visit Gynecology/Obstetics [address] [phone] Darwin Fajardo MD [address] [place] [address] 07/24/2023 3:00 PM EDT Telemedicine [address] [address] Elisa Calle [address] [address] 07/25/2023 4:30 PM EDT Telemedicine [address] [place] [address] Mak Padgett, PhD [address] [place] [address] 08/29/2023 3:30 PM EDT Office Visit Allergy/Immunology [facility] [address] [facility] [place] [address] Murray Erazo MD [address] [facility] [place] [address] 09/02/2023 6:00 PM EDT Office Visit Family Practice [facility] [address] [facility] [place] [address] Reva Samano MD [address] [place] [address] 01/08/2024 1:30 PM EDT Office Visit Pulmonary Medicine, [facility] [address] [place] [address] Kimberly Altamirano, [facility] [address] [place] [address] Scheduled Procedures Name Priority Associated Diagnoses Date/Ti [...] and were consensually agreed upon. Care Teams Director Multiple Sclerosis Center Relationship Specialty Start Date End Date Reva Samano MD [address] [place] [address] PCP - General Internal Medicine 10/11/22 documented as of this encounter
--- OUTSIDE RECORDS SUMMARY | 2023-09-01 05:13 | External Medical Summary | Summary of Care ---
Author Name Unknown Organization [facility] Address [address] [place] [address] Phone [phone] Care Team Providers Care Scalp Treatment Operator Name Role Phone Reva Samano MD Primary Care Provider Reason for Visit * Reason Comments Follow Up Encounter Details Date Type Department Care Team (Late st Contact Info) Description 06/27/2023 4:30 PM EST [facility] [place] [address], [place] [id number] Mak Padgett, PhD [address] [place] [address] Anorexia nervosa in remission*; PTSD (post-traumatic stress disorder) Allergies Active Allergy Reactions Criticality Noted Date Comments Food (See Comments) High 12/21/2020 Peanuts including dust, tree nuts, soy Latex 12/21/2020 Hives Morphine Hives,Neuro complications (Please comment) 12/21/2020 [place] "high" documented as of this encounter (statuses as of 06/28/2023) Medications Medication Sig Dispensed Refills Start Date [...] as of this encounter (statuses as of 06/28/2023) Active Problems Problem Noted Date Diagnosed Date [...] as of this encounter (statuses as of 06/28/2023) Resolved Problems Problem Noted Date Diagnosed Date Resolved Date Abnormal uterine bleeding 06/01/2022 Dysmenorrhea 12/21/2021 07/17/2022 Pelvic pain in female 12/21/20212022 Encounter for Pap smear of c ervix with HPV DNA cotesting 12/21/2021 02/20/2022 Adenomyosis 12/21/2021 07/17/2022 Eating disorder 06/09/2021 08/23/2021 History of abnormal cervical Pap smear 12/21/2020 07/17/2022 documented as of this encounter (statuses as of 06/28/2023) Immunizations Name Administration Dates Next Due COVID-19 [...] Progress Notes * Mak Padgett, PhD - 06/27/2023 4:33 PM EST Patient location: HOME. I was in a hospital or clinic location. After connecting through televideo,patient was verified with two unique identifiers. Patient (or authorized legal education courses sales representative) was then informed that this [...] that I have reviewed their record in [employer] and presented the opportunity for them to ask any questions regarding the visit today. The patient agreed to participate. Provider reviewed elements of Outpatient Services Description including limits of confidentiality, how to contact the department, risks and benefits of treatment and consent for treatment. [facility] is committed to coordinated care through an integrated delivery system and shared medicalrecord. Since our patients are seen both in primary care and behavioral health (as well as other specialties), each provider has immediate access to information to enable collaboration across the continuum. Start Time: 4:32 pm Stop Time: 5:29 pm Total direct [id number]-ip-qvdv time: 57 min Confirm patient's location (and address if different from the home address documented in [facility]) at the time of this appointment: Home address on file. ADULT THERAPY PROGRESS NOTE [facility], [address] [address] 06/27/2023 TYPE OF VISIT: Individual DIAGNOSIS: AN in remission, PTSD REASON FOR FOLLOW-UP: Individual therapy Session #: 1 SESSION FOCUS: Tx plan SESSION SUMMARY/NOTES: Kimberly reported that eating has been better. Not currently doing any weight checks. Reported 75% of the time she has been able to eat what she needs to and struggling the other 25% of the time. Noteating at home when it is difficult is related to stress which she associates with COREY. Not being able to eat at work is more related to fear of having another anaphylactic response. Kimberly reflected on a recent conversation with daughter. Different memories of how affectionate Kimberly was with her daughter when she was younger. Norman hurt, which led to overanalyzing and anxiety which leads to upset stomach and difficulties eating. Discussed emotional regulation skills from DBT and ways she can process or manage emotions that don't have as much of an impact on appetite. Also having difficulties with asthma medicine causing upset GI. Discussed forms of self care - watching TV, time with partner and get adequate sleep. Kimberly reported that she is sleeping 7-9 hours / night and having nightmares 2x/ week and not always able to get back to sleep after a nightmare. Has started EMDR. Completed tx plan - our work together will be around COREY recovery maintenance while doing trauma work which has been an COREY trigger in the past. PROGRESS TOWARDS GOALS: Engaged in therapy. Objective Measures: Myc Visit Accident Related Question Question 06/27/2023 4:21 PM EST - Filed by Patient Is this visit related to an accident? (i.e work, motor vehicle) No INTERVENTION: Cognitive Behavioral Therapy (CBT), Acceptance and [...] Suicide/Homicidal Assessment Validated Screening and Assessment Measures Love Suicide Severity Rating Scale Results 06/27/2023 16:38 [place] SUICIDE SEVERITY RATING SCALE (C-SSRS) Have [...] see Crisis Plan in Treatment Plan Use [facility] Suicide Safety Plan when Love is Moderate or High Risk, or whenever clinical judgment would indicate need for full crisis plan to be done. Please choose a method to track patient's improvement based on clinical assessment: Date PHQ RACHID-7 3 meals Snacks Weight FOLLOW-UP PLAN: Return: 4 weeks Action Plan: 1. Continue Individual Therapy 2. Continue medication management with PCP 3. Continue EMDR with Elisa Calle LCSW. Reminder to complete Treatment Plan Update in "Plan" section of Plan Navigator Treatment plan reviewed with the patient. Patient voices understanding and concurs with plan. Mak Padgett, PhD Division of Psychiatry & Behavioral Medicine [facility] [phone] documented in this encounter Plan of Treatment Upcoming Encounters Date Type Department Care Team (Late st Contact Info) Description 07/17/2023 3:00 PM EDT Telemedicine [facility], [address] [address] Elisa Calle [facility] [address] [place] [address] 07/19/2023 4:00 PM EDT Office Visit Gynecology/Obstetics [place] [address] [place] [address] Darwin Fajardo MD [address] [place] [address] 07/24/2023 3:00 PM EDT Telemedicine [facility], [address] [address] Elisa Calle [place] [address] [place] [address] 07/25/2023 4:30 PM EDT Telemedicine [facility], [place] [address] [place] [address] Mak Padgett, PhD [address] [place] [address] 08/29/2023 3:30 PM EDT [facility] [address] [place] [address] Murray Erazo MD [address] [place] [address] 09/02/2023 6:00 PM EDT Office Visit Family Practice [facility] [address] [place] [address] Reva Samano MD [address] [place] [address] 01/08/2024 1:30 PM EDT Office Visit Pulmonary Medicine, [facility] [address] [place] [address] Kimberly Altamirano, CHELSIE [address] [place] [address] Scheduled Procedures Name Priority Associated Diagnoses Date/Ti [...] and were consensually agreed upon. Care Teams Scalp Treatment Operator Relationship Specialty Start Date End Date Reva Samano MD [address] [place] [address] PCP - General Internal Medicine 10/11/22 documented as of this encounter
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
--- OUTSIDE RECORDS SUMMARY | 2023-09-01 05:13 | External Medical Summary | Summary of Care ---
Author Name Unknown Organization [facility] Address [address] [facility] [place] [place] [address] Phone [phone] Care Team Providers Care Paintless Dent Repair Technician Name Role Phone Reva Samano MD Primary Care Provider Reason for Visit * Reason Onset Date Comments Pre Cert/Prior Auth 07/08/2023 Encounter Details Date Type Department Care Team (Late st Contact Info) Description 07/08/2023 Telephone Allergy/Immunology [facility] 200 [facility] [place] [address] Murray Erazo MD 200 [place] [address] Pre Cert/Prior Auth Allergies Active Allergy Reactions Criticality Noted Date Comments Food (See Comments) High 12/21/2020 Peanuts including dust, tree nuts, soy Latex 12/21/2020 Hives Morphine Hives,Neuro complications (Please comment) 12/21/2020 [place] "high" documented as of this encounter (statuses [...] 30 Mcg, IM, 12 yrs and above (Tello) 03/02/2022 Hepatitis B, 20+ yrs 02/17/2020,11/06/2019 PPD [...] Administered Medication - route pre-cert request to [id number] Medication(s) Tried/Failed/Contraindicated: Avoidance, EpiPen PRN See corresponding visit note(s) for additional supporting clinical information. Office Information: Prescriber: Murray Erazo MD Allergy/Immunology documented in this encounter Plan of Treatment Upcoming Encounters Date Type Department Care Team (Late st Contact Info) Description 07/17/2023 3:00 PM EDT Telemedicine Psychology, [place] [address] [place] [address] Elisa Calle [facility] [address] [place] [address] 07/19/2023 4:00 PM EDT Office Visit Gynecology/Obstetics [place] [address] [place] [address] Darwin Fajardo MD [address] [place] [address] 07/24/2023 3:00 PM EDT Telemedicine [facility], [place] [address] [place] [address] Elisa Calle [facility] [address] [place] [address] 07/25/2023 4:30 PM EDT Telemedicine Psychology, [place] [address] [place] [address] Mak Padgett, PhD [address] [place] [address] 08/29/2023 3:30 PM EDT Office Visit Allergy/Immunology [facility] [address] [place] [address] Murray Erazo MD [address] [place] [address] 09/02/2023 6:00 PM EDT Office Visit Family Practice [facility] [address] [address] Reva Samano MD [address] [address] 01/08/2024 1:30 PM EDT Office Visit Pulmonary Medicine, [facility] [address] [place] [address] Kimberly Altamirano, CHELSIE [address] [place] [address] Scheduled Procedures Name Priority Associated Diagnoses Date/Ti [...] and were consensually agreed upon. Care Teams Paintless Dent Repair Technician Relationship Specialty Start Date End Date Reva Samano MD [address] [place] [address] PCP - General Internal Medicine 10/11/22 documented as of this encounter
--- OUTSIDE RECORDS SUMMARY | 2023-09-01 05:13 | External Medical Summary | Summary of Care ---
Author Name Unknown Organization [facility] Address [address] [facility] [place] [address] Phone [phone] Care Team Providers Care Veneer Glue Spreader Name Role Phone Reva Samano MD Primary Care Provider Reason for Visit * Reason Onset Date Comments Precert Denied 07/08/2023 [employer] Encounter Details Date Type Department Care Team (Late st Contact Info) Description 07/08/2023 Telephone Allergy/Immunology [facility] 200 [facility] [place] [address] Murray Erazo MD 200 [place] [address] Precert Denied ([facility] ) Allergies Active Allergy Reactions Criticality Noted Date Comments Food (See Comments) High 12/21/2020 Peanuts including dust, tree nuts, soy Latex 12/21/2020 Hives Morphine Hives,Neuro complications (Please comment) 12/21/2020 [place] "high" documented as of this encounter (statuses [...] 30 Mcg, IM, 12 yrs and above (Unveil) 03/02/2022 Hepatitis B, 20+ yrs 02/17/2020,11/06/2019 PPD [...] We also had a meeting with a ambulatory services representative from [employer] last week and discussed [...] AM EDT Requested auth. kimberly ruvalcaba [place]: [id number] - [place] help? Call us at Status Sent to [employer] Xolair 150MG/ML auto-injectors Form [employer] Electronic [place] Form ([facility]) * Telephone Encounter - Murray Erazo MD [...] Administered Medication - route pre-cert request to [id number] Medication(s) Tried/Failed/Contraindicated: Avoidance, EpiPen PRN See corresponding visit note(s) for additional supporting clinical information. Office Information: Prescriber: Murray Erazo MD Allergy/Immunology documented in this encounter Plan of Treatment Upcoming Encounters Date Type Department Care Team (Late st Contact Info) Description 07/17/2023 3:00 PM EDT Telemedicine [place] [address] [place] [address] [facility] [address] [place] [address] 07/19/2023 4:00 PM EDT Office Visit Gynecology/Obstetics [place] [address] [place] [phone] Darwin Fajardo MD 68 [place] [address] 07/24/2023 3:00 PM EDT Telemedicine [facility], [place] [address] [place] [address] Elisa Calle, HEMATOLOGIST [address] [place] [address] 07/25/2023 4:30 PM EDT Telemedicine [facility] [address] [place], [place] [id number] Mak Padgett, PhD [address] [place] [address] 08/29/2023 3:30 PM EDT Office Visit Allergy/Immunology [facility] 200 [facility] [place] [address] Murray Erazo MD 200 [place] [address] 09/02/2023 6:00 PM EDT Office Visit Family Practice [facility] 132 [place] [address] Reva Samano MD 132 [place] [address] 01/08/2024 1:30 PM EDT Office Visit Pulmonary Medicine, [facility] [address] [place] [address] Kimberly Altamirano, CHELSIE [address] [place] [address] Scheduled Procedures Name Priority Associated Diagnoses Date/Ti [...] and were consensually agreed upon. Care Teams Veneer Glue Spreader Relationship Specialty Start Date End Date Reva Samano MD [address] [place] [address] PCP - General Internal Medicine 10/11/22 documented as of this encounter
--- OUTSIDE RECORDS SUMMARY | 2023-09-01 05:13 | External Medical Summary | Summary of Care ---
Author Name Unknown Organization [facility] Address [address] [place] [facility] [place] [place] [place] [address] Phone [phone] Care Team Providers Care Study Specialist Name Role Phone Reva Samano MD Primary Care Provider Reason for Visit * Reason Onset Date Comments Appointment 06/27/2023 Encounter Details Date Type Department Care Team (Late st Contact Info) Description 06/27/2023 Telephone Pulmonary Medicine, [facility] [address] [place] [address] Kimberly Altamirano, [facility] [address] [place] [address] Appointment Allergies Active Allergy Reactions Criticality Noted Date Comments Food (See Comments) High 12/21/2020 Peanuts including dust, tree nuts, soy Latex 12/21/2020 Hives Morphine Hives,Neuro complications (Please comment) 12/21/2020 [place] "high" documented as of this encounter (statuses [...] Description 07/17/2023 3:00 PM EDT Telemedicine Psychology, [place] [address] [place] [address] Elisa Calle, [facility] [address] [place] [address] 07/19/2023 4:00 PM EDT Office Visit Gynecology/Obstetics [place] [address] [place] [address] Darwin Fajardo MD [address] [place] [address] 07/24/2023 3:00 PM EDT Telemedicine [facility], [place] [address] [place] [address] Elisa Calle LCSW [address] [place] [address] 07/25/2023 4:30 PM EDT Telemedicine [facility], [place] [address] [place] [address] Mak Padgett, PhD [address] [place] [address] 08/29/2023 3:30 PM EDT Office Visit Allergy/Immunology [facility] 200 [facility] [place] [address] Murray Erazo MD 200 [place] [address] 09/02/2023 6:00 PM EDT Office Visit Family Practice [facility] [address] [facility] [place] [address] Reva Samano MD [address] [place] [address] Scheduled Procedures Name Priority Associated Diagnoses Date/Ti [...] and were consensually agreed upon. Care Teams Study Specialist Relationship Specialty Start Date End Date Reva Samano MD [address] [address] PCP - General Internal Medicine 10/11/22 documented as of this encounter
--- OUTSIDE RECORDS SUMMARY | 2023-09-01 05:13 | External Medical Summary | Summary of Care ---
Author Name Unknown Organization [facility] Address [address] [facility] [place] [address] Phone [phone] Care Team Providers Care Sports Leadership Instructor Name Role Phone Reva Samano MD Primary Care Provider Reason for Visit * Reason Onset Date Comments Precert Denied 07/08/2023 [facility] Encounter Details Date Type Department Care Team (Late st Contact Info) Description 07/08/2023 Telephone Allergy/Immunology [facility] 200 [facility] [place] [address] Murray Erazo MD 200 [place] [address] Precert Denied ([facility] ) Allergies Active Allergy Reactions Criticality Noted Date Comments Food (See Comments) High 12/21/2020 Peanuts including dust, tree nuts, soy Latex 12/21/2020 Hives Morphine Hives,Neuro complications (Please comment) 12/21/2020 [place] "high" documented as of this encounter (statuses [...] 30 Mcg, IM, 12 yrs and above (Stion) 03/02/2022 Hepatitis B, 20+ yrs 02/17/2020,11/06/2019 PPD [...] We also had a meeting with a apprenticeship training representative from [employer] last week and discussed [...] AM EDT Requested auth. kimberly ruvalcaba [place]: [id number] - [place] help? Call us at Status Sent to [employer] Xolair 150MG/ML auto-injectors Form [employer] Electronic [place] Form (2016 [facility]) * Telephone Encounter - Murray Erazo [...] Administered Medication - route pre-cert request to [id number] Medication(s) Tried/Failed/Contraindicated: Avoidance, EpiPen PRN See corresponding visit note(s) for additional supporting clinical information. Office Information: Prescriber: Murray Erazo MD Allergy/Immunology documented in this encounter Plan of Treatment Upcoming Encounters Date Type Department Care Team (Late st Contact Info) Description 07/17/2023 3:00 PM EDT Telemedicine [place] [address] [place] [address] [facility] [address] [place] [address] 07/19/2023 4:00 PM EDT Office Visit Gynecology/Obstetics [place] [address] [place] [phone] Darwin Fajardo MD [address] [place] [address] 07/24/2023 3:00 PM EDT Telemedicine [facility] [place] [address] [place] [address] Elisa Calle, EVENT DESIGNER [address] [place] [address] 07/25/2023 4:30 PM EDT Telemedicine [facility] [address] [place], [place] [phone] Mak Padgett, PhD [address] [place] [address] 08/29/2023 3:30 PM EDT Office Visit Allergy/Immunology [facility] 200 [facility] [place] [address] Murray Erazo MD 200 [place] [address] 09/02/2023 6:00 PM EDT Office Visit Family Practice [facility] 132 [place] [address] Reva Samano MD 132 [place] [address] 01/08/2024 1:30 PM EDT Office Visit Pulmonary Medicine, [facility] [address] [place] [address] Kimberly Altamirano, CHELSIE [address] [place] [address] Scheduled Procedures Name Priority Associated Diagnoses Date/Ti [...] and were consensually agreed upon. Care Teams Sports Leadership Instructor Relationship Specialty Start Date End Date Reva Samano MD [address] [place] [address] PCP - General Internal Medicine 10/11/22 documented as of this encounter
--- OUTSIDE RECORDS SUMMARY | 2023-09-01 05:13 | External Medical Summary | Summary of Care ---
Author Name Unknown Organization [facility] Address [address] [facility] [place] [address] Phone [phone] Care Team Providers Care Intensive Care Unit Nurse Name Role Phone Reva Samano MD Primary Care Provider Reason for Visit * Reason Comments Sinus Problem Pressure congestion Cough Once in a while Congestion Ear Pain Bilateral pain and p lugged Headache Encounter Details Date Type Department Care Team (Late st Contact Info) Description 07/01/2023 4:00 PM EST [facility], [place] [address] [place] [address] Annette Perdomo PA-C [address] [place] [phone] Acute sinusitis, recurrence not specified, unspecified location* Allergies Active Allergy Reactions Criticality Noted Date Comments Food (See Comments) High 12/21/2020 Peanuts including dust, tree nuts, soy Latex 12/21/2020 Hives Morphine Hives,Neuro complications (Please comment) 12/21/2020 [place] "high" documented as of this encounter (statuses as of 07/01/2023) Medications Medication Sig Dispensed Refills Start Date [...] BEFORE BEDTIME 180 Tablet 3 3 Active Prazosin HCl 1 MG Oral Capsule (Minipress)Indica tions:PTSD (post-traumatic stress disorder) TAKE 2 CAPSULES AT BEDTIME 180 Capsule 1 3 Active guaiFENesin-Codei ne 100-10 MG/5ML Oral Syrup (Robitussin AC)Indications:Ac [place] cough Take 5 mL by mouth every [...] Wheezing. J45.30 90 mL 0 4 Active predniSONE 20 MG Oral Tablet (Deltasone)Indica tions:Acute sinusitis, recurrence not specified, unspecified location Take 2 Tablets by mouth in the morning for 5 days. 10 Tablet 0 4 07/06/19 24 Active Amoxicillin-Pot Clavulanate 875-125 MG Oral Tablet (Augmentin)Indica tions:Acute sinusitis, recurrence not specified, unspecified location Take 1 Tablet by mouth in the morning and 1 Tablet before bedtime. Do all this for 10 days. 20 Tablet 0 4 07/11/19 24 Active predniSONE 20 MG Oral Tablet (Deltasone)Indica tions:Exposure to the flu,Viral syndrome,Acute cough Take 3 tabs for 3 days, 2 tabs for 3 days, 1 tab for 3 days 18 Tablet 0 4 07/01/19 24 Discontinued documented as of this encounter (statuses as of 07/01/2023) Active Problems Problem Noted Date Diagnosed Date [...] as of this encounter (statuses as of 07/01/2023) Resolved Problems Problem Noted Date Diagnosed Date Resolved Date Abnormal uterine bleeding 06/01/2022 Dysmenorrhea 12/21/2021 07/17/2022 Pelvic pain in female 12/21/20212022 Encounter for Pap smear of c ervix with HPV DNA cotesting 12/21/2021 02/20/2022 Adenomyosis 12/21/2021 07/17/2022 Eating disorder 06/09/2021 08/23/2021 History of abnormal cervical Pap smear 12/21/2020 07/17/2022 documented as of this encounter (statuses as of 07/01/2023) Immunizations Name Administration Dates Next Due COVID-19 [...] Sign Reading Time Taken Comments Blood Pressure 109/77 07/01/2023 4:16 PM EST Pulse 77 07/01/2023 4:16 PM EST Temperature 37.2 C (99 F) 07/01/2023 4:16 PM EST Respiratory Rate 18 07/01/2023 4:16 PM EST Oxygen Saturation 98% 07/01/2023 4:16 PM EST Inhaled Oxygen Concentration - - Weight - - Height - - Body Mass Index - - documented in this encounter Progress Notes * Annette Perdomo PA-C - 07/01/2023 4:29 PM EST Subjective: Kimberly Azevedo is a 47 year old female. Chief Complaint Patient presents with Sinus Problem Pressure congestion Cough Once in a while Congestion Ear Pain Bilateral pain and plugged Headache HPI: Patient presents here today with complaint of congestion, runny nose and sinus pressure x 1 week. Denies sob, wheezing, fevers. Taking multiple otcs. No recent ill contacts. Had COVID 3 weeks ago, had been feeling well until now. Patient Active Problem List Diagnosis Code RACHID (generalized anxiety disorder) F41.1 History of anaphylaxis Z87.892 Peanut allergy Z91.010 Sleep disorder G47.9 Anorexia nervosa, restricting type F50.01 Breast calcifications on mammogram R92.1 Dysplasia of cervix, high grade SHERICE 2 N87.1 History of Lyme disease Z86.19 Multiple joint pain M25.50 Current Outpatient Medications Medication Sig Dispense Refill Amoxicillin-Pot Clavulanate 875-125 MG Oral Tablet (Augmentin) Take 1 Tablet by mouth in the morning and 1 Tablet before bedtime. Do all this for 10 days. 20 Tablet 0 busPIRone HCl 15 MG Oral Tablet (Buspar) TAKE 1 TABLET IN THE MORNING AND 1 TABLET BEFORE BEDTIME 180 Tablet 3 EpiPen 2-Galileo 0.3 MG/0.3ML Injection Solution Auto-injector For a severe reaction: Place orange end against the outer thigh, press firmly, hold in place for 10 seconds and go to the Emergency room. 6 Each 0 Escitalopram Oxalate 10 MG Oral Tablet (Lexapro) Take 1 Tablet by mouth daily at noon. 90 Tablet 3 Fluticasone-Salmeterol 250-50 MCG/ACT Inhalation Aerosol Powder Breath Activated (Advair Diskus) Inhale 1 Puff by mouth in the morning and 1 Puff before bedtime. 180 Each 1 Full Kit Nebulizer Set Use every 6 hours or as prescription reads. J45.30 1 Each 0 guaiFENesin-Codeine 100-10 MG/5ML Oral Syrup (Robitussin AC) Take 5 mL by mouth every 4 hours as needed for Cough. 120 mL 0 Ipratropium-Albuterol 0.5-2.5 (3) MG/3ML Inhalation Solution (Duoneb) Inhale 3 mL by mouth every 6 hours as needed for Dyspnea or Wheezing. J45.30 90 mL 0 LORazepam 1 MG Oral Tablet (Ativan) Take 1 Tablet by mouth daily as needed for Anxiety or Sleep. 30Tablet 0 Prazosin HCl 1 MG Oral Capsule (Minipress) TAKE 2 CAPSULES AT BEDTIME 180 Capsule 1 predniSONE 20 MG Oral Tablet (Deltasone) Take 2 Tablets by mouth in the morning for 5 days. 10 Tablet 0 Triamcinolone Acetonide 0.1 % External Cream (Aristocort) Apply topically to affected area 2 times a day. To affected area. 80 g 2 Ventolin HFA 108 (90 Base) MCG/ACT Inhalation Aerosol Solution Inhale 2 Puffs by mouth every 4 hours as needed for Wheezing. 6.7 g 0 No current facility-administered medications for this visit. Review of patient's allergies indicates: Allergen Reactions Food (See Comments) Peanuts including dust, tree nuts, soy Latex Hives Morphine Hives and Neuro complications (Please comment) [place] "high" ROS: all areas negative except as mentioned under HPI Physical Exam: BP 109/77 | Pulse 77 | Temp 37.2 C (99 F) (Tympanic) | Resp 18 | LMP 03/31/2021 (Approximate) |SpO2 98% Physical Exam Vitals and nursing note reviewed. Constitutional: General: She is not in acute distress. Appearance: Normal appearance. She is not ill-appearing or toxic-appearing. HENT: Head: Normocephalic and atraumatic. Right Ear: Tympanic membrane, ear canal and external ear normal. Left Ear: Tympanic membrane, ear canal and external ear normal. Nose: Mucosal edema, congestion and rhinorrhea present. Right Sinus: Maxillary sinus tenderness present. Left Sinus: Maxillary sinus tenderness present. Mouth/Throat: Mouth: Mucous membranes are moist. Pharynx: Oropharynx is clear. No oropharyngeal exudate or posterior oropharyngeal erythema. Eyes: General: Right eye: No discharge. Left eye: No discharge. Extraocular Movements: Extraocular movements intact. Conjunctiva/sclera: Conjunctivae normal. Pupils: Pupils are equal, round, and reactive to light. Cardiovascular: Rate and Rhythm: Normal rate and regular rhythm. Heart sounds: Normal heart sounds. Pulmonary: Effort: Pulmonary effort is normal. No respiratory distress. Breath sounds: No stridor. No wheezing, rhonchi or rales. Musculoskeletal: Cervical back: Normal range of motion. Lymphadenopathy: Cervical: No cervical adenopathy. Skin: Capillary Refill: Capillary refill takes less than 2 seconds. Findings: No rash. Neurological: Mental Status: She is alert and oriented to person, place, and time. Psychiatric: Mood and Affect: Mood normal. Assessment/Plan: Kimberly was seen today for sinus problem, cough, congestion, ear pain and headache. Diagnoses and all orders for this visit: Acute sinusitis, recurrence not specified, unspecified location - predniSONE 20 MG Oral Tablet (Deltasone); Take 2 Tablets by mouth in the morning for 5 days. - Amoxicillin-Pot Clavulanate 875-125 MG Oral Tablet (Augmentin); Take 1 Tablet by mouth in the morning and 1 Tablet before bedtime. Do all this for 10 days. - INFLUENZA A/B RSV SARS-COV2,PCR; Future - INFLUENZA A/B RSV SARS-COV2,PCR Supportive care discussed. Strict return/ED precautions given, pt agreeable to plan. Annette Perdomo PA-C [facility] [place] [facility] [place] [address] [place] [address] documented in this encounter Nursing Notes * Rosie Whitlock LPN - 07/01/2023 4:14 PM EST Nursing Notes: CC: Chief Complaint Patient presents with Sinus Problem Pressure congestion Cough Once in a while Congestion Ear Pain Bilateral pain and plugged Headache Brief Hx: Patient is here with complaint of sinus issues. Patient stated her head feels like it is in a vice, a lot of sinus pressure and congestion. Cough once in a while only when stuff is drainingand bilateral ear pain and ears feel full and she has a headache Duration/Onset: week ago OTC meds: mucinex sinus severe AM and PM, ibuprofen gets some relief for a few hours then she fillsback up. Accompanied by: self documented in this encounter Plan of Treatment Upcoming Encounters Date Type Department Care Team (Late st Contact Info) Description 07/17/2023 3:00 PM EDT Telemedicine [facility], [address] [address] Elisa Calle [facility] [address] [place] [address] 07/19/2023 4:00 PM EDT Office Visit Gynecology/Obstetics [place] [address] [place] [address] Darwin Fajardo MD [address] [place] [address] 07/24/2023 3:00 PM EDT Telemedicine [address] [address] Elisa Calle [facility] [address] [place] [address] 07/25/2023 4:30 PM EDT Telemedicine [facility], [place] [address] [place] [address] Mak Padgett, PhD [address] [place] [address] 08/29/2023 3:30 PM EDT Office Visit Allergy/Immunology [facility] [address] [place] [address] Murray Erazo MD [address] [place] [address] 09/02/2023 6:00 PM EDT Office Visit Family Practice [facility] 132 [facility] [place] [address] Reva Samano MD 132 [facility] [place] [address] 01/08/2024 1:30 PM EDT Office Visit Pulmonary Medicine, [facility] [address] [place] [address] Kimberly Altamirano, CHELSIE [address] [place] [address] Pending Results Name Type Priority Associated Diagnoses Date /Time INFLUENZA A/B RSV SARS-COV2,PCR Lab Routine Acute sinusitis, recurrence not specified, unspecified location 07/01/2023 4:29 PM EST Scheduled Orders Name Type Priority Associated Diagnoses Orde r Schedule INFLUENZA A/B RSV SARS-COV2,PCR Lab Routine Acute sinusitis, recurrence not specified, unspecified location Expected: 07/01/2023, Expires: 06/30/2024 Scheduled Procedures Name Priority Associated Diagnoses Date/Ti [...] of this encounter Visit Diagnoses Diagnosis Acute sinusitis, recurrence not specified, unspecified location- Primary documented in this encounter Additional Health Concerns [...] and were consensually agreed upon. Care Teams Intensive Care Unit Nurse Relationship Specialty Start Date End Date Reva Samano MD [address] [address] PCP - General Internal Medicine 10/11/22 documented as of this encounter
--- OUTSIDE RECORDS SUMMARY | 2023-09-01 05:13 | External Medical Summary | Summary of Care ---
Author Name Unknown Organization [facility] Address [address] [facility] [place] [address] Phone [phone] Care Team Providers Care Taffy Puller Name Role Phone Mouna Samano MD Primary Care Provider Reason for Visit * Reason Comments Follow Up Encounter Details Date Type Department Care Team (Late st Contact Info) Description 06/21/2023 4:00 PM EST Telemedicine Pulmonary Medicine, [facility] [address] [place] [address] Kimberly Altamirano, [facility] [address] [place] [address] Mild intermittent reactive airway disease without complication* Allergies Active Allergy Reactions Criticality Noted Date Comments Food (See Comments) High 12/21/2020 Peanuts including dust, tree nuts, soy Latex 12/21/2020 Hives Morphine Hives,Neuro complications (Please comment) 12/21/2020 [place] "high" documented as of this encounter (statuses as of 06/27/2023) Medications Medication Sig Dispensed Refills Start Date End Date Status Triamcinolone Acetonide 0.1 % External Cream (Aristocort)Indic ations:Keratosis pilaris Apply topically to affected area 2 times a day. To affected area. 80 g 2 06/28/2022 Active LORazepam 1 MG Oral Tablet (Ativan)Indicatio [...] AT BEDTIME 180 Capsule 1 02/04/2023 Active guaiFENesin-Codei ne 100-10 MG/5ML Oral Syrup (Robitussin AC)Indications:Ac knik cough Take 5 mL by mouth every 4 hours as needed for Cough. 120 mL 0 04/08/2023 Active Full Kit Nebulizer SetIndications:Mi ld persistent [...] 06/03/2023 Active predniSONE 20 MG Oral Tablet (Deltasone)Indica tions:Exposure to the flu,Viral syndrome,Acute cough Take 3 tabs for 3 days, 2 tabs for 3 days, 1 tab for 3 days 18 Tablet 0 06/11/2023 Active Ipratropium-Albut alma 0.5-2.5 (3) MG/3ML Inhalation Solution (Duoneb) Inhale 3 mL by mouth every 6 hours as needed for Dyspnea or Wheezing. J45.30 90 mL 0 06/26/2023 Active Ipratropium-Albut alma 0.5-2.5 (3) MG/3ML Inhalation Solution (Duoneb)Indicatio ns:Mild persistent asthma without complication Inhale 3 mL by mouth every 6 hours as needed for Dyspnea or Wheezing. J45.30 180 mL 3 04/18/2023 4 Discontinu ed(Refill) Nirmatrelvir&Scotty navir 300/100 20 x 150 MG & 10 x 100MG Oral Tablet Therapy Pack (Paxlovid) Take 2 pink tablets of Nirmatrelvir and 1 white tablet of Ritonavir two times a day by mouth. 30 Tablet 0 06/11/2023 4 Discontinu ed(Medicat ion List Clean Up) documented as of this encounter (statuses as [...] as of this encounter Progress Notes * Kimberly Altamiraon, DNP - 06/21/2023 4:00 PM EST Patient location: HOME. I was in a hospital or clinic location. After connecting through televideo,patient was verified with two unique identifiers. Patient (or authorized legal tax representative) was then informed that this was a Telemedicine visit and being conducted confidentially over secure lines. Methods to assure confidentiality were taken. Patient acknowledged consent and understanding of pr ivacy and security of the Telemedicine visit. The patient agreed to participate. Pulmonary Medicine, [address] [address] Kimberly Azevedo 47 year old female June 21, 2023 3:46 PM Chief complaint: Chief Complaint Patient presents with Follow Up MsDulce Azevedo, a 47 year old female, presents today for follow up of mild persistent asthma without complication, cough variant asthma, epistaxis, and gasping for breath. She reports that she had COVID again last week. She reports that her pulse ox 92-95% 4 times a day. She reports that she has not needed the breathing treatments. She reports her pulse ox was back to normal. Patient Active Problem List Diagnosis Code RACHID (generalized anxiety disorder) F41.1 History of anaphylaxis Z87.892 Peanut allergy Z91.010 Sleep disorder G47.9 Anorexia nervosa, restricting type F50.01 Breast calcifications on mammogram R92.1 Dysplasia of cervix, high grade SHERICE 2 N87.1 History of Lyme disease Z86.19 Multiple joint pain M25.50 Last seen by myself on 04/18/23. Tests ordered: CBC with WBC Diff, RAST, IgE, PFTs, ENT and Sleep Referral - has scheduled and then she had COVID Current pulmonary medication regimen/treatment includes: Advair 250, Duonebs PRN. Compliance to regimen is good. Symptoms well controlled. Activity level - active. SOCIAL: Smoking History: Nonsmoker. Smoked marijuana in the past. 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 No wood or coal burning stoves or furnaces. No mold in home but did in the past. No asbestos exposure. No chemical exposure. Interim History: Respiratory Symptoms: Cough - not compared to what she was when she sick Sputum -slight residual Wheezing - denies Hempotysis - denies Reflux - with more use of nebs - TUMS prn Sinus symptoms - she had 1 nose bleed - Flonase so she stopped Flonase - will use saline instead Shortness of breath - denies at rest Exercise Tolerance - MMRC Dyspnea Scale = 0 (I only get breathless with strenuous exercise) Hospitalizations - denies ED Visits - denies Nocturnal - denies Review of Systems: All the pertinent positive and negative data were mentioned in the HPI section. Otherwise, ROS is negative or noncontributory. 04/18/2023 (in office), Visit date not found (telemedicine) No past medical history on file. Current Outpatient Medications Medication Sig Dispense Refill [...] Morphine Hives and Neuro complications (Please comment) [place] "high" STUDIES PFTs 04/18/23 FEV1 108%, FVC 108%, FEV1/FVC 79%, no significant bronchodilator response, TLC 113%, RV 118%, DLCO 113%. Spirometry indicates normal airflowThere was no significant change post bronchodilator Lung volumes are normal by total lung capacity Diffusion capacity is normal. Normal study. PHYSICAL EXAM LMP 03/31/2021 (Approximate) No vital signs were taken for this visit. Physical exam was limited due to the nature of the telemedicine visit. Constitutional/Additional VS: Normal respiration pattern Constitutional/General: Appears well and No acute distress Head and Face: Head is normocephalic, No masses, lesions, tenderness or abnormalities noted, Face normal Neuro: grossly normal exam ASSESSMENT Kimberly Azevedo is an very pleasant 47 year old female presenting today for follow up of mild persistent asthma without complication, cough variant asthma, epistaxis, and gasping for breath. She reports that she had COVID again last week. She reports that her pulse ox 92-95% 4 times a day. She reports that she has not needed the breathing treatments. She reports her pulse ox was back to normal. She was not coughing as much as compared to when she was sick. She reports slight residual sputum production. She reports that she was reflux more use of nebs takes Tums as needed. She reports that she had 1 nosebleed related to on a so she stopped using Flonase and use saline instead. She denies wheezing, hemoptysis, shortness of breath at rest, dyspnea on exertion, and nocturnal symptoms. MMRC - 0 Smoking History: Nonsmoker. Smoked marijuana in the past. 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 No wood or coal burning stoves or furnaces. No mold in home but did in the past. No asbestos exposure. No chemical exposure. PFTs 04/18/23 FEV1 108%, FVC 108%, FEV1/FVC 79%, no significant bronchodilator response, TLC 113%, RV 118%, DLCO 113%. Spirometry indicates normal airflow. There was no significant change post bronchodilator Lung volumes are normal by total lung capacity Diffusion capacity is normal. Normal study. 05/29/23 RAST - negative IgE - 11.0 CBC with WBC Diff - normal Mild intermittent reactive airway disease without complication Cough variant asthma Epistaxis, recurrent Gasping for breath (family history of STEVE) Family history of asthma PLAN/MEDICAL DECISION MAKING Recommended: - Hold off on Methacholine Challenge at this time - Stop Albuterol nebs - Continue Duonebs every 6 hours as needed - ENT referral - needs appt - Sleep Medicine referral - hold off at this time since her symptoms resolved Return Visit in 6 months Contact our office or go directly to the ER with symptoms of worsening shortness of breath, chest pain, or other concerning symptoms. I spent a total of 40-54 minutes (exact time 40 mins) on the date of service in preparation, delivery, and documentation of the care provided to Kimberly Azevedo excluding any time spent in the performance of separately billed services. Kimberly Altamirano DNP 06/21/2023 3:46 PM cc: PCP: MOUNA SAMANO [address] [place] [address] [phone] documented in this encounter Plan of Treatment Upcoming Encounters Date Type Department Care Team (Late st Contact Info) Description 07/17/2023 3:00 PM EDT Telemedicine [facility] [address] [place] [address] [facility] [address] [place] [address] 07/19/2023 4:00 PM EDT Office Visit Gynecology/Obstetics [place] [address] [place] [phone] Darwin Fajardo MD [address] [place] [address] 07/24/2023 3:00 PM EDT Telemedicine [facility] [place] [address] [place] [address] Elisa Calle [employer] [address] [place] [address] 07/25/2023 4:30 PM EDT Telemedicine [facility] [place] [address] [place] [address] Mak Padgett, PhD [address] [place] [address] 08/29/2023 3:30 PM EDT Office Visit Allergy/Immunology [facility] [address] [facility] [place] [address] Murray Erazo MD [address] [place] [address] 09/02/2023 6:00 PM EDT Office Visit Family Practice [facility] [address] [place] [address] Mouna Samano MD [address] [place] [address] Scheduled Procedures Name Priority Associated Diagnoses Date/Ti [...] as of this encounter Visit Diagnoses Diagnosis Mild intermittent reactive airway disease without complication- Primary documented in this encounter Additional Health [...] and were consensually agreed upon. Care Teams Taffy Puller Relationship Specialty Start Date End Date Mouna Samano MD [address] [place] [address] PCP - General Internal Medicine 10/11/22 documented as of this encounter
--- OUTSIDE RECORDS SUMMARY | 2023-09-01 05:13 | External Medical Summary | Summary of Care ---
Author Name Unknown Organization [facility] Address [address] [facility] [place] [address] Phone [phone] Care Team Providers Care Receivables Specialist Name Role Phone Reva Samano MD Primary Care Provider Reason for Visit * Reason Onset Date Comments Precert Denied 07/08/2023 Xolair Encounter Details Date Type Department Care Team (Late st Contact Info) Description 07/08/2023 Telephone Allergy/Immunology [facility] [address] [facility] [address] Murray Erazo MD [address] [place] [address] Precert Denied (Xolair ) Allergies Active Allergy Reactions Criticality Noted Date Comments Food (See Comments) High 12/21/2020 Peanuts including dust, tree nuts, soy Latex 12/21/2020 Hives Morphine Hives,Neuro complications (Please comment) 12/21/2020 [place] "high" documented as of this encounter (statuses [...] 30 Mcg, IM, 12 yrs and above (Protecode) 03/02/2022 Hepatitis B, 20+ yrs 02/17/2020,11/06/2019 PPD [...] 9:13 AM EDT Requested authDulce ruvalcaba [place]: [id number] - [place] help? Call us at Status Sent to [facility] Xolair 150MG/ML auto-injectors Form [employer] Electronic [place] Form (2016 [facility]) * Telephone Encounter - Murray Erazo MD [...] Administered Medication - route pre-cert request to [id number] Medication(s) Tried/Failed/Contraindicated: Avoidance, EpiPen PRN See corresponding visit note(s) for additional supporting clinical information. Office Information: Prescriber: Murray Erazo MD Allergy/Immunology documented in this encounter Plan of Treatment Upcoming Encounters Date Type Department Care Team (Late st Contact Info) Description 07/17/2023 3:00 PM EDT Telemedicine [address] [address] [address] [address] 07/19/2023 4:00 PM EDT Office Visit Gynecology/Obstetics [address] [phone] Darwin Fajardo MD [address] [place] [address] 07/24/2023 3:00 PM EDT Telemedicine [address] [address] Elisa Calle [address] [address] 07/25/2023 4:30 PM EDT Telemedicine [address] [place] [address] Mak Padgett, PhD [address] [place] [address] 08/29/2023 3:30 PM EDT Office Visit Allergy/Immunology [facility] [address] [facility] [address] Murray Erazo MD [address] [facility] [address] 09/02/2023 6:00 PM EDT Office Visit Family Practice [facility] [address] [facility] [place] [address] Reva Samano MD [address] [facility] [place] [address] 01/08/2024 1:30 PM EDT Office Visit Pulmonary Medicine, [facility] [address] [place] [address] Kimberly Altamirano, [facility] [address] [place] [address] Scheduled Procedures Name Priority Associated Diagnoses Date/Ti [...] and were consensually agreed upon. Care Teams Receivables Specialist Relationship Specialty Start Date End Date Reva Samano MD [address] [place] [address] PCP - General Internal Medicine 10/11/22 documented as of this encounter
--- OUTSIDE RECORDS SUMMARY | 2023-09-01 05:14 | External Medical Summary | Summary of Care ---
Author Name Unknown Organization [facility] Address [address] [facility] [place] [address] Phone [phone] Care Team Providers Care Cooling Machine Operator Name Role Phone Reva Samano MD Primary Care Provider Reason for Visit * Reason Onset Date Comments Precert Denied 05/30/2023 Xolair Encounter Details Date Type Department Care Team (Late st Contact Info) Description 05/30/2023 Telephone Allergy/Immunology [facility] [address] [facility] [place] [address] Murray Erazo MD [address] [place] [address] Precert Denied (Xolair ) Allergies Active Allergy Reactions Criticality Noted Date Comments Food (See Comments) High 12/21/2020 Peanuts including dust, tree nuts, soy Latex 12/21/2020 Hives Morphine Hives,Neuro complications (Please comment) 12/21/2020 [place] "high" documented as of this encounter (statuses as of 06/10/2023) Medications Medication Sig Dispensed Refills Start Date [...] for Cough. 120 mL 0 04/08/2023 Active Ipratropium-Albut alma 0.5-2.5 (3) MG/3ML Inhalation Solution (Duoneb)Indicatio ns:Mild persistent asthma without complication Inhale 3 mL by mouth every 6 hours as needed for Dyspnea or Wheezing. J45.30 180 mL 3 04/18/2023 Active Additional Information Patient not taking.Reported on 05/27/2023 Full Kit Nebulizer SetIndications:Mi ld persistent asthma [...] as needed for Wheezing. 6.7 g 0 04/02/2023 4 Discontinu ed(Refill) documented as of this encounter (statuses as of 06/10/2023) Active Problems Problem Noted Date Diagnosed Date [...] as of this encounter (statuses as of 06/10/2023) Resolved Problems Problem Noted Date Diagnosed Date Resolved Date Abnormal uterine bleeding 06/01/2022 Dysmenorrhea 12/21/2021 07/17/2022 Pelvic pain in female 12/21/20212022 Encounter for Pap smear of c ervix with HPV DNA cotesting 12/21/2021 02/20/2022 Adenomyosis 12/21/2021 07/17/2022 Eating disorder 06/09/2021 08/23/2021 History of abnormal cervical Pap smear 12/21/2020 07/17/2022 documented as of this encounter (statuses as of 06/10/2023) Immunizations Name Administration Dates Next Due COVID-19 [...] Telephone Encounter - Anna Angel OSA - 06/10/2023 8:39 AM EST Images from the original note were not included. AUTH REQUEST DENIED: THE BASELINE IGE LEVEL MUST BE OVER 30 IU/ML FOR XOLAIR TO BE COVERED. APPEAL CAN BE DONE BY CALLING * Telephone Encounter - Anna Angel OSA - 05/31/2023 8:57 AM EST Requested auth. kimberly ruvalcaba [place]: [id number] Matteo HUTCHISON help? Call us at Status Sent to [facility] Xolair 150MG/ML syringes Form [employer] Electronic [place] Form (2016 [facility]) * Telephone Encounter - Murray Erazo MD - 05/30/2023 12:48 PM EST Allergy Medicine Pre-Cert Request Medication/Disease State Information: Medication: Omalizumab (Xolair) 300mg every 4 weeks. Is the patient able and willing to self inject? Yes. Patient will transition to home after first 3 doses in clinic. Has patient been prescribed anEpiPen: Yes Informed consent obtained: No Diagnosis (including ICD-10): Asthma - Moderate persistent asthma, uncomplicated J45.40 Clinic Administered Medication - route pre-cert request to [id number] Medication(s) Tried/Failed/Contraindicated: Advair, prednisone, albuterol See corresponding visit note(s) for additional supporting clinical information. Office Information: Prescriber: Murray Erazo MD Allergy/Immunology documented in this encounter Plan of Treatment Upcoming Encounters Date Type Department Care Team (Late st Contact Info) Description 06/11/2023 11:00 AM EST Telemedicine [facility] [address] [place] [address] Mak Padgett, PhD [address] [place] [address] 06/13/2023 1:00 PM EST Office Visit Sleep Disorders Ctr [facility] [place] [phone] Ada Velez DO [address] [place] [address] 06/17/2023 1:00 PM EST Office Visit Otolaryngology/Head & Neck/Facial Plastic Surgery [address] [place] [address] Savanah Vazquez PA-C [address] [place] [address] 06/19/2023 9:00 AM EST Telemedicine [facility] [address] [place] [address] Elisa Calle, SALES CENTER MANAGER [address] [place] [address] 06/21/2023 4:00 PM EST Telemedicine Pulmonary Medicine, [facility] [address] [place] [address] Kimberly Altamirano, CHEL[employer] [address] [place] [address] 07/19/2023 4:00 PM EDT Office Visit Gynecology/Obstetics [place] [address] [place] [phone] Darwin Fajardo MD [address] [place] [address] 08/29/2023 3:30 PM EDT Office Visit Allergy/Immunology [facility] [address] [facility] [place] [address] Murray Erazo MD [address] [facility] [place] [address] 09/02/2023 6:00 PM EDT Office Visit Family Practice [facility] 132 [place] [address] Reav Samano MD [address] [facility] [address] Scheduled Procedures Name Priority Associated Diagnoses Date/Ti me COLONOSCOPY FLEXIBLE PROXIMA L DIAGNOSTIC Recall Special screening for malignant neoplasms, colon Health Maintenance Due Date Last Done Comments Pneumococcal Vaccine: Pediatrics (0 to 5 Years) and At-Risk Patients (6 to 64 Years) (1 - PCV) 08/22/1983 Hepatitis B (3 of [...] Not on filedocumented as of this encounter Advance Directives Latest [...] and were consensually agreed upon. Care Teams Cooling Machine Operator Relationship Specialty Start Date End Date Reva Samano MD [address] [place] [address] PCP - General Internal Medicine 10/11/22 documented as of this encounter
--- OUTSIDE RECORDS SUMMARY | 2023-09-01 05:14 | External Medical Summary | Summary of Care ---
Author Name Unknown Organization [facility] Address [address] [facility] [address] Phone [phone] Care Team Providers Care Counter Cutter Name Role Phone Reva Samano MD Primary Care Provider Reason for Visit * Reason Onset Date Comments Precert Denied 05/30/2023 Xolair Encounter Details Date Type Department Care Team (Late st Contact Info) Description 05/30/2023 Telephone Allergy/Immunology [facility] 200 [facility] [place] [address] Murray Erazo MD [address] [place] [address] Precert Denied (Xolair ) Allergies Active Allergy Reactions Criticality Noted Date Comments Food (See Comments) High 12/21/2020 Peanuts including dust, tree nuts, soy Latex 12/21/2020 Hives Morphine Hives,Neuro complications (Please comment) 12/21/2020 [place] "high" documented as of this encounter (statuses as of 06/11/2023) Medications Medication Sig Dispensed Refills Start Date [...] as of this encounter (statuses as of 06/11/2023) Active Problems Problem Noted Date Diagnosed Date [...] as of this encounter (statuses as of 06/11/2023) Resolved Problems Problem Noted Date Diagnosed Date Resolved Date Abnormal uterine bleeding 06/01/2022 Dysmenorrhea 12/21/2021 07/17/2022 Pelvic pain in female 12/21/20212022 Encounter for Pap smear of c ervix with HPV DNA cotesting 12/21/2021 02/20/2022 Adenomyosis 12/21/2021 07/17/2022 Eating disorder 06/09/2021 08/23/2021 History of abnormal cervical Pap smear 12/21/2020 07/17/2022 documented as of this encounter (statuses as of 06/11/2023) Immunizations Name Administration Dates Next Due COVID-19 [...] encounter Miscellaneous Notes * Telephone Encounter - Britt Chandler LPN - 06/11/2023 8:58 AM EST My chart message sent advising of such. * Telephone Encounter - Xochitl Haddad PA-C - 06/11/2023 8:54 AM EST Unfortunately Xolair did not get approved. At this point I would recommend continued avoidance of peanut and we can reassess in the future, hopefully Xolair will be approved for food allergies over the upcoming months. Please let her know. Thanks, Xochitl Haddad PA-C * Telephone Encounter - Anna Angel OSA - 06/10/2023 8:39 AM EST Images from the original note were not included. AUTH REQUEST DENIED: THE BASELINE IGE LEVEL MUST BE OVER 30 IU/ML FOR XOLAIR TO BE COVERED. APPEAL CAN BE DONE BY CALLING * Telephone Encounter - Anna Angel OSA - 05/31/2023 8:57 AM EST Requested auth. kimberly ruvalcaba [place]: [id number] - [place] help? Call us at Status Sent to [employer] [facility] Xolair 150MG/ML syringes Form [employer] [place] Form (2016 [facility]) * Telephone Encounter - Murray Erazo [...] Administered Medication - route pre-cert request to [id number] Medication(s) Tried/Failed/Contraindicated: Advair, prednisone, albuterol See corresponding visit note(s) for additional supporting clinical information. Office Information: Prescriber: Murray Erazo MD Allergy/Immunology documented in this encounter Plan of Treatment Upcoming Encounters Date Type Department Care Team (Late st Contact Info) Description 06/11/2023 11:00 AM EST [facility] [address] [place] [address] Mak Padgett, PhD [address] [place] [address] 06/13/2023 1:00 PM EST Office Visit Sleep Disorders Ctr [facility] [place] [address] [place] [phone] Ada Velez, [address] [facility] [address] 06/17/2023 1:00 PM EST Office Visit Otolaryngology/Head & Neck/Facial Plastic Surgery [address] [place] [address] Savanah Vazquez PA-C [address] [place] [address] 06/19/2023 9:00 AM EST Telemedicine [facility] [address] [place] [address] Elisa Calle [facility] [address] [place] [address] 06/21/2023 4:00 PM EST Telemedicine Pulmonary Medicine, [facility] [address] [place] [address] Kimberly Altamirano, [facility] [address] [place] [address] 07/19/2023 4:00 PM EDT Office Visit Gynecology/Obstetics [place] [address] [place] [phone] Darwin Fajardo MD [address] [place] [address] 08/29/2023 3:30 PM EDT Office Visit Allergy/Immunology [facility] [place] [address] [place] [address] Murray Erazo MD 200 [facility] [place] [address] 09/02/2023 6:00 PM EDT Office Visit Family Practice [facility] [address] [place] [address] Reva Samano MD [address] [place] [address] Scheduled Procedures Name Priority Associated Diagnoses Date/Ti [...] 10/03/2021 7:25 AM 10/03/2021 2:09 PM This o rder reflects the patients wishes and were consensually agreed upon. Care Teams Counter Cutter Relationship Specialty Start Date End Date Reva Samano MD [address] [place] [address] PCP - General Internal Medicine 10/11/22 documented as of this encounter
--- OUTSIDE RECORDS SUMMARY | 2023-09-01 05:14 | External Medical Summary | Summary of Care ---
Author Name Unknown Organization [facility] Address [address] [facility] [place] [address] Phone [phone] Care Team Providers Care Slip Cover Sewer Name Role Phone Reva Samano MD Primary Care Provider Encounter Details Date Type Department Care Team (Late st Contact Info) Description 05/30/2023 Telephone Allergy/Immunology [facility] [place] [address] [place] [address] Xochitl Haddad PA-C [address] [place] [address] Allergies Active Allergy Reactions Criticality Noted Date Comments Food (See Comments) High 12/21/2020 Peanuts including dust, tree nuts, soy Latex 12/21/2020 Hives Morphine Hives,Neuro complications (Please comment) 12/21/2020 [place] "high" documented as of this encounter (statuses as of 05/30/2023) Medications Medication Sig Dispensed Refills Start Date [...] AT BEDTIME 180 Capsule 1 02/04/2023 Active Ventolin HFA 108 (90 Base) MCG/ACT Inhalation Aerosol SolutionIndication s:Cough variant asthma Inhale 2 Puffs by mouth every 4 hours as needed for Wheezing. 6.7 g 0 04/02/2023 Active Additional Information Patient not taking.Reported on 05/27/2023 guaiFENesin-Codein e 100-10 MG/5ML Oral Syrup (Robitussin [...] Additional Information Patient not taking.Reported on 05/27/2023 documented as of this encounter (statuses as of 05/30/2023) Active Problems Problem Noted Date Diagnosed Date [...] as of this encounter (statuses as of 05/30/2023) Resolved Problems Problem Noted Date Diagnosed Date Resolved Date Abnormal uterine bleeding 06/01/2022 Dysmenorrhea 12/21/2021 07/17/2022 Pelvic pain in female 12/21/20212022 Encounter for Pap smear of c ervix with HPV DNA cotesting 12/21/2021 02/20/2022 Adenomyosis 12/21/2021 07/17/2022 Eating disorder 06/09/2021 08/23/2021 History of abnormal cervical Pap smear 12/21/2020 07/17/2022 documented as of this encounter (statuses as of 05/30/2023) Immunizations Name Administration Dates Next Due COVID-19 [...] Answer Date Recorded PHQ Adult Total Score 5 12/17/2022 Hunger Vital Sign Answer Date Recorded Within the past 12 months, y ou worried that your food would run out before you got the money to buy more. Never true 10/11/19 23 Within the past 12 months, t he food you bought just didn't last and you didn't have money to get more. Never true 10/10/2022 Sex and Gender Information Value Date Recorded Sex Assigned at Female 08/15/2021 10:58 AM EDT Gender Identity Female 08/15/2021 10:58 AM EDT Sexual Orientation Lesbian 08/15/2021 10 :58 AM EDT Job Start Date Occupation Industry Not on file Not on file Not on file documented as of this encounter Plan of Treatment Upcoming Encounters Date Type Department Care Team (Late st Contact Info) Description 06/03/2023 11:00 AM EST Telemedicine [facility] [place] [address] [place] [address] Mak Padgett, PhD [address] [place] [address] 06/13/2023 1:00 PM EST Office Visit [facility] [place] [address] Ada Velez DO [facility] [place] [address] 06/17/2023 1:00 PM EST Office Visit Otolaryngology/Head & Neck/Facial Plastic Surgery [address] [place] [address] Savanah Vazquez PA-C [address] [place] [address] 06/21/2023 4:00 PM EST Telemedicine Pulmonary Medicine, [facility] [address] [place] [address] Kimberly Altamirano, CHELSIE [address] [place] [address] 07/19/2023 4:00 PM EDT Office Visit Gynecology/Obstetics [place] [address] [place] [phone] Darwin Fajardo MD [address] [place] [address] 08/29/2023 3:30 PM EDT Office Visit Allergy/Immunology [facility] 200 [place] [address] Murray Erazo MD [address] [place] [address] 09/02/2023 6:00 PM EDT Office Visit Family Practice [facility] [address] [place] [address] Reva Samano MD [address] [facility] [place] [address] Scheduled Procedures Name Priority Associated Diagnoses Date/Ti [...] 2022 02/20/2022 Mammogram 02/19/2023 02/19/2022, 05/30, 04/13/2021 Depression Screening 12/18/2023 12/17/2022 Diabetes Screening 05/26/2025 05/26/2022, 1 , 05/31/2021 [...] and were consensually agreed upon. Care Teams Slip Cover Sewer Relationship Specialty Start Date End Date Reva Samano MD [facility] [address] [place] [address] PCP - General Internal Medicine 10/11/22 documented as of this encounter
--- OUTSIDE RECORDS SUMMARY | 2023-09-01 05:14 | External Medical Summary | Summary of Care ---
Author Name Unknown Organization [facility] Address [address] [place] [address] Phone [phone] Care Team Providers Care Millwright Supervisor Name Role Phone Reva Samano MD Primary Care Provider Reason for Visit * Reason Comments NEW PATIENT Encounter Details Date Type Department Care Team (Late st Contact Info) Description 06/11/2023 11:00 AM EST [facility] [place] [address] [place], [place] [id number] Mak Padgett, PhD [address] [place] [address] Anorexia nervosa in remission*; Acute stress disorder Allergies Active Allergy Reactions Criticality Noted Date Comments Food (See Comments) High 12/21/2020 Peanuts including dust, tree nuts, soy Latex 12/21/2020 Hives Morphine Hives,Neuro complications (Please comment) 12/21/2020 [place] "high" documented as of this encounter (statuses [...] for Wheezing. 6.7 g 0 06/03/2023 Active documented as of this encounter (statuses [...] Progress Notes * Mak Padgett, PhD - 06/11/2023 11:08 AM EST Patient location: HOME. I was not in a hospital or clinic location. After connecting through televideo, patient was verified with two unique identifiers. Patient (or authorized legal telemarketing sales representative) was then informed that this [...] that I have reviewed their record in scenios and presented the opportunity for them to ask any questions regarding the visit today. The patient agreed to participate. Provider reviewed elements of Outpatient Services Description including limits of confidentiality, how to contact the department, risks and benefits of treatment and consent for treatment. [facility] is committed to coordinated care through an integrated delivery system and shared medicalrecord. Since our patients are seen both in primary care and behavioral health (as well as other specialties), each provider has immediate access to information to enable collaboration across the continuum. Start Time: 11:02 am Stop Time: 11:54 Total direct [id number] time: 52 min Confirm patient's location (and address if different from the home address documented in [facility]) at the time of this appointment: Home address on file. OUTPATIENT BEHAVIORAL HEALTH EVALUATION [address] [address] 06/11/2023 Referring Provider: Reva Samano MD Length of visit: 52 minutes. Diagnosis: AN, PTSD Psych Diagnostic Evaluation: CPT: 68120 REASON FOR REFERRAL Kimberly Azevedo is 47 year old. Referred by Self for Trauma/PTSD and Eating Disorder BRIEF SUMMARY OF ASSESSMENT CASE DISPOSITION/RECOMMENDATIONS Kimberly Azevedo would benefit from individual outpatient therapy for the primary presenting concern(s) of Trauma with a hx of disordered eating. Treatment recommendations and associated risks/benefits and alternative treatments as well as forgoing treatment were discussed. See BH Therapy Treatment Plan in "Plans" section. Recommend referral for Other Trauma therapy Kimberly Azevedo agreed to plan and was scheduled/referred accordingly: yes PRESENTING PROBLEM Information gathered today is update to original intake on 11/28/21. Kimberly reported that she is starting to eat better than when first called to return to therapy but not back to 3 meals plus snacks. Reported that she is eating 1-2 meals/ day and drinking shakes when hard to eat. Is able to eat food at school again although harder at school (where she had her anaphylactic reaction to peanuts) and having to rely on shakes there more often. Working towards three meals plus snacks. Does not want to force food at this time but doing a shake when difficult to eat so taking in something at each meal. Reported that yesterday she felt a little dizzy but was also her first day with current cold/ illness. Denied any other physical symptoms of malnutrition such low body temp, dizziness, brittle nails, hair falling out. Does have constipation but reported that this is a chronic issue and recently has been having it a little worse so using stool softeners (not laxative, no stimulant). Kimberly had been discharged from C[facility]Y tx and eating three meals consistently but recent anaphylactic response to a peanut exposure triggered trauma response making it hard to eat. Returning to therapy to address trauma reaction and try to prevent COREY relapse due to fear of another allergic reaction. SYMPTOMS Mood: anxious Leila/Hypomania: No Interest: good Energy: lethargic Appetite: Improving but still struggling with hunger cues so trying to eating on a schedule Concentration: improved Psychomotor changes: within normal limits Anxiety: Highly anxious, PTSD recently triggered, increased nightmares, difficulties eating and sleeping, increased hypervigilance. No panic attacks, uses ativan PRN when feels ramping up. About 2x/week. Neurological Problems/Hx of head injury: No change since original intake on 11/28/21 Trauma Hx: No change since original intake on 11/28/21 Delusions: No Hallucinations: No SYMPTOM MEASURES No questionnaires available. MENTAL HEALTH HISTORY Past treatment: No change since original intake on 11/28/21 Current treatment: Psychotropic medications, including Escitalopram, Buspar, Ativan PRN and mini press. Family history: No change since original intake on 11/28/21 CURRENT MEDICATIONS: Current Outpatient Medications Medication Sig [...] medications for this visit. HEALTH BEHAVIORS ETOH: Occasional, 1 or 2 drinks 1-2 x/month. Illicit Drugs: denied. Evidence of risky use: No Impaired Control: No DUI/Legal: No Tolerance/Withdrawal: No Medical Cannabis: No Nicotine: Never Caffeine: 3 cups of 1/2 caf coffee/day Exercise: Not regularly. Weight: been stable - recent increase in restriction, not weighing self at home, partner has been checking and it has been stable. Sleep: no change. Hx of nightmares, improved with minipress. Has increased sleep difficulties and increased nightmares when under stress. Uses PRN Pain level 0-10: Current: 3/10 - based difficulties breathing. 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 Medication/Treatment Adherence: Compliant with all prescribed medicines SOCIAL HISTORY: No change since original intake on 11/28/21 other than eldest son has his own apartment. MEDICAL PROBLEMS No past medical history on file. Emergency hysterectomy a year ago Lumpectomy two years ago due to high risk Hx of trauma. MENTAL STATUS AND BEHAVIORAL OBSERVATIONS Appearance: within normal limits Behavior: appropriate, cooperative, and pleasant Speech: normal pitch, normal rate, and normal volume Mood: anxious Affect: appropriate and mood-congruent Thought Process: within normal limits Thought Content: Delusions: No Hallucinations: No Obsessions: No Homicidal: No Suicidal: No Sensorium: alert and oriented to person, place, time and situation Cognition: grossly intact Insight: good Judgment: good Suicide/Homicidal Assessment : No current suicidal ideation (SI), self-injurious behavior (SIB), orplans/intent to harm self or others. Does not present with indication of need for more restrictive level of care (inpatient psychiatric hospitalization) at this time. Validated Screening and Assessment Measures [place] Suicide Severity Rating Scale Results 06/11/2023 11:54 [place] SUICIDE SEVERITY RATING SCALE (C-SSRS) Have [...] IN ROOMING TOOL. Risk and Protective Factors should be completed at initial assessment and for any positive screen (pt answers "yes" to any items on the CSSRS) Crisis Plan: see Crisis Plan in Treatment Plan Use Nils-Brown Suicide Safety Plan when [place] is Moderate or High Risk, or whenever clinical judgment would indicate need for full crisis plan to be done. Reviewed 06/11/23 TREATMENT PLAN Reminder to complete New Treatment Plan in "Plan" section of the Plan Navigator [place] P [address] for psychiatrist signature COREY goals are 3 meals plus snacks, no body checking or compulsive weighing, no compulsive scale use. Will defer trauma tx goals and plan to trauma specialist. The assessment and plan was based on the information obtained during the appointment. Mak Padgett, PhD Division of Psychiatry & Behavioral Medicine [facility] [phone] documented in this encounter Plan of Treatment Upcoming Encounters Date Type Department Care Team (Late st Contact Info) Description 06/13/2023 1:00 PM EST Office Visit Sleep Disorders [facility] [address] [place] [phone] Ada Velez, [address] [place] [address] 06/17/2023 1:00 PM EST Office Visit Otolaryngology/Head & Neck/Facial Plastic Surgery [address] [place] [address] Savanah Vazquez PA-C [address] [place] [address] 06/19/2023 9:00 AM EST Telemedicine Psychology, [place] [address] [place] [address] Elisa Calle LCSW [address] [place] [address] 06/21/2023 4:00 PM EST Telemedicine Pulmonary Medicine, [facility] [address] [place] [address] Kimberly Altamirano, [facility] [address] [place] [address] 06/27/2023 4:30 PM EST Telemedicine Psychology, [place] [address] [place] [address] Mak Padgett, PhD [address] [place] [address] 07/19/2023 4:00 PM EDT Office Visit Gynecology/Obstetics [place] [address] [place] [phone] Darwin Fajardo MD [address] [place] [address] 08/29/2023 3:30 PM EDT Office Visit Allergy/Immunology [facility] [place] [address] [place] [address] Murray Erazo MD [address] [place] [address] 09/02/2023 6:00 PM EDT Office Visit Family [facility] 132 [place] [address] Reva Samano MD [address] [place] [address] Scheduled Procedures Name Priority Associated Diagnoses Date/Ti [...] Diagnoses Diagnosis Anorexia nervosa in remission- Primary Acute stress disorder Other acute reactions to stress documented in this encounter Advance Directives Latest [...] and were consensually agreed upon. Care Teams Millwright Supervisor Relationship Specialty Start Date End Date Reva Samano MD [address] [place] [address] PCP - General Internal Medicine 10/11/22 documented as of this encounter
--- OUTSIDE RECORDS SUMMARY | 2023-09-01 05:14 | External Medical Summary | Summary of Care ---
Author Name Unknown Organization [facility] Address [address] [place] [address] Phone [phone] Care Team Providers Care Identity Management Developer Name Role Phone Reva Samano MD Primary Care Provider Reason for Visit * Reason Onset Date Comments Precert In Process 05/30/2023 [email or web address] Ca rol Encounter Details Date Type Department Care Team (Late st Contact Info) Description 05/30/2023 Telephone Allergy/Immunology [facility] [place] [address] [place] [address] Murray Erazo MD 200 [place] [address] Precert In Process ([employer] Anna ) Allergies Active Allergy Reactions Criticality Noted Date Comments Food (See Comments) High 12/21/2020 Peanuts including dust, tree nuts, soy Latex 12/21/2020 Hives Morphine Hives,Neuro complications (Please comment) 12/21/2020 [place] "high" documented as of this encounter (statuses as of 05/31/2023) Medications Medication Sig Dispensed Refills Start Date [...] as of this encounter (statuses as of 05/31/2023) Active Problems Problem Noted Date Diagnosed Date [...] as of this encounter (statuses as of 05/31/2023) Resolved Problems Problem Noted Date Diagnosed Date Resolved Date Abnormal uterine bleeding 06/01/2022 Dysmenorrhea 12/21/2021 07/17/2022 Pelvic pain in female 12/21/20212022 Encounter for Pap smear of c ervix with HPV DNA cotesting 12/21/2021 02/20/2022 Adenomyosis 12/21/2021 07/17/2022 Eating disorder 06/09/2021 08/23/2021 History of abnormal cervical Pap smear 12/21/2020 07/17/2022 documented as of this encounter (statuses as of 05/31/2023) Immunizations Name Administration Dates Next Due COVID-19 mRNA, LNP-s, No Pre serve, 2-Dose Series ([employer]) 06/26/2020,05/29/2020 COVID-19, LNP-s, No Preserve , Otis-sucrose, Ages 12+ (Pfizer) 04/28/2021 Covid-19, Mrna, Lnp-s, Pf, B ivalent, 30 Mcg, IM, 12 yrs and above ([employer] 03/02/2022 Hepatitis B, 20+ yrs 02/17/2020,11/06/2019 PPD [...] AM EST Requested auth. kimberly ruvalcaba [place]: [id number] - [place] help? Call us at Status Sent to [employer] [facility] Xolair 150MG/ML syringes Form [facility] Electronic [place] Form ([facility]) * Telephone Encounter - Murray Erazo MD [...] Administered Medication - route pre-cert request to [id number] Medication(s) Tried/Failed/Contraindicated: Advair, prednisone, albuterol See corresponding visit note(s) for additional supporting clinical information. Office Information: Prescriber: Murray Erazo MD Allergy/Immunology documented in this encounter Plan of Treatment Upcoming Encounters Date Type Department Care Team (Late st Contact Info) Description 06/03/2023 11:00 AM EST Telemedicine Psychology, [place] [address] [place] [address] Mak Padgett, PhD [address] [place] [address] 06/13/2023 1:00 PM EST Office Visit [facility] [address] [facility] [place] [address] Ada Velez DO [address] [facility] [place] [address] 06/17/2023 1:00 PM EST Office Visit Otolaryngology/Head & Neck/Facial Plastic Surgery [address] [place] [address] Savanah Vazquez PA-C [address] [place] [address] 06/21/2023 4:00 PM EST Telemedicine Pulmonary Medicine, [facility] [address] [place] [address] Kimberly Altamirano DNP [address] [place] [address] 07/19/2023 4:00 PM EDT Office Visit Gynecology/Obstetics [place] [address] [place] [address] Darwin Fajardo MD [address] [place] [address] 08/29/2023 3:30 PM EDT Office Visit Allergy/Immunology [facility] [place] 200 [facility] [place] [address] Murray Erazo MD [address] [facility] [place] [address] 09/02/2023 6:00 PM EDT Office Visit Family Practice [facility] [address] [place] [address] Reva Samano MD [address] [place] [address] Scheduled Procedures Name Priority Associated Diagnoses Date/Ti [...] and were consensually agreed upon. Care Teams Identity Management Developer Relationship Specialty Start Date End Date Reva Samano MD [address] [place] [address] PCP - General Internal Medicine 10/11/22 documented as of this encounter
--- OUTSIDE RECORDS SUMMARY | 2023-09-01 05:14 | External Medical Summary | Summary of Care ---
Author Name Unknown Organization [facility] Address [address] [facility] [place] [address] Phone [phone] Care Team Providers Care Maintainer Plant Name Role Phone Reva Samano MD Primary Care Provider Reason for Visit * Reason Onset Date Comments Precert Denied 05/30/2023 Xolair Encounter Details Date Type Department Care Team (Late st Contact Info) Description 05/30/2023 Telephone Allergy/Immunology [facility] 200 [facility] [place] [address] Murray Erazo MD [address] [place] [address] Precert Denied (Xolair ) Allergies Active Allergy Reactions Criticality Noted Date Comments Food (See Comments) High 12/21/2020 Peanuts including dust, tree nuts, soy Latex 12/21/2020 Hives Morphine Hives,Neuro complications (Please comment) 12/21/2020 [place] "high" documented as of this encounter (statuses [...] AM EST Requested auth. kimberly ruvalcaba [place]: [id number] Matteo HUTCHISON help? Call us at Status Sent to [employer] [facility] Xolair 150MG/ML syringes Form [employer] Electronic [place] Form (2016 [facility]) * Telephone Encounter - Murray Erazo [...] Administered Medication - route pre-cert request to [id number] Medication(s) Tried/Failed/Contraindicated: Advair, prednisone, albuterol See corresponding visit note(s) for additional supporting clinical information. Office Information: Prescriber: Murray Erazo MD Allergy/Immunology documented in this encounter Plan of Treatment Upcoming Encounters Date Type Department Care Team (Late st Contact Info) Description 06/11/2023 11:00 AM EST Telemedicine [facility] [address] [place] [address] Mak Padgett, PhD [address] [place] [address] 06/13/2023 1:00 PM EST Office Visit [facility] Disorders [facility] [place] [address] Ada Velez DO [address] [place] [address] 06/17/2023 1:00 PM EST Office Visit Otolaryngology/Head & Neck/Facial Plastic Surgery [address] [place] [address] Savanah Vazquez PA-C [address] [place] [address] 06/19/2023 9:00 AM EST Telemedicine [facility] [address] [place] [address] Elisa Calle, CARDROOM ATTENDANT [address] [place] [address] 06/21/2023 4:00 PM EST Telemedicine Pulmonary Medicine, [facility] [address] [place] [address] Kimberly Altamirano, CHELSIE [address] [place] [address] 07/19/2023 4:00 PM EDT Office Visit Gynecology/Obstetics [place] [address] [place] [phone] Darwin Fajardo MD [address] [place] [address] 08/29/2023 3:30 PM EDT Office Visit Allergy/Immunology [facility] 200 [facility] [place] [address] Murray Erazo MD [address] [facility] [place] [address] 09/02/2023 6:00 PM EDT Office Visit Family Practice [facility] 132 [place] [address] Reva Samano MD 132 [place] [address] Scheduled Procedures Name Priority Associated Diagnoses Date/Ti [...] and were consensually agreed upon. Care Teams Maintainer Plant Relationship Specialty Start Date End Date Reva Samano MD [address] [place] [address] PCP - General Internal Medicine 10/11/22 documented as of this encounter
--- OUTSIDE RECORDS SUMMARY | 2023-09-01 05:14 | External Medical Summary | Summary of Care ---
Author Name Unknown Organization [facility] Address [address] [place] [address] Phone [phone] Care Team Providers Care Laborer Hoisting Name Role Phone Reva Samano MD Primary Care Provider Reason for Visit * Reason Comments Follow Up Encounter Details Date Type Department Care Team (Late st Contact Info) Description 06/03/2023 11:[address] [facility] [place] [place] [address], [place] [id number] Mak Padgett, PhD [address] [place] [address] History of trauma*; Anorexia nervosa in remission; Acute stress reaction Allergies Active Allergy Reactions Criticality Noted Date Comments Food (See Comments) High 12/21/2020 Peanuts including dust, tree nuts, soy Latex 12/21/2020 Hives Morphine Hives,Neuro complications (Please comment) 12/21/2020 [place] "high" documented as of this encounter (statuses as of 06/03/2023) Medications Medication Sig Dispensed Refills Start Date [...] as of this encounter (statuses as of 06/03/2023) Active Problems Problem Noted Date Diagnosed Date [...] as of this encounter (statuses as of 06/03/2023) Resolved Problems Problem Noted Date Diagnosed Date Resolved Date Abnormal uterine bleeding 06/01/2022 Dysmenorrhea 12/21/2021 07/17/2022 Pelvic pain in female 12/21/20212022 Encounter for Pap smear of c ervix with HPV DNA cotesting 12/21/2021 02/20/2022 Adenomyosis 12/21/2021 07/17/2022 Eating disorder 06/09/2021 08/23/2021 History of abnormal cervical Pap smear 12/21/2020 07/17/2022 documented as of this encounter (statuses as of 06/03/2023) Immunizations Name Administration Dates Next Due COVID-19 [...] Progress Notes * Mak Padgett, PhD - 06/03/2023 11:05 AM EST Patient location: HOME. I was not in a hospital or clinic location. After connecting through televideo (video was not working, met over the phone), patient was verified with two unique identifiers. Patient (or authorized legal customer relations representative) was then informed that this was a Telemedicine visit andbeing conducted confidentially over secure lines. Methods to assure confidentiality were taken. Patient acknowledged consent and understanding of privacy and security of the Telemedicine visit. The patient agreed to participate. My office door was closed. No one else was in the room with me. I informed the patient that I have reviewed their record in [facility] and presented the opportunity for them to ask any questions regarding the visit today. The patient agreed to participate. Provider reviewed elements of Outpatient Services Description including limits of confidentiality, how to contact the department, risks and benefits of treatment and consent for treatment. After connecting to the patient via telephone, the patient was identified by name and date of . Patient was then informed that this was a telephone call only visit. The patient agreed to participate. Visit Disposition: Routine follow-up Total call duration was 44 minutes. Start Time: 11:06 Stop Time: 11:50 Total direct [id number] time: 44 min Confirm patient's location (and address if different from the home address documented in Epic) at the time of this appointment: Parking lot at [facility] BEHAVIORAL MEDICINE PROGRESS NOTE Psychology, [address] [address] 06/03/23 TYPE OF VISIT: Individual DIAGNOSIS: AN, BILLY REASON FOR FOLLOW-UP: Individual therapy Session #: 27 SESSION FOCUS: Check in NOTES: Urgent check in scheduled for today. Kimberly reported that the past month has been very difficult and she would like to return to therapy for increased support. Daughter struggling with mental health, moved back to the area from [place], and [facility] with thought of a plan. This was early April. Daughter now has an apartment in [place] and Kimberly's adult son has moved in with her and Kimberly reported this has been a good move for each of them. Reported the stress caused some increased difficulties with eating (decreased appetite) but she was managing it, stilleating three meals consistently and now weight loss. But then a couple weeks ago she had an anaphylactic response to a peanut exposure at work and has been having a very difficult time eating since. Feels it is a trauma reaction to the peanut allergy, the thought of consuming anything is now overwhelming and gets stuck in a loop in her head panicking about safety. She finds her self reading labels and re-reading labels (for contents not calories). Kimberly reported that she has tried all the usual things that help when she is struggling to eat - Meal planning, preferred foods, meal prepping, scheduled meals - but none are helping. Estimated she is eating 50-75% of a typical breakfast and only about 50% of typical lunch and dinner. Reported she hasn't been able to eat at work/school at allsince that is where the exposure happened. Discussed writing out positive statements to read at meals - I have a plan in place for my peanut allergy, there is no reason to believe there are peanuts in foods properly marked. Also discussed having increased support, options include having partner participate in therapy, referral to C[facility]Y program that could provide meal support or referral for trauma tx. PROGRESS TOWARDS GOALS: Goals Improved self-management of emotional regulation and eating habits Objective Measures: Social Needs Screening Question 06/03/2023 9:18 AM EST - Filed by Patient We want to ensure that you can live your healthiest life, part of that is ensuring you have can find resources when you need them. We know that if you have trouble accessing things like food, housing, or transportation, it can impact your health. We encourage you to take a couple minutes to fill out this social needs questionnaire. Your care team will go over the screening with you at your upcoming visit and can connect you to local resources. Within the past 12 months, you worried that your food would run out before you got the money to buymore. Never true Within the past 12 months, the food you bought just didnt last and you didnt have money to get more. Never true Do you need food for this week? No Do you currently live in a custodial or have no steady place to sleep at night? No Do you think you are at risk of becoming homeless? No Do you have trouble getting a ride to medical visits or work? Never True Do you have any trouble paying for your medications, or do you think you might in the future? No How often do you feel lonely or isolated from those around you? Never Do you feel unsafe or have concerns for your safety? No Do you feel overwhelmed with taking care of a child, family member or friend? No Have you been unable to get clothing when it was really needed? No Do you have trouble paying your heating, water, or electric bill? No Are you unemployed or without regular income? No Myc Visit Accident Related Question Question 06/03/2023 9:18 AM EST - Filed by Patient Is this visit related to an accident? (i.e work, motor vehicle) No Billy-7 Question 06/03/2023 11:11 AM EST - Filed by Mak Padgett, PhD Over the last 2 weeks, how often have you been bothered by the following problems? Feeling nervous, anxious, or on edge Several days Not being able to stop or control worrying Several days Worrying too much about different things Several days Trouble relaxing Nearly every day Being so restless that is hard to sit still More than half the days Becoming easily annoyed or irritable Several days Feeling afraid as if something awful might happen Several days Total score of all questions (range: 0 - 21) 10 (Moderate) Phq9-Depression Question 06/03/2023 11:12 AM EST - Filed by Mak Padgett, PhD Over the last two weeks, how often have you been bothered by any of the following problems? Little interest or pleasure in doing things Several days Feeling down, depressed or hopeless Several days Over the last two weeks, how often have you been bothered by any of the following problems? Trouble falling or staying asleep, or sleeping too much Nearly everyday Feeling tired or having little energy Nearly everyday Poor appetite or overeating Nearly everyday Feeling bad about yourself - or that you are a failure, or have let yourself or your family down Several days Trouble concentrating on things, such as reading the newspaper or watching television More than half the days Moving or speaking so slowly that other people could have noticed. Or the opposite - being so fidgety or restless that you have been moving around a lot more than usual More than half the days Thoughts that you would be better off , or of hurting yourself Not at all Question 1 score (range: 0 - 3) 1 Question 2 score (range: 0 - 3) 1 Question 3 score (range: 0 - 3) 3 Question 4 score (range: 0 - 3) 3 Question 5 score (range: 0 - 3) 3 Question 6 score (range: 0 - 3) 1 Question 7 score (range: 0 - 3) 2 Question 8 score (range: 0 - 3) 2 Question 9 score (range: 0 - 3) 0 Sum of all PHQ9 questions. (range: 0 - 27) 16 (Moderately Severe Depression) [place] Suicide Severity Rating Scale Results 06/03/2023 11:13 [place] SUICIDE SEVERITY RATING SCALE (C-SSRS) Have [...] No Level of Risk No Risk Identified INTERVENTION: Goal: Reduce obsessive thoughts about food, weight baptist and 3 meals plus 1-3 snacks, decreased body image disturbance, decreased compensatory behaviors and decrease related distress and returnto normal level of functioning. Improve ability to cope with anxiety and distressed mood. Objectives: Medical stability Meet nutritional needs/ 3 meals 1-3 snacks. Improve body image Improve understanding that anxiety is not dangerous and can be tolerated Increase tolerance of uncertainty Modify unhelpful beliefs about danger and responsibility Engage in avoided behavior Reduce functional impairment Acquire relapse prevention skills Interventions: Psychoeducation on hunger patterns and medical consequences of COREY behaviors. Provide psychoeducation about the relationship between mood, cognitions, behavior, physiological reactions and environmental stress Monitor mood and related thoughts, behaviors, and physical sensations Evaluate dysfunctional beliefs which contribute to distressed mood, and develop adaptive beliefs and perceptions Engage in exposure and response prevention Learn and practice relaxation and stress management skills Implement exercise plan within medical capabilities PATIENT EDUCATION: Verbal & written MENTAL STATUS AND BEHAVIORAL OBSERVATIONS: Appearance: within normal limits Behavior: within normal limits Speech: normal pitch, rate and volume Affect: Congruent with content of conversation Thought Process: within normal limits and goal directed Thought Content: within normal limits Intellectual Function: within normal limits Sensorium: alert and oriented to person, place, time and situation Cognition: grossly intact Insight/Judgment: good Suicide/Homicidal Assessment : No current suicidal ideation (SI), self-injurious behavior (SIB), orplans/intent to harm self or others. No specific safety plan indicated at this time. Does not present with indication of need for more restrictive level of care (inpatient psychiatric hospitalization) at this time. Validated Screening and Assessment Measures PHQ-9, item 9: NEGATIVE C-SSRS administered: Yes - Risk Level Impression: -Minimal risk: Initiate outpatient therapy; reviewed cecilia olmos safety plan; provided crisis numbers: - No change in risk from first session (see note dated 11/28/21 for further details), no change to stephy olmos crisis plan Additional resources: 1. Local Crisis Services: For [place] call TAP[facility] at . [facility] Emergency Number: 2. [facility] Division of Psychiatry: [phone] 3. National Suicide Prevention Lifeline: 4. National Crisis Text Line: Text HOME to 418259 5. 911 or proceed to the nearest emergency room FOLLOW-UP PLAN: Outpatient Adult Therapy Treatment Plan To be completed at intake scheduled in one week. Mak Padgett, PhD Division of Psychiatry & Behavioral Medicine [facility] [phone] documented in this encounter Plan of Treatment Upcoming Encounters Date Type Department Care Team (Late st Contact Info) Description 06/11/2023 11:00 AM EST [facility] [address] [place] [address] Mak Padgett, PhD [address] [place] [address] 06/13/2023 1:00 PM EST Office Visit Sleep Disorders Ctr [facility] [address] [place] [address] Ada Velez DO [address] [place] [address] 06/17/2023 1:00 PM EST Office Visit Otolaryngology/Head & Neck/Facial Plastic Surgery [address] [place] [address] Savanah Vazquez PA-C [address] [place] [address] 06/21/2023 4:00 PM EST Telemedicine Pulmonary Medicine, [facility] [address] [place] [address] Kimberly Altamirano, CHELSIE [address] [place] [address] 07/19/2023 4:00 PM EDT Office Visit Gynecology/Obstetics [place] [address] [place] [address] Darwin Fajardo MD [address] [place] [address] 08/29/2023 3:30 PM EDT Office Visit [facility] [address] [place] [address] Murray Erazo MD [address] [place] [address] 09/02/2023 6:00 PM EDT Office Visit Family Practice [facility] [address] [facility] [place] [address] Reva Samano MD [address] [facility] [place] [address] Scheduled Procedures Name Priority Associated Diagnoses Date/Ti [...] as of this encounter Visit Diagnoses Diagnosis History of trauma- Primary Personal history of other injury Anorexia nervosa in remission Acute stress reaction Unspecified acute reaction to stress documented in this encounter Advance [...] and were consensually agreed upon. Care Teams Laborer Hoisting Relationship Specialty Start Date End Date Reva Samano MD [address] [place] [address] PCP - General Internal Medicine 10/11/22 documented as of this encounter
--- OUTSIDE RECORDS SUMMARY | 2023-09-01 05:14 | External Medical Summary | Summary of Care ---
Author Name Unknown Organization [facility] Address [address] [facility] [place] [address] Phone [phone] Care Team Providers Care Flamer Sealer Name Role Phone Reva Samano MD Primary Care Provider Reason for Visit * Reason Comments Other Patient is here with complaint of URI crud. Patient has sinus congestion, headache, and she said she has a cough and she's been recently diagnosed with asthma and she did a nebulizer treatment. Patient's son just tested positive flu B so now she wants tested for flu. Encounter Details Date Type Department Care Team (Late st Contact Info) Description 06/11/2023 3:40 PM EST [facility] [place] [address] [place] [address] [address] Annette Perdomo PA-C [address] [place] [address] [place] [phone] Viral syndrome*; Exposure to the flu; Acute cough Allergies Active Allergy Reactions Criticality Noted Date Comments Food (See Comments) High 12/21/2020 Peanuts including dust, tree nuts, soy Latex 12/21/2020 Hives Morphine Hives,Neuro complications (Please comment) 12/21/2020 [place] "high" documented as of this encounter (statuses [...] 3 days 18 Tablet 0 06/11/2023 Active documented as of [...] Sign Reading Time Taken Comments Blood Pressure 118/84 06/11/2023 3:54 PM EST Pulse 90 06/11/2023 3:54 PM EST Temperature 37.3 C (99.1 F) 06/11/2023 3:54 PM ES T Respiratory Rate 18 06/11/2023 3:54 PM EST Oxygen Saturation 97% 06/11/2023 3:54 PM EST Inhaled Oxygen Concentration - - Weight - - Height - - Body Mass Index - - documented in this encounter Progress Notes * Annette Perdomo PA-C - 06/11/2023 4:16 PM EST Subjective: Kimberly Azevedo is a 47 year old female. Chief Complaint Patient presents with Other Patient is here with complaint of URI crud. Patient has sinus congestion, headache, and she said she has a cough and she's been recently diagnosed with asthma and she did a nebulizer treatment. Patient's son just tested positive flu B so now she wants tested for flu. HPI: Patient presents here today with complaint of cough, wheezing and chest congestion since yesterday. Also body aches and headaches. More SOB on exertion. Recently diagnosed with asthma. Using herneb at home. Son recently diagnosed with flu. Patient Active Problem List Diagnosis Code RACHID (generalized anxiety disorder) F41.1 History of anaphylaxis Z87.892 Peanut allergy Z91.010 Sleep disorder G47.9 Anorexia nervosa, restricting type F50.01 Breast calcifications on mammogram R92.1 Dysplasia of cervix, high grade SHERICE 2 N87.1 History of Lyme disease Z86.19 Multiple joint pain M25.50 Current Outpatient Medications Medication Sig Dispense Refill busPIRone HCl 15 MG Oral Tablet (Buspar) [...] taking: Reported on 05/27/2023) 180 Each 1 Full Kit Nebulizer Set [...] taking: Reported on 05/27/2023) 180 mL 3 LORazepam 1 MG Oral Tablet (Ativan) Take 1 Tablet by mouth daily as needed for Anxiety or Sleep. 30Tablet 0 Prazosin HCl 1 MG Oral Capsule (Minipress) TAKE 2 CAPSULES AT BEDTIME 180 Capsule 1 predniSONE 20 MG Oral Tablet (Deltasone) Take 3 tabs for 3 days, 2 tabs for 3 days, 1 tab for 3 days 18 Tablet 0 Triamcinolone Acetonide 0.1 % External [...] Morphine Hives and Neuro complications (Please comment) [place] "high" ROS: all areas negative except as mentioned under HPI Physical Exam: BP 118/84 | Pulse 90 | Temp 37.3 C (99.1 F) (Tympanic) | Resp 18 | LMP 03/31/2021 (Approximate)| SpO2 97% Physical Exam Vitals and nursing note reviewed. Constitutional: General: She is not in acute distress. Appearance: Normal appearance. She is not ill-appearing or toxic-appearing. HENT: Head: Normocephalic and atraumatic. Right Ear: Tympanic membrane, ear canal and external ear normal. Left Ear: Tympanic membrane, ear canal and external ear normal. Nose: Nose normal. No congestion or rhinorrhea. Mouth/Throat: Mouth: Mucous membranes are moist. Pharynx: [...] normal. Assessment/Plan: Kimberly was seen today for other. Diagnoses and all orders for this visit: Viral syndrome - predniSONE 20 MG Oral Tablet (Deltasone); Take 3 tabs for 3 days, 2 tabs for 3 days, 1 tab for 3days Exposure to the flu - INFLUENZA A/B RSV SARS-COV2,PCR; Future - INFLUENZA A/B RSV SARS-COV2,PCR - predniSONE 20 MG Oral Tablet (Deltasone); Take 3 tabs for 3 days, 2 tabs for 3 days, 1 tab for 3 days Acute cough - predniSONE 20 MG Oral Tablet (Deltasone); Take 3 tabs for 3 days, 2 tabs for 3 days, 1 tab for 3 days Supportive care discussed. Strict return/ED precautions given, pt agreeable to plan. Annette Perdomo PA-C [facility] [place] [address] [place] [address] documented in this encounter Nursing Notes * Rosie Whitlock LPN - 06/11/2023 3:54 PM EST Chief Complaint Patient presents with Other Patient is here with complaint of URI crud. Patient has sinus congestion, headache, and she said she has a cough and she's been recently diagnosed with asthma and she did a nebulizer treatment. Patient's son just tested positive flu B so now she wants tested for flu. documented in this encounter Plan of Treatment Upcoming Encounters Date Type Department Care Team (Late st Contact Info) Description 06/13/2023 1:00 PM EST Office Visit Sleep Disorders Ctr [facility] [address] [facility] [place] [address] Ada Velez, DO [address] [place] [address] 06/17/2023 1:00 PM EST Office Visit Otolaryngology/Head & Neck/Facial Plastic Surgery [address] [place] [address] Savanah Vazquez PA-C [address] [place], [place] [id number] 06/19/2023 9:00 AM EST Telemedicine Psychology, [place] [address] [place] [address] Elisa Calle LCSW [address] [place], [place] [id number] 06/21/2023 4:00 PM EST Telemedicine Pulmonary Medicine, [facility] [address] [place] [address] Kimberly Altamirano, DNP [address] [place] [address] 06/27/2023 4:30 PM EST Telemedicine Psychology, [place] [address] [place] [address] Mak Padgett, PhD [address] [place] [address] 07/19/2023 4:00 PM EDT Office Visit Gynecology/Obstetics [place] [address] [place] [id number] Darwin Fajardo MD [address] [place] [address] 08/29/2023 3:30 PM EDT Office Visit Allergy/Immunology [facility] [place] [address] [place] [address] Murray Erazo MD [address] [place] [address] 09/02/2023 6:00 PM EDT Office Visit Family [facility] [address] [place] [address] Reva Samano MD [address] [place] [address] Pending Results Name Type Priority Associated Diagnoses Date /Time INFLUENZA A/B RSV SARS-COV2,PCR Lab Routine Exposure to the flu 06/11/2023 3:57 PM EST Scheduled Orders Name Type Priority Associated Diagnoses Orde r Schedule INFLUENZA A/B RSV SARS-COV2,PCR Lab Routine Exposure to the flu Expected: 06/11/2023, Expires: 06/11/2024 Scheduled Procedures Name Priority Associated Diagnoses Date/Ti [...] as of this encounter Visit Diagnoses Diagnosis Viral syndrome- Primary Unspecified viral infection, in conditions classified elsewhere and of unspecified site Exposure to the flu Contact with or exposure to other viral diseases Acute cough documented in this encounter Advance Directives Latest [...] and were consensually agreed upon. Care Teams Flamer Sealer Relationship Specialty Start Date End Date Reva Smaano MD [address] [place] [address] PCP - General Internal Medicine 10/11/22 documented as of this encounter
--- OUTSIDE RECORDS SUMMARY | 2023-09-01 05:14 | External Medical Summary | Summary of Care ---
Author Name Unknown Organization [facility] Address [address] [facility] [place] [address] Phone [phone] Care Team Providers Care Adjuster Piano Action Name Role Phone Reva Samano MD Primary Care Provider Reason for Visit * Reason Onset Date Comments Precert Denied 05/30/2023 Xolair Encounter Details Date Type Department Care Team (Late st Contact Info) Description 05/30/2023 Telephone Allergy/Immunology [facility] [address] [place] [address] Murray Erazo MD 200 [place] [address] Precert Denied (Xolair ) Allergies Active Allergy Reactions Criticality Noted Date Comments Food (See Comments) High 12/21/2020 Peanuts including dust, tree nuts, soy Latex 12/21/2020 Hives Morphine Hives,Neuro complications (Please comment) 12/21/2020 [place] "high" documented as of this encounter (statuses [...] encounter Miscellaneous Notes * Telephone Encounter - Xochitl Haddad PA-C [...] AM EST Requested auth. kimberly ruvalcaba [place]: [id number] - KIANNA help? Call us at Status Sent to [facility] Xolair 150MG/ML syringes Form [employer] Electronic PA Form (2016 [facility]LY [facility]) * Telephone Encounter - Murray [...] Administered Medication - route pre-cert request to [id number] Medication(s) Tried/Failed/Contraindicated: Advair, prednisone, albuterol See corresponding visit note(s) for additional supporting clinical information. Office Information: Prescriber: Murray Erazo MD Allergy/Immunology documented in this encounter Plan of Treatment Upcoming Encounters Date Type Department Care Team (Late st Contact Info) Description 06/11/2023 11:00 AM EST Telemedicine [facility] [address] [place] [address] Mak Padgett, PhD [address] [place] [address] 06/13/2023 1:00 PM EST Office Visit Sleep Disorders Ctr [facility] [address] [place] [phone] Ada Velez, [address] [place] [address] 06/17/2023 1:00 PM EST Office Visit Otolaryngology/Head & Neck/Facial Plastic Surgery [address] [place] [address] Savanah Vazquez PA-C [address] [place] [address] 06/19/2023 9:00 AM EST Telemedicine Psychology, [place] [address] [place] [address] Elisa Calle [facility] [address] [place], [place] [id number] 06/21/2023 4:00 PM EST Telemedicine Pulmonary Medicine, [facility] [address] [place] [address] Kimberly Altamirano [facility] [address] [place] [address] 07/19/2023 4:00 PM EDT Office Visit Gynecology/Obstetics [place] 68 [place] [phone] Darwin Fajardo MD 68 [place] [address] 08/29/2023 3:30 PM EDT Office Visit Allergy/Immunology [facility] 200 [facility] [place] [address] Murray Erazo MD 200 [place] [address] 09/02/2023 6:00 PM EDT Office Visit Family Practice [facility] 132 [facility] [place] [address] Reva Samano MD 132 [facility] [place] [address] Scheduled Procedures Name Priority Associated Diagnoses Date/Ti [...] and were consensually agreed upon. Care Teams Adjuster Piano Action Relationship Specialty Start Date End Date Reva Samano MD [address] [place] [address] PCP - General Internal Medicine 10/11/22 documented as of this encounter
--- OUTSIDE RECORDS SUMMARY | 2023-09-01 05:14 | External Medical Summary | Summary of Care ---
Author Name Unknown Organization [facility] Address [address] [facility] [place] [address] Phone [phone] Care Team Providers Care Pipe Fitter Supervisor Name Role Phone Reva Samano MD Primary Care Provider Reason for Visit * Reason Onset Date Comments Pre Cert/Prior Auth 05/30/2023 Xolair HMK Encounter Details Date Type Department Care Team (Late st Contact Info) Description 05/30/2023 Telephone Allergy/Immunology [facility] [address] [place] [address] Murray Erazo MD [address] [facility] [place] [address] Pre Cert/Prior Auth (Xolair HMK 2) Allergies Active Allergy Reactions Criticality Noted Date Comments Food (See Comments) High 12/21/2020 Peanuts including dust, tree nuts, soy Latex 12/21/2020 Hives Morphine Hives,Neuro complications (Please comment) 12/21/2020 [place] "high" documented as of this encounter (statuses [...] 30 Mcg, IM, 12 yrs and above (Aldis) 03/02/2022 Hepatitis B, 20+ yrs 02/17/2020,11/06/2019 PPD [...] Administered Medication - route pre-cert request to [id number] Medication(s) Tried/Failed/Contraindicated: Advair, prednisone, albuterol See corresponding visit note(s) for additional supporting clinical information. Office Information: Prescriber: Murray Erazo MD Allergy/Immunology documented in this encounter Plan of Treatment Upcoming Encounters Date Type Department Care Team (Late st Contact Info) Description 06/03/2023 11:00 AM EST Telemedicine Psychology, [place] [address] [place] [address] Mak Padgett, PhD [address] [place] [address] 06/13/2023 1:00 PM EST [facility] [address] [place] [address] Ada Velez, [facility] [place] [address] 06/17/2023 1:00 PM EST Office Visit Otolaryngology/Head & Neck/Facial Plastic Surgery [address] [place] [address] Savanah Vazquez PA-C [address] [place] [address] 06/21/2023 4:00 PM EST Telemedicine Pulmonary Medicine, [facility] [address] [place] [address] Kimberly Altamirano, [facility] [address] [place] [address] 07/19/2023 4:00 PM EDT Office Visit Gynecology/Obstetics [place] 68 [place] [phone] Darwin Fajardo MD 68 [place] [address] 08/29/2023 3:30 PM EDT Office Visit Allergy/Immunology [place] 200 [facility] [place] [address] Murray Erazo MD 200 [facility] [place] [address] 09/02/2023 6:00 PM EDT Office Visit Family Practice [facility] [address] [place] [address] Reva Samano MD [address] [place] [address] Scheduled Procedures Name Priority Associated Diagnoses Date/Ti [...] and were consensually agreed upon. Care Teams Pipe Fitter Supervisor Relationship Specialty Start Date End Date Reva Samano MD 132 [place] [address] PCP - General Internal Medicine 10/11/22 documented as of this encounter
--- OUTSIDE RECORDS SUMMARY | 2023-09-01 05:14 | External Medical Summary ---
Author Name Unknown Address Unknown Organization [id number]:[facility]ATORY [facility] [place] [address] [facility] [address] Laboratory Report Ordering Provider Test Date Status BRISEIDA FORD 06/11/2023 15:57:44 Final Observation Date Value Abnormality Reference (Units ) Status SARS Coronavirus 2 06/11/2023 15:57:44 Positive Abnormal N egative Final SARS-CoV2 Coronavirus RNA de tected by PCR (amplified probe). Test results reported to [facility].
This automated test was developed and its performance characteristics determined by [employer]. It has not been cleared or approved [...] (RT-PCR) test, or a Centers for Disease Control- acceptable equivalent. The test is performed in a high complexity Clinical Laboratory Improvement Amendments-(CLIA) certified laboratory. The test is acceptable for SARS-CoV-2 diagnosis, surveillance, and travel within the [facility] and to most countries. Please check with local testing authorities about requirements before travel.

The validation of bronchial specimens, tracheal aspirates, and sputum for this assay was developed and performance characteristics determined by [employer]. The validation of alternate specimen types has not been cleared or approved by the U.S. Food and Drug Administration (FDA). It has been determined that such clearance or approval is not necessary. Influenza virus A RNA [Prese nce] in Specimen by RUS[facility]LL with probe detection 06/11/2023 15:57:44 Negative Negative Final No Influenza A RNA detected by PCR (amplified probe) Influenza virus B RNA [Prese nce] in Specimen by RUSSELL with probe detection 06/11/2023 15:57:44 Negative Negative Final No Influenza B RNA detected by PCR (amplified probe) Respiratory syncytial virus RNA [Identifier] in Specimen by RUSSELL with probe detection 06/11/2023 15:57:44 Negative Negative Final No Respiratory Syncytial Vir us RNA detected by PCR (amplified probe) Performing Location LABORATORY [address] [facility] [address]
--- OUTSIDE RECORDS SUMMARY | 2023-09-01 05:15 | External Medical Summary ---
Author Name Unknown Address Unknown Organization K09:[facility]ORY [place] [address] Laboratory Report Ordering Provider Test Date Status ERMELINDA FAN 05/29/2023 13:48:55 Final Observation Date Value Abnormality Reference (Units ) Status Nucleated erythrocytes/100 leukocytes [Ratio] in Blood by Automated count 05/29/2023 13:48:55 Final Performing Location [facility] [place] [address]
--- OUTSIDE RECORDS SUMMARY | 2023-09-01 05:15 | External Medical Summary ---
Author Name Unknown Address Unknown Organization [id number]:[facility]ORY [facility] [place] [address] [facility] [address] Laboratory Report Ordering Provider Test Date Status ZAK BAKER 05/29/2023 13:48:55 Final Observation Date Value Abnormality Reference (Units ) Status Peanut IgE 05/29/2023 13:48:55 <0.10 <0.10 (kUa/L) Final Татьяна Nut IgE 05/29/2023 13:48:55 <0.10 <0.10 (kUa/L) Final [place] Nut IgE 05/29/2023 13:48:55 <0.10 <0.10 (kUa/L) Final Letart Nut IgE 05/29/2023 13:48:55 <0.10 <0.10 (kUa/L) Final Pecan or [place] Nut IgE 05/29/2023 13:48:55 <0.10 <0.10 (kUa/L) Final Cashew Nut IgE 05/29/2023 13:48:55 <0.10 <0.10 (kUa/L) Final Black [place] IgE Ab [Units/volume] in Serum 05/29/2023 13:48:55 <0.10 <0.10 (kUa/L) Final Pistachio IgE Ab [Units/volume] in Serum 05/29/2023 13:48:55 <0.10 <0.10 (kUa/L) Final Macadamia IgE Ab [Units/volume] in Serum 05/29/2023 13:48:55 <0.10 <0.10 (kUa/L) Final The Allergen Macadamia Nut I gE test was developed and its performance characteristics determined by [employer]. It has not been cleared or approved by the US Food and Drug Administration. Performing Location LAB[facility]ATORY [facility] [address] [facility] [address]
--- OUTSIDE RECORDS SUMMARY | 2023-09-01 05:15 | External Medical Summary ---
Author Name Unknown Address Unknown Organization K01:[facility]ATORY [facility] [address] [facility] [address] Laboratory Report Ordering Provider Test Date Status ZAK BAKER 05/29/2023 13:48:55 Final Observation Date Value Abnormality Reference (Units ) Status Soybean IgE 05/29/2023 13:48:55 <0.10 <0.10 (k Ua/L) Final
<0.10 kUa/L - Class 0 Allergen: Absence of Allergen Specific IgE
0.10-0.34 kUa/L - Class 0/1 Allergen: Low Level of Allergen Specific IgE
0.35-0.69 kUa/L - Class 1 Allergen: Low Level of Allergen Specific IgE
0.70-3.49 kUa/L - Class 2 Allergen: Moderate Level of Allergen Specific IgE
3.50-17.49 kUa/L - Class 3 Allergen: High Level of Allergen Specific IgE
17.5-49.99 kUa/L - Class 4 Allergen: Very High Level of Allergen Specific IgE
50.0-99.99 kUa/L - Class 5 Allergen: Very High Level of Allergen Specific IgE
>=100.0 kUa/L - Class 6 Allergen: Very High Level of Allergen Specific IgE Performing Location LABORATORY [facility] - [address] [facility] [address]
--- OUTSIDE RECORDS SUMMARY | 2023-09-01 05:15 | External Medical Summary ---
Author Name Unknown Address Unknown Organization K09:[facility] [place] [address] Laboratory Report Ordering Provider Test Date Status ERMELINDA FAN 05/29/2023 13:48:55 Final Observation Date Value Abnormality Reference (Units ) Status SYNC LEUKOCYTES IN BLOOD BY AUTOMATED COUNT 05/29/2023 13:48:55 10.11 4.00-10.80 (K/uL) Final Segs 05/29/2023 13:48:55 59.1 40.0-75.0 (%) Final Lymphs % 05/29/2023 13:48:55 31.8 18.0-42.0 (%) Final Monos 05/29/2023 13:48:55 6.8 1.0-11.0 (%) Final Eosinophils 05/29/2023 13:48:55 1.8 0.0-6.0 (%) Final Basos 05/29/2023 13:48:55 0.5 0.0-2.0 (%) Final Absolute Segs 05/29/2023 13:48:55 5.98 1.80-7.70 (K/uL) Final Lymphs, absolute 05/29/2023 13:48:55 3.21 1.00-4.80 (K/ul) Final Monos, Abs 05/29/2023 13:48:55 0.69 0.00-1.10 (K/uL) Final Eos, Abs 05/29/2023 13:48:55 0.18 0.00-0.70 (K/uL) Final Basos, Abs 05/29/2023 13:48:55 0.05 0.00-0.20 (K/uL) Final Performing Location [place] [address]
--- OUTSIDE RECORDS SUMMARY | 2023-09-01 05:15 | External Medical Summary | Summary of Care ---
Author Name Unknown Organization [facility] Address [address] [facility] [address] Phone [phone] Care Team Providers Care Auto Air Conditioning Installer Name Role Phone Reva Samano MD Primary Care Provider Reason for Visit * Reason Comments Outpatient Testing Encounter Details Date Type Department Care Team (Late st Contact Info) Description 05/29/2023 2:00 PM EST Laboratory Laboratory [address] [place] [address] [place] [phone] [facility] Lab Scen[address] [place] [address] Adverse food reaction, initial encounter; Peanut-induced anaphylaxis, initial encounter; Chronic cough; Allergy to tree nuts; Allergy to soy; Nonallergic rhinitis; Seasonal allergic rhinitis due to pollen; Non-seasonal allergic rhinitis due to animal hair and dander; Cough variant asthma Allergies Active Allergy Reactions Criticality Noted Date Comments Food (See Comments) High 12/21/2020 Peanuts including dust, tree nuts, soy Latex 12/21/2020 Hives Morphine Hives,Neuro complications (Please comment) 12/21/2020 [place] "high" documented as of this encounter (statuses as of 05/29/2023) Medications Medication Sig Dispensed Refills Start Date [...] as of this encounter (statuses as of 05/29/2023) Active Problems Problem Noted Date Diagnosed Date [...] as of this encounter (statuses as of 05/29/2023) Resolved Problems Problem Noted Date Diagnosed Date Resolved Date Abnormal uterine bleeding 06/01/2022 Dysmenorrhea 12/21/2021 07/17/2022 Pelvic pain in female 12/21/20212022 Encounter for Pap smear of c ervix with HPV DNA cotesting 12/21/2021 02/20/2022 Adenomyosis 12/21/2021 07/17/2022 Eating disorder 06/09/2021 08/23/2021 History of abnormal cervical Pap smear 12/21/2020 07/17/2022 documented as of this encounter (statuses as of 05/29/2023) Immunizations Name Administration Dates Next Due COVID-19 [...] Info) Description 06/03/2023 11:00 AM EST Telemedicine [facility] [address] [place] [address] Mak Padgett, PhD [address] [place] [address] 06/13/2023 1:00 PM EST Office Visit Sleep Disorders Ctr [facility] [address] [place] [address] Ada Velez, [address] [place] [address] 06/17/2023 1:00 PM EST Office Visit Otolaryngology/Head & Neck/Facial Plastic Surgery [address] [place] [address] Savanah Vazquez PA-C [address] [place] [address] 06/21/2023 4:00 PM EST Telemedicine Pulmonary Medicine, [facility] [address] [place] [address] Kimberly Altamirano, CHELSIE [address] [place] [address] 07/19/2023 4:00 PM EDT Office Visit Gynecology/Obstetics [place] [address] [place] [phone] Darwin Fajardo MD [address] [place] [address] 08/29/2023 3:30 PM EDT Office Visit Allergy/Immunology [facility] 200 [place] [address] Murray Erazo MD 200 [place] [address] 09/02/2023 6:00 PM EDT Office Visit Family Practice [facility] 132 [place] [address] Reva Samano MD 132 [place] [address] Pending Results Name Type Priority Associated Diagnoses Date /Time IGE Lab Routine Adverse food reaction, initial encounter Peanut-induced anaphylaxis, initial encounter Chronic cough Allergy to tree nuts Allergy to soy Nonallergic rhinitis Seasonal allergic rhinitis due to pollen Non-seasonal allergic rhinitis due to animal hair and dander 05/29/2023 1:48 PM EST ALLERGEN NUT IGE PROFILE Lab Routine Adverse food reaction, initial encounter Allergy to tree nuts 05/29/2023 1:48 PM EST ALLERGEN SOYBEAN IGE Lab Routine Adverse food reaction, initial encounter Allergy to soy 05/29/2023 1:48 PM EST [facility] Lab Routine Chronic cough Nonallergic rhinitis Seasonal allergic rhinitis due to pollen Non-seasonal allergic rhinitis due to animal hair and dander 05/29/2023 1:48 PM EST Scheduled Procedures Name Priority Associated Diagnoses Date/Ti [...] Not on filedocumented as of this encounter Procedures Procedure Name Priority Date/Time Associated Diagnosis Comments DIFFERENTIAL, AUTOMATED Routine 05/29/2023 1:48 PM EST Cough variant asthma CBC Routine 05/29/2023 1:48 PM EST Cough variant asthma CBC Routine 05/29/2023 1:48 PM EST Cough variant asthma DIFFERENTIAL, TECHNOLOGIST REVIEW Routine 05/29/2023 1:48 PM EST Cough variant asthma documented in this encounter Results * DIFFERENTIAL, TECHNOLOGIST REVIEW (05/29/2023 1:48 PM EST) Pathologist [facility] nRBCs 05/29/2023 2:34 PM EST [facility] 56-02 Blood Venous blood specimen / Unknown Venipuncture / Unknown 05/29/2023 1:48 PM EST 05/29/2023 1:48 PM EST Kimberly Altamirano [facility] LAB BLOOD ORDERABLE S [facility] 56-[address] [place] [address] * DIFFERENTIAL, AUTOMATED (05/29/2023 1:48 PM EST) Pathologist [facility] WBC 10.11 4.00 - 10.80 K/uL 05/29/2023 2:34 PM EST [facility] 56-02 Neutrophils % 59.1 40.0 - 75.0 % 05/29/2023 2:34 PM EST [facility] 56-02 Lymphocytes % 31.8 18.0 - 42.0 % 05/29/2023 2:34 PM EST [facility] 56-02 Monocytes % 6.8 1.0 - 11.0 % 05/29/2023 2:34 PM EST [facility] 56-02 Eosinophils % 1.8 0.0 - 6.0 % 05/29/2023 2:34 PM EST [facility] 56-02 Basophils % 0.5 0.0 - 2.0 % 05/29/2023 2:34 PM EST [facility] 56-02 Absolute Neutrophils 5.98 1.80 - 7.70 K/uL 05/29/2023 2:34 PM EST [facility] 56-02 Absolute Lymphocytes 3.21 1.00 - 4.80 K/ul 05/29/2023 2:34 PM EST [facility] 56-02 Absolute Monocytes 0.69 0.00 - 1.10 K/uL 05/29/2023 2:34 PM EST [facility] 56 Absolute Eosinophils 0.18 0.00 - 0.70 K/uL 05/29/2023 2:34 PM [facility] 56 Absolute Basophils 0.05 0.00 - 0.20 K/uL 05/29/2023 2:34 PM [facility] 56 Blood Venous blood specimen / Unknown Venipuncture / Unknown 05/29/2023 1:48 PM EST 05/29/2023 1:48 PM EST Kimberly Altamirano DNP LAB BLOOD ORDERABLE S [address] [place] [address] * CBC (05/29/2023 1:48 PM EST) WBC 10.11 4.00 - 10.80 K/uL 05/29/2023 2:34 PM [facility] 56 RBC 4.72 3.85 - 5.15 M/uL 05/29/2023 2:34 PM [facility] 56 HGB 14.9 12.0 - 15.3 g/dL 05/29/2023 2:34 PM [facility] 56 HCT 44.0 36.0 - 45.2 % 05/29/2023 2:34 PM [facility] 56 MCV 93.2 81.5 - 97.5 fL 05/29/2023 2:34 PM [facility] 56 MCH 31.6 27.0 - 34.0 pg 05/29/2023 2:34 PM [facility] 56 MCHC 33.9 32.0 - 36.0 g/dL 05/29/2023 2:34 PM [facility] 56 RDW 12.8 11.5 - 15.5 % 05/29/2023 2:34 PM [facility] 56 PLT 352 140 - 400 K/uL 05/29/2023 2:34 PM [facility] 56 MPV 9.5 6.6 - 11.1 fL 05/29/2023 2:34 PM [facility] 56- Blood Venous blood specimen / Unknown Venipuncture / Unknown 05/29/2023 1:48 PM EST 05/29/2023 1:48 PM EST Kimberly Altamirano DNP LAB BLOOD ORDERABLE S [facility] 56- [address] [place] [address] documented in this encounter Visit Diagnoses Diagnosis Adverse food reaction, initial encounter Peanut-induced anaphylaxis, initial encounter Chronic cough Cough Allergy to tree nuts Allergy to other foods Allergy to soy Allergy, unspecified not elsewhere classified Nonallergic rhinitis Chronic rhinitis Seasonal allergic rhinitis due to pollen Non-seasonal allergic rhinitis due to animal hair and dander Cough variant asthma documented in this encounter Advance Directives Latest [...] and were consensually agreed upon. Care Teams Auto Air Conditioning Installer Relationship Specialty Start Date End Date Reva Samano MD [address] [place] [address] PCP - General Internal Medicine 10/11/22 documented as of this encounter
--- OUTSIDE RECORDS SUMMARY | 2023-09-01 05:15 | External Medical Summary ---
Author Name Unknown Address Unknown Organization K01:[place] [place] [address] [place] [address] Laboratory Report Ordering Provider Test Date Status ZAK BAKER 05/29/2023 13:48:55 Final Observation Date Value Abnormality Reference (Units ) Status IgE 05/29/2023 13:48:55 11.0 <=214.0 (k U/L) Final Performing Location LABORATORY [facility] - [address] [place] [address]
--- OUTSIDE RECORDS SUMMARY | 2023-09-01 05:15 | External Medical Summary ---
Author Name Unknown Address Unknown Organization K01:LABORATORY [facility] [address] [facility] [place] [address] Laboratory Report Ordering Provider Test Date Status ZAK BAKER 05/29/2023 13:48:55 Final Observation Date Value Abnormality Reference (Units ) Status Dust Mite IgE, pteronyssinus 05/29/2023 13:48:55 <0.10 <0.10 (kUa/L) Final Dust Mite IgE, farinae 05/29/2023 13:48:55 <0.10 <0.10 (kUa/L) Final Cat Epithelium IgE 05/29/2023 13:48:55 <0.10 <0.10 (kUa/L) Final Dog Dander IgE 05/29/2023 13:48:55 <0.10 <0.10 (kUa/L) Final Bermuda grass IgE 05/29/2023 13:48:55 <0.10 <0.10 (kUa/L) Final Deepak IgE 05/29/2023 13:48:55 <0.10 <0.10 (kUa/L) Final Penicillium notatum IgE 05/29/2023 13:48:55 <0.10 <0.10 (kUa/L) Final Cladosporium IgE 05/29/2023 13:48:55 <0.10 <0.10 (kUa/L) Final Aspergillus IgE 05/29/2023 13:48:55 <0.10 <0.10 (kUa/L) Final Alternaria IgE 05/29/2023 13:48:55 <0.10 <0.10 (kUa/L) Final Helminthosporium halodes IgE 05/29/2023 13:48:55 <0.10 <0.10 (kUa/L) Final Pullularia IgE 05/29/2023 13:48:55 <0.10 <0.10 (kUa/L) Final Acremonium sp IgE Ab [Units/volume] in Serum 05/29/2023 13:48:55 <0.10 <0.10 (kUa/L) Final Maple IgE Ab [Units/volume] in Serum 05/29/2023 13:48:55 <0.10 <0.10 (kUa/L) Final Silver Birch IgE Ab [Units/volume] in Serum 05/29/2023 13:48:55 <0.10 <0.10 (kUa/L) Final Vivian IgE 05/29/2023 13:48:55 <0.10 <0.10 (kUa/L) Final Elm IgE 05/29/2023 13:48:55 <0.10 <0.10 (kUa/L) Final [place] tree IgE 05/29/2023 13:48:55 <0.10 <0.10 (kUa/L) Final [place] IgE 05/29/2023 13:48:55 <0.10 <0.10 (kUa/L) Final White Tim IgE 05/29/2023 13:48:55 <0.10 <0.10 (kUa/L) Final Pecan or [place] Tree IgE 05/29/2023 13:48:55 <0.10 <0.10 (kUa/L) Final Common ragweed northway (nAmb a) 1 IgE Ab [Units/volume] in Serum 05/29/2023 13:48:55 <0.10 <0.10 (kUa/L) Final Mugwort IgE 05/29/2023 13:48:55 <0.10 <0.10 (kUa/L) Final Plaintain (American) IgE 05/29/2023 13:48:55 <0.10 <0.10 (kUa/L) Final Gupta's Quarters IgE 05/29/2023 13:48:55 <0.10 <0.10 (kUa/L) Final Cocklebur IgE Ab [Units/volume] in Serum 05/29/2023 13:48:55 <0.10 <0.10 (kUa/L) Final Pigweed common IgE 05/29/2023 13:48:55 <0.10 <0.10 (kUa/L) Final Sheep sorrel IgE 05/29/2023 13:48:55 <0.10 <0.10 (kUa/L) Final Performing Location LABORATORY [facility] - [facility] [place] [address]
--- OUTSIDE RECORDS SUMMARY | 2023-09-01 05:15 | External Medical Summary | Summary of Care ---
Author Name Unknown Organization [facility] Address [address] [place] [address] Phone [phone] Care Team Providers Care Charge Coordinator Name Role Phone Mouna Samano MD Primary Care Provider Reason for Visit * Reason Comments Allergy Return Encounter Details Date Type Department Care Team (Late st Contact Info) Description 05/29/2023 1:30 PM EST Office Visit Allergy/Immunology [facility] [address] [facility] [place] [address] Xochitl Haddad PA-C [address] [facility] [address] Adverse food reaction, initial encounter*; Peanut-induced anaphylaxis, initial encounter; Allergy to tree nuts; Allergy to soy; Chronic cough; Nonallergic rhinitis; Seasonal allergic rhinitis due to pollen; Non-seasonal allergic rhinitis due to animal hair and dander; Moderate persistent asthma, unspecified whether complicated Allergies Active Allergy Reactions Criticality Noted Date Comments Food (See Comments) High 12/21/2020 Peanuts including dust, tree nuts, soy Latex 12/21/2020 Hives Morphine Hives,Neuro complications (Please comment) 12/21/2020 [place] "high" documented as of this encounter (statuses [...] LNP-s, No Preserve , Otis-sucrose, Ages 12+ (Blendspace) 04/28/2021 Covid-19, Mrna, Lnp-s, Pf, B ivalent, 30 Mcg, IM, 12 yrs and above (Pfizer) 03/02/2022 Hepatitis B, 20+ yrs 02/17/2020,11/06/2019 PPD 12/21/2020 Seasonal Influenza, PF, 6 M & above, IM , (FluLaval or Fluzone) 02/20/2022 TDAP (age 10 and older)(Boostrix) 11/06/2019 documented as of this encounter Social History Tobacco Use Types Packs/Day Years Used Date Smoking Tobacco: Never Smokeless Tobacco: Never Tobacco Cessation:Counseling Given: Not Answered Alcohol Use Standard Drinks/Week Comments Not Currently [...] Sign Reading Time Taken Comments Blood Pressure 118/74 05/29/2023 12:54 PM EST Pulse 85 05/29/2023 12:54 PM EST Temperature - - Respiratory Rate 16 05/29/2023 12:54 PM EST Oxygen Saturation - - Inhaled Oxygen Concentration - - Weight 80.9 kg (178 lb 6.4 oz) 05/29/2023 12:54 PM EST Height - - Body Mass Index 25.6 05/27/2023 5:41 PM EST documented in this encounter Progress Notes * Xochitl Haddad PA-C - 05/29/2023 1:53 PM EST REASON FOR VISIT: Chief Complaint Patient presents with Allergy Return HPI: Kimberly is a pleasant 47-year-old female who presents to our office as a follow up of food allergies, moderate persistent asthma, and chronic allergic rhinitis. She presents with her fianceTawana. She had a peanut exposure while at work five days ago. A coworker had a day candy bar they were eating in close proximity to her. Within 3 minutes she reports she developed nasal congestion, rhinorrhea, eye swelling and itching, and generalized itching. She left the room and took 50 mg of benadryl. Symptoms persisted and she developed shortness of breath and asked a friend to drive her to the ED. Within 10-15 minutes she was in the ED and did receive a dose of epinephrine. She was given steroids in the ED and discharged within a few hours. Was seen at [place] ED. She does endorse an asthma flair in January when she was ill. She was seen at urgent care four times since January, and has completed two rounds of prednisone for persistent cough. She is currently on Advair Diskus 250/50 mcg 1 puff twice daily. She does require her albuterol more so in the fall and winter and with illness. Historically, viral upper respiratory infections have been her trigger. She does have albuterol to be used on an as needed basis. She denies nocturnal symptoms at this time,denies coughing, wheezing, sob. Just finished most recent prednisone taper about a week ago, and then received prednisone in the ED on Saturday. She additionally notes a history of a tree nut allergy and soy allergy. No accidental ingestion of tree nut or soy in the interm. No past medical history on file. Past [...] performed by Kate Mantilla MD at OR [facility] EXC BREAST LESION RADMARK Left 10/03/2021 EXCISION OF BREAST LESION RADIOLOGICAL MARKER performed by Abner Mantilla MD at OR [facility] LAPAROSCOPY TOTAL HYSTX, UTERUS 250GM OR LESS TUBE/OVARY Bilateral 06/01/2022 LAPAROSCOPIC HYSTERECTOMY REMOVAL TUBES AND/OR OVARIES FOR UTERUS 250GM OR LESS performed by Darwin Fajardo MD at OR [facility] LAPAROSCOPY TOTAL HYSTX, UTERUS 250GM OR LESS TUBE/OVARY Bilateral 05/29/2022 LAPAROSCOPIC HYSTERECTOMY REMOVAL TUBES AND/OR OVARIES FOR UTERUS 250GM OR LESS performed by Kate Mantilla MD at OR [facility] MASTECTOMY, PARTIAL Left 10/03/2021 MASTECTOMY PARTIAL performed by Abner Mantilla MD at OR [facility] Current Outpatient Medications Medication Sig Dispense Refill [...] mouth daily at noon. 90 Tablet 3 busPIRone HCl 15 MG Oral Tablet (Buspar) TAKE 1 TABLET IN THE MORNING AND 1 TABLET BEFORE BEDTIME 180 Tablet 3 Prazosin HCl 1 MG Oral Capsule (Minipress) TAKE 2 CAPSULES AT BEDTIME 180 Capsule 1 guaiFENesin-Codeine 100-10 MG/5ML Oral Syrup (Robitussin AC) Take 5 mL by mouth every 4 hours as needed for Cough. 120 mL 0 EpiPen 2-Galileo 0.3 MG/0.3ML Injection Solution Auto-injector For a severe reaction: Place orange end against the outer thigh, press firmly, hold in place for 10 seconds and go to the Emergency room. 6 Each 0 Ventolin HFA 108 (90 Base) MCG/ACT Inhalation Aerosol Solution Inhale 2 Puffs by mouth every 4 hours as needed for Wheezing. (Patient not taking: Reported on 05/27/2023) 6.7 g 0 Ipratropium-Albuterol 0.5-2.5 (3) MG/3ML [...] taking: Reported on 05/27/2023) 180 Each 1 No current facility-administered medications for this visit. Allergies as of 05/29/2023 - Reviewed 05/29/2023 Allergen Reaction Noted Food (see comments) 12/21/2020 Latex 12/21/2020 Morphine Hives and Neuro complications (Please comment) 12/21/2020 Family History Problem Relation Age of Onset Breast Cancer Aunt (Maternal) Social History Socioeconomic History Marital status: Significant Other Spouse name: Not on file Number of children: Not on file Years of education: Not on file Highest education level: Not on file Occupational History Not on file Tobacco Use Smoking status: Never Smokeless tobacco: Never Vaping Use Vaping Use: Never used Substance and Sexual Activity Alcohol use: Not Currently Comment: socially Drug use: Not Currently Sexual activity: Not on file Other Topics Concern Not on file Social History Narrative Not on file Social Determinants of Health Financial Resource Strain: Not on file Food Insecurity: No Food Insecurity (10/10/2022) Hunger Vital Sign Worried About Running Out of Food in the Last Year: Never true Ran Out of Food in the Last Year: Never true Transportation Needs: Not on file Physical Activity: Not on file Stress: Not on file Social Connections: Not on file Intimate Partner Violence: Not on file Housing Stability: Not on file Social history: The patient currently lives in a two-story home that has an electric, forced air, and baseboard heating system in addition to air conditioning. The home has a basement that is finished with carpeted rooms. The home has no issues with cockroaches. 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 BP 118/74 (BP Site: Right Arm, BP Position: Sitting) | Pulse 85 | Resp 16 | Wt 80.9 kg (178 lb 6.4 oz) | LMP 03/31/2021 (Approximate) | BMI 25.60 kg/m | BSA 2 m PHYSICAL EXAM: GENERAL: No acute distress. EYES: Conjunctiva- normal; Eyelids - normal EARS: TM's - clear NOSE:Pale mucosa; moderate Inferior turbinate edema; no nasal polyps or mucopus; Septum - normal OROPHARYNX: Teeth and gums - normal; Mild erythema, mild cobblestoning; No lesions, exudates NECK: Supple; No thyroid enlargment or cervical adenopathy RESPIRATORY: Clear to A and P; No wheezes; Good air movement bilaterally; No intercostal retractions or accessory muscle use CARDIOVASCULAR: RRR; No gallops, rubs, clicks, or murmurs. LYMPHATIC: No significant adenopathy noted SKIN: No significant rashes or lesions seen, no urticarial, vesicular or eczematous lesions noted OBJECTIVE DATA: 04/09/2023: Spirometry was performed in our office today and this revealed minimal obstructive pulmonary impairment primarily in the smaller airways only. ASSESSMENT AND PLAN: ICD-10-CM 1. Adverse food reaction, initial encounter T78.1XXA 2. Peanut-induced anaphylaxis, initial encounter T78.01XA 3. Allergy to tree nuts Z91.018 4. Allergy to soy Z91.018 5. Chronic cough R05.3 6. Nonallergic rhinitis J31.0 7. Seasonal allergic rhinitis due to pollen J30.1 8. Non-seasonal allergic rhinitis due to animal hair and dander J30.81 9. 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 Given her history of significant reactions, we will forego prick skin testing unless absolutely necessary in the future. For further evaluation and management, we will be checkingserum IgE levels to these foods for confirmation of food allergies. We do recommend strict dietary avoidance of peanuts, tree nuts, and soy as she has been doing. Typically food allergies are not airborne but it appears in her case her reactions may have occurred in the setting of being in the vicinity of peanuts. In case of accidental ingestion, we do recommend that she have Benadryl on hand to be used as needed. If her symptoms do progress towards any signs or symptoms of a systemic reaction, she is to use her EpiPen immediately and go to the nearest emergency department especially in light of her severe systemic reactions in the past. She may additionally continue to carry her albuterol inhaler to use as needed for coughing, wheezing, or sob. In regards to the patient's asthma, she will continue with Advair 250-50 mcg 1 puff twice daily. She does have albuterol to be used on na as needed basis. She did have a significant flair of her asthma over the last 3-4 months and was seen in Urgent Care four times, and completed 2 rounds of oral steroids as well as antibiotics for the coughing and wheezing. She is following with pulmonology. Shemay benefit from Xolair therapy, will have her complete labs including serum IgE and will likely request prior auth for Xolair. We will also be checking serum IgE levels to common environmental aeroallergens with her blood work. Avoidance measures will be further discussed pending the results of the blood work. Thank you very much for allowing myself to participate in the care of your patient. Please do not hesitate to contact our office should you have any questions or concerns. Xochitl Haddad PA-C Allergy and Immunology [facility] Supervising Physician: Murray Erazo MD Type of Supervision: Direct I spent a total of 20-29 minutes (exact time 29 mins) on the date of service in preparation, delivery, and documentation of the care provided to Kimberly Azevedo excluding any time spent in the performance of separately billed services. (This note was completed using the dictation program Fluency Direct. As such, there may be misspellings, word substitutions, or other variations that should not change the essence of the clinical content of this encounter note.If there is need for further clarification, please direct questions to the provider listed above.) PCP: MOUNA SAMANO [address] [place] [address] [phone] documented in this encounter Nursing Notes * Mylene Finley LPN - 05/29/2023 12:51 PM EST The pt has been properly identified by confirmation of name and date of . Pt here for return visit. Seen in ED 05/24/23. documented in this encounter Plan of Treatment Upcoming Encounters Date Type Department Care Team (Late st Contact Info) Description 06/03/2023 11:00 AM EST Telemedicine Psychology, [place] [address] [place] [address] Mak Padgett, PhD [address] [place] [address] 06/13/2023 1:00 PM EST Office Visit Sleep Disorders Ctr [facility] [place] [address] [place] [address] Ada Velez DO [address] [place] [address] 06/17/2023 1:00 PM EST Office Visit Otolaryngology/Head & Neck/Facial Plastic Surgery [address] [place] [address] Savanah Vazquez PA-C [address] [place] [address] 06/21/2023 4:00 PM EST Telemedicine Pulmonary Medicine, [facility] [address] [place] [address] Kimberly Altamirano, CHELSIE [address] [place] [address] 07/19/2023 4:00 PM EDT Office Visit Gynecology/Obstetics [place] [address] [place] [phone] Darwin Fajardo MD [address] [place] [address] 08/29/2023 3:30 PM EDT Office Visit Allergy/Immunology [facility] [place] [address] [facility] [address] Murray Erazo MD [address] [facility] [place] [address] 09/02/2023 6:00 PM EDT Office Visit Family Practice [facility] [address] [place] [address] Mouna Samano MD [address] [place] [address] Scheduled Procedures Name Priority Associated Diagnoses Date/Ti [...] as of this encounter Visit Diagnoses Diagnosis Adverse food reaction, initial encounter- Primary Peanut-induced anaphylaxis, initial encounter Allergy to tree nuts Allergy to other foods Allergy to soy Allergy, unspecified not elsewhere classified Chronic cough Cough Nonallergic rhinitis Chronic rhinitis Seasonal allergic rhinitis due to pollen Non-seasonal allergic rhinitis due to animal hair and dander Moderate persistent asthma, unspecified whether complicated documented in this encounter Advance Directives Latest [...] and were consensually agreed upon. Care Teams Charge Coordinator Relationship Specialty Start Date End Date Mouna Samano MD [address] [place] [address] PCP - General Internal Medicine 10/11/22 documented as of this encounter
--- OUTSIDE RECORDS SUMMARY | 2023-09-01 05:15 | External Medical Summary | Summary of Care ---
Author Name Unknown Organization [facility] Address [address] [facility] [address] Phone [phone] Care Team Providers Care Patient Access Specialist Name Role Phone Mouna Samano MD Primary Care Provider Reason for Visit * Reason Comments Allergy Return Encounter Details Date Type Department Care Team (Late st Contact Info) Description 05/29/2023 1:30 PM EST Office Visit Allergy/Immunology [facility] [address] [facility] [place] [address] Xochitl Haddad PA-C [address] [facility] [place] [address] Adverse food reaction, initial encounter*; Peanut-induced anaphylaxis, [...] Hives Morphine Hives,Neuro complications (Please comment) 12/21/2020 [place] "high" documented as of this encounter (statuses [...] LNP-s, No Preserve , Otis-sucrose, Ages 12+ (TrunqShow) 04/28/2021 Covid-19, Mrna, Lnp-s, Pf, B ivalent, [...] documented in this encounter Progress Notes * Murray Erazo MD - 05/30/2023 12:27 PM EST I have reviewed the advanced practitioner's documentation on the date of service referenced in note, and I agree with, and take responsibility for the plan of care. Murray Erazo MD * Xochitl Haddad PA-C - 05/29/2023 1:53 PM EST REASON FOR VISIT: Chief Complaint Patient presents with Allergy Return HPI: Kimberly is a pleasant 47-year-old female who presents to our office as a follow up of food allergies, moderate persistent asthma, and chronic allergic rhinitis. She presents with her fiance Tawana. She had a peanut exposure while at work five days ago. A coworker had a candy bar they were eating in close [...] within a few hours. Was seen at [place] ED. She does endorse an asthma flair [...] performed by Kate Mantilla MD at OR [facility] EXC BREAST LESION RADMARK Left 10/03/2021 EXCISION OF BREAST LESION RADIOLOGICAL MARKER performed by Abner Mantilla MD at OR [facility] LAPAROSCOPY TOTAL HYSTX, UTERUS 250GM OR LESS TUBE/OVARY Bilateral 06/01/2022 LAPAROSCOPIC HYSTERECTOMY REMOVAL TUBES AND/OR OVARIES FOR UTERUS 250GM OR LESS performed by Darwin Fajardo MD at OR [facility] LAPAROSCOPY TOTAL HYSTX, UTERUS 250GM OR LESS TUBE/OVARY Bilateral 05/29/2022 LAPAROSCOPIC HYSTERECTOMY REMOVAL TUBES AND/OR OVARIES FOR UTERUS 250GM OR LESS performed by Kate Mantilla MD at OR [facility] MASTECTOMY, PARTIAL Left 10/03/2021 MASTECTOMY PARTIAL performed by Abner Mantilla MD at OR [facility] Current Outpatient Medications Medication Sig Dispense Refill [...] concerns. Xochitl Haddad PA-C Allergy and Immunology [facility] Supervising Physician: Murray Erazo MD Type [...] MOUNA SAMANO [address] [place] [address] [phone] documented in this encounter Nursing Notes * Mylene Finley LPN - 05/29/2023 12:51 PM EST The pt has been properly identified by confirmation of name and date of . Pt here for return visit. Seen in ED 05/24/23. documented in this encounter Plan of Treatment Upcoming Encounters Date Type Department Care Team (Late st Contact Info) Description 06/03/2023 11:00 AM [facility] [address] [place] [address] Mak Padgett, PhD [address] [place] [address] 06/13/2023 1:00 PM EST Office Visit Sleep Disorders Ctr [facility] [address] [facility] [place] [address] Ada Velez DO [address] [facility] [place] [address] 06/17/2023 1:00 PM EST Office Visit Otolaryngology/Head & Neck/Facial Plastic Surgery [address] [place] [address] Savanah Vazquez PA-C [address] [place] [address] 06/21/2023 4:00 PM EST Telemedicine Pulmonary Medicine, [facility] [address] [place] [address] Kimberly Altamirano DNP [address] [place] [address] 07/19/2023 4:00 PM EDT Office Visit Gynecology/Obstetics [place] [address] [place] [phone] Darwin Fajardo MD [address] [place] [address] 08/29/2023 3:30 PM EDT Office Visit Allergy/Immunology [facility] [address] [facility] [place] [address] Murray Erazo MD [address] [facility] [place] [address] 09/02/2023 6:00 PM EDT Office Visit Family Practice [facility] [address] [place] [address] Mouna Samano MD [address] [place] [address] Scheduled Procedures Name Priority Associated Diagnoses Date/Ti [...] and were consensually agreed upon. Care Teams Patient Access Specialist Relationship Specialty Start Date End Date Mouna Samano MD [address] [place] [address] PCP - General Internal Medicine 10/11/22 documented as of this encounter
--- OUTSIDE RECORDS SUMMARY | 2023-09-01 05:15 | External Medical Summary | Summary of Care ---
Author Name Unknown Organization [facility] Address [address] [facility] [place] [address] Phone [phone] Care Team Providers Care Work Adjustment Instructor Name Role Phone Reva Samano MD Primary Care Provider Reason for Visit * Reason Onset Date Comments Pre Cert/Prior Auth 05/30/2023 Xolair HMK Encounter Details Date Type Department Care Team (Late st Contact Info) Description 05/30/2023 Telephone Allergy/Immunology [facility] [address] [place] [address] Murray Erazo MD [address] [place] [address] Pre Cert/Prior Auth (Xolair HMK 2) Allergies Active Allergy Reactions Criticality Noted Date Comments Food (See Comments) High 12/21/2020 Peanuts including dust, tree nuts, soy Latex 12/21/2020 Hives Morphine Hives,Neuro complications (Please comment) 12/21/2020 [place] "high" documented as of this encounter (statuses [...] 30 Mcg, IM, 12 yrs and above ([place]) 03/02/2022 Hepatitis B, 20+ yrs 02/17/2020,11/06/2019 PPD [...] Administered Medication - route pre-cert request to [id number] Medication(s) Tried/Failed/Contraindicated: Advair, prednisone, albuterol See corresponding visit note(s) for additional supporting clinical information. Office Information: Prescriber: Murray Erazo MD Allergy/Immunology documented in this encounter Plan of Treatment Upcoming Encounters Date Type Department Care Team (Late st Contact Info) Description 06/03/2023 11:00 AM EST Telemedicine Psychology, [place] [address] [place] [address] Mak Padgett, PhD [address] [place] [address] 06/13/2023 1:00 PM EST [facility] [address] [place] [address] Ada Velez, [facility] [place] [address] 06/17/2023 1:00 PM EST Office Visit Otolaryngology/Head & Neck/Facial Plastic Surgery [address] [place] [address] Savanah Vazquez PA-C [address] [place] [address] 06/21/2023 4:00 PM EST Telemedicine Pulmonary Medicine, [facility] [address] [place] [address] Kimberly Altamirano, [facility] [address] [place] [address] 07/19/2023 4:00 PM EDT Office Visit Gynecology/Obstetics [place] [address] [place] [phone] Darwin Fajardo MD [address] [place] [address] 08/29/2023 3:30 PM EDT Office Visit Allergy/Immunology [facility] [place] [address] [facility] [place] [address] Murray Erazo MD [address] [facility] [place] [address] 09/02/2023 6:00 PM EDT Office Visit Family Practice [facility] [address] [place] [address] Reva Samano MD [address] [place] [address] Scheduled Procedures Name Priority Associated Diagnoses Date/Ti [...] and were consensually agreed upon. Care Teams Work Adjustment Instructor Relationship Specialty Start Date End Date Reva Samano MD [address] [place] [address] PCP - General Internal Medicine 10/11/22 documented as of this encounter
--- OUTSIDE RECORDS SUMMARY | 2023-09-01 05:16 | External Medical Summary | Summary of Care ---
Author Name Unknown Organization [facility] Address [address] [facility] [place] [address] Phone [phone] Care Team Providers Care Podiatry Assistant Name Role Phone Mouna Samano MD Primary Care Provider Reason for Visit * Reason Comments New Med Request Encounter Details Date Type Department Care Team (Late st Contact Info) Description 04/28/2023 Refill Family [facility] [address] [facility] [place] [address] Mouna Samano MD [address] [place] [address] Acute cough Allergies Active Allergy Reactions Criticality Noted Date Comments Food (See Comments) High 12/21/2020 Peanuts including dust, tree nuts, soy Latex 12/21/2020 Hives Morphine Hives,Neuro complications (Please comment) 12/21/2020 [place] "high" documented as of this encounter (statuses as of 04/30/2023) Medications Medication Sig Dispensed Refills Start Date [...] AT BEDTIME 180 Capsule 1 3 Active Ventolin HFA 108 (90 Base) MCG/ACT Inhalation Aerosol SolutionIndicatio ns:Cough variant asthma Inhale 2 Puffs by mouth every 4 hours as needed for Wheezing. 6.7 g 0 3 Active guaiFENesin-Codei ne 100-10 MG/5ML Oral Syrup (Robitussin AC)Indications:Ac song cough Take 5 mL by mouth every 4 hours as needed for Cough. 120 mL 0 3 Active Ipratropium-Albut alma 0.5-2.5 (3) MG/3ML Inhalation Solution (Duoneb)Indicatio ns:Mild persistent asthma without complication Inhale 3 mL by mouth every 6 hours as needed for Dyspnea or Wheezing. J45.30 180 mL 3 3 Active Full Kit Nebulizer SetIndications:Mi ld persistent asthma without complication Use every 6 hours or as prescription reads. J45.30 1 Each 0 3 Active Fluticasone-Salme terol 250-50 MCG/ACT Inhalation Aerosol Powder Breath Activated (Advair Diskus)Indication s:Acute cough Inhale 1 Puff by mouth in the morning and 1 Puff before bedtime. 180 Each 1 4 Active Fluticasone-Salme terol 250-50 MCG/ACT Inhalation Aerosol Powder Breath Activated (Advair Diskus)Indication s:Acute cough Inhale 1 Puff by mouth in the morning and 1 Puff before bedtime. 1 Each 5 3 04/30/19 24 Discontinued documented as of this encounter (statuses as of 04/30/2023) Active Problems Problem Noted Date Diagnosed Date [...] as of this encounter (statuses as of 04/30/2023) Resolved Problems Problem Noted Date Diagnosed Date Resolved Date Abnormal uterine bleeding 06/01/2022 Dysmenorrhea 12/21/2021 07/17/2022 Pelvic pain in female 12/21/20212022 Encounter for Pap smear of c ervix with HPV DNA cotesting 12/21/2021 02/20/2022 Adenomyosis 12/21/2021 07/17/2022 Eating disorder 06/09/2021 08/23/2021 History of abnormal cervical Pap smear 12/21/2020 07/17/2022 documented as of this encounter (statuses as of 04/30/2023) Immunizations Name Administration Dates Next Due COVID-19 mRNA, LNP-s, No Pre serve, 2-Dose Series (Moderna) 06/26/2020,05/29/2020 COVID-19, LNP-s, No Preserve , Otis-sucrose, Ages 12+ (Codeanywhere) 04/28/2021 Covid-19, Mrna, Lnp-s, Pf, B ivalent, 30 Mcg, IM, 12 yrs and above (Codeanywhere) 03/02/2022 Hepatitis B, 20+ yrs 02/17/2020,11/06/2019 PPD [...] encounter Miscellaneous Notes * Telephone Encounter - Saleem Maher RPh - 04/30/2023 12:26 PM ESTSigned Prescriptions: Disp Refills Fluticasone-Salmeterol 250-50 MCG/ACT Inha*180 Ea*1 Sig: Inhale 1 Puff by mouth in the morning and 1 Puff before bedtime.Authorizing Provider: MOUNA SAMANO User: SALEEM MAHER documented in this encounter Plan of Treatment Upcoming Encounters Date Type Department Care Team (Late st Contact Info) Description 05/27/2023 5:40 PM EST Office Visit Family Practice [facility] [address] [facility] [place] [address] Mouna Samano MD [address] [place] [address] 06/13/2023 1:00 PM EST Office Visit Sleep Disorders Ctr [facility] [address] [place] [phone] Ada Velez DO [address] [place] [address] 06/17/2023 1:00 PM EST Office Visit Otolaryngology/Head & Neck/Facial Plastic Surgery [address] [place] [address] Savanah Vazquez PA-C [address] [place] [address] 06/21/2023 4:00 PM EST Telemedicine Pulmonary Medicine, [facility] [address] [place] [address] Kimberly Altamirano, [facility] [address] [place] [address] 07/12/2023 9:30 AM EDT Office Visit Allergy/Immunology Jeanie Barroso [place] [address] [place] [address] Murray Erazo MD [address] [place] [address] 07/19/2023 4:00 PM EDT Office Visit Gynecology/Obstetics [place] [address] [place] [address] Darwin Fajardo MD [address] [place] [address] Scheduled Procedures Name Priority Associated Diagnoses Date/Ti [...] of this encounter Visit Diagnoses Diagnosis Acute cough documented in this encounter Advance [...] and were consensually agreed upon. Care Teams Podiatry Assistant Relationship Specialty Start Date End Date Mouna Samano MD [address] [place] [address] PCP - General Internal Medicine 10/11/22 documented as of this encounter
--- OUTSIDE RECORDS SUMMARY | 2023-09-01 05:16 | External Medical Summary | Summary of Care ---
Author Name Unknown Organization [facility] Address [address] [place] [place] [address] Phone [phone] Care Team Providers Care Stable Cleaner Name Role Phone Reva Samano MD Primary Care Provider Reason for Visit * Reason Comments Pulmonary Function Test Encounter Details Date Type Department Care Team (Late st Contact Info) Description 04/18/2023 1:00 PM EST PulmDiagnostic Pulmonary Function Lab 3rd Floor, [facility] [address] [place] [address] [facility] [employer] [address] [place] [address] Mild persistent asthma without complication* Allergies Active Allergy Reactions Criticality Noted Date Comments Food (See Comments) High 12/21/2020 Peanuts including dust, tree nuts, soy Latex 12/21/2020 Hives Morphine Hives,Neuro complications (Please comment) 12/21/2020 [place] "high" documented as of this encounter (statuses as of 04/18/2023) Medications Medication Sig Dispensed Refills Start Date [...] for Wheezing. 6.7 g 0 04/02/2023 Active Fluticasone-Salmet alma 250-50 MCG/ACT Inhalation Aerosol Powder Breath Activated (Advair Diskus)Indications :Acute cough Inhale 1 Puff by mouth in the morning and 1 Puff before bedtime. 1 Each 5 04/08/2023 Active guaiFENesin-Codein e 100-10 MG/5ML Oral Syrup (Robitussin AC)Indications:Acu te cough Take 5 mL by mouth every 4 hours as needed for Cough. 120 mL 0 04/08/2023 Active Ipratropium-Albute rol 0.5-2.5 (3) MG/3ML Inhalation Solution (Duoneb)Indication s:Mild persistent asthma without complication Inhale 3 mL by mouth every 6 hours as needed for Dyspnea or Wheezing. J45.30 180 mL 3 04/18/2023 Active Full Kit Nebulizer SetIndications:Mil d persistent asthma without complication Use every 6 hours or as prescription reads. J45.30 1 Each 0 04/18/2023 Active Hospital, Clinic, or Other Facility Administered Medication Ordered Dose Route Frequency Start Date End Date Status Albuterol Sulfate (Proventil) (2.5 MG/3ML) 0.083% inhalation solution 2.5 mgIndications:Mild persistent asthma without complication 2.5 mg NEBULIZER PRN 04/18/2023 04/19/2023 Acti ve documented as of this encounter (statuses as of 04/18/2023) Active Problems Problem Noted Date Diagnosed Date History of Lyme disease 10/10/2022 Multiple joint pain 10/10/2022 Dysplasia of cervix, high grade SHERCIE 2 07/17/2022 Overview: Advised pap x 2 [...] as of this encounter (statuses as of 04/18/2023) Resolved Problems Problem Noted Date Diagnosed Date Resolved Date Abnormal uterine bleeding 06/01/2022 Dysmenorrhea 12/21/2021 07/17/2022 Pelvic pain in female 12/21/20212022 Encounter for Pap smear of c ervix with HPV DNA cotesting 12/21/2021 02/20/2022 Adenomyosis 12/21/2021 07/17/2022 Eating disorder 06/09/2021 08/23/2021 History of abnormal cervical Pap smear 12/21/2020 07/17/2022 documented as of this encounter (statuses as of 04/18/2023) Immunizations Name Administration Dates Next Due COVID-19 mRNA, LNP-s, No Pre serve, 2-Dose Series (Moderna) 06/26/2020,05/29/2020 COVID-19, LNP-s, No Preserve , Otis-sucrose, Ages 12+ ([place]) 04/28/2021 Covid-19, Mrna, Lnp-s, Pf, B ivalent, 30 Mcg, IM, 12 yrs and above (Donay) 03/02/2022 Hepatitis B, 20+ yrs 02/17/2020,11/06/2019 PPD [...] 5:40 PM EST Office Visit Family Practice [facility] [address] [place] [address] Reva Samano MD [address] [place] [address] 06/13/2023 1:00 PM EST Office Visit Sleep Disorders Ctr [facility] [address] [place] [phone] Ada Velez DO [address] [place] [address] 06/17/2023 1:00 PM EST Office Visit Otolaryngology/Head & Neck/Facial Plastic Surgery [address] [place] [address] Savanah Vazquez PA-C [address] [place] [address] 06/21/2023 4:00 PM EST Telemedicine Pulmonary Medicine, [facility] [address] [place] [address] Kimberly Altamirano DNP [address] [place] [address] 07/12/2023 9:30 AM EDT Office Visit Allergy/Immunology Jeanie Barroso [place] [address] [place] [address] Murray Erazo MD [address] [place] [address] 07/19/2023 4:00 PM EDT Office Visit Gynecology/Obstetics [place] [address] [place] [phone] Darwin Fajardo MD [address] [place] [address] Scheduled Procedures Name Priority Associated Diagnoses Date/Ti [...] of this encounter Visit Diagnoses Diagnosis Mild persistent asthma without complication- Primary Unspecified asthma documented in this encounter Administered Medications Active Administered Medications - up to 3 most recent administrations Medication Order MAR Action Action Date Dose Rate Site Albuterol Sulfate (Proventil) (2.5 MG/3ML) 0.083% inhalation solution 2.5 mg 2.5 mg, Nebulizer, PRN Other, Starting on Nica 04/18/23 at 1246, Until Sat04/19/23 at 1245, For 24 hours Given 04/18/2023 1:16 PM EST 2.5 mg documented in this encounter Advance Directives Latest [...] and were consensually agreed upon. Care Teams Stable Cleaner Relationship Specialty Start Date End Date Reva Samano MD [address] [place] [address] PCP - General Internal Medicine 10/11/22 documented as of this encounter
--- OUTSIDE RECORDS SUMMARY | 2023-09-01 05:16 | External Medical Summary | Summary of Care ---
Author Name Unknown Organization [facility] Address [address] [facility] [place] [address] Phone [phone] Care Team Providers Care Licensed Clinical Social Worker Name Role Phone Reva Samano MD Primary Care Provider Reason for Visit * Reason Comments eRx-Medication Refill Encounter Details Date Type Department Care Team (Late st Contact Info) Description 05/05/2023 [facility] [place] [address] Reva Samano MD [address] [place] [address] Acute cough Allergies Active Allergy Reactions Criticality Noted Date Comments Food (See Comments) High 12/21/2020 Peanuts including dust, tree nuts, soy Latex 12/21/2020 Hives Morphine Hives,Neuro complications (Please comment) 12/21/2020 [place] "high" documented as of this encounter (statuses as of 05/06/2023) Medications Medication Sig Dispensed Refills Start Date [...] for Wheezing. 6.7 g 0 04/02/2023 Active guaiFENesin-Codein e 100-10 MG/5ML Oral Syrup [...] before bedtime. 180 Each 1 04/30/2023 Active documented as of this encounter (statuses as of 05/06/2023) Active Problems Problem Noted Date Diagnosed Date [...] as of this encounter (statuses as of 05/06/2023) Resolved Problems Problem Noted Date Diagnosed Date Resolved Date Abnormal uterine bleeding 06/01/2022 Dysmenorrhea 12/21/2021 07/17/2022 Pelvic pain in female 12/21/20212022 Encounter for Pap smear of c ervix with HPV DNA cotesting 12/21/2021 02/20/2022 Adenomyosis 12/21/2021 07/17/2022 Eating disorder 06/09/2021 08/23/2021 History of abnormal cervical Pap smear 12/21/2020 07/17/2022 documented as of this encounter (statuses as of 05/06/2023) Immunizations Name Administration Dates Next Due COVID-19 [...] encounter Miscellaneous Notes * Telephone Encounter - Mary Grace Martinez LPN - 05/06/2023 3:58 PM ESTRefused Prescriptions: Disp Refills predniSONE 20 MG Oral Tablet (Deltasone) 30 Tab*0 Sig: TAKE 1 TABLET BY MOUTH EVERY DAY IN THE MORNINGRefused By: MARY GRACE MARTINEZ for Refusal: Refill Not Navid ropriate * Telephone Encounter - Mary Grace Martinez LPN - 05/06/2023 3:55 PM EST Called pt to check and see what was going on that she wanted a refill on prednisone. Pt states thatit must have been an error. * Telephone Encounter - Roman Olguin - 05/06/2023 3:14 PM ESTPending Prescriptions: Disp Refills predniSONE 20 MG Oral Tablet [Pharmacy Med*30 Tab*0 Sig: TAKE 1TABLET BY MOUTH EVERY DAY IN THE MORNING documented in this encounter Plan of Treatment Upcoming Encounters Date Type Department Care Team (Late st Contact Info) Description 05/27/2023 5:40 PM EST Office Visit Family Practice [facility] [address] [facility] [place] [address] Reva Samano MD [address] [place] [address] 06/13/2023 1:00 PM EST Office Visit Sleep Disorders Ctr [facility] [address] [facility] [place] [phone] Ada Velez DO [address] [facility] [place] [address] 06/17/2023 1:00 PM EST Office Visit Otolaryngology/Head & Neck/Facial Plastic Surgery [address] [place] [address] Savanah Vazquez PA-C [address] [place] [address] 06/21/2023 4:00 PM EST Telemedicine Pulmonary Medicine, [facility] [address] [place] [address] Kimberly Altamirano DNP [address] [place] [address] 07/12/2023 9:30 AM EDT Office Visit Allergy/Immunology [place] [address] [facility] [place] [address] Murray Erazo MD [address] [facility] [place] [address] 07/19/2023 4:00 PM EDT Office Visit Gynecology/Obstetics [place] [address] [place] [address] Darwin Fajardo MD [address] [place] [address] Scheduled Procedures Name Priority Associated Diagnoses Date/Ti [...] and were consensually agreed upon. Care Teams Licensed Clinical Social Worker Relationship Specialty Start Date End Date Reva Samano MD [address] [place] [address] PCP - General Internal Medicine 10/11/22 documented as of this encounter
--- OUTSIDE RECORDS SUMMARY | 2023-09-01 05:16 | External Medical Summary | Summary of Care ---
Author Name Unknown Organization [facility] Address [address] [facility] [place] [address] Phone [phone] Care Team Providers Care Assembly Machine Set Up Mechanic Name Role Phone Reva Samano MD Primary Care Provider Reason for Visit * Reason Comments Cough Pt c/o ongoing cough and SOB Encounter Details Date Type Department Care Team (Late st Contact Info) Description 04/08/2023 6:20 PM EST Office Visit Family Practice [facility] [address] [facility] [place] [address] Reva Samano MD [address] [place] [address] Acute cough* Allergies Active Allergy Reactions Criticality Noted Date Comments Food (See Comments) High 12/21/2020 Peanuts including dust, tree nuts, soy Latex 12/21/2020 Hives Morphine Hives,Neuro complications (Please comment) 12/21/2020 [place] "high" documented as of this encounter (statuses as of 04/08/2023) Medications Medication Sig Dispensed Refills Start Date End Date Status Triamcinolone Acetonide 0.1 % External Cream (Aristocort)Indicati ons:Keratosis pilaris Apply topically to affected area 2 times a day. To affected area. 80 g 2 06/28/2022 Active LORazepam 1 MG Oral Tablet (Ativan)Indications: RACHID (generalized anxiety disorder),Sleep disorder Take 1 Tablet by mouth daily as needed for Anxiety or Sleep. 30 Tablet 0 11/08/2022 Active Escitalopram Oxalate 10 MG Oral Tablet (Lexapro)Indications :RACHID (generalized anxiety disorder) Take 1 Tablet by mouth daily at noon. 90 Tablet 3 11/13/2022 Active EpiPen 2-Galileo 0.3 MG/0.3ML Injection Solution Auto-injectorIndicat ions:History of anaphylaxis,Peanut allergy For a severe reaction: Place orange end against the outer thigh, press firmly, hold in place for 10 seconds and go to the Emergency room. 6 Each 0 11/13/2022 Active Ibuprofen 800 MG Oral Tablet (Motrin)Indications: Multiple joint pain Take 1 Tablet by mouth in the morning and 1 Tablet at noon and 1 Tablet before bedtime. with food for pain. 30 Tablet 1 12/19/2022 Active busPIRone HCl 15 MG Oral Tablet (Buspar)Indications: RACHID (generalized anxiety disorder) TAKE 1 TABLET IN THE MORNING AND 1 TABLET BEFORE BEDTIME 180 Tablet 3 02/04/2023 Active Prazosin HCl 1 MG Oral Capsule (Minipress)Indicatio ns:PTSD (post-traumatic stress disorder) TAKE 2 CAPSULES AT BEDTIME 180 Capsule 1 02/04/2023 Active Ventolin HFA 108 (90 Base) MCG/ACT Inhalation Aerosol SolutionIndications: Cough variant asthma Inhale 2 Puffs by mouth every 4 hours as needed for Wheezing. 6.7 g 0 04/02/2023 Active predniSONE 20 MG Oral Tablet (Deltasone)Indicatio ns:Mild intermittent asthma with exacerbation Take 4 tabs daily for 2 days, 3 tabs daily for 2 days, 2 tabs daily for 2 days, 1 tab daily for 2 days 20 Tablet 0 04/04/2023 Active Albuterol Sulfate (2.5 MG/3ML) 0.083% Inhalation Nebulization Solution (Proventil)Indicatio ns:Mild intermittent asthma with exacerbation Inhale 1 Vial via nebulizer every 4 hours as needed for Wheezing or Shortness of Breath. 300 mL 1 04/04/2023 Active Fluticasone-Salmeter ol 250-50 MCG/ACT Inhalation Aerosol Powder Breath Activated (Advair Diskus)Indications:A cute cough Inhale 1 Puff by mouth in the morning and 1 Puff before bedtime. 1 Each 5 04/08/2023 Active guaiFENesin-Codeine 100-10 MG/5ML Oral Syrup (Robitussin AC)Indications:Acute cough Take 5 mL by mouth every 4 hours as needed for Cough. 120 mL 0 04/08/2023 Active predniSONE 20 MG Oral Tablet (Deltasone)Indicatio ns:Acute cough Take 1 Tablet by mouth in the morning. 30 Tablet 0 04/08/2023 Active Azithromycin 250 MG Oral Tablet (Zithromax Z-Galileo)Indications:Ac [place] cough Take two tablets by mouth on first day, then 1 tablet daily until gone 6 Tablet 0 04/08/2023 Active documented as of this encounter (statuses as of 04/08/2023) Active Problems Problem Noted Date Diagnosed Date [...] as of this encounter (statuses as of 04/08/2023) Resolved Problems Problem Noted Date Diagnosed Date Resolved Date Abnormal uterine bleeding 06/01/2022 Dysmenorrhea 12/21/2021 07/17/2022 Pelvic pain in female 12/21/20212022 Encounter for Pap smear of c ervix with HPV DNA cotesting 12/21/2021 02/20/2022 Adenomyosis 12/21/2021 07/17/2022 Eating disorder 06/09/2021 08/23/2021 History of abnormal cervical Pap smear 12/21/2020 07/17/2022 documented as of this encounter (statuses as of 04/08/2023) Immunizations Name Administration Dates Next Due COVID-19 mRNA, LNP-s, No Pre serve, 2-Dose Series (Moderna) 06/26/2020,05/29/2020 COVID-19, LNP-s, No Preserve , Otis-sucrose, Ages 12+ (Pfizer) 04/28/2021 Covid-19, Mrna, Lnp-s, Pf, B ivalent, 30 Mcg, IM, 12 yrs and above (Pfizer) 03/02/2022 Hepatitis B, 20+ yrs 02/17/2020,11/06/2019 PPD 12/21/2020 SEASONAL INFLUENZA, PF, 6 M & Above, IM , (FLULAVAL or FLUZONE) 02/20/2022 TDAP (age 10 and older)(Boostrix) 11/06/2019 [...] Sign Reading Time Taken Comments Blood Pressure 122/80 04/08/2023 6:34 PM EST Pulse 70 04/08/2023 6:34 PM EST Temperature 36.8 C (98.2 F) 04/08/2023 6:34 PM ES T Respiratory Rate 20 04/08/2023 6:34 PM EST Oxygen Saturation 98% 04/08/2023 6:34 PM EST Inhaled Oxygen Concentration - - Weight 82.1 kg (181 lb) 04/08/2023 6:34 PM EST Height 177.8 cm (5' 10") 04/08/2023 6:34 PM EST Body Mass Index 25.97 04/08/2023 6:34 PM EST documented in this encounter Patient Instructions * Patient Instructions* Reva Samano MD - 04/08/2023 6:56 PM EST Next Steps: -- azithromycin (zpack) in case this bacterial atypicals -- stay at prednisone 60mg until breathing has turned the corner, then taper -- start Advair. This is a long-acting albuterol paired with an inhaled steroid. Stay on this untilyou are feeling 85-90% better -- Chest X-ray tomorrow, you can do closer to home, any [facility] is fine -- codeine cough syrup to help sleep. documented in this encounter Progress Notes * Reva Samano MD - 04/08/2023 6:43 PM EST Images from the original note were not included. History of Present Illness Kimberly Azevedo is a 47 year old female that presents for Cough (Pt c/o ongoing cough and SOB) Augmentin in the middle of January and then middle of February. Rx for nebulized albuterol and high-dose prednisone sent on 04/04. Currently on prednisone 60mg. Not quite as tight in chest but still waking from sleep with coughingand chest tightness. Happens four hours after bedtime neb. Albuterol makes it so chest is not as tight, but still gets cough with deep breath. Tessalon and OTC cough meds not helpful. Throat is raw but not interfering with eating/drinking. Ears feel okay. No PND. No prior history of asthma. No chest x-ray. No fevers. Hx significant peanut allergy that developed in 30s. Current medications and allergies reviewed. Past medical history and problem list reviewed. Physical Exam Vitals: 04/08/23 1834 Temp: 36.8 C (98.2 F) Pulse: 70 Resp: 20 SpO2: 98% BP: 122/80 BMI: 25.97 BP Readings from Last 3 Encounters: 04/08/23 122/80 04/02/23 114/72 03/25/23 118/72 Wt Readings from Last 3 Encounters: 04/08/23 82.1 kg (181 lb) 04/02/23 81.2 kg (179 lb) 03/25/23 81.9 kg (180 lb 9.6 oz) Physical Exam Vitals and nursing note reviewed. Constitutional: General: She is not in acute distress. Appearance: Normal appearance. She is ill-appearing. HENT: Head: Normocephalic and atraumatic. Right Ear: Tympanic membrane, ear canal and external ear normal. There is no impacted cerumen. Left Ear: Tympanic membrane, ear canal and external ear normal. There is no impacted cerumen. Nose: Nose normal. Mouth/Throat: Mouth: Mucous membranes are moist. Pharynx: Oropharynx is clear. Comments: No peritonsillar abscess or cellulitis. Normal uvula. Tonsils without swelling, erythem or exudate. No posterior cobblestoning Eyes: General: No scleral icterus. Conjunctiva/sclera: Conjunctivae normal. Pupils: Pupils are equal, round, and reactive to light. Neck: Thyroid: No thyroid mass, thyromegaly or thyroid tenderness. Cardiovascular: Rate and Rhythm: Normal rate and regular rhythm. Heart sounds: No murmur heard. Pulmonary: Effort: Pulmonary effort is normal. Breath sounds: Normal breath sounds. Comments: Several coughing bouts during visit. Can't take deep breath without coughing. Moderate air movement, no wheezing/rales/rhonchi Lymphadenopathy: Cervical: No cervical adenopathy. Skin: General: Skin is warm and dry. Neurological: Mental Status: She is alert. Psychiatric: Mood and Affect: Mood normal. Behavior: Behavior normal. I have reviewed the following results: BMP Assessment and Plan Acute cough Will get CXR and treat for atypicals. Add LABA to see if we can get her through the night. Stronger cough supressant. Needs tubing for nebs. - Fluticasone-Salmeterol 250-50 MCG/ACT Inhalation Aerosol Powder Breath Activated (Advair Diskus);Inhale 1 Puff by mouth in the morning and 1 Puff before bedtime. - guaiFENesin-Codeine 100-10 MG/5ML Oral Syrup (Robitussin AC); Take 5 mL by mouth every 4 hours asneeded for Cough. - predniSONE 20 MG Oral Tablet (Deltasone); Take 1 Tablet by mouth in the morning. - XR CHEST 2 VIEWS - Azithromycin 250 MG Oral Tablet (Zithromax Z-Galileo); Take two tablets by mouth on first day, then 1tablet daily until gone Patient Instructions Next Steps: -- azithromycin (zpack) in case this bacterial atypicals -- stay at prednisone 60mg until breathing has turned the corner, then taper -- start Advair. This is a long-acting albuterol paired with an inhaled steroid. Stay on this untilyou are feeling 85-90% better -- Chest X-ray tomorrow, you can do closer to home, any [facility] is fine -- codeine cough syrup to help sleep. [facility] [phone] Wrap-Up Time: I spent a total of 30-39 minutes (exact time 30 mins) on the date of service in preparation, delivery, and documentation of the care provided to Kimberly Azevedo excluding any time spent in the performance of separately billed services. documented in this encounter Nursing Notes * Sheila Holder LPN - 04/08/2023 6:34 PM EST Patient identified by full name and date of Chief Complaint Patient presents with Cough Pt c/o ongoing cough and SOB documented in this encounter Plan of Treatment Upcoming Encounters Date Type Department Care Team (Late st Contact Info) Description 04/09/2023 2:00 PM EST Office Visit Allergy/Immunology [facility] [address] [place] [address] Murray Erazo MD [address] [place] [address] 05/27/2023 5:40 PM EST Office Visit Family [facility] [address] [facility] [place] [address] Reva Samano MD [address] [facility] [place] [address] 07/19/2023 4:00 PM EDT Office Visit Gynecology/Obstetics [place] [address] [place] [address] Darwin Fajardo MD [address] [place], [place] [id number] Pending Results Name Type Priority Associated Diagnoses Date /Time XR CHEST 2 VIEWS Medical Imaging Routine Acute cough 04/08/2023 7:09 PM EST Scheduled Procedures Name Priority Associated [...] of this encounter Visit Diagnoses Diagnosis Acute cough- Primary documented in this encounter Advance Directives Latest [...] and were consensually agreed upon. Care Teams Assembly Machine Set Up Mechanic Relationship Specialty Start Date End Date Reva Samano MD [address] [place] [address] PCP - General Internal Medicine 10/11/22 documented as of this encounter
--- OUTSIDE RECORDS SUMMARY | 2023-09-01 05:16 | External Medical Summary | Summary of Care ---
Author Name Unknown Organization [facility] Address [address] [facility] [place] [address] Phone [phone] Care Team Providers Care Chocolatier Name Role Phone Reva Samano MD Primary Care Provider Reason for Visit * Reason Comments Follow Up 3 month Encounter Details Date Type Department Care Team (Late st Contact Info) Description 05/27/2023 5:40 PM EST Office Visit Family Practice [facility] [address] [place] [address] Reva Samano MD [address] [place] [phone] Anorexia nervosa, restricting type*; RACHID (generalized anxiety disorder); PTSD (post-traumatic stress disorder); Peanut allergy Allergies Active Allergy Reactions Criticality Noted Date Comments Food (See Comments) High 12/21/2020 Peanuts including dust, tree nuts, soy Latex 12/21/2020 Hives Morphine Hives,Neuro complications (Please comment) 12/21/2020 [place] "high" documented as of this encounter (statuses as of 05/27/2023) Medications Medication Sig Dispensed Refills Start Date [...] as of this encounter (statuses as of 05/27/2023) Active Problems Problem Noted Date Diagnosed Date [...] as of this encounter (statuses as of 05/27/2023) Resolved Problems Problem Noted Date Diagnosed Date Resolved Date Abnormal uterine bleeding 06/01/2022 Dysmenorrhea 12/21/2021 07/17/2022 Pelvic pain in female 12/21/20212022 Encounter for Pap smear of c ervix with HPV DNA cotesting 12/21/2021 02/20/2022 Adenomyosis 12/21/2021 07/17/2022 Eating disorder 06/09/2021 08/23/2021 History of abnormal cervical Pap smear 12/21/2020 07/17/2022 documented as of this encounter (statuses as of 05/27/2023) Immunizations Name Administration Dates Next Due COVID-19 mRNA, LNP-s, No Pre serve, 2-Dose Series (Moderna) 06/26/2020,05/29/2020 COVID-19, LNP-s, No Preserve , Otis-sucrose, Ages 12+ (Pfizer) 04/28/2021 Covid-19, Mrna, Lnp-s, Pf, B ivalent, 30 Mcg, IM, 12 yrs and above (Traackr) 03/02/2022 Hepatitis B, 20+ yrs 02/17/2020,11/06/2019 PPD [...] Sign Reading Time Taken Comments Blood Pressure 118/82 05/27/2023 5:41 PM EST Pulse 64 05/27/2023 5:41 PM EST Temperature 36.6 C (97.8 F) 05/27/2023 5:41 PM ES T Respiratory Rate - - Oxygen Saturation 99% 05/27/2023 5:41 PM EST Inhaled Oxygen Concentration - - Weight 81.6 kg (180 lb) 05/27/2023 5:41 PM EST Height 177.8 cm (5' 10") 05/27/2023 5:41 PM EST Body Mass Index 25.83 05/27/2023 5:41 PM EST documented in this encounter Progress Notes * Reva Samano MD - 05/27/2023 5:56 PM EST Images from the original note were not included. History of Present Illness Kimberly Azevedo is a 47 year old female that presents for Follow Up (3 month ) Asthma: Saw Pulmonary at the end of March. [place] consistent with asthma. Getting PFTs, blood tests, ENT and referred to sleep Medicine. Peanut allergy: Severe inhaled reaction. Work is not peanut-free. Had to go to ED for reaction after exposure at work. Took epi-pen earlier as instructed. There is a newer drug that she got before as part of trial that helped - working to get that covered with Dr Erazo. ?need be part of research trial? Frustrated that she has to be hypervigilant. Anorexia: Peanut reactions always make it harder to eat. Doing okay with still eating. Mood - lexapro, prazosin, rare ativan, buspar. Having more trouble sleeping with prednisone, not having more nightmares. Was in good routine for calming down at end of night, but that ws disrupted bydaughter's mental health crisis/hospitalization. Nicotine: none Cannabis; none Alcohol: rare Current medications and allergies reviewed. Past medical history and problem list reviewed. Physical Exam Vitals: 05/27/23 1741 Temp: 36.6 C (97.8 F) Pulse: 64 SpO2: 99% BP: 118/82 BMI: 25.83 BP Readings from Last 3 Encounters: 05/27/23 118/82 04/18/23 110/82 04/09/23 128/84 Wt Readings from Last 3 Encounters: 05/27/23 81.6 kg (180 lb) 04/18/23 81.5 kg (179 lb 9.6 oz) 04/09/23 82.1 kg (181 lb) Physical Exam Vitals and nursing note reviewed. Constitutional: Appearance: Normal appearance. She is not ill-appearing. Skin: Coloration: Skin is not jaundiced or pale. Neurological: Mental Status: She is alert. Psychiatric: Mood and Affect: Mood normal. Behavior: Behavior normal. I have reviewed the following results: None Assessment and Plan Anorexia nervosa, restricting type Frustrating that she has to be hypervigilant about food but currently accurate. Keep working hard at feeding body. RACHID (generalized anxiety disorder) PTSD (post-traumatic stress disorder) Cont current regimen. Let me know if needs to increase prazosin or lexapro. Peanut allergy Has questions about allergy response plan for work. Recommend asking these of Dr Erazo since her reactions are so severe. Showed her clinicaltrials.gov to look for possible research studies. Can alsocheck with Dr Erazo to see if she might qualify for the injectable she used to take (?Xolair?) now that she has asthma diagnosis. Hasn't been able to get IgE level drawn yet because of peanut reaction. Wrap-Up Follow Up: Return in about 3 months (around 08/26/2023) for Return with [facility]. | For: Return with [facility] Time: I spent a total of 30-39 minutes (exact time 32 mins) on the date of service in preparation, delivery, and documentation of the care provided to Kimberly Azevedo excluding any time spent in the performance of separately billed services. documented in this encounter Nursing Notes * Arlene Baxter LPN - 05/27/2023 5:39 PM EST The patient has been properly identified by confirmation of name and date of . Chief Complaint Patient presents with Follow Up 3 month In hospital 3 days ago for sever allergic reaction. She states mid level reaction. Went to ER, onlyneeded one Epi and did not need admitted. Pt has not needed her asthma meds, no flares recently. documented in this encounter Plan of Treatment Upcoming Encounters Date Type Department Care Team (Late st Contact Info) Description 06/13/2023 1:00 PM EST Office Visit [facility] [address] [place] [phone] Ada Velez, [address] [place] [address] 06/17/2023 1:00 PM EST Office Visit Otolaryngology/Head & Neck/Facial Plastic Surgery [address] [place] [address] Savanah Vazquez PA-C [address] [place] [address] 06/21/2023 4:00 PM EST Telemedicine Pulmonary Medicine, [facility] [address] [place] [address] Kimberly Altamirano, CHELSIE [address] [place] [address] 07/12/2023 9:30 AM EDT Office Visit Allergy/Immunology [facility] [address] [place] [address] Murray Erazo MD [address] [place] [address] 07/19/2023 4:00 PM EDT Office Visit Gynecology/Obstetics [place] [address] [place] [address] Darwin Fajardo MD [address] [place] [address] 09/02/2023 6:00 PM EDT Office Visit Family Practice [facility] [address] [place] [address] Reva Samano MD [address] [place] [address] Scheduled Procedures Name Priority Associated Diagnoses Date/Ti [...] of this encounter Visit Diagnoses Diagnosis Anorexia nervosa, restricting type- Primary Anorexia nervosa RACHID (generalized anxiety disorder) Generalized anxiety disorder PTSD (post-traumatic stress disorder) Posttraumatic stress disorder Peanut allergy Allergy to peanuts documented in this encounter Advance Directives Latest [...] and were consensually agreed upon. Care Teams Chocolatier Relationship Specialty Start Date End Date Reva Samano MD [address] [place] [address] PCP - General Internal Medicine 10/11/22 documented as of this encounter
--- OUTSIDE RECORDS SUMMARY | 2023-09-01 05:16 | External Medical Summary | Summary of Care ---
Author Name Unknown Organization [facility] Address [address] [facility] [place] [address] Phone [phone] Care Team Providers Care Drawer Liner Name Role Phone Reva Samano MD Primary Care Provider Encounter Details Date Type Department Care Team (Late st Contact Info) Description 04/08/2023 Telephone Family Practice [facility] [address] [place] [address] Reva Samano MD [address] [place] [phone] Allergies Active Allergy Reactions Criticality Noted Date Comments Food (See Comments) High 12/21/2020 Peanuts including dust, tree nuts, soy Latex 12/21/2020 Hives Morphine Hives,Neuro complications (Please comment) 12/21/2020 [place] "high" documented as of this encounter (statuses as of 04/09/2023) Medications Medication Sig Dispensed Refills Start Date [...] Azithromycin 250 MG Oral Tablet (Zithromax Z-Galileo)Indications:Ac [place] cough Take two tablets by mouth on first day, then 1 tablet daily until gone 6 Tablet 0 04/08/2023 Active documented as of this encounter (statuses as of 04/09/2023) Active Problems Problem Noted Date Diagnosed Date [...] as of this encounter (statuses as of 04/09/2023) Resolved Problems Problem Noted Date Diagnosed Date Resolved Date Abnormal uterine bleeding 06/01/2022 Dysmenorrhea 12/21/2021 07/17/2022 Pelvic pain in female 12/21/20212022 Encounter for Pap smear of c ervix with HPV DNA cotesting 12/21/2021 02/20/2022 Adenomyosis 12/21/2021 07/17/2022 Eating disorder 06/09/2021 08/23/2021 History of abnormal cervical Pap smear 12/21/2020 07/17/2022 documented as of this encounter (statuses as of 04/09/2023) Immunizations Name Administration Dates Next Due COVID-19 [...] encounter Miscellaneous Notes * Telephone Encounter - Nadine Keyes LPN - 04/09/2023 9:52 AM EST Order and demographics faxed. * Telephone Encounter - Reva Samano MD - 04/08/2023 10:26 PM EST Please fax order for Neb tubing/supplies to [facility] [phone] documented in this encounter Plan of Treatment Upcoming Encounters Date Type Department Care Team (Late st Contact Info) Description 04/09/2023 2:00 PM EST Office [facility] [place] [place] [address] [facility] [place] [address] Murray Erazo MD [address] [facility] [place] [address] 05/27/2023 5:40 PM EST Office Visit Family Practice [facility] [address] [place] [address] Reva Samano MD [address] [place] [address] 07/19/2023 4:00 PM EDT Office Visit Gynecology/Obstetics [place] [address] [place] [phone] Darwin Fajardo MD [address] [place] [address] Scheduled Procedures Name Priority Associated Diagnoses Date/Ti [...] of this encounter Visit Diagnoses Diagnosis Acute bronchospasm- Primary documented in this encounter Advance Directives [...] and were consensually agreed upon. Care Teams Drawer Liner Relationship Specialty Start Date End Date Reva Samano MD [address] [place] [address] PCP - General Internal Medicine 10/11/22 documented as of this encounter
--- OUTSIDE RECORDS SUMMARY | 2023-09-01 05:16 | External Medical Summary | Summary of Care ---
Author Name Unknown Organization [facility] Address [address] [place] [address] Phone [phone] Care Team Providers Care Technical Specialist Cytogenetics Name Role Phone Reva Samano MD Primary Care Provider Reason for Referral * Evaluate & Treat - Unlimited Visits (Within 10 days (routine)) - Pending Review Specialty Diagnoses / Procedures Referred By Shirley yee Referred To Contact Otolaryngology Diagnoses Epistaxis, recurrent Kimberly Altamirano DNP [address] [place] [address] Referral ID Status Reason Start Date Expiration Date Visits Requested Visits Authorized [id number] Pending Review Specialty Services Required [phone] Question Answer Referral Priority Within 10 days (routine) Where should this appointment be scheduled? [facility] Reason for Referral Sinus/Nasal/Allergy Conditions Specific Condition: Epistaxis * Evaluate & Treat - Unlimited Visits (Within 10 days (routine)) - Pending Review Specialty Diagnoses / Procedures Referred By Shirley yee Referred To Contact Sleep Medicine / Sleep Disorders Diagnoses Gasping for breath Kimberly Altamirano DNP [address] [place] [address] Referral ID Status Reason Start Date Expiration Date Visits Requested Visits Authorized [id number] Pending Review Specialty Services Required 3 2 2 Question Answer Referral Priority Within 10 days (routine) Where should this appointment be scheduled? [facility] SLEEP MED ADULT REFERRAL Sleep Apnea Testing and Management Does the patient snore and/or gasp at night or has been told they stop breathing at night? Yes Reason for Visit * Reason Comments NEW PATIENT * Evaluate & Treat - Unlimited Visits (Within 30 days (routine)) - Pending Review Specialty Diagnoses / Procedures Referred By Shirley yee Referred To Contact Pulmonary Diseases / Pulmonary Diagnoses Chronic cough Murray Erazo MD [address] [place] [address] Referral ID Status Reason Start Date Expiration Date Visits Requested Visits Authorized [id number] Pending Review Specialty Services Required [phone] Encounter Details Date Type Department Care Team (Late st Contact Info) Description 04/18/2023 11:00 AM EST Office Visit Pulmonary Medicine, [place] [address] Kimberly Altamirano DNP [address] [place] [address] Mild persistent asthma without complication*; Epistaxis, recurrent; Gasping for breath; Cough variant asthma Allergies Active Allergy Reactions Criticality Noted Date Comments Food (See Comments) High 12/21/2020 Peanuts including dust, tree nuts, soy Latex 12/21/2020 Hives Morphine Hives,Neuro complications (Please comment) 12/21/2020 Cato "high" documented as of this encounter (statuses [...] for Wheezing. 6.7 g 0 04/02/2023 Active Fluticasone-Salme terol 250-50 MCG/ACT Inhalation Aerosol Powder Breath Activated (Advair Diskus)Indication s:Acute cough Inhale 1 Puff by mouth in the morning and 1 Puff before bedtime. 1 Each 5 04/08/2023 Active guaiFENesin-Codei ne 100-10 MG/5ML Oral Syrup (Robitussin AC)Indications:Ac point hope ira cough Take 5 mL by mouth every 4 hours as needed for Cough. 120 mL 0 04/08/2023 Active Ipratropium-Albut alma 0.5-2.5 (3) MG/3ML Inhalation Solution (Duoneb)Indicatio ns:Mild persistent asthma without complication Inhale 3 mL by mouth every 6 hours as needed for Dyspnea or Wheezing. J45.30 180 mL 3 04/18/2023 Active Full Kit Nebulizer SetIndications:Mi ld persistent asthma without complication Use every 6 hours or as prescription reads. J45.30 1 Each 0 04/18/2023 Active Ibuprofen 800 MG Oral Tablet (Motrin)Indicatio ns:Multiple joint pain Take 1 Tablet by mouth in the morning and 1 Tablet at noon and 1 Tablet before bedtime. with food for pain. 30 Tablet 1 12/19/2022 3 Discontinu ed(Medicat ion List Clean Up) Amoxicillin-Pot Clavulanate 875-125 MG Oral Tablet (Augmentin)Indica tions:Acute sinusitis, recurrence not specified, unspecified location Take 1 Tablet by mouth in the morning and 1 Tablet before bedtime. Do all this for 10 days. 20 Tablet 0 02/10/2023 3 Discontinu ed(Medicat ion List Clean Up) Amoxicillin-Pot Clavulanate 875-125 MG Oral Tablet (Augmentin) Take 1 Tablet by mouth in the morning and 1 Tablet before bedtime. Do all this for 7 days. 14 Tablet 0 03/15/2023 3 Discontinu ed(Medicat ion List Clean Up) predniSONE 20 MG Oral Tablet (Deltasone)Indica tions:Mild intermittent asthma with exacerbation Take 4 tabs daily for 2 days, 3 tabs daily for 2 days, 2 tabs daily for 2 days, 1 tab daily for 2 days 20 Tablet 0 04/04/2023 3 Discontinu ed(Medicat ion List Clean Up) Albuterol Sulfate (2.5 MG/3ML) 0.083% Inhalation Nebulization Solution (Proventil)Indica tions:Mild intermittent asthma with exacerbation Inhale 1 Vial via nebulizer every 4 hours as needed for Wheezing or Shortness of Breath. 300 mL 1 04/04/2023 3 Discontinu ed(Medicat ion/Dose Changed) predniSONE 20 MG Oral Tablet (Deltasone)Indica tions:Acute cough Take 1 Tablet by mouth in the morning. 30 Tablet 0 04/08/2023 3 Discontinu ed(Medicat ion List Clean Up) Azithromycin 250 MG Oral Tablet (Zithromax Z-Galileo)Indications :Acute cough Take two tablets by mouth on first day, then 1 tablet daily until gone 6 Tablet 0 04/08/2023 3 Discontinu ed(Medicat ion List Clean Up) Hospital, Clinic, or Other Facility Administered Medication [...] Sign Reading Time Taken Comments Blood Pressure 110/82 04/18/2023 11:01 AM EST Pulse 73 04/18/2023 11:01 AM EST Temperature 36.2 C (97.1 F) 04/18/2023 11:[address] Respiratory Rate 18 04/18/2023 11:01 AM EST Oxygen Saturation 99% 04/18/2023 11:01 AM EST on ra Inhaled Oxygen Concentration - - Weight 81.5 kg (179 lb 9.6 oz) 04/18/2023 11:01 AM EST Height 177.8 cm (5' 10") 04/18/2023 11:01 AM EST Body Mass Index 25.77 04/18/2023 11:01 AM EST documented in this encounter Progress Notes * Kimberly Altamirano, CHELSIE - 04/18/2023 11:00 AM EST Ele [facility] [place] Outpatient Pulmonary Consultation 04/18/2023 8:11 AM CC: New patient Accompanied patient to the visit by self. HPI: Kimberly Azevedo is an 47 year old female, referred by Murray Erazo MD (disintegrator operator) for evaluation of chronic cough. She is using Albuterol nebulizer BID, Advair BID, and prednisone taper. She still has cough, raspiness and dyspnea on exertion when going uphill. She woke up last night coughing excessively. Patient Active Problem List Diagnosis Code RACHID (generalized anxiety disorder) F41.1 History of anaphylaxis Z87.892 Peanut allergy Z91.010 Sleep disorder G47.9 Anorexia nervosa, restricting type F50.01 Breast calcifications on mammogram R92.1 Dysplasia of cervix, high grade SHERICE 2 N87.1 History of Lyme disease Z86.19 Multiple joint pain M25.50 Smoking History: Nonsmoker. Smoked marijuana in the past. 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 No wood or coal burning stoves or furnaces. No mold in home but did in the past. No asbestos exposure. No chemical exposure. SOB - dyspnea on exertion upstairs or when coughing alot Cough - waking up at night with cough, coughing throughout the day / barking and stridor Sputum - not productive Wheezing - only with coughing but improved Chest pain - burning with deep breathing Sinus - (+) congestion and postnasal drip - minimal, no history of sinus infections, no nasal surgery or history of fractured nose, no history of tonsillectomy, no history of nasal polyps; (+) epitaxis; Meds: Saline GERD - denies Dysphagia - denies N/V/D/C - denies Fevers, sweats, chills - denies Allergies - changes of the season Nocturnal: Snoring: denies, AM headache: denies, Daytime hypersomnolence: denies, Waking up gaspingfor air: yes, Witnessed apneas: denies; history or night terrors Weight - denies fluctuation of > or = 2-5 lbs per day, denies unexplained wait loss Musculoskeletal - scoliosis, S1 joint Skin - no current but has had eczema in the past - with allergies or stress Neurological - possible tick bite; Lymes TB - denies Asthma - denies Bronchitis - twice yearly and has been progressively getting worse and every times she has a cold she will need an inhaler Pneumonia - denies DVT/PE - denies Flu vaccine - yes Pneumonia vaccine - yes COVID vaccine - yes History of COVID infection - 2019 - not hospitalized Sick contacts - twins were sick and is around children a lot 02 - denies Antibiotic use - Augmentin, Zpak Steroid use - today is last day of taper Urgent Care - twice ER - denies Hospitalization - denies Pulmonary meds: Advair 250, Albuterol nebs Current Outpatient Medications Medication Sig Dispense Refill [...] to the Emergency room. 6 Each 0 Ibuprofen 800 MG Oral Tablet (Motrin) Take 1 Tablet by mouth in the morning and 1 Tablet at noon and 1 Tablet before bedtime. with food for pain. 30 Tablet 1 busPIRone HCl 15 MG Oral Tablet (Buspar) TAKE 1 TABLET IN THE MORNING AND 1 TABLET BEFORE BEDTIME 180 Tablet 3 Prazosin HCl 1 MG Oral Capsule (Minipress) TAKE 2 CAPSULES AT BEDTIME 180 Capsule 1 Ventolin HFA 108 (90 Base) MCG/ACT Inhalation Aerosol Solution Inhale 2 Puffs by mouth every 4 hours as needed for Wheezing. 6.7 g 0 predniSONE 20 MG Oral Tablet (Deltasone) Take 4 tabs daily for 2 days, 3 tabs daily for 2 days, 2 tabs daily for 2 days, 1 tab daily for 2 days 20 Tablet 0 Albuterol Sulfate (2.5 MG/3ML) 0.083% Inhalation Nebulization Solution (Proventil) Inhale 1 Vial via nebulizer every 4 hours as needed for Wheezing or Shortness of Breath. 300 mL 1 Fluticasone-Salmeterol 250-50 MCG/ACT Inhalation Aerosol Powder Breath Activated (Advair Diskus) Inhale 1 Puff by mouth in the morning and 1 Puff before bedtime. 1 Each 5 guaiFENesin-Codeine 100-10 MG/5ML Oral Syrup (Robitussin AC) Take 5 mL by mouth every 4 hours as needed for Cough. 120 mL 0 predniSONE 20 MG Oral Tablet (Deltasone) Take 1 Tablet by mouth in the morning. 30 Tablet 0 Azithromycin 250 MG Oral Tablet (Zithromax Z-Galileo) Take two tablets by mouth on first day, then 1 tablet daily until gone 6 Tablet 0 No current facility-administered medications for this visit. Review of patient's allergies indicates: Allergen Reactions Food (See Comments) Peanuts including dust, tree nuts, soy Latex Hives Morphine Hives and Neuro complications (Please comment) Cato "high" No past medical history on file. Social History Tobacco Use Smoking status: Never Smokeless tobacco: Never Substance Use Topics Alcohol use: Not Currently Comment: socially Vaping/E-Cigarette Use Vaping/E-Cigarette Use Never User Vaping/E-Cigarette Substances Vaping/E-Cigarette Devices Past Surgical History: Procedure Laterality Date BIOPSY [...] performed by Kate Mantilla MD at OR [facility] EXC BREAST LESION RADMARK Left 10/03/2021 EXCISION OF BREAST LESION RADIOLOGICAL MARKER performed by Abner Mantilla MD at OR [facility] LAPAROSCOPY TOTAL HYSTX, UTERUS 250GM OR LESS TUBE/OVARY Bilateral 06/01/2022 LAPAROSCOPIC HYSTERECTOMY REMOVAL TUBES AND/OR OVARIES FOR UTERUS 250GM OR LESS performed by Darwin Fajardo MD at OR [facility] LAPAROSCOPY TOTAL HYSTX, UTERUS 250GM OR LESS TUBE/OVARY Bilateral 05/29/2022 LAPAROSCOPIC HYSTERECTOMY REMOVAL TUBES AND/OR OVARIES FOR UTERUS 250GM OR LESS performed by Kate Mantilla MD at [facility] MASTECTOMY, PARTIAL Left 10/03/2021 MASTECTOMY PARTIAL performed by Abner Mantilla MD at OR [facility] Family History Problem Relation Age of Onset Breast Cancer Aunt (Maternal) ROS: Review of Systems: All the pertinent positive and negative data were mentioned in the HPI section. Otherwise, ROS is negative or noncontributory. OBJECTIVE: BP 110/82 (BP Site: Left Arm, BP Position: Sitting, BP Cuff Size: Regular) | Pulse 73 | Temp 36.2 C (97.1 F) (Infrared ) | Resp 18 | Ht 1.778 m (5' 10") | Wt 81.5 kg (179 lb 9.6 oz) | LMP 03/31/2021 (Approximate) | SpO2 99% Comment: on ra | BMI 25.77 kg/m | BSA 2.01 m Exam: General: alert, no distress Head: Normocephalic Heart: regular rate & rhythm, no murmurs and no gallops Lungs: clear to auscultation bilaterally, decreased breath sounds Pulses: radial=2/4 Abdomen: abdomen soft, non-tender, normal bowel sounds and no masses or organomegaly Musculoskeletal/Extremities: no joint deformities, effusion, or inflammation, no edema, no clubbing, no cyanosis Neuro Exam: alert & oriented x 3 with fluent speech, no focal motor/sensory deficits, gait normal Skin: No rashes STUDIES Latest Reference Range & Units 04/09/23 14:45 FEV1/FVC Actual Pre % 76 FVC Actual Pre L 4.55 FVC Actual Pre %Predict % 103 FEV1 Actual Pre L 3.45 FEV1 Actual Pre %Predict % 98 Mild obstructive lung disease. ASSESSMENT Kimberly Azevedo is an very pleasant 47 year old female presenting for initial pulmonary consult for evaluation of chronic cough. She is using Albuterol nebulizer BID, Advair BID, and prednisone taper. She still has cough, raspiness and dyspnea on exertion when going uphill. She woke up last night coughing excessively. She reports having dyspnea on exertion when walking upstairs or when coughing a lot. She reports coughing throughout the day with a barking type cough and stridor at times which she reports has improved. She reports waking up at night coughing. She denies having a productive cough. She reports wheezing only when she is coughing but that has also improved. She reports burning with deep breathing. She reports sinus congestion postnasal drip that is minimal. She reports epistaxis that happens frequently but she reports that this started before she was sick in January. She reports using nasal saline. She reports having allergies with changes seasons. She reports waking upgasping for air. She reports having history of scoliosis and S1 joint problems. She reports having e czema in the past associated with allergies or stress. She reports having history of Lyme disease from possible tick bite. She reports having bronchitis twice a year which has progressively been getting worse and every time she has a cold she needs to use her inhaler. Explained that she likely has reactive airway disease. She reports being vaccinated for flu, pneumonia, and COVID. She reports having COVID infection 2019 but was not hospitalized. She works around a lot of children and her children were sick in January. She reports that she was on Augmentin and a Z-Galileo. She reports that she is finishing up to steroid taper. She reports taking Advair and albuterol nebs. On assessment her lung sounds are clear. I suggested referral to ENT for further evaluation of her sinuses as this could besomething related. I have ordered labs to be completed 1st week of May. I changed nebulizer medication from albuterol to DuoNebs. We will obtain repeat PFT testing with complete. Smoking History: Nonsmoker. Smoked marijuana in the past. 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 No wood or coal burning stoves or furnaces. No mold in home but did in the past. No asbestos exposure. No chemical exposure. PFTs 04/09/23 Mild obstructive lung disease. Mild persistent asthma without complication Cough variant asthma Epistaxis, recurrent Gasping for breath (family history of STEVE) Family history of asthma PLAN/MEDICAL DECISION MAKING Recommended: - Obtain complete PFTs (Spriometry s/b Bronchodilator, Lung Volumes, DLCO) to check for COPD/ asthma/ obstructive vs restrictive lung disease. Ordered Albuterol neb for testing. - Obtain CBC w/ WBC Diff, RAST, and IgE testing. - Stop Albuterol nebs - Start Duonebs Q6H - ENT referral - Sleep Medicine referral for evaluation of STEVE, CSA, obesity hypoventilation syndrome, or other sleep disordered breathing. Return Visit in 3 months Patient instructed to contact office if symptoms worsen or to go the Emergency Department if experiences severe shortness of breath, chest pain or concerning symptoms. I spent a total of 40-54 minutes (exact time 40 mins) on the date of service in preparation, delivery, and documentation of the care provided to Kimberly Azevedo excluding any time spent in the performance of separately billed services. Kimberly Altamirano DNP Pulmonary Medicine 04/18/2023 8:11 AM documented in this encounter Nursing Notes * Marta Hines LPN - 04/18/2023 11:00 AM EST Patient identified by full name and date of New pulmonary patient No past medical history on file. Place of Employment: [employer] [facility] [address] [address] Per the [place] Dept of Health: Flu and pneumonia vaccine discussed with patient. Influenza vaccine received elsewhere Per the [place] Dept of Health: Flu and pneumonia vaccine discussed with patient. Pneumonia vaccine referred to primary care physician Patient has obtained 4 covid vaccines Patient denies hx of asthma COPD & steve. . . documented in this encounter Plan of Treatment Upcoming Encounters Date Type Department Care Team (Late st Contact Info) Description 05/27/2023 5:40 PM EST Office Visit Family Practice [facility] [address] [id number] Reva Samano MD [address] [address] 06/13/2023 1:00 PM EST Office Visit Sleep Disorders Ctr [facility] [address] [phone] Ada Velez DO [address] [address] 06/17/2023 1:00 PM EST Office Visit Otolaryngology/Head & Neck/Facial Plastic Surgery [address] [place] [address] Savanah Vazquez PA-C [address] [place] [address] 06/21/2023 4:00 PM EST Telemedicine Pulmonary Medicine, [facility] [address] [place] [address] Kimberly Altamirano, CHELSIE [address] [place] [address] 07/12/2023 9:30 AM EDT Office Visit Allergy/Immunology [facility] [address] [facility] [place] [address] Murray Erazo MD [address] [place] [address] 07/19/2023 4:00 PM EDT Office Visit Gynecology/Obstetics [place] [address] [place] [phone] Darwin Fajardo MD [address] [place] [address] Pending Results Name Type Priority Associated Diagnoses Date /Time LUNG VOLUMES (PLETHYSMOGRAPHY) Procedures Routine Mild persistent asthma without complication 04/18/2023 12:46 PM EST DIFFUSION CAPACITY (DLCO) Procedures Routine Mild persistent asthma without complication 04/18/2023 12:46 PM EST SPIROMETRY B/A BRONCHODILATOR Procedures Routine Mild persistent asthma without complication 04/18/2023 12:46 PM EST Scheduled Orders Name Type Priority Associated Diagnoses Orde r Schedule CBC WITH WBC DIFFERENTIAL Lab Routine Cough variant asthma Expected: 05/30/2023, Expires: 04/18/2024 [facility] PROFILE Lab Routine Cough variant asthma Expected: 05/30/2023, Expires: 04/18/2024 IGE Lab Routine Cough variant asthma Expected: 05/30/2023, Expires: 04/18/2024 Scheduled Procedures Name Priority Associated Diagnoses Date/Ti me COLONOSCOPY FLEXIBLE PROXIMA L DIAGNOSTIC Recall Special screening for malignant neoplasms, colon Scheduled Referrals Name Type Priority Associated Diagnoses Order Schedule SLEEP MEDICINE REFERRAL OP Referral Within 10 days (routine) Gasping for breath Ordered: 04/18/2023 OTOLARYNGOLOGY REFERRAL OP Referral Within 10 days (routine) Epistaxis, recurrent Ordered: 04/18/2023 Health Maintenance Due Date Last Done Comments [...] Procedure Name Priority Date/Time Associated Diagnosis Comments DIFFUSION CAPACITY (DLCO) Routine 2022 12:46 PM EST Mild persistent asthma without complication LUNG VOLUMES (PLETHYSMOGRAPHY) Routine 04/18/2023 12:46 PM EST Mild persistent asthma without complication SPIROMETRY B/A BRONCHODILATOR Routine 04/18/2023 12:46 PM EST Mild persistent asthma without complication documented in this encounter Visit Diagnoses Diagnosis Mild persistent asthma without complication- Primary Unspecified asthma Epistaxis, recurrent Epistaxis Gasping for breath Cough variant asthma documented in this encounter [...] and were consensually agreed upon. Care Teams Technical Specialist Cytogenetics Relationship Specialty Start Date End Date Reva Samano MD [address] [id number] PCP - General Internal Medicine 10/11/22 documented as of this encounter
--- OUTSIDE RECORDS SUMMARY | 2023-09-01 05:16 | External Medical Summary | Summary of Care ---
Author Name Unknown Organization [facility] Address [address] [facility] [place] [address] Phone [phone] Care Team Providers Care Police Guard Name Role Phone Mouna Samano MD Primary Care Provider Reason for Referral * Evaluate & Treat - Unlimited Visits (Within 30 days (routine)) - Pending Review Specialty Diagnoses / Procedures Referred By Shirley yee Referred To Contact Pulmonary Diseases / Pulmonary Diagnoses Chronic cough Murray Erazo MD [address] [place] [address] Referral ID Status Reason Start Date Expiration Date Visits Requested Visits Authorized [id number] Pending Review Specialty Services Required [phone] Question Answer Referral Priority Within 30 days (routine) Where should this appointment be scheduled? [facility] Primary Reason for Referral? Asthma/COPD Reason for Visit * Reason Comments Allergy New Pt * Evaluate & Treat - Unlimited Visits (Within 30 days (routine)) - Pending Review Specialty Diagnoses / Procedures Referred By Shirley yee Referred To Contact Allergy & Immunology Diagnoses Peanut allergy Mouna Samano MD [address] [place] [address] Referral ID Status Reason Start Date Expiration Date Visits Requested Visits Authorized [id number] Pending Review Specialty Services Required 12/19/[phone] Encounter Details Date Type Department Care Team (Late st Contact Info) Description 04/09/2023 2:00 PM EST Office Visit Allergy/Immunology Jeanie Barroso [place] [address] [facility] [place], [place] [address] Murray Erazo MD [address] [facility] [place] [address] Adverse food reaction, initial encounter*; Peanut-induced anaphylaxis, initial encounter; Allergy to tree nuts; Allergy to soy; Chronic cough; Nonallergic rhinitis; Seasonal allergic rhinitis due to pollen; Non-seasonal allergic rhinitis due to animal hair and dander Allergies Active Allergy Reactions Criticality Noted Date Comments Food (See Comments) High 12/21/2020 Peanuts including dust, tree nuts, soy Latex 12/21/2020 Hives Morphine Hives,Neuro complications (Please comment) 12/21/2020 Haughton "high" documented as of this encounter (statuses [...] Azithromycin 250 MG Oral Tablet (Zithromax Z-Galileo)Indications:Ac song cough Take two tablets by mouth on [...] Sign Reading Time Taken Comments Blood Pressure 128/84 04/09/2023 2:01 PM EST Pulse 79 04/09/2023 2:01 PM EST Temperature - - Respiratory Rate 16 04/09/2023 2:01 PM EST Oxygen Saturation - - Inhaled Oxygen Concentration - - Weight 82.1 kg (181 lb) 04/09/2023 2:01 PM EST Height - - Body Mass Index 25.97 04/08/2023 6:34 PM EST documented in this encounter Progress Notes * Murray Erazo MD - 04/09/2023 2:08 PM EST REASON FOR VISIT: Chief Complaint Patient presents with Allergy New Pt HPI: Kimberly is a pleasant 47-year-old female who presents to our office as a new patient after being referred by Mouna Samano MD for initial consultation of food allergies and chronic allergic rhinitis. The patient reports that she was diagnosed with a peanut allergy in February of 2011. Prior to then, she would rarely eat peanuts as peanuts would cause her to have headaches and occasional itchy mouth. However during this episode, she had organic fair trade peanuts and immediately had extreme coughing in addition to increased respiratory symptoms and throat swelling/fullness. She herself did not have an EpiPen but she borrowed an EpiPen from someone nearby. At that point she lived 45 minutes away from the closest emergency department and she needed her EpiPen twice prior to being seenin the emergency department. She states that this reaction occurred around 3-4 p.m. and she required other further treatment although it is unclear exactly what interventions were taken. She was hospi talized and did have a mild 2nd reaction 6-8 hours later which presented itself with mild shortnessof breath that required albuterol via the nebulizer. The next morning she was relatively back in her normal state of health until she had pancakes that included tree nut flower within it. Hence she had another reaction which required her to go to the ICU and eventually be transferred to an outside hospital in [place], [place]. There she was hospitalized for 1 week. [facility] enrolled in a trial that consisted of her receiving Xolair 150 mg every 4 weeks in addition to oral immunotherapy. She states that she wasin this trial for 7 months and this provided significant relief overall. Unfortunately her insurance no longer covered the Xolair injections so this had to be discontinued. She does occasionally still have reactions and has had 2 further hospitalizations in the past 10 years. Generally, she estimates that she has had 5 ER visits in addition to the hospitalizations in the past 5 years due to accidental ingestion. Her most recent reaction occurred in 2021 and was related more to being around peanuts and peanut dust as opposed to accidental ingestion. 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 Hence she does practice strict dietary avoidance of peanuts, tree nuts, and soy. She does have an EpiPen in his aware on how to use it. She presents today to assess whether there are other options for her. The patient also has a history of chronic allergic rhinitis which is triggered by pollen in addition to cats. She also has a history of nonallergic rhinitis which is primarily triggered by respiratory irritants such as smoke and other irritants overall. More recently over the last 2 months, she has been experiencing a chronic cough due to unclear reasons. She has been tested for several viral respiratory pathogens and the panels have always come back negative. She has been placed on 2 rounds of antibiotics without significant improvement. She has also been placed on 2 rounds of prednisone without much benefit. More recently, she was started on Advair Diskus 250/50 mcg 1 puff twice daily and this was just started yesterday. She does have albuterol to be used on an as needed basis. REVIEW OF SYSTEMS Skin: itching, hives Eyes: itching Bilateral, swelling Bilateral Ears/Nose/Throat: sneezing Respiratory: shortness of breath, cough, and wheezing Cardiovascular: negative Gastrointestinal: No history of heartburn, dyspepsia, or acid reflux disease. Genitourinary: negative Musculoskeletal: pt denies significant joint pain or stiffness Neurologic: negative Psychiatric: negative Hematologic/Lymphatic/Immunologic: negative Endocrine: negative Constitutional: none No past medical history on file. Past [...] performed by Kate Mantilla MD at OR [facility] EXC BREAST LESION RADMARK Left 10/03/2021 EXCISION OF BREAST LESION RADIOLOGICAL MARKER performed by Abner Mantilla MD at OR [facility] LAPAROSCOPY TOTAL HYSTX, UTERUS 250GM OR LESS TUBE/OVARY Bilateral 06/01/2022 LAPAROSCOPIC HYSTERECTOMY REMOVAL TUBES AND/OR OVARIES FOR UTERUS 250GM OR LESS performed by Darwin Fajardo MD at OR [facility] LAPAROSCOPY TOTAL HYSTX, UTERUS 250GM OR LESS TUBE/OVARY Bilateral 05/29/2022 LAPAROSCOPIC HYSTERECTOMY REMOVAL TUBES AND/OR OVARIES FOR UTERUS 250GM OR LESS performed by Kate Mantilla MD at [facility] MASTECTOMY, PARTIAL Left 10/03/2021 MASTECTOMY PARTIAL performed by Abner Mantilla MD at OR [facility] Current Outpatient Medications Medication Sig Dispense Refill [...] mouth daily at noon. 90 Tablet 3 Ibuprofen 800 MG Oral Tablet (Motrin) Take [...] as needed for Cough. 120 mL 0 Azithromycin 250 MG Oral Tablet (Zithromax Z-Galileo) Take two tablets by mouth on first day, then 1 tablet daily until gone 6 Tablet 0 EpiPen 2-Galileo 0.3 MG/0.3ML Injection Solution Auto-injector For a severe reaction: Place orange end against the outer thigh, press firmly, hold in place for 10 seconds and go to the Emergency room. 6 Each 0 predniSONE 20 MG Oral Tablet (Deltasone) Take 1 Tablet by mouth in the morning. 30 Tablet 0 No current facility-administered medications for this visit. 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 BP 128/84 (BP Site: Left Arm, BP Position: Sitting) | Pulse 79 | Resp 16 | Wt 82.1 kg (181 lb) | LMP 03/31/2021 (Approximate) | BMI 25.97 kg/m | BSA 2.01 m PHYSICAL EXAM: GENERAL: No acute distress. HEAD AND FACE: No sinus tenderness noted EYES: EOMI, PERRLA; Conjunctiva- normal; Eyelids - normal EARS: TM's - clear NOSE:Pale mucosa; mild turbinate edema; no nasal polyps or mucopus; Septum - normal OROPHARYNX: Teeth and gums - normal; Mild erythema, moderate cobblestoning; No lesions, exudates NECK: Supple; No thyroid enlargment or cervical adenopathy RESPIRATORY: Clear to A and P; No wheezes; Good air movement bilaterally; No intercostal retractions or accessory muscle use CARDIOVASCULAR: RRR; No gallops, rubs, clicks, or murmurs. GASTROINTESTINAL: Abdomen is soft and non-tender; BS - normal; No palpable masses or organomegaly LYMPHATIC: No significant adenopathy noted MUSCULOSKELETAL: No significant joint swelling, tenderness EXTREMITIES: No cyanosis, clubbing or peripheral edema SKIN: No evidence atopic dermatitis; no urticaria or angioedema; Normal skin quality NEUROLOGIC/PSYCHIATRIC: Mental status - Oriented x's 3; Mood and affect - normal OBJECTIVE DATA: 04/09/2023: Spirometry was performed in [...] due to animal hair and dander J30.81 In summary, Kimberly carries a diagnosis of [...] her severe systemic reactions in the past. Ten years ago, she did respond to what appears to be a combination of Xolair anti IgE injections and oral immunotherapy. There has been more recent studies come in out that has shown benefit of Xolair plus or minus oral immunotherapy for the treatment of peanut allergies and possibly multiple food allergies. Unfortunately Xolair has yet to be approved for food allergies but may be approved in thenear future and this very well could be a consideration for this patient. We did discuss the possible option of oral peanut immunotherapy with Palforzia. But in her case, wefeel that the risks outweigh the benefits overall given her history of severe systemic reactions with very little exposure. She may choose to contact a local academic center such as [facility] to gauge if there are any ongoing trials for peanut allergy or food allergies in general. In regards to the patient's recent cough, she will continue with Advair which was just initiated yesterday. She does have albuterol to be used on a as needed basis and is on her 2nd round of prednisone. She will also be referred to pulmonology for further evaluation. Should a diagnosis of asthma bemade and should she not respond to Advair, she may qualify for Xolair for moderate to severe asthmagiven her multiple urgent care/ER visits for respiratory symptoms. With her chronic cough, we will also be checking serum IgE levels to common environmental aeroallergens with her blood work. Avoidance measures will be further discussed pending the results of the blood work. Thank you very much for allowing myself to participate in the care of your patient. Please do not hesitate to contact our office should you have any questions or concerns. Murray Erazo MD Allergy/Immunology I spent a total of Greater than 55 mins (exact time 64 mins) on the date of service in preparation,delivery, and documentation of the care provided to [...] above.) PCP: MOUNA SAMANO [address] [place] [address] [phone] documented in this encounter Nursing Notes * Mylene Finley LPN - 04/09/2023 1:53 PM EST The pt has been properly identified by confirmation of name and date of . Pt presents as a new pt referred by Dr. Samano. documented in this encounter Plan of Treatment Upcoming Encounters Date Type Department Care Team (Late st Contact Info) Description 04/18/2023 11:00 AM EST Office Visit Pulmonary Medicine, [facility] [address] [place] [address] Kimberly Altamirano, CHELSIE [address] [place] [address] 05/27/2023 5:40 PM EST Office Visit [facility] [address] [place] [address] Mouna Samano MD [address] [place] [address] 07/12/2023 9:30 AM EDT Office Visit Allergy/Immunology [facility] [address] [place] [address] Murray Erazo MD [address] [place] [address] 07/19/2023 4:00 PM EDT Office Visit Gynecology/Obstetics [place] [address] [place] [address] Darwin Fajardo MD [address] [place] [address] Scheduled Orders Name Type Priority Associated Diagnoses Orde r Schedule IGE Lab Routine Adverse food reaction, initial encounter Peanut-induced anaphylaxis, initial encounter Chronic cough Allergy to tree nuts Allergy to soy Nonallergic rhinitis Seasonal allergic rhinitis due to pollen Non-seasonal allergic rhinitis due to animal hair and dander Expected: 04/09/2023, Expires: 04/09/2024 ALLERGEN NUT IGE PROFILE Lab Routine Adverse food reaction, initial encounter Allergy to tree nuts Expected: 04/09/2023, Expires: 04/09/2024 ALLERGEN SOYBEAN IGE Lab Routine Adverse food reaction, initial encounter Allergy to soy Expected: 04/09/2023, Expires: 04/09/[address] [facility] IGE PROFILE Lab Routine Chronic cough Nonallergic rhinitis Seasonal allergic rhinitis due to pollen Non-seasonal allergic rhinitis due to animal hair and dander Expected: 04/09/2023, Expires: 04/09/2024 Scheduled Procedures Name Priority Associated Diagnoses Date/Ti me COLONOSCOPY FLEXIBLE PROXIMA L DIAGNOSTIC Recall Special screening for malignant neoplasms, colon Scheduled Referrals Name Type Priority Associated Diagnoses Orde r Schedule PULMONARY REFERRAL OP Referral Within 30 days (routine) Chronic cough Ordered: 04/09/2023 Health Maintenance Due Date Last Done Comments [...] Procedure Name Priority Date/Time Associated Diagnosis Comments BASIC SPIROMETRY Routine 04/09/2023 2:45 PM EST Chronic cough documented in this encounter Results * BASIC SPIROMETRY (04/09/2023 2:45 PM EST) FVC Actual Pre 4.55 L GE[facility] NGER BREEZE FVC Actual Pre %Predict 103 % [facility] FEV1 Actual Pre 3.45 L JUAN QUINTEN BREEZE FEV1 Actual Pre %Predict 98 % [facility] FEV1/FVC Actual Pre 76 % [facility] FEF 25-75% Actual Pre 2.67 L/sec [facility] FEF 25-75% Actual Pre %Predict 79 % [facility] 04/09/2023 2:45 PM EST Narrative SYBIL WESTEZE - 04/09/2023 2:45 PM EST Although the FVC and FEV1 are within normal limits, the FEV1/FVC ratio is reduced.Conclusions:Pulmonary Function Diagnosis:Minimal Obstructive Airways Disease Murray Erazo MD MEDICINE SYBIL LAMAR documented in this encounter Visit Diagnoses Diagnosis Adverse food reaction, initial encounter- Primary Peanut-induced anaphylaxis, initial encounter Allergy to tree nuts Allergy to other foods Allergy to soy Allergy, unspecified not elsewhere classified Chronic cough Cough Nonallergic rhinitis Chronic rhinitis Seasonal allergic rhinitis due to pollen Non-seasonal allergic rhinitis due to animal hair and dander documented in this encounter Advance Directives Latest [...] and were consensually agreed upon. Care Teams Police Guard Relationship Specialty Start Date End Date Mouna Samano MD [address] [facility] [place] [address] PCP - General Internal Medicine 10/11/22 documented as of this encounter
--- OUTSIDE RECORDS SUMMARY | 2023-09-01 05:17 | External Medical Summary | Summary of Care ---
Author Name Unknown Organization [facility] Address [address] [facility] [place] [address] Phone [phone] Care Team Providers Care Demographer Name Role Phone Reva Samano MD Primary Care Provider Reason for Visit * Reason Onset Date Comments Patient Instructions 03/18/2023 colonoscopy Encounter Details Date Type Department Care Team (Late st Contact Info) Description 03/18/2023 Telephone OR [facility], Operating Room [facility] [address] [facility] [place] [address] Maria Luz Hernadez, RN Patient Instructions (colonoscopy) Allergies Active Allergy Reactions Criticality Noted Date Comments Food (See Comments) High 12/21/2020 Peanuts including dust, tree nuts, soy Latex 12/21/2020 Hives Morphine Hives,Neuro complications (Please comment) 12/21/2020 Helix "high" documented as of this encounter (statuses as of 03/25/2023) Medications Medication Sig Dispensed Refills Start Date [...] Emergency room. 6 Each 0 11/13/2022 Active Additional Information Patient not taking.Reported on 03/18/2023 Ibuprofen 800 MG Oral Tablet (Motrin)Indication s:Multiple joint pain Take 1 Tablet by mouth [...] AT BEDTIME 180 Capsule 1 02/04/2023 Active documented as of this encounter (statuses as of 03/25/2023) Active Problems Problem Noted Date Diagnosed Date [...] as of this encounter (statuses as of 03/25/2023) Resolved Problems Problem Noted Date Diagnosed Date Resolved Date Abnormal uterine bleeding 06/01/2022 Dysmenorrhea 12/21/2021 07/17/2022 Pelvic pain in female 12/21/20212022 Encounter for Pap smear of c ervix with HPV DNA cotesting 12/21/2021 02/20/2022 Adenomyosis 12/21/2021 07/17/2022 Eating disorder 06/09/2021 08/23/2021 History of abnormal cervical Pap smear 12/21/2020 07/17/2022 documented as of this encounter (statuses as of 03/25/2023) Immunizations Name Administration Dates Next Due COVID-19 [...] Upcoming Encounters Date Type Department Care Team (Latest Contact Info) Description 03/25/2023 3:20 PM EST Office Visit [facility] [address] [place] [address] Reva Samano MD [address] [place] [address] 03/26/2023 9:45 AM EST Hospital Encounter ENDO [facility], Endoscopy Room [facility] [address] [place] [phone] Elisabeth Kulkarni, [address] [place] [address] 03/26/2023 9:45 AM EST - 03/26/2023 10:15 AM EST Surgery ENDO [facility], Endoscopy Room [facility] [address] [place] [phone] Elisabeth Kulkarni, [address] [place] [address] COLONOSCOPY FLEXIBLE PROXIMAL DIAGNOSTIC 04/16/2023 4:00 PM EST Office Visit [facility] [address] [place] [phone] Paola Leo PA-C [address] [place] [address] 07/19/2023 4:00 PM EDT Office Visit Gynecology/Obstetic s [address] [phone] Darwin Fajardo MD [address] [place] [address] 07/30/2023 1:00 PM EDT Office Visit Allergy/Immunology [facility] [address] [place] [address] Murray Erazo MD [address] [place] [address] Scheduled Procedures Name Priority Associated Diagnoses Date/Ti me COLONOSCOPY FLEXIBLE PROXIMAL DIAGNOSTIC Special screening for malignant neoplasms, colon 03/26/2023 9:45 AM EST Health Maintenance Due Date Last Done Comments Hepatitis B (3 of 3 - 19+ [...] on patient's age to complete this topic Pneumococcal Vaccine: Pediatrics (0 to 5 Years) and At-Risk Patients (6 to 64 Years) Aged Out No longer eligible based on [...] and were consensually agreed upon. Care Teams Demographer Relationship Specialty Start Date End Date Reva Samano MD [address] [place] [address] PCP - General Internal Medicine 10/11/22 documented as of this encounter
--- OUTSIDE RECORDS SUMMARY | 2023-09-01 05:17 | External Medical Summary | Summary of Care ---
Author Name Unknown Organization [facility] Address [address] [facility] [place] [address] Phone [phone] Care Team Providers Care Workday Manager Name Role Phone Reva Samano MD Primary Care Provider Reason for Visit * Reason Comments Cough Other Post nasal drainage Encounter Details Date Type Department Care Team (Latest Contact Info) Description 04/02/2023 7:15 PM EST Convenient Care Visit [facility] [place] [address] [place] [address] Nathan Waterman PA-C [address] [place] [address] Cough variant asthma* Allergies Active Allergy Reactions Criticality Noted Date Comments Food (See Comments) High 12/21/2020 Peanuts including dust, tree nuts, soy Latex 12/21/2020 Hives Morphine Hives,Neuro complications (Please comment) 12/21/2020 [place] "high" documented as of this encounter (statuses as of 04/02/2023) Medications Medication Sig Dispensed Refills Start Date [...] 11/13/2022 Active Ibuprofen 800 MG Oral Tablet (Motrin)Indication s:Multiple [...] 04/02/2023 Active predniSONE 20 MG Oral Tablet (Deltasone)Indicat ions:Cough variant asthma Take 2 Tablets by mouth in the morning for 5 days. 10 Tablet 0 04/02/2023 04/07/2023 Active documented as of this encounter (statuses as of 04/02/2023) Active Problems Problem Noted Date Diagnosed Date [...] as of this encounter (statuses as of 04/02/2023) Resolved Problems Problem Noted Date Diagnosed Date Resolved Date Abnormal uterine bleeding 06/01/2022 Dysmenorrhea 12/21/2021 07/17/2022 Pelvic pain in female 12/21/20212022 Encounter for Pap smear of c ervix with HPV DNA cotesting 12/21/2021 02/20/2022 Adenomyosis 12/21/2021 07/17/2022 Eating disorder 06/09/2021 08/23/2021 History of abnormal cervical Pap smear 12/21/2020 07/17/2022 documented as of this encounter (statuses as of 04/02/2023) Immunizations Name Administration Dates Next Due COVID-19 [...] Sign Reading Time Taken Comments Blood Pressure 114/72 04/02/2023 5:39 PM EST Pulse 75 04/02/2023 5:39 PM EST Temperature 36.9 C (98.5 F) 04/02/2023 5:39 PM ES T Respiratory Rate 20 04/02/2023 5:39 PM EST Oxygen Saturation 100% 04/02/2023 5:39 PM EST Inhaled Oxygen Concentration - - Weight 81.2 kg (179 lb) 04/02/2023 5:39 PM EST Height - - Body Mass Index 25.68 03/25/2023 3:13 PM EST documented in this encounter Progress Notes * Nathan Waterman PA-C - 04/02/2023 5:45 PM EST Con[facility]ient Care Basic Exam Kimberly Azevedo is a 47 year old year old female who presents for evaluation of Ongoing cough and PND that started middle of January. Tried Mucinex, Advil cold, Dayquil Review of Systems Constitutional: Negative. HENT: Positive for congestion. Eyes: Negative. Respiratory: Positive for cough. Cardiovascular: Negative. Gastrointestinal: Negative. Endocrine: Negative. Genitourinary: Negative. Musculoskeletal: Negative. Skin: Negative. Allergic/Immunologic: Negative. Neurological: Negative. Hematological: Negative. Psychiatric/Behavioral: Negative. PAST MEDICAL HISTORY: No past medical history on file. Past [...] performed by Kate Mantilla MD at OR [facility] EXC BREAST LESION RADMARK Left 10/03/2021 EXCISION OF BREAST LESION RADIOLOGICAL MARKER performed by Abner Mantilla MD at OR [facility] LAPAROSCOPY TOTAL HYSTX, UTERUS 250GM OR LESS TUBE/OVARY Bilateral 06/01/2022 LAPAROSCOPIC HYSTERECTOMY REMOVAL TUBES AND/OR OVARIES FOR UTERUS 250GM OR LESS performed by Darwin Fajardo MD at OR [facility] LAPAROSCOPY TOTAL HYSTX, UTERUS 250GM OR LESS TUBE/OVARY Bilateral 05/29/2022 LAPAROSCOPIC HYSTERECTOMY REMOVAL TUBES AND/OR OVARIES FOR UTERUS 250GM OR LESS performed by Kate Mantilla MD at OR [facility] MASTECTOMY, PARTIAL Left 10/03/2021 MASTECTOMY PARTIAL performed by Abner Mantilla MD at OR [facility] Social History Tobacco Use Smoking status: Never Smokeless tobacco: Never Substance Use Topics Alcohol use: Not Currently Comment: socially Vaping/E-Cigarette Use Vaping/E-Cigarette Use Never User Vaping/E-Cigarette Substances Vaping/E-Cigarette Devices Patient Active Problem List Diagnosis Code RACHID (generalized anxiety disorder) F41.1 History of anaphylaxis Z87.892 Peanut allergy Z91.010 Sleep disorder G47.9 Anorexia nervosa, restricting type F50.01 Breast calcifications on mammogram R92.1 Dysplasia of cervix, high grade SHERICE 2 N87.1 History of Lyme disease Z86.19 Multiple joint pain M25.50 Review of patient's allergies indicates: Allergen Reactions Food (See Comments) Peanuts including dust, tree nuts, soy Latex Hives Morphine Hives and Neuro complications (Please comment) [place] "high" Current Outpatient Medications Medication Sig Dispense Refill [...] morning for 5 days. 10 Tablet 0 No current facility-administered medications for this visit. Nursing Notes and Vital Signs reviewed. BP 114/72 | Pulse 75 | Temp 36.9 C (98.5 F) (Tympanic) | Resp 20 | Wt 81.2 kg (179 lb) | LMP 03/31/2021 (Approximate) | SpO2 100% | BMI 25.68 kg/m | BSA 2 m Physical Exam Constitutional: Appearance: Normal appearance. She is normal weight. HENT: Head: Normocephalic and atraumatic. Right Ear: Ear canal and external ear normal. A middle ear effusion is present. Left Ear: Ear canal and external ear normal. A middle ear effusion is present. Nose: Congestion present. Mouth/Throat: Pharynx: Oropharynx is clear. Eyes: Extraocular Movements: Extraocular movements intact. Cardiovascular: Rate and Rhythm: Normal rate and regular rhythm. Pulses: Normal pulses. Heart sounds: Normal heart sounds. Pulmonary: Effort: Pulmonary effort is normal. Breath sounds: Normal breath sounds. Musculoskeletal: General: Normal range of motion. Cervical back: Normal range of motion and neck supple. Skin: General: Skin is warm. Neurological: General: No focal deficit present. Mental Status: She is alert and oriented to person, place, and time. Mental status is at baseline. Psychiatric: Mood and Affect: Mood normal. Behavior: Behavior normal. Thought Content: Thought content normal. Judgment: Judgment normal. ASSESSMENT: Cough variant asthma (Primary) - Ventolin HFA 108 (90 Base) MCG/ACT Inhalation Aerosol Solution; Inhale 2 Puffs by mouth every 4 hours as needed for Wheezing. - predniSONE 20 MG Oral Tablet (Deltasone); Take 2 Tablets by mouth in the morning for 5 days. - Cont tessalon Perles - Tylenol PRN Follow Up: Return if symptoms worsen or fail to improve, for Clinic Visit. | For: Clinic Visit Nathan Waterman PA-C [address] [phone] documented in this encounter Nursing Notes * Ni Mcnair LPN - 04/02/2023 5:41 PM EST Kimberly Azevedo is a 47 year old female who presents to walk-in clinic today complaining of Chief Complaint Patient presents with Cough Other Post nasal drainage Main Symptoms: Patient presents today for ongoing cough and post nasal drainage that won't go away that started the middle of January. Tried: Mucinex, Advil Cold Severe, Day Quil OTC Pt accompanied by: self documented in this encounter Plan of Treatment Upcoming Encounters Date Type Department Care Team (Late st Contact Info) Description 04/09/2023 2:00 PM EST Office Visit Allergy/Immunology [facility] [address] [facility] [place] [address] Murray Erazo MD [address] [facility] [place] [address] 05/27/2023 5:40 PM EST Office Visit Family Practice [facility] [address] [place] [address] Reva Samano MD [address] [place] [address] 07/19/2023 4:00 PM EDT Office Visit Gynecology/Obstetics [address] [place] [address] Darwin Fajardo MD [address] [place], [place] [address], [place] [address] Scheduled Procedures Name Priority Associated Diagnoses Date/Ti [...] as of this encounter Visit Diagnoses Diagnosis Cough variant asthma- Primary documented in this encounter Advance Directives [...] and were consensually agreed upon. Care Teams Workday Manager Relationship Specialty Start Date End Date Reva Samano MD [address] [place] [address] PCP - General Internal Medicine 10/11/22 documented as of this encounter
--- OUTSIDE RECORDS SUMMARY | 2023-09-01 05:17 | External Medical Summary | Summary of Care ---
Author Name Unknown Organization [facility] Address [address] [facility] [place] [address] Phone [phone] Care Team Providers Care Patrol Agent Name Role Phone Reva Samano MD Primary Care Provider Reason for Visit * Reason Onset Date Comments Surgery Procedure Cancelled 03/25/2023 Encounter Details Date Type Department Care Team (Late st Contact Info) Description 03/25/2023 Telephone Gastroenterology, [facility] [address] [place] [address] Elisabeth Kulkarni DO [address] [place] [address] Surgery Procedure Cancelled Allergies Active Allergy Reactions Criticality Noted Date Comments Food (See Comments) High 12/21/2020 Peanuts including dust, tree nuts, soy Latex 12/21/2020 Hives Morphine Hives,Neuro complications (Please comment) 12/21/2020 [place] "high" documented as of this encounter (statuses [...] encounter Miscellaneous Notes * Telephone Encounter - Zheng Diaz OSA - 03/25/2023 12:42 PM EST Called pt to reschedule, no answer and unable to leave VM * Telephone Encounter - Nahomi Lerma OSA - 03/25/2023 8:30 AM EST Pt called, she needs to cancel proc for tomorrow due to being ill. Someone needs to call her back to reschedule. documented in this encounter Plan of Treatment Upcoming Encounters Date Type Department Care Team (Late st Contact Info) Description 03/25/2023 3:20 PM EST Office Visit [facility] [address] [facility] [place] [address] Reva Samano MD [address] [facility] [place] [address] 04/16/2023 4:00 PM EST Office Visit [facility] [address] [place] [phone] Paola Leo PA-C [address] [place] [address] 07/19/2023 4:00 PM EDT Office Visit Gynecology/Obstetics [address] [phone] Darwin Fajardo MD [address] [place] [address] 07/30/2023 1:00 PM EDT Office Visit Allergy/Immunology [facility] [address] [place] [address] Murray Erazo MD [address] [place] [address] [place] [address] Scheduled Procedures Name Priority Associated Diagnoses Date/Ti me COLONOSCOPY FLEXIBLE PROXIMA L DIAGNOSTIC Special screening for malignant neoplasms, colon Health [...] and were consensually agreed upon. Care Teams Patrol Agent Relationship Specialty Start Date End Date Reva Samano MD [address] [place] [address] PCP - General Internal Medicine 10/11/22 documented as of this encounter
--- OUTSIDE RECORDS SUMMARY | 2023-09-01 05:17 | External Medical Summary | Summary of Care ---
Author Name Unknown Organization [facility] Address [address] [facility] [place] [address] Phone [phone] Care Team Providers Care Web Page Developer Name Role Phone Reva Samano MD Primary Care Provider Reason for Visit * Reason Comments Follow Up Pt here for a 3m f/u Encounter Details Date Type Department Care Team (Late st Contact Info) Description 03/25/2023 3:20 PM EST Office Visit Family Practice [facility] [address] [facility] [place] [address] Reva Samano MD [address] [place] [address] Anorexia nervosa, restricting type*; RACHID (generalized anxiety disorder); PTSD (post-traumatic stress disorder) Allergies Active Allergy Reactions Criticality Noted Date Comments Food (See Comments) High 12/21/2020 Peanuts including dust, tree nuts, soy Latex 12/21/2020 Hives Morphine Hives,Neuro complications (Please comment) 12/21/2020 [place] "high" documented as of this encounter (statuses as of 03/25/2023) Medications Medication Sig Dispensed Refills Start Date End Date Status Triamcinolone Acetonide 0.1 % External Cream (Aristocort)Indicat ions:Keratosis pilaris Apply topically to affected area 2 times a day. To affected area. 80 g 2 06/28/2022 Active LORazepam 1 MG Oral Tablet (Ativan)Indications :RACHID (generalized anxiety disorder),Sleep disorder Take 1 Tablet by mouth daily as needed for Anxiety or Sleep. 30 Tablet 0 11/08/2022 Active Escitalopram Oxalate 10 MG Oral Tablet (Lexapro)Indication s:RACHID (generalized anxiety disorder) Take 1 Tablet by mouth daily at noon. 90 Tablet 3 11/13/2022 Active EpiPen 2-Galileo 0.3 MG/0.3ML Injection Solution Auto-injectorIndica tions:History of anaphylaxis,Peanut allergy For a severe reaction: Place orange end against the outer thigh, press firmly, hold in place for 10 seconds and go to the Emergency room. 6 Each 0 11/13/2022 Active Ibuprofen 800 MG Oral Tablet (Motrin)Indications :Multiple joint pain Take 1 Tablet by mouth in the morning and 1 Tablet at noon and 1 Tablet before bedtime. with food for pain. 30 Tablet 1 12/19/2022 Active busPIRone HCl 15 MG Oral Tablet (Buspar)Indications :RACHID (generalized anxiety disorder) TAKE 1 TABLET IN THE MORNING AND 1 TABLET BEFORE BEDTIME 180 Tablet 3 02/04/2023 Active Prazosin HCl 1 MG Oral Capsule (Minipress)Indicati ons:PTSD (post-traumatic stress disorder) TAKE 2 CAPSULES AT [...] Sign Reading Time Taken Comments Blood Pressure 118/72 03/25/2023 3:13 PM EST Pulse 72 03/25/2023 3:13 PM EST Temperature 37.2 C (98.9 F) 03/25/2023 3:13 PM ES T Respiratory Rate 16 03/25/2023 3:13 PM EST Oxygen Saturation 98% 03/25/2023 3:13 PM EST Inhaled Oxygen Concentration - - Weight 81.9 kg (180 lb 9.6 oz) 03/25/2023 3:13 P M EST Height 177.8 cm (5' 10") 03/25/2023 3:13 PM EST Body Mass Index 25.91 03/25/2023 3:13 PM EST documented in this encounter Patient Instructions * Patient Instructions* Reva Samano MD - 03/25/2023 3:54 PM EST Light Box: -- largest you will use (at least size of iPad), place 18" from your face -- 10,000 lumens white light -- UVA/UVB filter to prevent cataracts -- 20-30min daily in AM. Have light shining towards your face, you do not have to look directly at it. -- many options to purchase online -- start when the days get shorter, usually mid February Consider journaling to better process emotions and understand processes driving exercise. Let me know if want higher dose of prazosin for nightmares. Consider Yoga with Brenda in evening for bedtime ritual. Consider trying meditation with Calm. documented in this encounter Progress Notes * Reva Samano MD - 03/25/2023 3:26 PM EST Images from the original note were not included. History of Present Illness Kimberly Azevedo is a 47 year old female that presents for Follow Up (Pt here for a 3m f/u) Peanut allergy - Has appointment with Dr. Erazo in July. Has not needed to use EpiPen. Anorexia/mood - Starting with body image issues now that she is at a healthy weight. Not currently seeing therapistdue to some scheduling issues. Has missed 3 meals in the past few weeks. Going to the gym, a lot ofthe motivation is to lose weight or tone her body. Overall feels like she is doing a better job feeding her body. Plans to buy clothes that fit better now that she is at a good weight. Wants to work on self management strategies. Nightmares reasonably controlled on prazosin. Cigar Head Piercer appointment in June Breast cancer screening - normal mammogram 01/2022 medication and allergy list reviewed Past medical history and problem list reviewed Physical Exam Vitals: 03/25/23 1513 Temp: 37.2 C (98.9 F) Pulse: 72 Resp: 16 SpO2: 98% BP: 118/72 BMI: 25.91 Wt Readings from Last 3 Encounters: 03/25/23 81.9 kg (180 lb 9.6 oz) 12/19/22 80.6 kg (177 lb 12.8 oz) 10/15/22 78.8 kg (173 lb 12.8 oz) Pulse Readings from Last 3 Encounters: 03/25/23 72 03/15/23 65 03/04/23 71 BP Readings from Last 3 Encounters: 03/25/23 118/72 03/15/23 121/74 03/04/23 152/93 Physical Exam Vitals and nursing note reviewed. Constitutional: Appearance: Normal appearance. She is not ill-appearing. Neurological: Mental Status: She is alert. Psychiatric: Mood and Affect: Mood normal. Behavior: Behavior normal. I have reviewed the following results: CMP, Lipid Panel, TSH, CBC, B12, and 25- Hydroxy Vit D Assessment and Plan Anorexia nervosa, restricting type RACHID (generalized anxiety disorder) PTSD (post-traumatic stress disorder) Continue current medication regimen. Has dip in mood with the winter, consider a light box. Discussed how to approach exercise and some self-management strategies that should help. Encouraged her to reach out to her therapist to reestablish if needed. Has some difficult upcoming anniversaries. Patient Instructions Light Box: -- largest you will use (at least size of iPad), place 18" from your face -- 10,000 lumens white light -- UVA/UVB filter to prevent cataracts -- 20-30min daily in AM. Have light shining towards your face, you do not have to look directly at it. -- many options to purchase online -- start when the days get shorter, usually mid February Consider journaling to better process emotions and understand processes driving exercise. Let me know if want higher dose of prazosin for nightmares. Consider Yoga with Brenda in evening for bedtime ritual. Consider trying meditation with Calm. Wrap-Up Follow Up: Return in about 3 months (around 06/25/2023) for Return with Selwyn. | For: Return with [facility]wyn Time: I spent a total of 30-39 minutes (exact time 31 mins) on the date of service in preparation, delivery, and documentation of the care provided to Kimberly Azevedo excluding any time spent in the performance of separately billed services. documented in this encounter Plan of Treatment Upcoming Encounters Date Type Department Care Team ([facility] Contact Info) Description 04/16/2023 4:00 PM EST Office Visit [facility] [address] [place] [phone] Paola Leo PA-C [address] [place] [address] 05/27/2023 5:40 PM EST [facility] [address] [facility]a [facility] [address] [facility] [address] 07/19/2023 4:00 PM EDT Office Visit Gynecology/Obstetics [place] [address] [place] [phone] Darwin Fajardo MD [address] [place] [address] 07/30/2023 1:00 PM EDT Office Visit Allergy/Immunology [facility] [address] [place] [address] Murray Erazo MD [address] [place] [address] Scheduled Procedures Name Priority Associated Diagnoses Date/Ti [...] and were consensually agreed upon. Care Teams Web Page Developer Relationship Specialty Start Date End Date Reva Samano MD [address] [place] [address] PCP - General Internal Medicine 10/11/22 documented as of this encounter
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
--- OUTSIDE RECORDS SUMMARY | 2023-09-01 05:17 | External Medical Summary ---
Author Name Unknown Address Unknown Organization [id number]:[facility] [address] [facility] [address] Laboratory Report Ordering Provider Test Date Status GAIL CHAPPELL 03/04/2023 16:50:04 Final Observation Date Value Abnormality Reference (Units ) Status SARS Coronavirus 2 03/04/2023 16:50:04 Negative N egative Final No SARS-CoV2 Coronavirus RNA detected by PCR (amplified probe).
This automated test was developed and its performance characteristics determined by [facility]. It has not been cleared or approved [...] SARS-CoV-2 diagnosis, surveillance, and travel within the [place] and to most countries. Please check with local testing authorities about requirements before travel.

The validation of bronchial specimens, tracheal aspirates, and sputum for this assay was developed and performance characteristics determined by [facility]. The validation of alternate specimen types has not been cleared or approved by the U.S. Food and Drug Administration (FDA). It has been determined that such clearance or approval is not necessary. Influenza virus A RNA [Prese nce] in Specimen by RUSSELL with probe detection 03/04/2023 16:50:04 Negative Negative Final No Influenza A RNA detected by PCR (amplified probe) Influenza virus B RNA [Prese nce] in Specimen by RUSSELL with probe detection 03/04/2023 16:50:04 Negative Negative Final No Influenza B RNA detected by PCR (amplified probe) Respiratory syncytial virus RNA [Identifier] in Specimen by RUSSELL with probe detection 03/04/2023 16:50:04 Negative Negative Final No Respiratory Syncytial Vir us RNA detected by PCR (amplified probe) Performing Location [facility]ORY [place] [address] [address] [facility] [address]
--- OUTSIDE RECORDS SUMMARY | 2023-09-01 05:17 | External Medical Summary | Summary of Care ---
Author Name Unknown Organization [facility] Address [address] [facility] [place] [address] Phone [phone] Care Team Providers Care Marketing Communications Coordinator Name Role Phone Reva Samano MD Primary Care Provider Reason for Visit * Reason Comments Cold Symptoms Seen here middle of January for a virus. Pt. Got a little better and now knocked back down again. Pt. Concerned she has something that is hanging on and just keeps making her sick. No fevers. Seems to be a sinus, cough with wheezing issue. Also has sore throat. Occas. Headaches. Was achy and tired. Developed laryngitis for 1st time . Encounter Details Date Type Department Care Team (Latest Contact Info) Description 03/15/2023 3:55 PM EST [facility] [place] [address] Lina Hyatt PA-C [address] [place] [phone] Acute non-recurrent maxillary sinusitis* Allergies Active Allergy Reactions Criticality Noted Date Comments Food (See Comments) High 12/21/2020 Peanuts including dust, tree nuts, soy Latex 12/21/2020 Hives Morphine Hives,Neuro complications (Please comment) 12/21/2020 [place] "high" documented as of this encounter (statuses as of 03/15/2023) Medications Medication Sig Dispensed Refills Start Date [...] AT BEDTIME 180 Capsule 1 02/04/2023 Active Amoxicillin-Pot Clavulanate 875-125 MG Oral Tablet (Augmentin) Take 1 Tablet by mouth in the morning and 1 Tablet before bedtime. Do all this for 7 days. 14 Tablet 0 03/15/2023 03/22/2023 Active documented as of this encounter (statuses as of 03/15/2023) Active Problems Problem Noted Date Diagnosed Date [...] as of this encounter (statuses as of 03/15/2023) Resolved Problems Problem Noted Date Diagnosed Date Resolved Date Abnormal uterine bleeding 06/01/2022 Dysmenorrhea 12/21/2021 07/17/2022 Pelvic pain in female 12/21/20212022 Encounter for Pap smear of c ervix with HPV DNA cotesting 12/21/2021 02/20/2022 Adenomyosis 12/21/2021 07/17/2022 Eating disorder 06/09/2021 08/23/2021 History of abnormal cervical Pap smear 12/21/2020 07/17/2022 documented as of this encounter (statuses as of 03/15/2023) Immunizations Name Administration Dates Next Due COVID-19 [...] Sign Reading Time Taken Comments Blood Pressure 121/74 03/15/2023 4:42 PM EST Pulse 65 03/15/2023 4:42 PM EST Temperature 36.7 C (98.1 F) 03/15/2023 4:42 PM ES T Respiratory Rate 16 03/15/2023 4:42 PM EST Oxygen Saturation 98% 03/15/2023 4:42 PM EST Inhaled Oxygen Concentration - - Weight - - Height - - Body Mass Index - - documented in this encounter Progress Notes * Lina Hyatt PA-C - 03/15/2023 4:57 PM EST [facility] Basic Exam Kimberly Azevedo is a 47 year old year old female who presents for evaluation of cough, congestion, sinus pressure x 1 month. Patient was seen here in Jan and given Rx or antibiotic in case her sx did not improve. She started to get better, but then got worse again. She tried to fill the Rx but it has , so she continued OTC meds trying to wait it out. Using mucinex and other supportive measures without relief. Now going on over a month. Sx have waxed and waned, but she has never fully recovered. C/o sinus pressure, drainage, headache, and nagging cough. Also c/o mild intermittent wheezing. Review of Systems Constitutional: Negative for chills and fever. HENT: Positive for congestion, postnasal drip, sinus pressure and sinus pain. Negative for sore throat. Respiratory: Positive for cough and wheezing. Negative for shortness of breath. Cardiovascular: Negative for chest pain. Gastrointestinal: Negative for nausea and vomiting. PAST MEDICAL HISTORY: No past medical history [...] performed by Kate Mantilla MD at OR [facility] EXC BREAST LESION RADMARK Left 10/03/2021 EXCISION OF BREAST LESION RADIOLOGICAL MARKER performed by Abner Mantilla MD at OR [facility] LAPAROSCOPY TOTAL HYSTX, UTERUS 250GM OR LESS TUBE/OVARY Bilateral 06/01/2022 LAPAROSCOPIC HYSTERECTOMY REMOVAL TUBES AND/OR OVARIES FOR UTERUS 250GM OR LESS performed by Darwin Fajardo MD at OR [facility] LAPAROSCOPY TOTAL HYSTX, UTERUS 250GM OR LESS TUBE/OVARY Bilateral 05/29/2022 LAPAROSCOPIC HYSTERECTOMY REMOVAL TUBES AND/OR OVARIES FOR UTERUS 250GM OR LESS performed by Kate Mantilla MD at [facility] MASTECTOMY, PARTIAL Left 10/03/2021 MASTECTOMY PARTIAL performed by Abner Mantilla MD at OR [facility] Social History Tobacco Use Smoking status: [...] Morphine Hives and Neuro complications (Please comment) [place] "high" Current Outpatient Medications Medication Sig Dispense [...] 2 CAPSULES AT BEDTIME 180 Capsule 1 Amoxicillin-Pot Clavulanate 875-125 MG Oral Tablet (Augmentin) Take 1 Tablet by mouth in the morning and 1 Tablet before bedtime. Do all this for 7 days. 14 Tablet 0 No current facility-administered medications for this visit. Nursing Notes and Vital Signs reviewed. BP 121/74 | Pulse 65 | Temp 36.7 C (98.1 F) (Skin) | Resp 16 | LMP 03/31/2021 (Approximate) | SpO2 98% Physical Exam Constitutional: Appearance: Normal appearance. HENT: Head: Normocephalic and atraumatic. Right Ear: Tympanic membrane, ear canal and external ear normal. Left Ear: Tympanic membrane, ear canal and external ear normal. Nose: Congestion present. No rhinorrhea. Mouth/Throat: Mouth: Mucous membranes are moist. Pharynx: Oropharynx is clear. No oropharyngeal exudate or posterior oropharyngeal erythema. Eyes: Extraocular Movements: Extraocular movements intact. Pupils: Pupils are equal, round, and reactive to light. Cardiovascular: Rate and Rhythm: Normal rate and regular rhythm. Pulmonary: Effort: Pulmonary effort is normal. Breath sounds: Normal breath sounds. Abdominal: General: Abdomen is flat. Bowel sounds are normal. Palpations: Abdomen is soft. Skin: Capillary Refill: Capillary refill takes less than 2 seconds. Neurological: General: No focal deficit present. Mental Status: She is alert and oriented to person, place, and time. Psychiatric: Mood and Affect: Mood normal. ASSESSMENT: Acute non-recurrent maxillary sinusitis (Primary) Other orders - Amoxicillin-Pot Clavulanate 875-125 MG Oral Tablet (Augmentin); Take 1 Tablet by mouth in the morning and 1 Tablet before bedtime. Do all this for 7 days. Follow Up: Return if symptoms worsen or fail to improve, for Clinic Visit. | For: Clinic Visit Lina Hyatt PA-C Replaced By [facility] [place] [facility] [place] [phone] documented in this encounter Nursing Notes * Asuncion Muñoz RN - 03/15/2023 4:41 PM EST Nursing Notes: CC: Chief Complaint Patient presents with Cold Symptoms Seen here middle of January for a virus. Pt. Got a little better and now knocked back down again. Pt. Concerned she has something that is hanging on and just keeps making her sick. No fevers. Seems to be a sinus, cough with wheezing issue. Also has sore throat. Occas. Headaches. Was achy and tired.Developed laryngitis for 1st time . Brief Hx: symptoms intermittently occurring since mid January. 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 Duration/Onset: symptoms worsened since Saturday OTC meds: mucinex. ibuprofen Accompanied by: self documented in this encounter Plan of Treatment Upcoming Encounters Date Type Department Care Team (Latest Contact Info) Description 03/25/2023 3:20 PM EST [facility] [place] [address] Reva Samano MD [address] [place] [address] 03/26/2023 11:00 AM EST Hospital Encounter ENDO [facility], Endoscopy Room [facility] [address] [place], [place] [phone] Elisabeth Kulkarni, DO [address] [place] [address] 03/26/2023 11:00 AM EST - 03/26/2023 11:30 AM EST Surgery ENDO [facility], Endoscopy Room [facility] [address] [place] [phone] Elisabeth Kulkarni, DO [address] [place] [address] COLONOSCOPY FLEXIBLE PROXIMAL DIAGNOSTIC 04/16/2023 4:00 PM EST Office Visit [address] [phone] Paola Leo PA-C [address] [place] [address] 07/19/2023 4:00 PM EDT Office Visit Gynecology/Obstetic s [address] [phone] Darwin Fajardo MD [address] [place] [phone] 07/26/2023 10:00 AM EDT Office Visit Allergy/Immunology [facility] [place] [address] [facility] [place] [address] Murray Erazo MD [address] [facility] [place] [address] Scheduled Procedures Name Priority Associated Diagnoses Date/Ti [...] of this encounter Visit Diagnoses Diagnosis Acute non-recurrent maxillary sinusitis- Primary Special screening for malignant neoplasms, colon documented [...] and were consensually agreed upon. Care Teams Marketing Communications Coordinator Relationship Specialty Start Date End Date Reva Samano MD [address] [place] [address] PCP - General Internal Medicine 10/11/22 documented as of this encounter
--- NOTE | 2023-09-01 21:26 | Electrocardiogram Report ---
Test Reason : Blood Pressure : / mmHG Vent. Rate : 104 BPM Atrial Rate : 105 BPM P-R Int : 130 ms QRS Dur : 092 ms QT Int : 372 ms P-R-T Axes : 050 026 025 degrees QTc Int : 489 ms Sinus tachycardia Nonspecific T wave abnormality Abnormal ECG No previous ECGs available Confirmed by Ryan Bennett ([id number]) on 09/01/2023 9:26:04 PM Referred By: Confirmed By:Ryan Bennett
== END 2023-08-30 13:09 | disposition home or self-care (01) | DRG 916 ==
LOC: ED 14:31 → SUATTDRO 16:37 → 4W 16:37